=== PATIENT | female | born 1940 | race Caucasian/White ===

== ENCOUNTER 2021-04-14 16:41 | Emergency (ER) | payer MEDICARE, SELFPAY ==
--- NOTE | ~2021-04-14 | CT_ITS ---
EXAMINATION: CT ANGIOGRAM NECK AND HEAD CLINICAL INFORMATION: Dysarthria COMPARISON: Noncontrast head CT from earlier today TECHNIQUE: Test bolus sequences followed by intravenous administration 70 mL of Omnipaque 350. Helical imaging was performed in the axial plane from the thoracic inlet to the skull vertex. Delayed postcontrast imaging of the head was also performed. The data was processed at the manufacturing technologist's workstation for generation of MIP sequences. Angled MIPs and volume rendered reformatted images were also generated at an offline 3D workstation. Stenoses are assessed in accordance with NASCET criteria unless otherwise indicated. DOSE LOWERING TECHNIQUES: This CT examination was performed using dose optimization techniques as appropriate, variously including the following: - Automated exposure control - Adjustment of mA and/or kV according to patient size (this includes techniques or standardized protocols for targeted exams were dose is matched to indication/reason for exam; i.e. extremities or head) - Use of iterative reconstruction technique DLP: 1447 mGy-cm FINDINGS: Neck CTA: There is a classic 3 vessel branching pattern of the aortic arch. Normal appearance of the visualized aortic arch and proximal branches. No evidence of stenosis at the branch origins. Both vertebral arteries are widely patent throughout their extracranial cervical course, and the left vertebral artery is dominant. Normal appearance of the common and internal carotid arteries without focal stenosis. Brain CTA: Bilateral intradural vertebral arteries are opacified. The right vertebral artery appears to predominantly end in PICA. The basilar and superior cerebellar arteries are patent. There is origin of the bilateral posterior cerebral arteries which are opacified. Normal appearance of the intradural internal carotid arteries without focal stenosis. Normal appearance of the anterior cerebral and middle cerebral arteries without focal occlusion or stenosis. Normal anterior communicating artery. Normal arborization of the middle cerebral arteries. CT Head: No intracranial mass, hemorrhage, extra-axial collection, or midline shift. The arzola-white matter differentiation is preserved. There is mild periventricular white matter hypoattenuation consistent with chronic small vessel ischemic disease. No pathologic intra-axial enhancement or regional oligemia. No hydrocephalus. The mastoid air cells and paranasal sinuses remain well aerated. CT Neck: The cervical soft tissues are normal in appearance. There are scattered degenerative changes in the cervical spine with disc space narrowing and endplate osteophyte formation. Upper Chest: No abnormalities in the visualized lung apices or upper mediastinum. CT/CT angio head neck IMPRESSION: No hemodynamically significant stenosis in the major arteries of the neck. No large vessel occlusion or significant stenosis in the intracranial circulation.
--- NOTE | ~2021-04-14 | CT_ITS ---
EXAMINATION: CT HEAD WITHOUT CONTRAST CLINICAL INFORMATION: Transient ischemic attack, dysarthria. COMPARISON: None. TECHNIQUE: Contiguous axial imaging was performed from the skull base to vertex without intravenous administration of contrast. This CT examination was performed using dose optimization techniques as appropriate, variously including the following: *Automated exposure control *Adjustment of mA and/or kV according to patient size (this includes techniques or standardized protocols for targeted exams where dose is matched to indication/reason for exam; i.e. extremities or head) *Use of iterative reconstruction technique DLP: 593 mGy-cm FINDINGS: There is no evidence of acute intracranial hemorrhage or edematous territorial infarction. A few foci of hypoattenuation in the periventricular and deep white matter are consistent with mild microangiopathy. García-white matter differentiation is preserved. Proportional prominence of the ventricles and sulcal spaces. No evidence for obstructive hydrocephalus. No abnormal mass effect or midline shift. No extra-axial fluid collections. No acute soft tissue or osseous abnormalities. The mastoid air cells and paranasal sinuses are clear. CT/CT head/brain wo con IMPRESSION: No evidence of acute intracranial hemorrhage or edematous territorial infarction.
[2021-04-14 18:39] VITALS: PULSE 84; RESP 18; TEMP 36.6; O2SAT 98; BMI 24.0
--- NOTE | 2021-04-14 19:48 | ED_ITS ---
HPI - Neuro Symptoms/Deficit General Chief Complaint: Altered Mental Status Stated Complaint: loss of memory Time Seen by Provider: 04/14/21 19:34 Source: patient and family Mode of arrival: ambulatory Limitations: no limitations History of Present Illness HPI Narrative: Patient lives alone with no significant history of significant dementia noticed to be more confused since 04/09 night sending vague text messages to the family, daughter went to pick her up at 11:00 noticed at that time that she had difficulty in speaking and talking gibberish which lasted for 24 hours now it is getting better, daughter did not notice any focal weakness no fever no shortness of breath no cough no urinary complaints Related Data Allergies Allergy/AdvReac Type Severity Reaction Status Date / Time No Known Allergies Allergy Verified 04/14/21 19:48 Review of Systems Review of Systems: Yes all other systems are reviewed and are negative [facility] Social History Social History Alcohol intake: never Patient Tobacco Use Status: Former Tobacco user Use of substances other than those prescribed or required for medical reasons: No Advance Directives: No Physical Exam Vital Signs: Vital Signs: Last Vital Signs Temp 97.8 F 04/14/21 18:39 Pulse 86 04/14/21 23:56 Resp 18 04/14/21 23:56 BP 134/86 04/14/21 23:56 Pulse Ox 97 04/14/21 23:56 Body Mass Index 24.0 Appearance: Alert. Oriented X3. No acute distress. Eyes: PERRLA, No Nystagmus ENT: Pharynx normal. Oral Mucosa moist Neck: Normal inspection. Neck supple. CVS: Normal heart rate and rhythm. Pulses normal. Respiratory: No respiratory distress. Equal air entry bilateral, no wheezing/rales/rhonchi Abdomen: Soft and nontender. Bowel sounds are present, no mass palpable, no CVA tenderness Skin: Skin warm and dry. Normal skin color. Normal skin turgor. Extremities: No lower extremity edema. No calf tenderness Neuro: Oriented X 3. No motor deficit. No sensory deficit.No cerebellar signs , cranial nerves II-XII intact MDM - Neuro Symptoms/Deficit MDM Narrative Medical decision making narrative: Patient with history of transient dysarthria with history of anxiety CT head negative CTA head neck negative for any LVO patient likely had a TIA which resolved already taking aspirin advised to continue same and follow with neurologist Lab Data Attestation: I reviewed the patient's lab results. Result diagrams: 04/14/21 20:39 04/14/21 20:39 Labs: Lab Results 04/14/21 04/14/21 04/14/21 Range/Units 20:39 20:39 20:39 WBC 9.3 (4.8-10.8) X10*3/uL RBC 4.40 (4.20-5.50) X10*6/uL Hgb 13.2 (12.0-16.0) g/dl Hct 38.6 (37.0-47.0) % MCV 87.7 (80.0-98.0) fL MCH 30.0 (27.0-33.0) pg MCHC 34.2 (31.0-35.0) g/dl RDW 12.5 (11.0-16.0) % Plt Count 426 H (160-400) X10*3/uL MPV 9.4 (9.4-12.3) fL Immature Gran % (Auto) 0.5 H (0.0-0.4) % Neut % (Auto) 73.2 H (45-73) % Lymph % (Auto) 16.6 L (20-40) % Callahan % (Auto) 7.8 (2-11) % Eos % (Auto) 1.7 (0-4) % Baso % (Auto) 0.2 (0-2) % Lymph # (Auto) 1.6 (1.2-4.9) X10*3/uL [place] # (Auto) 0.7 (0.1-1.2) X10*3/uL Eos # (Auto) 0.2 (0.0-0.4) X10*3/uL Baso # (Auto) 0.0 (0.0-0.2) X10*3/uL Abs Immat Gran (auto) 0.05 H (0.00-0.03) X10*3/uL Absolute Neuts (auto) 6.8 (2.0-8.3) x10*3/uL Absolute Nucleated RBC 0.000 (0.0-0.012) X10*3/uL Nucleated RBC % (auto) 0.0 (0.0-0.2) /100WBC PT 13.1 H (9.9-13.0) SEC INR 1.2 H (0.9-1.1) Sodium 137 (135-145) mmol/L Potassium 3.3 (3.3-5.1) mmol/L Chloride 101 (96-108) mmol/L Carbon Dioxide 27 (22-29) mmol/L Anion Gap 12 (12-20) BUN 14 (9-16) mg/dL Creatinine 0.77 (0.5-1.4) mg/dL Estim Creat Clear Calc 50.2 Estimated GFR > 60 Random Glucose 121 H (60-115) mg/dL Calcium 8.9 (8.4-10.2) mg/dL Magnesium 2.0 (1.6-2.6) mg/dL Total Bilirubin 0.6 (0.0-1.0) mg/dL AST 25 (5-31) U/L ALT 25 (0-31) U/L Alkaline Phosphatase 64 (39-117) U/L Total Protein 6.0 L (6.5-8.0) g/dL Albumin 3.7 (3.5-5.0) g/dL Urine Color Urine Appearance Urine pH (5.0-8.0) Ur Specific [place] (1.005-1.025) Urine Protein (NEG-TRACE) MG/DL Urine Glucose (UA) (NEG) MG/DL Urine Ketones (NEG) MG/DL Urine Blood (NEG) Urine Nitrite (NEG) Ur Leukocyte Esterase (NEG) Urine RBC (0) /HPF Urine WBC (0-4) /HPF Ur Squamous Epith Cells /LPF Amorphous Sediment /LPF Urine Bacteria /LPF 04/14/21 Range/Units 22:52 WBC (4.8-10.8) X10*3/uL RBC (4.20-5.50) X10*6/uL Hgb (12.0-16.0) g/dl Hct (37.0-47.0) % MCV (80.0-98.0) fL MCH (27.0-33.0) pg MCHC (31.0-35.0) g/dl RDW (11.0-16.0) % Plt Count (160-400) X10*3/uL MPV (9.4-12.3) fL Immature Gran % (Auto) (0.0-0.4) % Neut % (Auto) (45-73) % Lymph % (Auto) (20-40) % [place]ahan % (Auto) (2-11) % Eos % (Auto) (0-4) % Baso % (Auto) (0-2) % Lymph # (Auto) (1.2-4.9) X10*3/uL [place] # (Auto) (0.1-1.2) X10*3/uL Eos # (Auto) (0.0-0.4) X10*3/uL Baso # (Auto) (0.0-0.2) X10*3/uL Abs Immat Gran (auto) (0.00-0.03) X10*3/uL Absolute Neuts (auto) (2.0-8.3) x10*3/uL Absolute Nucleated RBC (0.0-0.012) X10*3/uL Nucleated RBC % (auto) (0.0-0.2) /100WBC PT (9.9-13.0) SEC INR (0.9-1.1) Sodium (135-145) mmol/L Potassium (3.3-5.1) mmol/L Chloride (96-108) mmol/L Carbon Dioxide (22-29) mmol/L Anion Gap (12-20) BUN (9-16) mg/dL Creatinine (0.5-1.4) mg/dL Estim Creat Clear Calc Estimated GFR Random Glucose (60-115) mg/dL Calcium (8.4-10.2) mg/dL Magnesium (1.6-2.6) mg/dL Total Bilirubin (0.0-1.0) mg/dL AST (5-31) U/L ALT (0-31) U/L Alkaline Phosphatase (39-117) U/L Total Protein (6.5-8.0) g/dL Albumin (3.5-5.0) g/dL Urine Color YELLOW Urine Appearance CLEAR Urine pH 7.5 (5.0-8.0) Ur Specific [place] 1.010 (1.005-1.025) Urine Protein NEG (NEG-TRACE) MG/DL Urine Glucose (UA) NEG (NEG) MG/DL Urine Ketones NEG (NEG) MG/DL Urine Blood 2+ H (NEG) Urine Nitrite NEG (NEG) Ur Leukocyte Esterase 1+ H (NEG) Urine RBC 0-2 (0) /HPF Urine WBC 0-2 (0-4) /HPF Ur Squamous Epith Cells TRACE /LPF Amorphous Sediment 2+ /LPF Urine Bacteria TRACE /LPF ECG Data Attestation: I personally reviewed and interpreted this ECG as follows: Interpretation: Normal sinus rhythm heart rate 86 beats per minute normal interval, normal axis no acute EKG changes no acute ischemic NIH Stroke Scale Internal: Initial- Upon Arrival Level of Consciousness: Alert Level of Consciousness Questions: Answers both questions correctly Level of Consciousness Commands: Performs both tasks correctly Best Gaze: Normal Visual: No visual loss Facial Palsy: Normal Motor Arm (Right): No drift Motor Arm (Left): No drift Motor Leg (Right): No drift Motor Leg (Left): No drift Limb Ataxia: Absent Sensory: Normal Best Language: No aphasia Dysarthia: Normal Extinction and Inattention: No abnormality Score: 0 Critical Care Time Critical Care Time Critical Care Time: Yes Total Critical Care Time: 35 Attestation: I spent 35 minutes of critical care, with interventions, assessments, speaking to patient, consultants, and family. Discharge Plan Discharge Clinical Impression: TIA (transient ischemic attack) Patient Disposition: Home, Self-Care Instructions: Transient Ischemic Attack (ED) Additional Instructions: You Likely had a small stroke which has been resolved Continue to take baby aspirin daily Follow-up with neurologist Referrals: Bladimir Arrington MD [Physician] - 1 week
--- NOTE | 2021-04-14 19:49 | ECG_ITS ---
Test Reason : AMS Blood Pressure : / mmHG Vent. Rate : 086 BPM Atrial Rate : 086 BPM P-R Int : 198 ms QRS Dur : 090 ms QT Int : 364 ms P-R-T Axes : 043 -01 058 degrees QTc Int : 435 ms Normal sinus rhythm Intra-ventricular conduction delay Left axis deviation Borderline ECG No previous ECGs available Referred By: Edilberto Melo Electronically Signed By:KENNY TRUJILLO MD
[2021-04-14 20:43] LABS: MANUAL DIFF FLAG NO
[2021-04-14 20:52] LABS: Basophils Percent Auto 0.2 % (0-2); Eosinophils Absolute Auto 0.2 X10*3/uL (0.0-0.4); Eosinophils Percent Auto 1.7 % (0-4); Hematocrit 38.6 % (37.0-47.0); Hemoglobin 13.2 g/dl (12.0-16.0); Imm Gran Abs Auto 0.05 X10*3/uL (0.00-0.03); Imm Gran Pct Auto 0.5 % (0.0-0.4); Lymphocytes Absolute Auto 1.6 X10*3/uL (1.2-4.9); Lymphocytes Percent Auto 16.6 % (20-40); Mean Corpuscular HGB Conc 34.2 g/dl (31.0-35.0); Mean Corpuscular Volume 87.7 fL (80.0-98.0); Mean Platelet Volume 9.4 fL (9.4-12.3); Monocytes Absolute Auto 0.7 X10*3/uL (0.1-1.2); Monocytes Percent Auto 7.8 % (2-11); Neutrophils Absolute Auto 6.8 x10*3/uL (2.0-8.3); Neutrophils Percent Auto 73.2 % (45-73); Platelet Count 426 X10*3/uL (160-400); Red Cell Distribution Width 12.5 % (11.0-16.0); White Blood Count 9.3 X10*3/uL (4.8-10.8)
[2021-04-14 20:53] LABS: INTERNATIONAL NORM RATIO 1.2 (0.9-1.1); Prothrombin Time 13.1 SEC (9.9-13.0)
[2021-04-14 21:05] LABS: Alanine Aminotransferase 25 U/L (0-31); Albumin Level 3.7 g/dL (3.5-5.0); Alkaline Phosphatase 64 U/L (39-117); Anion Gap 12 (12-20); Aspartate Amino Transferase 25 U/L (5-31); Bilirubin Total 0.6 mg/dL (0.0-1.0); Blood Urea Nitrogen 14 mg/dL (9-16); Calcium 8.9 mg/dL (8.4-10.2); Carbon Dioxide 27 mmol/L (22-29); Chloride 101 mmol/L (96-108); Creatinine Clr Calc Pharmacy 50.2; Estimated Glomerular Filt Rate > 60; Glucose Random 121 mg/dL (60-115); Potassium 3.3 mmol/L (3.3-5.1); Sodium 137 mmol/L (135-145)
[2021-04-14 21:47] VITALS: BP 134/76; PULSE 73; RESP 15
[2021-04-14] MEDS: Aspirin 81 MG TAB.CHEW 162 MG PO (21:52)
[2021-04-14] MEDS: iohexoL 350 MG/ML 100 ML INFUS..BTL IV (22:45)
[2021-04-14 22:48] VITALS: PULSE 70; RESP 14
[2021-04-14] MEDS: 0.9 % Sodium Chloride 1,000 ML 999 ML IVCONT (22:51)
[2021-04-14 23:02] LABS: Appearance Urine CLEAR; Color Urine YELLOW; Glucose Urine UA NEG (NEG); Leukocyte Esterase Urine 1+ (NEG); Nitrite Urine NEG (NEG); PH 7.5 (5.0-8.0); UACC Culture Trigger YES; Urine Blood 2+ (NEG); Urine Ketones NEG (NEG); Urine Protein NEG (NEG-TRACE)
[2021-04-14 23:08] LABS: Amorphous Sediment Urine 2+ /LPF; Bacteria Urine TRACE /LPF; RBC Urine 0-2 /HPF (0); Squamous Epithelial Cell Urine TRACE /LPF; WBC Urine 0-2 /HPF (0-4)
[2021-04-14 23:56] VITALS: BP 134/86; PULSE 86; RESP 18; O2SAT 97
--- NOTE | 2021-04-14 23:58 | PC.NURSE ---
Pt alert and oriented x4, calm and cooperative. Pt talking in complete sentences without issues. Pt ambulating without issues, steady on her feet. Pt denies pain. IV removed. Vitals stable. Pt escorted to car by security per patient request. Pt with family memebr.
== END 2021-04-15 00:11 | disposition home or self-care (01) ==
PROVIDERS: Emergency Provider Internal Medicine; PCP Family Medicine
DX: G45.9 Transient cerebral ischemic attack, unspecified (principal); F03.90 Unspecified dementia, unspecified severity, without behavioral disturbance, psychotic disturbance, mood disturbance, and anxiety
CPT/HCPCS: 36415; 70450; 70496; 70498; 80053; 81001; 81003; 83735; 85025; 85610; 87086; 93005; 96360; 99284; 99291; Q9967

== ENCOUNTER 2021-04-17 06:41 | Emergency (ER) | payer MEDICARE, SELFPAY ==
--- NOTE | ~2021-04-17 | MR_ITS ---
EXAMINATION: MR BRAIN WITHOUT CONTRAST. CLINICAL INFORMATION: 80-year-old with dizziness. Recent TIA. COMPARISON: CT brain of 04/14/2021 TECHNIQUE: Multiplanar multisequence MR imaging of the brain was done without IV contrast. FINDINGS: Brain Volume: Verq-aq-bemqkjqo generalized diffuse brain parenchymal volume loss. Structural: No malformations. Brain and Meninges: DWI sequence demonstrates no restricted diffusion. Specifically, there is no evidence for acute or subacute cerebral ischemia/infarct. There are patchy zones of FLAIR/T2 signal hyperintensity within the subcortical and deeper white matter of both cerebral hemispheres, which are nonspecific findings but likely reflect zones of chronic ischemic microangiopathy in a patient of this age. Band-like T2 hyperintensity is seen along the deep surface of the splenium of the corpus callosum which is likely of chronic ischemic origin. There is mild bilateral periventricular leukoariosis, likely age-related. There is no evidence for extra-axial fluid collection, hemorrhage, hemosiderin staining or abnormal mineral deposition. No space-occupying process or mass effect. Ventricles and Subarachnoid Spaces: The ventricular system and subarachnoid spaces are consistent with esfr-sm-ugegfaem volume loss without hydrocephalus. Orbital Structures: The visualized orbital structures are grossly unremarkable within the limitations of the study. Vascular: Signal voids are noted in the visualized major intracranial vessels. Sinuses and Osseous Structures: Minor mucosal thickening in the ethmoid complex with mild nasal septal deviation to the left. Osseous marrow signal intensity appears grossly unremarkable. MR/MR head/brain wo con IMPRESSION: 1. 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 2. No evidence for hemorrhage, extra-axial fluid collection, space-occupying process, mass effect or hydrocephalus. 3. Tokl-ar-hvhocraf generalized diffuse brain parenchymal volume loss.
--- NOTE | 2021-04-17 06:59 | ED.NAVMDI ---
HPI - Nausea/Vomiting/Diarrhea General Chief complaint: General Medical Stated complaint: nausea Time Seen by Provider: 04/17/21 06:58 Source: patient Mode of arrival: EMS Limitations: no limitations History of Present Illness HPI Narrative: patient was here 3 days ago which was 3 days after she had aphasia. She had a negative CT and negative CTA. Patient got up this morning felt off balance and head was foggy. Patient then developed nausea. She now feels better. Patient states that the room was not spinning. The entire event lasted 2 minutes. MD elicited complaint: nausea Onset (ago): minute(s) Associated nausea: Yes Associated abdominal pain: No Location of pain: none Severity: mild Related Data Allergies Allergy/AdvReac Type Severity Reaction Status Date / Time No Known Allergies Allergy Verified 04/14/21 19:48 Review of Systems Constitutional: Constitutional: Reports no additional constitutional complaints Eyes: Eyes: Reports no additional eye complaints ENT: Denies dizziness Cardiovascular: Cardiovascular: Reports no additional cardiovascular complaints Respiratory: Respiratory: Reports as per HPI Gastrointestinal: Gastrointestinal: Reports nausea Genitourinary: Genitourinary: Reports no additional female genitourinary complaints Musculoskeletal: Musculoskeletal: Reports no additional musculoskeletal complaints Integumentary/Breasts: Skin/Breast: Denies rash Neurologic: Reports system reviewed and no additional complaints, except as documented, Denies dizziness and Denies Sensory deficit (Neuro) Psychiatric: Psychiatric: Denies anxiety [facility] Social History Social History Alcohol intake: never Patient Tobacco Use Status: Former Tobacco user Advance Directives: Yes Advance Directives Information Provided: No Advance Directives on File: No Physical Exam Vital Signs: Vital Signs: Last Vital Signs Temp 98.1 F 04/17/21 12:15 Pulse 68 04/17/21 12:15 Resp 16 04/17/21 12:15 BP 129/67 04/17/21 12:15 Pulse Ox 92 04/17/21 12:15 BMI result Body Mass Index 22.1 Const: Other: frail and thin General: healthy appearing Nutritional Appearance: thin Orientation/consciousness: oriented to person and patient oriented x3 Limitations: no limitations HENMT: Head: Yes normal to inspection Ears: external ears normal General nose exam: Normal external nose present Mouth: Normal oral and palatal mucosa present and oropharynx normal Throat: Yes posterior oropharynx normal Eyes: General: appearance normal, both eyes and all related structures Neck: Other: supple Neck: Yes normal visual inspection Chest: Chest palpation & inspection: normal inspection of the chest Resp: Auscultation: clear to auscultation bilaterally Cardio: Jugular venous distension: no JVD Rate: regular rate Rhythm: regular rhythm Heart sounds: S1 normal heart sound present and S2 normal heart sound present GI: Inspection: Yes normal to inspection Palpation (GI): Soft to palpation, nontender and No hepatosplenomegaly present Auscultation: normal bowel sounds : General: Yes no CVA tenderness Back/Spine/Pelvis: Back: no CVA tenderness Skin: General skin exam: no rashes or lesions noted Neuro: General: oriented to person and patient oriented x3 Cranial nerves: Yes CN's II-XII intact bilaterally Motor exam (neuro): 5/5 motor strength present throughout Sensory Exam: No Sensory deficit (Neuro) Extrem: General: Yes normal to inspection Psych: Appearance: grossly normal NIH Stroke Scale Level of Consciousness: Alert Level of Consciousness Questions: Answers both questions correctly Level of Consciousness Commands: Performs both tasks correctly Best Gaze: Normal Visual: No visual loss Facial Palsy: Normal Motor Arm (Right): No drift Motor Arm (Left): No drift Motor Leg (Right): No drift Motor Leg (Left): No drift Limb Ataxia: Absent Sensory: Normal Best Language: No aphasia Dysarthia: Normal Extinction and Inattention: No abnormality Score: 0 Course Reevaluation(s) Reevaluation #1: patient with an episode of dizziness, no evidence of posterior infarction or subacute infarction, will dc home Time: 12:46 MDM - Nausea/Vomiting/Diarrhea Lab Data Result diagrams: 04/17/21 07:41 04/17/21 07:41 Labs: Lab Results 04/17/21 04/17/21 04/17/21 Range/Units 07:37 07:41 07:41 WBC 9.5 (4.8-10.8) X10*3/uL RBC 5.01 (4.20-5.50) X10*6/uL Hgb 14.8 (12.0-16.0) g/dl Hct 43.8 (37.0-47.0) % MCV 87.4 (80.0-98.0) fL MCH 29.5 (27.0-33.0) pg MCHC 33.8 (31.0-35.0) g/dl RDW 12.5 (11.0-16.0) % Plt Count 552 H D (160-400) X10*3/uL MPV 9.2 L (9.4-12.3) fL Immature Gran % (Auto) 1.2 H (0.0-0.4) % Neut % (Auto) 77.2 H (45-73) % Lymph % (Auto) 13.1 L (20-40) % [place] % (Auto) 6.1 (2-11) % Eos % (Auto) 2.0 (0-4) % Baso % (Auto) 0.4 (0-2) % Lymph # (Auto) 1.3 (1.2-4.9) X10*3/uL [place] # (Auto) 0.6 (0.1-1.2) X10*3/uL Eos # (Auto) 0.2 (0.0-0.4) X10*3/uL Baso # (Auto) 0.0 (0.0-0.2) X10*3/uL Abs Immat Gran (auto) 0.11 H (0.00-0.03) X10*3/uL Absolute Neuts (auto) 7.4 (2.0-8.3) x10*3/uL Absolute Nucleated RBC 0.000 (0.0-0.012) X10*3/uL Nucleated RBC % (auto) 0.0 (0.0-0.2) /100WBC Sodium 137 (135-145) mmol/L Potassium 4.1 D (3.3-5.1) mmol/L Chloride 101 (96-108) mmol/L Carbon Dioxide 27 (22-29) mmol/L Anion Gap 13 (12-20) BUN 10 (9-16) mg/dL Creatinine 0.81 (0.5-1.4) mg/dL Estim Creat Clear Calc 45.8 Estimated GFR > 60 Random Glucose 103 (60-115) mg/dL Calcium 9.5 D (8.4-10.2) mg/dL Troponin I High Sens (<3.5-17.0) ng/L Urine Color YELLOW Urine Appearance HAZY Urine pH 7.5 (5.0-8.0) Ur Specific [place] 1.010 (1.005-1.025) Urine Protein NEG (NEG-TRACE) MG/DL Urine Glucose (UA) NEG (NEG) MG/DL Urine Ketones NEG (NEG) MG/DL Urine Blood 1+ H (NEG) Urine Nitrite NEG (NEG) Ur Leukocyte Esterase NEG (NEG) Urine RBC 1-4 (0) /HPF Urine WBC 0 (0-4) /HPF Ur Squamous Epith Cells NONE /LPF Amorphous Sediment 3+ /LPF Urine Bacteria NONE /LPF 04/17/21 Range/Units 07:41 WBC (4.8-10.8) X10*3/uL RBC (4.20-5.50) X10*6/uL Hgb (12.0-16.0) g/dl Hct (37.0-47.0) % MCV (80.0-98.0) fL MCH (27.0-33.0) pg MCHC (31.0-35.0) g/dl RDW (11.0-16.0) % Plt Count (160-400) X10*3/uL MPV (9.4-12.3) fL Immature Gran % (Auto) (0.0-0.4) % Neut % (Auto) (45-73) % Lymph % (Auto) (20-40) % [place] % (Auto) (2-11) % Eos % (Auto) (0-4) % Baso % (Auto) (0-2) % Lymph # (Auto) (1.2-4.9) X10*3/uL [place] # (Auto) (0.1-1.2) X10*3/uL Eos # (Auto) (0.0-0.4) X10*3/uL Baso # (Auto) (0.0-0.2) X10*3/uL Abs Immat Gran (auto) (0.00-0.03) X10*3/uL Absolute Neuts (auto) (2.0-8.3) x10*3/uL Absolute Nucleated RBC (0.0-0.012) X10*3/uL Nucleated RBC % (auto) (0.0-0.2) /100WBC Sodium (135-145) mmol/L Potassium (3.3-5.1) mmol/L Chloride (96-108) mmol/L Carbon Dioxide (22-29) mmol/L Anion Gap (12-20) BUN (9-16) mg/dL Creatinine (0.5-1.4) mg/dL Estim Creat Clear Calc Estimated GFR Random Glucose (60-115) mg/dL Calcium (8.4-10.2) mg/dL Troponin I High Sens < 3.5 (<3.5-17.0) ng/L Urine Color Urine Appearance Urine pH (5.0-8.0) Ur Specific [place] (1.005-1.025) Urine Protein (NEG-TRACE) MG/DL Urine Glucose (UA) (NEG) MG/DL Urine Ketones (NEG) MG/DL Urine Blood (NEG) Urine Nitrite (NEG) Ur Leukocyte Esterase (NEG) Urine RBC (0) /HPF Urine WBC (0-4) /HPF Ur Squamous Epith Cells /LPF Amorphous Sediment /LPF Urine Bacteria /LPF Imaging Data MRI - head: Radiologist's impression: IMPRESSION: 1. 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 ? 2. No evidence for hemorrhage, extra-axial fluid collection, space-occupying process, mass effect or hydrocephalus. ? 3. Tepe-tw-blierici generalized diffuse brain parenchymal volume loss. ? ? Discharge Plan Discharge Clinical Impression: Dizziness Patient Disposition: Home, Self-Care Instructions: Dizziness (ED) Referrals: Samaria Francis MD [Primary Care Provider] - 1 week
[2021-04-17 07:04] VITALS: BP 158/90; BP 161/84; PULSE 82; PULSE 90; RESP 18; TEMP 37.2; O2SAT 100; O2SAT 98; BMI 22.1
--- NOTE | 2021-04-17 07:06 | ECG_ITS ---
Test Reason : nausea Blood Pressure : / mmHG Vent. Rate : 090 BPM Atrial Rate : 090 BPM P-R Int : 174 ms QRS Dur : 086 ms QT Int : 348 ms P-R-T Axes : 024 -19 043 degrees QTc Int : 425 ms Normal sinus rhythm Non-specific intra-ventricular conduction block Otherwise normal ECG When compared with ECG of 14-APR-2021 20:31, No significant change was found Referred By: Shon Jasso Electronically Signed By:USAMA PERRY
--- NOTE | 2021-04-17 07:08 | PC.NURSE ---
EMS report pt had nausea. pt able to speak in full sentence and is a&o. no sign of distress at this time. Report given to on coming Rn.
[2021-04-17 07:56] LABS: MANUAL DIFF FLAG NO
[2021-04-17 07:58] LABS: Basophils Percent Auto 0.4 % (0-2); Eosinophils Absolute Auto 0.2 X10*3/uL (0.0-0.4); Hematocrit 43.8 % (37.0-47.0); Hemoglobin 14.8 g/dl (12.0-16.0); Imm Gran Abs Auto 0.11 X10*3/uL (0.00-0.03); Imm Gran Pct Auto 1.2 % (0.0-0.4); Lymphocytes Absolute Auto 1.3 X10*3/uL (1.2-4.9); Lymphocytes Percent Auto 13.1 % (20-40); Mean Corpuscular HGB Conc 33.8 g/dl (31.0-35.0); Mean Corpuscular Hemoglobin 29.5 pg (27.0-33.0); Mean Corpuscular Volume 87.4 fL (80.0-98.0); Mean Platelet Volume 9.2 fL (9.4-12.3); Monocytes Absolute Auto 0.6 X10*3/uL (0.1-1.2); Monocytes Percent Auto 6.1 % (2-11); Neutrophils Absolute Auto 7.4 x10*3/uL (2.0-8.3); Neutrophils Percent Auto 77.2 % (45-73); Platelet Count 552 X10*3/uL (160-400); Red Blood Count 5.01 X10*6/uL (4.20-5.50); Red Cell Distribution Width 12.5 % (11.0-16.0); White Blood Count 9.5 X10*3/uL (4.8-10.8)
[2021-04-17 08:01] LABS: Appearance Urine HAZY; Glucose Urine UA NEG (NEG); Leukocyte Esterase Urine NEG (NEG); Nitrite Urine NEG (NEG); PH 7.5 (5.0-8.0); UACC Culture Trigger NO; Urine Blood 1+ (NEG); Urine Ketones NEG (NEG); Urine Protein NEG (NEG-TRACE)
[2021-04-17 08:03] LABS: Color Urine YELLOW
[2021-04-17 08:14] LABS: Amorphous Sediment Urine 3+ /LPF
[2021-04-17 08:15] LABS: WBC Urine 0 /HPF (0-4)
[2021-04-17 08:18] LABS: Anion Gap 13 (12-20); Blood Urea Nitrogen 10 mg/dL (9-16); Calcium 9.5 mg/dL (8.4-10.2); Carbon Dioxide 27 mmol/L (22-29); Chloride 101 mmol/L (96-108); Creatinine Clr Calc Pharmacy 45.8; Estimated Glomerular Filt Rate > 60; Glucose Random 103 mg/dL (60-115); Potassium 4.1 mmol/L (3.3-5.1); Sodium 137 mmol/L (135-145)
[2021-04-17 08:27] LABS: Troponin-I High Sensitivity < 3.5 ng/L (<3.5-17.0)
[2021-04-17 09:00] VITALS: BP 148/78; PULSE 77; RESP 14; TEMP 36.7; O2SAT 97
[2021-04-17] MEDS: LORazepam 1 MG TABLET PO (09:17)
[2021-04-17] MEDS: LORazepam 2 MG/ML VIAL 1 MG IVPUSH (10:54)
[2021-04-17 12:15] VITALS: BP 129/67; PULSE 68; RESP 16; TEMP 36.7; O2SAT 92
== END 2021-04-17 13:31 | disposition home or self-care (01) ==
PROVIDERS: Emergency Provider Emergency Medicine; PCP Family Medicine
DX: R47.01 Aphasia (principal); R11.2 Nausea with vomiting, unspecified; R42 Dizziness and giddiness; Z87.891 Personal history of nicotine dependence
CPT/HCPCS: 36415; 70551; 80048; 81001; 81003; 84484; 85025; 93005; 96374; 99284; 99285; J2060

== ENCOUNTER 2021-04-22 19:33 | Observation (INO) | payer MEDICARE, SELFPAY ==
[2021-04-22] VITALS (8 sets, daily range): BP systolic 102–155; BP diastolic 61–88; PULSE 70–87; RESP 18; TEMP 36.8; O2SAT 98–100; BMI 22.1
--- NOTE | ~2021-04-22 | CT_ITS ---
EXAMINATION: CT HEAD WITHOUT CONTRAST CLINICAL INFORMATION: Syncope COMPARISON: 04.14.2021 TECHNIQUE: Contiguous axial imaging was performed from the skull base to vertex without intravenous administration of contrast. This CT examination was performed using dose optimization techniques as appropriate, variously including the following: *Automated exposure control *Adjustment of mA and/or kV according to patient size (this includes techniques or standardized protocols for targeted exams where dose is matched to indication/reason for exam; i.e. extremities or head) *Use of iterative reconstruction technique DLP: 615 mGy-cm FINDINGS: There is no evidence of acute intracranial hemorrhage or territorial infarction. No abnormal mass effect or midline shift is seen. García to white matter differentiation is well preserved. No extra-axial fluid collections are identified. The ventricles are normal in size. Stable patchy subcortical and periventricular white matter low-attenuation changes statistically related to chronic microangiopathic gliosis. Cavernous carotid calcifications. The osseous structures and soft tissues are normal. The mastoid air cells and visualized portions of the paranasal sinuses are well aerated. CT/CT head/brain wo con IMPRESSION: No acute intracranial pathology.
--- NOTE | ~2021-04-22 | XR_ITS ---
EXAMINATION: XR chest 1V CLINICAL INFORMATION: Reason for Exam cp COMPARISON: Chest radiograph 11/17/2006 TECHNIQUE: One view of the chest XR/XR chest 1V FINDINGS/IMPRESSION: Calcified granuloma in the right lung apex. No pneumothorax. Small right pleural effusion. Normal cardiomediastinal silhouette.
--- NOTE | 2021-04-22 20:16 | ECG_ITS ---
Test Reason : DIZZINESS Blood Pressure : / mmHG Vent. Rate : 070 BPM Atrial Rate : 070 BPM P-R Int : 176 ms QRS Dur : 092 ms QT Int : 298 ms P-R-T Axes : 040 -16 100 degrees QTc Int : 321 ms Normal sinus rhythm Minimal voltage criteria for LVH, may be normal variant ( [place] product ) Nonspecific T wave abnormality Abnormal ECG When compared with ECG of 17-APR-2021 07:45, Nonspecific T wave abnormality, worse in Inferior leads Nonspecific T wave abnormality, worse in Anterolateral leads QT has shortened Referred By: Sindy Soriano Electronically Signed By:Jasvir Rubio
--- NOTE | 2021-04-22 20:19 | ED_ITS ---
HPI - Syncope General Chief Complaint: Syncope Stated Complaint: syncope fall Time Seen by Provider: 04/22/21 20:16 History of Present Illness HPI narrative: patient is an 80-year-old female had 2 episodes of Near- syncope today. The 1st episode patient was up at the time. Suddenly feel the room was spinning. [place] lightheaded. Went down to the ground. Patient denies any bloody stool. Denies any change in medication. Took about 4-5 minutes for her to recover. She sat down in a chair for about half an hour. A 2nd episode of near syncope occurred. Patient was trying to get up and felt very lightheaded. Had pressure in her chest. Feels short of breath. Subsequently recover upon sitting down. Patient had a episode of difficulty texting difficulty working with her hands approximately 2 weeks ago. At the time had a workup done. She does not have any history of diabetes. No history of [place]. Positive history of high blood pressure and high cholesterol. Patient is from home. She lives alone. Currently not on any blood thinners. Related Data Home Medications Medication Instructions Recorded Confirmed amlodipine 2.5 mg tablet 1 tab PO DAILY 04/22/21 04/22/21 aspirin 81 mg chewable tablet 81 mg PO DAILY 04/22/21 04/22/21 cetirizine 10 mg tablet 10 mg PO DAILY PRN 04/22/21 04/22/21 ezetimibe 10 mg tablet 1 tab PO BEDTIME 04/22/21 04/22/21 ketorolac 0.5 % eye drops 1 drp OPHTHALMIC (EYE) TID 04/22/21 04/22/21 levothyroxine 88 mcg tablet 1 tab PO DAILY@0600 04/22/21 04/22/21 (Synthroid) lorazepam 0.5 mg tablet 1 tab PO BID PRN 04/22/21 04/22/21 methyl salicylate-menthol topical 1 appl TOPICAL DAILY PRN 04/22/21 04/22/21 cream mirtazapine 15 mg tablet 1 tab PO BEDTIME 04/22/21 04/22/21 pravastatin 40 mg tablet 1 tab PO BEDTIME 04/22/21 04/22/21 sertraline 50 mg tablet 1 tab PO DAILY 04/22/21 04/22/21 trazodone 50 mg tablet 1 tab PO BEDTIME 04/22/21 04/22/21 triamterene 37.5 1 cap PO DAILY 04/22/21 04/22/21 mg-hydrochlorothiazide 25 mg capsule Allergies Allergy/AdvReac Type Severity Reaction Status Date / Time No Known Allergies Allergy Verified 04/14/21 19:48 Review of Systems Review of Systems: No fever no chills. positive chest pressure with the 2nd episode. Yes all other systems are reviewed and are negative [facility] Past Medical History Attestation statement: The following information was validated with the patient. Social History Social History Alcohol intake: never Patient Tobacco Use Status: Former Tobacco user Advance Directives: No Advance Directives Information Provided: No Physical Exam Vital Signs: Vital Signs: Last Vital Signs Temp 98.2 F 04/22/21 19:52 Pulse 79 04/22/21 23:54 Resp 18 04/22/21 19:52 BP 121/82 04/22/21 23:54 Pulse Ox 98 04/22/21 19:52 BMI result Body Mass Index 22.1 Appearance: Alert. Oriented X3. No acute distress. Eyes: Pupils equal, round and reactive to light. ENT: Pharynx normal. Neck: Normal inspection. Neck supple. No lymph nodes noted. No crepitus CVS: Normal heart rate and rhythm. Pulses normal. Normal S1 and S2 Respiratory: No respiratory distress. Breath sounds normal. No Wheezing. No rales Abdomen: Soft and nontender. No rigidity. No distention. good BS x4 Skin: Skin warm and dry. Normal skin color. Normal skin turgor. Extremities: No lower extremity edema. Neurovascular intact to all extremities. No Lacerations. No Rash Neuro: Oriented X 3. No motor deficit. No sensory deficit. Moving all extermities. No slurred speech MDM - Syncope MDM Narrative Medical decision making narrative: elevated white count at 17.7. Positive near syncopal episode x2. Will Admit for further evaluation. EKG showed a sinus pattern heart rate is 70 DE QRS QT within normal limits. There is nonspecific T-wave flattening noted. Lab Data Result diagrams: 04/22/21 20:44 04/22/21 20:44 Labs: Lab Results 04/22/21 04/22/21 04/22/21 Range/Units 20:44 20:44 20:44 WBC 17.7 H (4.8-10.8) X10*3/uL RBC 4.52 (4.20-5.50) X10*6/uL Hgb 13.5 (12.0-16.0) g/dl Hct 39.1 (37.0-47.0) % MCV 86.5 (80.0-98.0) fL MCH 29.9 (27.0-33.0) pg MCHC 34.5 (31.0-35.0) g/dl RDW 12.9 (11.0-16.0) % Plt Count 536 H (160-400) X10*3/uL MPV 9.3 L (9.4-12.3) fL Immature Gran % (Auto) 0.9 H (0.0-0.4) % Neut % (Auto) 87.5 H (45-73) % Lymph % (Auto) 6.7 L (20-40) % [place] % (Auto) 4.2 (2-11) % Eos % (Auto) 0.4 (0-4) % Baso % (Auto) 0.3 (0-2) % Lymph # (Auto) 1.2 (1.2-4.9) X10*3/uL [place] # (Auto) 0.8 (0.1-1.2) X10*3/uL Eos # (Auto) 0.1 (0.0-0.4) X10*3/uL Baso # (Auto) 0.1 (0.0-0.2) X10*3/uL Abs Immat Gran (auto) 0.16 H (0.00-0.03) X10*3/uL Absolute Neuts (auto) 15.4 H (2.0-8.3) x10*3/uL Absolute Nucleated RBC 0.000 (0.0-0.012) X10*3/uL Nucleated RBC % (auto) 0.0 (0.0-0.2) /100WBC Sodium 136 (135-145) mmol/L Potassium 3.8 (3.3-5.1) mmol/L Chloride 101 (96-108) mmol/L Carbon Dioxide 24 (22-29) mmol/L Anion Gap 15 (12-20) BUN 16 D (9-16) mg/dL Creatinine 0.84 (0.5-1.4) mg/dL Estim Creat Clear Calc 44.1 Estimated GFR > 60 Random Glucose 140 H (60-115) mg/dL Calcium 9.1 (8.4-10.2) mg/dL Troponin I High Sens < 3.5 (<3.5-17.0) ng/L COVID-19 (LONG) (Negative) COVID-19 Clin Com 04/22/21 Range/Units 20:44 WBC (4.8-10.8) X10*3/uL RBC (4.20-5.50) X10*6/uL Hgb (12.0-16.0) g/dl Hct (37.0-47.0) % MCV (80.0-98.0) fL MCH (27.0-33.0) pg MCHC (31.0-35.0) g/dl RDW (11.0-16.0) % Plt Count (160-400) X10*3/uL MPV (9.4-12.3) fL Immature Gran % (Auto) (0.0-0.4) % Neut % (Auto) (45-73) % Lymph % (Auto) (20-40) % [place] % (Auto) (2-11) % Eos % (Auto) (0-4) % Baso % (Auto) (0-2) % Lymph # (Auto) (1.2-4.9) X10*3/uL [place] # (Auto) (0.1-1.2) X10*3/uL Eos # (Auto) (0.0-0.4) X10*3/uL Baso # (Auto) (0.0-0.2) X10*3/uL Abs Immat Gran (auto) (0.00-0.03) X10*3/uL Absolute Neuts (auto) (2.0-8.3) x10*3/uL Absolute Nucleated RBC (0.0-0.012) X10*3/uL Nucleated RBC % (auto) (0.0-0.2) /100WBC Sodium (135-145) mmol/L Potassium (3.3-5.1) mmol/L Chloride (96-108) mmol/L Carbon Dioxide (22-29) mmol/L Anion Gap (12-20) BUN (9-16) mg/dL Creatinine (0.5-1.4) mg/dL Estim Creat Clear Calc Estimated GFR Random Glucose (60-115) mg/dL Calcium (8.4-10.2) mg/dL Troponin I High Sens (<3.5-17.0) ng/L COVID-19 (LONG) Negative (Negative) COVID-19 Clin Com See Note Discharge Plan Discharge Clinical Impression: Near syncope Patient Disposition: Admitted As Inpatient
[2021-04-22] MEDS: Aspirin 81 MG TAB.CHEW 324 MG PO (20:29)
[2021-04-22 20:52] LABS: MANUAL DIFF FLAG NO
[2021-04-22 20:53] LABS: Basophils Absolute Auto 0.1 X10*3/uL (0.0-0.2); Basophils Percent Auto 0.3 % (0-2); Eosinophils Absolute Auto 0.1 X10*3/uL (0.0-0.4); Eosinophils Percent Auto 0.4 % (0-4); Hematocrit 39.1 % (37.0-47.0); Hemoglobin 13.5 g/dl (12.0-16.0); Imm Gran Abs Auto 0.16 X10*3/uL (0.00-0.03); Imm Gran Pct Auto 0.9 % (0.0-0.4); Lymphocytes Absolute Auto 1.2 X10*3/uL (1.2-4.9); Lymphocytes Percent Auto 6.7 % (20-40); Mean Corpuscular HGB Conc 34.5 g/dl (31.0-35.0); Mean Corpuscular Hemoglobin 29.9 pg (27.0-33.0); Mean Corpuscular Volume 86.5 fL (80.0-98.0); Mean Platelet Volume 9.3 fL (9.4-12.3); Monocytes Absolute Auto 0.8 X10*3/uL (0.1-1.2); Monocytes Percent Auto 4.2 % (2-11); Neutrophils Absolute Auto 15.4 x10*3/uL (2.0-8.3); Neutrophils Percent Auto 87.5 % (45-73); Platelet Count 536 X10*3/uL (160-400); Red Blood Count 4.52 X10*6/uL (4.20-5.50); Red Cell Distribution Width 12.9 % (11.0-16.0); White Blood Count 17.7 X10*3/uL (4.8-10.8)
[2021-04-22 21:05] LABS: Anion Gap 15 (12-20); Blood Urea Nitrogen 16 mg/dL (9-16); Calcium 9.1 mg/dL (8.4-10.2); Carbon Dioxide 24 mmol/L (22-29); Chloride 101 mmol/L (96-108); Creatinine Clr Calc Pharmacy 44.1; Estimated Glomerular Filt Rate > 60; Glucose Random 140 mg/dL (60-115); Potassium 3.8 mmol/L (3.3-5.1); Sodium 136 mmol/L (135-145)
[2021-04-22 21:07] LABS: COVID-19 Test Negative (Negative)
[2021-04-22 21:12] LABS: Troponin-I High Sensitivity < 3.5 ng/L (<3.5-17.0)
--- NOTE | 2021-04-22 22:06 | P.HPHOSP_ITS ---
History of Present Illness Date of Service: 04/22/21 Chief Complaint: dizziness 80-year-old female with a past medical history of hypertension, hyperlipidemia, anxiety, insomnia, recent admission to the hospital for TIA with MRI showing no acute ischemia; presented to the hospital today with a chief complaint of dizziness. Patient reported this morning she stood up and suddenly felt dizziness, room spinning; symptom lasted for few minutes; followed by she had a fall, denies any head strike or loss of consciousness. Landed to the front. About 45 minutes later patient mentioned that she I can not felt, not feeling well, followed by had an episode of chest pressure, nonradiating, then fell dizziness and followed by had an episode of vomiting. Subsequently decided to call the EMS and presented to the ER for further evaluation. At the time of my entry patient denies any chest pain or dizziness. Denies any fever chills cough. Denies any GI or symptoms. ER course: Per ER team patient had EKG which showed no signs of ischemia; labs essentially benign; admitted to the hospital for further management. [facility] Pertinent family history: reviewed Social History Alcohol intake: never Patient Tobacco Use Status: Former Tobacco user Advance Directives: No Advance Directives Information Provided: No Meds Allergies Allergy/AdvReac Type Severity Reaction Status Date / Time No Known Allergies Allergy Verified 04/14/21 19:48 Active Medications: Current Medications Acetaminophen (Acetaminophen 325 Mg Tablet) 650 mg PO Q6H PRN PRN Reason: Pain, Mild (Pain Scale 1-3) Melatonin (Melatonin 3 Mg Tablet) 6 mg PO BEDTIME PRN PRN Reason: Insomnia Pharmacy Consult (Consult Rx Perform Med Rec) 1 each MISCELLANE ONCE PRN PRN Reason: Consult order Senna (Sennosides 8.6 Mg Tablet) 17.2 mg PO BEDTIME PRN PRN Reason: Constipation Sodium Chloride (0.9 % Sodium Chloride Flush 3 Ml Syringe) 3 ml IVFLUSH [facility] Home Medications Medication Instructions Recorded Confirmed Last Taken Type amlodipine 2.5 mg tablet 1 tab PO DAILY 04/22/21 Unknown History aspirin 81 mg chewable tablet 81 mg PO DAILY 04/22/21 04/22/21 04/22/21 History cetirizine 10 mg tablet 10 mg PO DAILY PRN 04/22/21 04/22/21 04/22/21 History ezetimibe 10 mg tablet 1 tab PO DAILY 04/22/21 Unknown History ketorolac 0.5 % eye drops drp 04/22/21 Unknown History levothyroxine 88 mcg tablet 1 tab PO DAILY 04/22/21 Unknown History (Synthroid) lorazepam 0.5 mg tablet 1 tab PO BID PRN 04/22/21 Unknown History methyl salicylate-menthol topical 1 appl TOPICAL DAILY PRN 04/22/21 04/22/21 Unknown History cream mirtazapine 15 mg tablet 1 tab PO BEDTIME 04/22/21 Unknown History pravastatin 40 mg tablet 1 tab PO DAILY 04/22/21 Unknown History sertraline 50 mg tablet 1 tab PO DAILY 04/22/21 Unknown History trazodone 50 mg tablet 1 tab PO BEDTIME 04/22/21 Unknown History triamterene 37.5 1 cap PO DAILY 04/22/21 Unknown History mg-hydrochlorothiazide 25 mg capsule Physical Exam Vital Signs and Narrative: Vital Signs: Last Vital Signs Temp 98.2 F 04/22/21 19:52 Pulse 83 04/22/21 21:18 Resp 18 04/22/21 19:52 BP 102/71 04/22/21 21:18 Pulse Ox 98 04/22/21 19:52 BMI result Body Mass Index 22.1 Gen: Appears be in no acute distress HEENT: NCAT, Moist mucosa. Pulmonary: Vesicular breath sounds, fair air entry CVS: Normal S1-S2 Abdomen: BS+, Soft, Nontender Extremities: Warm well perfused Neuro: Alert and awake. grossly nonfocal. [id number] and [id number] test within normal limits Results Labs CBC and Chem 7: 04/22/21 20:44 04/22/21 20:44 Labs: Laboratory Results - last 24 hr 04/22/21 04/22/21 04/22/21 20:44 20:44 20:44 MCV 86.5 MCH 29.9 MCHC 34.5 RDW 12.9 Plt Count 536 H MPV 9.3 L Immature Gran % (Auto) 0.9 H Neut % (Auto) 87.5 H Lymph % (Auto) 6.7 L [place] % (Auto) 4.2 Eos % (Auto) 0.4 Baso % (Auto) 0.3 Lymph # (Auto) 1.2 [place] # (Auto) 0.8 Eos # (Auto) 0.1 Baso # (Auto) 0.1 Abs Immat Gran (auto) 0.16 H Absolute Neuts (auto) 15.4 H Absolute Nucleated RBC 0.000 Nucleated RBC % (auto) 0.0 Anion Gap 15 Estim Creat Clear Calc 44.1 Estimated GFR > 60 Random Glucose 140 H Calcium 9.1 Troponin I High Sens < 3.5 COVID-19 (LONG) COVID-19 Clin Com 04/22/21 20:44 MCV MCH MCHC RDW Plt Count MPV Immature Gran % (Auto) Neut % (Auto) Lymph % (Auto) [place] % (Auto) Eos % (Auto) Baso % (Auto) Lymph # (Auto) [place] # (Auto) Eos # (Auto) Baso # (Auto) Abs Immat Gran (auto) Absolute Neuts (auto) Absolute Nucleated RBC Nucleated RBC % (auto) Anion Gap Estim Creat Clear Calc Estimated GFR Random Glucose Calcium Troponin I High Sens COVID-19 (LONG) Negative COVID-19 Clin Com See Note Assessment and Plan (1) Near syncope: Status: Acute (2) Chest pressure: Status: Acute 80-year-old female with a past medical history of hypertension, hyperlipidemia, anxiety, insomnia, recent admission to the hospital for TIA with MRI showing no acute ischemia; presented to the hospital today with a chief complaint of dizziness. Dizziness: Patient reported room spinning. Concern for vertigo. Meclizine trial. Fall precautions. PT / OT eventually.Will obtain orthostatic vitals. Question medication related -patient on Ativan for anxiety, trazodone, Remeron insomnia. Will defer to the day hospitalist for adjusting above medications if possible. Chest pressure/ Near syncope: Currently resolved. troponin negative. EKG nonischemic. Cardiology consult further input. Recent TIA: Patient had symptoms of confusion/ aphasia. Which currently resolved. Denies any Swallowing difficulty. Nonfocal examination. Cerebellar signs intact. MRI showed chronic ischemic changes but no acute ischemia. Neurology follow-up. Hypertension: Patient's blood pressure on the soft side. Hold home antihypertensives for now. DVT prophylaxis: SCD boots Code status: Full code Quality Stroke Does the patient have a stroke diagnosis?: No VTE Prior VTE?: No VTE Risk Level:: Medical - moderate - high VTE Device Contraindication: N/A - Device Ordered VTE Drug Contraindication: Treatment Not Indicated
--- NOTE | 2021-04-22 22:11 | PHA.MEDREC ---
Pharmacy Consult ? Medication Reconciliation Pharmacy has completed the medication reconciliation. There are no remarkable issues for provider's attention. Marybeth Means, RalphD
[2021-04-22] MEDS: 0.9 % Sodium Chloride 500 ML 999 ML IV (22:25)
[2021-04-22 22:50] LABS: Appearance Urine HAZY; Color Urine YELLOW; Glucose Urine UA NEG (NEG); Leukocyte Esterase Urine NEG (NEG); Nitrite Urine NEG (NEG); UACC Culture Trigger NO; Urine Blood 1+ (NEG); Urine Ketones NEG (NEG); Urine Protein NEG (NEG-TRACE)
[2021-04-22 22:55] LABS: Lactic Acid 0.9 mmol/L (0.5-2.0)
[2021-04-22 23:01] LABS: Amorphous Sediment Urine 3+ /LPF; Bacteria Urine 1+ /LPF
[2021-04-23] VITALS (10 sets, daily range): BP systolic 128–162; BP diastolic 76–88; PULSE 63–84; RESP 16–18; TEMP 36.3–36.9; O2SAT 97–100
[2021-04-23] MEDS: Pravastatin Sodium 40 MG TABLET PO ×2 (00:03→19:49)
[2021-04-23] MEDS: Ezetimibe 10 MG TABLET PO ×2 (00:03→19:50)
[2021-04-23] MEDS: Mirtazapine 15 MG TABLET PO (00:11)
--- NOTE | 2021-04-23 00:34 | PC.NURSE ---
pt and pt daughter states that the trazodone hcl has been d/c by her doctor, and ok to take the remeron.
[2021-04-23] MEDS: Levothyroxine Sodium 88 MCG TABLET PO (06:41)
[2021-04-23 07:36] LABS: MANUAL DIFF FLAG NO
[2021-04-23 07:42] LABS: Basophils Percent Auto 0.3 % (0-2); Eosinophils Absolute Auto 0.2 X10*3/uL (0.0-0.4); Eosinophils Percent Auto 1.3 % (0-4); Hematocrit 37.8 % (37.0-47.0); Hemoglobin 13.1 g/dl (12.0-16.0); Imm Gran Abs Auto 0.08 X10*3/uL (0.00-0.03); Imm Gran Pct Auto 0.7 % (0.0-0.4); Lymphocytes Absolute Auto 1.6 X10*3/uL (1.2-4.9); Lymphocytes Percent Auto 14.4 % (20-40); Mean Corpuscular HGB Conc 34.7 g/dl (31.0-35.0); Mean Corpuscular Hemoglobin 29.8 pg (27.0-33.0); Mean Corpuscular Volume 85.9 fL (80.0-98.0); Mean Platelet Volume 9.4 fL (9.4-12.3); Monocytes Absolute Auto 0.6 X10*3/uL (0.1-1.2); Monocytes Percent Auto 5.4 % (2-11); Neutrophils Absolute Auto 8.9 x10*3/uL (2.0-8.3); Neutrophils Percent Auto 77.9 % (45-73); Platelet Count 477 X10*3/uL (160-400); Red Cell Distribution Width 12.6 % (11.0-16.0); White Blood Count 11.4 X10*3/uL (4.8-10.8)
[2021-04-23 08:06] LABS: Anion Gap 15 (12-20); Blood Urea Nitrogen 11 mg/dL (9-16); Calcium 8.9 mg/dL (8.4-10.2); Carbon Dioxide 23 mmol/L (22-29); Chloride 100 mmol/L (96-108); Creatinine Clr Calc Pharmacy 51.5; Estimated Glomerular Filt Rate > 60; Glucose Random 92 mg/dL (60-115); Potassium 3.5 mmol/L (3.3-5.1); Sodium 134 mmol/L (135-145)
[2021-04-23] MEDS: Sertraline HCL 50 MG TABLET PO (08:21)
[2021-04-23] MEDS: Aspirin 81 MG TAB.CHEW PO (08:21)
[2021-04-23] MEDS: 0.9 % Sodium Chloride Flush 3 ML SYRINGE IVFLUSH ×3 (09:42→23:30)
--- NOTE | 2021-04-23 09:45 | MHC.CM.PN ---
Met with patient and son, Gordo in regards to discharge planning. Patient lives alone, ambulates independently and had no services prior to coming to the hospital. PCP verified. Patient received 3 doses of Pfizer vaccine. Obs notice explained and signed. Physical therapy for home safety eval will be needed when patient is medically stable. Patient's family will transport patient home. Continue to monitor for d/c needs.
--- NOTE | 2021-04-23 10:22 | PM.CNCAR ---
History of Present Illness History of Present Illness Date of Service: 04/23/21 Requesting physician: Preeti Calero Chief complaint: Vertigo, chest pain. Narrative: Pleasant 80-year-old female who is presenting with vertigo. She said she was sitting yesterday when she stood up and started walking and felt the room is spinning. She said she fell to the ground and could not get up. Her daughters picked her up from the ground. After that she was anxious and has some chest tightness. She has been experiencing chest discomfort off and on when she is anxious. She describes as a dull sensation in the chest. With these symptoms she came to the emergency department at [facility]. Her EKG did not show any significant dynamic changes and her cardiac troponins were normal. She is feeling better at this stage. No viral illness recently. She has buzzing in her years which happens off and on. [facility] Social History Social History Household Members: None [facility] Do you presently have visiting nurse or other home services: No Alcohol intake: never Patient Tobacco Use Status: Former Tobacco user Advance Directives Date on File: 04/23/21 service: No Current occupational status: retired Meds Allergies Allergy/AdvReac Type Severity Reaction Status Date / Time No Known Allergies Allergy Verified 04/14/21 19:48 Active Medications: Current Medications Acetaminophen (Acetaminophen 325 Mg Tablet) 650 mg PO Q6H PRN PRN Reason: Pain, Mild (Pain Scale 1-3) Aspirin (Aspirin 81 Mg Tab.Chew) 81 mg PO DAILY [facility] Last Admin: 04/23/21 08:21 Dose: 81 mg Documented by: Ezetimibe (Ezetimibe 10 Mg Tablet) 10 mg PO BEDTIME [facility] Last Admin: 04/23/21 00:03 Dose: 10 mg Documented by: Ketorolac Tromethamine (Ketorolac Tromethamine 0.5% Op 3 Ml Drops) 1 drop EYE-BOTH TID [facility] Last Admin: 04/23/21 09:42 Dose: 1 drop Documented by: Levothyroxine Sodium (Levothyroxine Sodium 88 Mcg Tablet) 88 mcg PO DAILY@0600 [facility] Last Admin: 04/23/21 06:41 Dose: 88 mcg Documented by: Loratadine (Loratadine 10 Mg Tablet) 10 mg PO DAILY PRN PRN Reason: Allergy Symptoms Lorazepam (Lorazepam 0.5 Mg Tablet) 0.5 mg PO BID PRN PRN Reason: Anxiety Melatonin (Melatonin 3 Mg Tablet) 6 mg PO BEDTIME PRN PRN Reason: Insomnia Mirtazapine (Mirtazapine 15 Mg Tablet) 15 mg PO BEDTIME [facility] Last Admin: 04/23/21 00:11 Dose: 15 mg Documented by: Pharmacy Consult (Consult Rx Perform Med Rec) 1 each MISCELLANE ONCE PRN PRN Reason: Consult order Pravastatin Sodium (Pravastatin Sodium 40 Mg Tablet) 40 mg PO BEDTIME [facility] Last Admin: 04/23/21 00:03 Dose: 40 mg Documented by: Senna (Sennosides 8.6 Mg Tablet) 17.2 mg PO BEDTIME PRN PRN Reason: Constipation Sertraline HCl (Sertraline Hcl 50 Mg Tablet) 50 mg PO DAILY [facility] Last Admin: 04/23/21 08:21 Dose: 50 mg Documented by: Sodium Chloride (0.9 % Sodium Chloride Flush 3 Ml Syringe) [facility] Last Admin: 04/23/21 09:42 Dose: 3 ml Documented by: Home Medications Medication Instructions Recorded Confirmed Last Taken Type amlodipine 2.5 mg tablet 1 tab PO DAILY 04/22/21 04/22/21 04/22/21 History aspirin 81 mg chewable tablet 81 mg PO DAILY 04/22/21 04/22/21 04/22/21 History cetirizine 10 mg tablet 10 mg PO DAILY PRN 04/22/21 04/22/21 04/22/21 History ezetimibe 10 mg tablet 1 tab PO BEDTIME 04/22/21 04/22/21 04/21/21 History ketorolac 0.5 % eye drops 1 drp OPHTHALMIC (EYE) TID 04/22/21 04/22/21 04/22/21 History levothyroxine 88 mcg tablet 1 tab PO DAILY@0600 04/22/21 04/22/21 04/22/21 History (Synthroid) lorazepam 0.5 mg tablet 1 tab PO BID PRN 04/22/21 04/22/21 Unknown History methyl salicylate-menthol topical 1 appl TOPICAL DAILY PRN 04/22/21 04/22/21 Unknown History cream mirtazapine 15 mg tablet 1 tab PO BEDTIME 04/22/21 04/22/21 04/21/21 History pravastatin 40 mg tablet 1 tab PO BEDTIME 04/22/21 04/22/21 04/21/21 History sertraline 50 mg tablet 1 tab PO DAILY 04/22/21 04/22/21 04/22/21 History trazodone 50 mg tablet 1 tab PO BEDTIME 04/22/21 04/22/21 04/21/21 History triamterene 37.5 1 cap PO DAILY 04/22/21 04/22/21 04/22/21 History mg-hydrochlorothiazide 25 mg capsule Physical Exam Vital Signs: Vital Signs: Last Vital Signs Temp 98.2 F 04/22/21 19:52 Pulse 84 04/23/21 10:02 Resp 16 04/23/21 10:02 BP 149/85 H 04/23/21 10:02 Pulse Ox 100 04/23/21 10:02 BMI result Body Mass Index 22.1 GENERAL APPEARANCE: in no acute distress, pleasant. NECK: no carotid bruit, no jugular venous distention. SKIN: no suspicious lesions, warm and dry. HEART: no murmurs, regular rate and rhythm. LUNGS: clear to auscultation bilaterally. ABDOMEN: soft, nontender. EXTREMITIES: no edema. PERIPHERAL PULSES: equal. NEUROLOGIC: No gross deficits, AAO X 3. Diplopia on rightward gaze. Objective Labs and Meds Result diagrams: 04/23/21 07:17 04/23/21 07:17 Lab results: Laboratory Results - last 24 hr 04/22/21 04/22/21 04/22/21 20:44 20:44 20:44 WBC 17.7 H RBC 4.52 Hgb 13.5 Hct 39.1 MCV 86.5 MCH 29.9 MCHC 34.5 RDW 12.9 Plt Count 536 H MPV 9.3 L Immature Gran % (Auto) 0.9 H Neut % (Auto) 87.5 H Lymph % (Auto) 6.7 L [place] % (Auto) 4.2 Eos % (Auto) 0.4 Baso % (Auto) 0.3 Lymph # (Auto) 1.2 [place] # (Auto) 0.8 Eos # (Auto) 0.1 Baso # (Auto) 0.1 Abs Immat Gran (auto) 0.16 H Absolute Neuts (auto) 15.4 H Absolute Nucleated RBC 0.000 Nucleated RBC % (auto) 0.0 Sodium 136 Potassium 3.8 Chloride 101 Carbon Dioxide 24 Anion Gap 15 BUN 16 D Creatinine 0.84 Estim Creat Clear Calc 44.1 Estimated GFR > 60 Random Glucose 140 H Lactic Acid Calcium 9.1 Troponin I High Sens < 3.5 Urine Color Urine Appearance Urine pH Ur Specific [place] Urine Protein Urine Glucose (UA) Urine Ketones Urine Blood Urine Nitrite Ur Leukocyte Esterase Urine RBC Urine WBC Ur Squamous Epith Cells Amorphous Sediment Urine Bacteria COVID-19 (LONG) COVID-19 Clin Com 04/22/21 04/22/21 04/22/21 20:44 22:17 22:33 WBC RBC Hgb Hct MCV MCH MCHC RDW Plt Count MPV Immature Gran % (Auto) Neut % (Auto) Lymph % (Auto) [place] % (Auto) Eos % (Auto) Baso % (Auto) Lymph # (Auto) [place] # (Auto) Eos # (Auto) Baso # (Auto) Abs Immat Gran (auto) Absolute Neuts (auto) Absolute Nucleated RBC Nucleated RBC % (auto) Sodium Potassium Chloride Carbon Dioxide Anion Gap BUN Creatinine Estim Creat Clear Calc Estimated GFR Random Glucose Lactic Acid 0.9 Calcium Troponin I High Sens Urine Color YELLOW Urine Appearance HAZY Urine pH 7.0 Ur Specific [place] 1.010 Urine Protein NEG Urine Glucose (UA) NEG Urine Ketones NEG Urine Blood 1+ H Urine Nitrite NEG Ur Leukocyte Esterase NEG Urine RBC 5-9 H Urine WBC 1-4 Ur Squamous Epith Cells NONE Amorphous Sediment 3+ Urine Bacteria 1+ COVID-19 (LONG) Negative COVID-19 Clin Com See Note 04/23/21 04/23/21 07:17 07:17 WBC 11.4 H RBC 4.40 Hgb 13.1 Hct 37.8 MCV 85.9 MCH 29.8 MCHC 34.7 RDW 12.6 Plt Count 477 H MPV 9.4 Immature Gran % (Auto) 0.7 H Neut % (Auto) 77.9 H Lymph % (Auto) 14.4 L [place] % (Auto) 5.4 Eos % (Auto) 1.3 Baso % (Auto) 0.3 Lymph # (Auto) 1.6 [place] # (Auto) 0.6 Eos # (Auto) 0.2 Baso # (Auto) 0.0 Abs Immat Gran (auto) 0.08 H Absolute Neuts (auto) 8.9 H Absolute Nucleated RBC 0.000 Nucleated RBC % (auto) 0.0 Sodium 134 L Potassium 3.5 Chloride 100 Carbon Dioxide 23 Anion Gap 15 BUN 11 Creatinine 0.72 Estim Creat Clear Calc 51.5 Estimated GFR > 60 Random Glucose 92 Lactic Acid Calcium 8.9 Troponin I High Sens Urine Color Urine Appearance Urine pH Ur Specific [place] Urine Protein Urine Glucose (UA) Urine Ketones Urine Blood Urine Nitrite Ur Leukocyte Esterase Urine RBC Urine WBC Ur Squamous Epith Cells Amorphous Sediment Urine Bacteria COVID-19 (LONG) COVID-19 Clin Com Imaging Radiologist's impression: Impressions Head CT 04/22/21 22:54 IMPRESSION: No acute intracranial pathology. Assessment and Plan (1) Dizziness: Status: Acute (2) Chest pressure: Status: Acute Pleasant 80-year-old female who is here for vertigo. This is likely peripheral and may be related to BPPV or labyrinthitis. She is improving at this stage. If she has recurrent symptoms then meclizine can be tried. She can have further workup for chest discomfort as outpatient. I think we should do a stress test on her. Right now she has ruled out any EKG is not showing any changes so I do not think she needs work up inpatient. Thank you for allowing me to participate in the care of your patient. Please feel free to contact me if you have any questions. Procedures Date of Service Date of Service: 04/23/21
--- NOTE | 2021-04-23 10:25 | P.PNIM_ITS ---
Subjective Subjective Date of Service: 04/23/21 Interval History: Admitted for dizziness, patient is a poor historian, according to her she developed dizziness while in kitchen moving from stove to take, described it as room spinning symptoms lasted for few minutes, Without associated headache, no recent bout of fever chills, subsequently developed chest pain that was also transient associated with nausea and vomiting, provide history of intermittent chest pain, just started on Zoloft and Remeron yesterday took 1st dose in the afternoon, previously was on trazodone but has been discontinued, also was taking lorazepam 3 times a day but stopped taking it couple days ago. Review of Systems General no headache, dizziness resolved, no fever,chills. CVS no chest pain, no palpitation. Respiratory no cough, no sob. Gastrointestinal no nausea, no vomiting, no abdominal pain Review of Systems: Yes all other systems are reviewed and are negative Physical Exam Vital Signs: Vital Signs: Last Vital Signs Temp 98.2 F 04/22/21 19:52 Pulse 84 04/23/21 10:02 Resp 16 04/23/21 10:02 BP 149/85 H 04/23/21 10:02 Pulse Ox 100 04/23/21 10:02 BMI result Body Mass Index 22.1 General awake alert, no acute distress. Neck supple, no JVD. CVS regular rate rhythm, Respiratory lungs clear to auscultation, no respiratory distress, no wheeze, no rhonchi. Gastrointestinal abdomen soft, nontender, bowel sounds audible Extremities no edema. Neuro nonfocal , moving all 4 extremity, speech clear, normal coordination, no pronator drift, no nystagmus Skin no rash Objective Data Active Medications Acetaminophen (Acetaminophen 325 Mg Tablet) 650 mg PO Q6H PRN PRN Reason: Pain, Mild (Pain Scale 1-3) Aspirin (Aspirin 81 Mg Tab.Chew) 81 mg PO DAILY [facility] Last Admin: 04/23/21 08:21 Dose: 81 mg Documented by: STELLA Ezetimibe (Ezetimibe 10 Mg Tablet) 10 mg PO BEDTIME [facility] Last Admin: 04/23/21 00:03 Dose: 10 mg Documented by: KIMBERLY Ketorolac Tromethamine (Ketorolac Tromethamine 0.5% Op 3 Ml Drops) 1 drop EYE- BOTH TID [facility] Last Admin: 04/23/21 09:42 Dose: 1 drop Documented by: STELLA Levothyroxine Sodium (Levothyroxine Sodium 88 Mcg Tablet) 88 mcg PO DAILY@0600 [facility] Last Admin: 04/23/21 06:41 Dose: 88 mcg Documented by: KIMBERLY Loratadine (Loratadine 10 Mg Tablet) 10 mg PO DAILY PRN PRN Reason: Allergy Symptoms Lorazepam (Lorazepam 0.5 Mg Tablet) 0.5 mg PO BID PRN PRN Reason: Anxiety Melatonin (Melatonin 3 Mg Tablet) 6 mg PO BEDTIME PRN PRN Reason: Insomnia Mirtazapine (Mirtazapine 15 Mg Tablet) 15 mg PO BEDTIME [facility] Last Admin: 04/23/21 00:11 Dose: 15 mg Documented by: KIMBERLY Pharmacy Consult (Consult Rx Perform Med Rec) 1 each MISCELLANE ONCE PRN PRN Reason: Consult order Pravastatin Sodium (Pravastatin Sodium 40 Mg Tablet) 40 mg PO BEDTIME [facility] Last Admin: 04/23/21 00:03 Dose: 40 mg Documented by: KIMBERLY Senna (Sennosides 8.6 Mg Tablet) 17.2 mg PO BEDTIME PRN PRN Reason: Constipation Sertraline HCl (Sertraline Hcl 50 Mg Tablet) 50 mg PO DAILY [facility] Last Admin: 04/23/21 08:21 Dose: 50 mg Documented by: STELLA Sodium Chloride (0.9 % Sodium Chloride Flush 3 Ml Syringe) 3 ml IVFLUSH QSHIFT [facility] Last Admin: 04/23/21 09:42 Dose: 3 ml Documented by: STELLA Labs CBC & Chem 7: 04/23/21 07:17 04/23/21 07:17 Labs: Laboratory Results - last 24 hr 04/22/21 04/22/21 04/22/21 20:44 20:44 20:44 MCV 86.5 MCH 29.9 MCHC 34.5 RDW 12.9 Plt Count 536 H MPV 9.3 L Immature Gran % (Auto) 0.9 H Neut % (Auto) 87.5 H Lymph % (Auto) 6.7 L [place] % (Auto) 4.2 Eos % (Auto) 0.4 Baso % (Auto) 0.3 Lymph # (Auto) 1.2 [place] # (Auto) 0.8 Eos # (Auto) 0.1 Baso # (Auto) 0.1 Abs Immat Gran (auto) 0.16 H Absolute Neuts (auto) 15.4 H Absolute Nucleated RBC 0.000 Nucleated RBC % (auto) 0.0 Anion Gap 15 Estim Creat Clear Calc 44.1 Estimated GFR > 60 Random Glucose 140 H Lactic Acid Calcium 9.1 Troponin I High Sens < 3.5 Urine Color Urine Appearance Urine pH Ur Specific [place] Urine Protein Urine Glucose (UA) Urine Ketones Urine Blood Urine Nitrite Ur Leukocyte Esterase Urine RBC Urine WBC Ur Squamous Epith Cells Amorphous Sediment Urine Bacteria COVID-19 (LONG) COVID-19 Clin Com 04/22/21 04/22/21 04/22/21 20:44 22:17 22:33 MCV MCH MCHC RDW Plt Count MPV Immature Gran % (Auto) Neut % (Auto) Lymph % (Auto) [place] % (Auto) Eos % (Auto) Baso % (Auto) Lymph # (Auto) [place] # (Auto) Eos # (Auto) Baso # (Auto) Abs Immat Gran (auto) Absolute Neuts (auto) Absolute Nucleated RBC Nucleated RBC % (auto) Anion Gap Estim Creat Clear Calc Estimated GFR Random Glucose Lactic Acid 0.9 Calcium Troponin I High Sens Urine Color YELLOW Urine Appearance HAZY Urine pH 7.0 Ur Specific [place] 1.010 Urine Protein NEG Urine Glucose (UA) NEG Urine Ketones NEG Urine Blood 1+ H Urine Nitrite NEG Ur Leukocyte Esterase NEG Urine RBC 5-9 H Urine WBC 1-4 Ur Squamous Epith Cells NONE Amorphous Sediment 3+ Urine Bacteria 1+ COVID-19 (LONG) Negative COVID-19 Clin Com See Note 04/23/21 04/23/21 07:17 07:17 MCV 85.9 MCH 29.8 MCHC 34.7 RDW 12.6 Plt Count 477 H MPV 9.4 Immature Gran % (Auto) 0.7 H Neut % (Auto) 77.9 H Lymph % (Auto) 14.4 L [place] % (Auto) 5.4 Eos % (Auto) 1.3 Baso % (Auto) 0.3 Lymph # (Auto) 1.6 [place] # (Auto) 0.6 Eos # (Auto) 0.2 Baso # (Auto) 0.0 Abs Immat Gran (auto) 0.08 H Absolute Neuts (auto) 8.9 H Absolute Nucleated RBC 0.000 Nucleated RBC % (auto) 0.0 Anion Gap 15 Estim Creat Clear Calc 51.5 Estimated GFR > 60 Random Glucose 92 Lactic Acid Calcium 8.9 Troponin I High Sens Urine Color Urine Appearance Urine pH Ur Specific [place] Urine Protein Urine Glucose (UA) Urine Ketones Urine Blood Urine Nitrite Ur Leukocyte Esterase Urine RBC Urine WBC Ur Squamous Epith Cells Amorphous Sediment Urine Bacteria COVID-19 (LONG) COVID-19 Clin Com Assessment and Plan (1) Chest pressure: Status: Acute (2) Near syncope: Status: Acute (3) Dizziness: Status: Acute Assessment and Plan: 80-year-old female with a past medical history of hypertension, hyperlipidemia, anxiety, insomnia, recent admission to the hospital for TIA with MRI showing no acute ischemia; presented to the hospital today with a chief complaint of dizziness. ? Dizziness:? Transient episodes of dizziness lasting few minutes, normal recent imaging study including CT head, CTA head and neck and brain MRI, showing brain parenchymal volume loss and chronic ischemic changes Obtain orthostatic vitals Likely iatrogenic, recently stopped using Ativan t.i.d., stop trazodone 1 day ago, took 1st dose of Remeron and Zoloft yesterday, also on diuretics, and statin Will obtain lipid profile, adjust blood pressure medication. Due to recurrent episodes of dizziness, and 1 recent episode of confusion and aphasia will obtain neurology consultation. Obtain PT eval Chest pressure/? Near syncope: No recurrent episode normal troponin nonspecific ST changes on EKG seen by Cardiology they recommend outpatient cardiology workup Hypertension: blood pressure on soft side on admission now trending up will resume amlodipine and continue to hold hydrochlorothiazide follow BP closely. Leukocytosis, unremarkable UA, chest x-ray pending, patient asymptomatic with no cough, no sputum production WBC improved from 17,000-11,000 likely reactive. ? DVT prophylaxis: SCD boots Code status:? Full code Quality Stroke Does the patient have a stroke diagnosis?: No VTE Prior VTE?: No VTE Risk Level:: Medical - moderate - high VTE Device Contraindication: N/A - Device Ordered VTE Drug Contraindication: Treatment Not Indicated
--- NOTE | 2021-04-23 10:35 | PC.NURSE ---
pt reported dizziness while sitting in bed to PCT - BP elevated at 145/84 (115)
--- NOTE | 2021-04-23 14:17 | P.CNNE_ITS ---
History of Present Illness Data of Consult Service Date: 04/23/21 Primary Care Provider: Samaria Francis MD HPI Reason for consult: Brief episod eof vertigo followed by chest pain This 80-year-old woman [facility] and had a complete neurological workup for possible TIA with MRI of the brain that showed no acute findings, Findings of chronic microvascular white matter dise ase, but normal CTA of the head and neck with no occlusive disease is now admitted after a brief episode of vertigo on for a couple of minutes, following which she had chest pain and then vomited. She feels a little weak and lightheaded. There is no hearing loss or tinnitus and no headache. Review of Systems Review of Systems: General no headache, dizziness resolved, no fever,chills. CVS no chest pain, no palpitation. Respiratory no cough, no sob. Gastrointestinal no nausea, no vomiting, no abdominal pain Yes all other systems are reviewed and are negative Neurologic: Comments: Alert and oriented a nonfocal neurological examination. No nystagmus. [facility] Family History Pertinent family history: reviewed Social History Social History Alcohol intake: never Patient Tobacco Use Status: Former Tobacco user Advance Directives Date on File: 04/23/21 service: No Current occupational status: retired [employer] Allergies Allergy/AdvReac Type Severity Reaction Status Date / Time No Known Allergies Allergy Verified 04/14/21 19:48 Active Medications: Current Medications Acetaminophen (Acetaminophen 325 Mg Tablet) 650 mg PO Q6H PRN PRN Reason: Pain, Mild (Pain Scale 1-3) Aspirin (Aspirin 81 Mg Tab.Chew) 81 mg PO DAILY [facility] Last Admin: 04/23/21 08:21 Dose: 81 mg Documented by: Ezetimibe (Ezetimibe 10 Mg Tablet) 10 mg PO BEDTIME [facility] Last Admin: 04/23/21 00:03 Dose: 10 mg Documented by: Ketorolac Tromethamine (Ketorolac Tromethamine 0.5% Op 3 Ml Drops) 1 drop EYE- BOTH TID [facility] Last Admin: 04/23/21 09:42 Dose: 1 drop Documented by: Levothyroxine Sodium (Levothyroxine Sodium 88 Mcg Tablet) 88 mcg PO DAILY@0600 [facility] Last Admin: 04/23/21 06:41 Dose: 88 mcg Documented by: Loratadine (Loratadine 10 Mg Tablet) 10 mg PO DAILY PRN PRN Reason: Allergy Symptoms Lorazepam (Lorazepam 0.5 Mg Tablet) 0.5 mg PO BID PRN PRN Reason: Anxiety Melatonin (Melatonin 3 Mg Tablet) 6 mg PO BEDTIME PRN PRN Reason: Insomnia Mirtazapine (Mirtazapine 15 Mg Tablet) 15 mg PO BEDTIME [facility] Last Admin: 04/23/21 00:11 Dose: 15 mg Documented by: Pharmacy Consult (Consult Rx Perform Med Rec) 1 each MISCELLANE ONCE PRN PRN Reason: Consult order Pravastatin Sodium (Pravastatin Sodium 40 Mg Tablet) 40 mg PO BEDTIME [facility] Last Admin: 04/23/21 00:03 Dose: 40 mg Documented by: Senna (Sennosides 8.6 Mg Tablet) 17.2 mg PO BEDTIME PRN PRN Reason: Constipation Sertraline HCl (Sertraline Hcl 50 Mg Tablet) 50 mg PO DAILY [facility] Last Admin: 04/23/21 08:21 Dose: 50 mg Documented by: Sodium Chloride (0.9 % Sodium Chloride Flush 3 Ml Syringe) 3 ml IVFLUSH [facility] Last Admin: 04/23/21 09:42 Dose: 3 ml Documented by: Home Medications Medication Instructions Recorded Confirmed Last Taken Type amlodipine 2.5 mg tablet 1 tab PO DAILY 04/22/21 04/22/21 04/22/21 History aspirin 81 mg chewable tablet 81 mg PO DAILY 04/22/21 04/22/21 04/22/21 History cetirizine 10 mg tablet 10 mg PO DAILY PRN 04/22/21 04/22/21 04/22/21 History ezetimibe 10 mg tablet 1 tab PO BEDTIME 04/22/21 04/22/21 04/21/21 History ketorolac 0.5 % eye drops 1 drp OPHTHALMIC (EYE) TID 04/22/21 04/22/21 04/22/21 History levothyroxine 88 mcg tablet 1 tab PO DAILY@0600 04/22/21 04/22/21 04/22/21 Hist ory (Synthroid) lorazepam 0.5 mg tablet 1 tab PO BID PRN 04/22/21 04/22/21 Unknown History methyl salicylate-menthol topical 1 appl TOPICAL DAILY PRN 04/22/21 04/22/21 Unknown History cream mirtazapine 15 mg tablet 1 tab PO BEDTIME 04/22/21 04/22/21 04/21/21 History pravastatin 40 mg tablet 1 tab PO BEDTIME 04/22/21 04/22/21 04/21/21 History sertraline 50 mg tablet 1 tab PO DAILY 04/22/21 04/22/21 04/22/21 History trazodone 50 mg tablet 1 tab PO BEDTIME 04/22/21 04/22/21 04/21/21 History triamterene 37.5 1 cap PO DAILY 04/22/21 04/22/21 04/22/21 History mg-hydrochlorothiazide 25 mg capsule Physical Exam Vital Signs: Vital Signs: Last Vital Signs Temp 97.4 F 04/23/21 11:20 Pulse 67 04/23/21 11:20 Resp 18 04/23/21 11:20 BP 147/80 H 04/23/21 11:20 Pulse Ox 98 04/23/21 11:20 BMI result Body Mass Index 22.1 Results Labs CBC & Chem 7: 04/23/21 07:17 04/23/21 07:17 Labs: Short CBC 04/22/21 04/23/21 Range/Units 20:44 07:17 WBC 17.7 H 11.4 H (4.8-10.8) X10*3/uL Hgb 13.5 13.1 (12.0-16.0) g/dl Hct 39.1 37.8 (37.0-47.0) % Plt Count 536 H 477 H (160-400) X10*3/uL BMP 04/22/21 04/23/21 20:44 07:17 Sodium 136 134 L Potassium 3.8 3.5 Chloride 101 100 Carbon Dioxide 24 23 BUN 16 D 11 Creatinine 0.84 0.72 Calcium 9.1 8.9 Urine 04/22/21 Range/Units 22:33 Urine Color YELLOW Urine Appearance HAZY Urine pH 7.0 (5.0-8.0) Ur Specific [place] 1.010 (1.005-1.025) Urine Protein NEG (NEG-TRACE) MG/DL Urine Glucose (UA) NEG (NEG) MG/DL Assessment and Plan (1) Dizziness: Status: Acute Brief episode of vertigo most likely labyrinthine dysfunction. Noo consi stent symptoms to suggest benign positional vertigo. No evidence of ischemic cerebrovascular disease with complete workup done a week ago been completely normal including CTA of the head and neck. Would treat symptomatically with meclizine 12.5 mg 3 times a day . Check for Orthostatic hypotension. (2) Chest pressure: Status: Acute (3) Near syncope: Status: Acute Cardiac monitoring 80-year-old female with a past medical history of hypertension, hyperlipidemia, anxiety, insomnia, recent admission to the hospital for TIA with MRI showing no acute ischemia; presented to the hospital today with a chief complaint of dizziness. ? Dizziness:? Transient episodes of dizziness lasting few minutes, normal recent imaging study including CT head, CTA head and neck and brain MRI, showing brain parenchymal volume loss and chronic ischemic changes Obtain orthostatic vitals Likely iatrogenic, recently stopped using Ativan t.i.d., stop trazodone 1 day ago, took 1st dose of Remeron and Zoloft yesterday, also on diuretics, and statin Will obtain lipid profile, adjust blood pressure medication. Due to recurrent episodes of dizziness, and 1 recent episode of confusion and aphasia will obtain neurology consultation. Obtain PT eval Chest pressure/? Near syncope: No recurrent episode normal troponin nonspecific ST changes on EKG seen by Cardiology they recommend outpatient cardiology workup Hypertension: blood pressure on soft side on admission now trending up will resume amlodipine and continue to hold hydrochlorothiazide follow BP closely. Leukocytosis, unremarkable UA, chest x-ray pending, patient asymptomatic with no cough, no sputum production WBC improved from 17,000-11,000 likely reactive. ? DVT prophylaxis: SCD boots Code status:? Full code Procedures Date of Service Date of Service: 04/23/21
[2021-04-23] MEDS: Lactulose 20 GM/30 ML SOLUTION 10 GM PO (17:04)
[2021-04-23] MEDS: Mirtazapine 7.5 MG TABLET PO (19:49)
--- NOTE | 2021-04-23 20:09 | PC.NURSE ---
HS MEDICATIONS GIVEN EARLY PER REQUEST OF PATIENT AND DAUGHTER AT BEDSIDE PT WOULD LIKE TO GO TO SLEEP 1999 PER HOME
[2021-04-23] MEDS: Acetaminophen 325 MG TABLET 650 MG PO (23:53)
[2021-04-24 01:05] VITALS: RESP 20
[2021-04-24 03:13] VITALS: BP 150/84; PULSE 74; RESP 18; TEMP 36.3; O2SAT 97
[2021-04-24] MEDS: Levothyroxine Sodium 88 MCG TABLET PO (05:56)
[2021-04-24 06:54] LABS: Cholesterol 168 mg/dL; HDL Cholesterol 67 mg/dL; LDL Cholesterol Calculated 87 mg/dl; Triglycerides 71 mg/dL
[2021-04-24 07:52] VITALS: BP 142/79; PULSE 72; RESP 18; TEMP 36; O2SAT 98
[2021-04-24] MEDS: Aspirin 81 MG TAB.CHEW PO (09:33)
[2021-04-24] MEDS: 0.9 % Sodium Chloride 1,000 ML 100 ML IVCONT (09:33)
--- NOTE | 2021-04-24 11:38 | PC.NURSE ---
Skin assessment completed. Patient has no skin issues or open areas at this time.
[2021-04-24 12:00] VITALS: BP 140/76; PULSE 71; RESP 18; TEMP 37.2; O2SAT 97
--- NOTE | 2021-04-24 13:46 | P.DS_ITS ---
DS: Providers Provider Date of Service: 04/24/21 Date of admission: 04/22/21 21:55 Primary care physician: Samaria Francis MD Consults: 04/22/21 21:55 Consult to Cardiology Routine Consulting Provider: Jasvir Rubio Reason for consultation: chest pain; near syncope 04/23/21 10:25 Consult to Neurology Routine Consulting Provider: [facility] Reason for consultation: dizziness Has provider been notified: No DS: Diagnosis Discharge Diagnosis (1) Dizziness: Status: Acute (2) Chest pressure: Status: Acute DS: Summary Hospital Course Hospital Course: Chief Complaint:? dizziness ?80-year-old female with a past medical history of hypertension, hyperlipidemia, anxiety, insomnia, recent admission to the hospital for TIA with MRI showing no acute ischemia; presented to the hospital today with a chief complaint of dizziness.? Patient reported this morning she stood up and suddenly felt dizziness, room spinning; symptom lasted for few minutes;? followed by she had a fall, denies any head strike or loss of consciousness.? Landed to the front. About 45 minutes later patient mentioned that she I can not felt,? not feeling well, followed by had an episode of chest pressure, nonradiating, then fell dizziness and followed by had an episode of vomiting.? Subsequently decided to call the EMS and presented to the ER for further evalua tion.? At the time of my entry patient denies any chest pain or dizziness.? Denies any fever chills cough.? Denies any GI or symptoms.? ER course: Per ER team patient had EKG which showed no signs of ischemia; labs essentially benign; admitted to the hospital for further management. 04/23/21 07:17? Labs: Laboratory Results - last 24 hr ? 04/22/21 04/22/21 04/22/21 ? 20:44 20:44 20:44 MCV ?86.5 ? ? MCH ?29.9 ? ? MCHC ?34.5 ? ? RDW ?12.9 ? ? Plt Count ?536 H ? ? MPV ?9.3 L ? ? Immature Gran % (Auto) ?0.9 H ? ? Neut % (Auto) ?87.5 H ? ? Lymph % (Auto) ?6.7 L ? ? [place] % (Auto) ?4.2 ? ? Eos % (Auto) ?0.4 ? ? Baso % (Auto) ?0.3 ? ? Lymph # (Auto) ?1.2 ? ? [place] # (Auto) ?0.8 ? ? Eos # (Auto) ?0.1 ? ? Baso # (Auto) ?0.1 ? ? Abs Immat Gran (auto) ?0.16 H ? ? Absolute Neuts (auto) ?15.4 H ? ? Absolute Nucleated RBC ?0.000 ? ? Nucleated RBC % (auto) ?0.0 ? ? Anion Gap ? ?15 ? Estim Creat Clear Calc ? ?44.1 ? Estimated GFR ? ?> 60 ? Random Glucose ? ?140 H ? Lactic Acid ? ? ? Calcium ? ?9.1 ? Troponin I High Sens ? ? ?< 3.5 Urine Color ? ? ? Urine Appearance ? ? ? Urine pH ? ? ? Ur Specific [place] ? ? ? Urine Protein ? ? ? Urine Glucose (UA) ? ? ? Urine KetonesB ? ? ? Urine Blood ? ? ? Urine Nitrite ? ? ? Ur Leukocyte Esterase ? ? ? Urine RBC ? ? ? Urine WBC ? ? ? Ur Squamous Epith Cells ? ? ? Amorphous Sediment ? ? ? Urine Bacteria ? ? ? COVID-19 (LONG) ? ? ? COVID-19 Clin Com ? 04/22/21 04/22/21 04/22/21 ? 20:44 22:17 22:33 MCV ? ? ? MCH ? ? ? MCHC ? ? ? RDW ? ? ? Plt Count ? ? ? MPV ? ? ? Immature Gran % (Auto) ? ? ? Neut % (Auto) ? ? ? Lymph % (Auto) ? ? ? [place] % (Auto) ? ? ? Eos % (Auto) ? ? ? Baso % (Auto) ? ? ? Lymph # (Auto) ? ? ? [place] # (Auto) ? ? ? Eos # (Auto) ? ? ? Baso # (Auto) ? ? ? Abs Immat Gran (auto) ? ? ? Absolute Neuts (auto) ? ? ? Absolute Nucleated RBC ? ? ? Nucleated RBC % (auto) ? ? ? Anion Gap ? ?B ? Estim Creat Clear Calc ? ? ? Estimated GFR ? ? ? Random Glucose ? ? ? Lactic Acid ? ?0.9 ? Calcium ? ? ? Troponin I High Sens ? ? ? Urine Color ? ? ?YELLOW Urine Appearance ? ? ?HAZY Urine pH ? ? ?7.0 Ur Specific [place] ? ? ?1.010 Urine Protein ? ? ?NEG Urine Glucose (UA) ? ? ?NEG Urine Ketones ? ? ?NEG Urine Blood ? ? ?1+ H Urine Nitrite ? ? ?NEG Ur Leukocyte Esterase ? ? ?NEG Urine RBC ? ?B ?5-9 H Urine WBC ? ? ?1-4 Ur Squamous Epith Cells ? ? ?NONE Amorphous Sediment ? ? ?3+ Urine Bacteria ? ? ?1+ COVID-19 (LONG) ?Negative ? ? COVID-19 Clin Com ?See Note ? ? ? 04/23/21 04/23/21 ? 07:17 07:17 MCV ?85.9 ? MCH ?29.8 ? MCHC ?34.7 ? RDW ?12.6 ? Plt Count ?477 H ? MPV ?9.4 ? Immature Gran % (Auto) ?0.7 H ? Neut % (Auto) ?77.9 H ? Lymph % (Auto) ?14.4 L ? [place] % (Auto) ?5.4 ? Eos % (Auto) ?1.3 ? Baso % (Auto) ?0.3 ? Lymph # (Auto) ?1.6 ? [place] # (Auto) ?0.6 ? Eos # (Auto) ?0.2 ? Baso # (Auto) ?0.0 ? Abs Immat Gran (auto) ?0.08 H ? Absolute Neuts (auto) ?8.9 H ? Absolute Nucleated RBC ?0.000 ? Nucleated RBC % (auto) ?0.0 ? Anion Gap ? ?15 Estim Creat Clear Calc ? ?51.5 Estimated GFR ? ?> 60 Random Glucose ? ?92 Lactic Acid ? ? Calcium ? ?8.9 Troponin I High Sens ? ? Urine Color ? ? Urine Appearance ? ? Urine pH ? ? Ur Specific [place] ? ? Urine Protein ? ? Urine Glucose (UA) ? ? Urine Ketones ? ? Urine Blood ? ? Urine Nitrite ? ? Ur Leukocyte Esterase ? ? Urine RBC ? ? Urine WBC ? ? Ur Squamous Epith Cells ? ? Amorphous Sediment ? ? Urine Bacteria ? ? COVID-19 (LONG) ? ? COVID-19 Clin Com ? ? 80-year-old female with a past medical history of hypertension, hyperlipidemia, anxiety, insomnia, recent visit to ER 04/14 for confusion and gibberish speech felt to have TIA with CT head and CTA head and neck were unremarkable, presented ER again on 04/17 with dizziness nausea, MRI brain showed no acute abnormality and was discharged home, patient returned to [facility] on this occasion with complaint of dizziness Associated with chest pressure and near-syncope, Repeat CT head showed no acute abnormality, patient admitted to hospital due to recurrent episodes of dizziness nausea and transient neurological deficit, patient seen by Neurology and felt to have labyrinthitis and recommended as needed meclizine, patient orthostatic blood pressures for positive treated with IV fluids, Triameterene /hydrochlorothiazide, Zoloft and trazodone has been discontinued, dose of Remeron reduced to 7.5 mg repeat orthostatic BP sepsis difficultly improved, patient has been recommended to take Norvasc 2.5 mg at bedtime and if noted to elevated blood pressure to increase dose to 5 Kitchen, MRI study showed mild to moderate generalized diffuse brain parenchymal volume loss and 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 ? Episode of? Chest pressure/? Near syncope with dizziness resolved, No recurrent episode, normal troponin nonspecific ST changes on EKG seen by Cardiology they recommend outpatient cardiology workup Hypertension:? blood pressure on soft side on admission now improved to systolic 140-150 recommend to continue Norvasc 2.5 Leukocytosis, likely stress related unremarkable UA and chest x-ray PMFSH Time Spent with Patient Time attestation: Total time spent providing and/or coordinating discharge services: Discharge coordination time: Greater than 30 minutes Quality: Stroke Does the patient have a stroke diagnosis?: No Physical Exam Vital Signs: Vital Signs: Last Vital Signs Temp 98.9 F 04/24/21 12:00 Pulse 71 04/24/21 12:00 Resp 18 04/24/21 12:00 BP 140/76 H 04/24/21 12:00 Pulse Ox 97 04/24/21 12:00 BMI result Body Mass Index 22.1 General awake alert, no acute distress.? Neck supple, no JVD. CVS? regular rate rhythm, Respiratory lungs clear to auscultation, no respiratory distress, no wheeze, no rhonchi. Gastrointestinal abdomen soft, nontender, bowel sounds audible Extremities no edema. Neuro nonfocal , moving all 4 extremity, speech clear, normal coordination, no pronator drift, no nystagmus? Skin no rash DS: Data Data Completed and Pending Labs on day of discharge: Laboratory Results - last 24 hr 04/24/21 06:08 Triglycerides 71 Cholesterol 168 LDL Cholesterol, Calc 87 HDL Cholesterol 67 Preliminary micro results at discharge 04/22/21 22:16 Blood Culture - Preliminary Blood - Venous No growth after 24 hours. 04/22/21 22:17 Blood Culture - Preliminary Blood - Venous No growth after 24 hours. Discharge Plan Discharge Patient Disposition: Home, Self-Care Discharge Diagnosis: Orthostatic hypotension Dizziness Referrals: Samaria Francis MD [Primary Care Provider] - 1 Week Discharge Medications: Continued pravastatin 40 mg tablet 1 tab PO BEDTIME RF: 0 amlodipine 2.5 mg tablet 1 tab PO DAILY RF: 0 ketorolac 0.5 % drops 1 drp ophthalmic (eye) TID RF: 0 levothyroxine [Synthroid] 88 mcg tablet 1 tab PO DAILY@0600 RF: 0 lorazepam 0.5 mg tablet 1 tab PO BID PRN (Reason: Anxiety) RF: 0 ezetimibe 10 mg tablet 1 tab PO BEDTIME RF: 0 cetirizine 10 mg Tablet 10 mg PO DAILY PRN (Reason: Allergy Symptoms) RF: 0 aspirin 81 mg Tablet,Chewable 81 mg PO DAILY RF: 0 methyl salicylate-menthol Cream 1 appl TOPICAL DAILY PRN (Reason: Pain) RF: 0 Changed mirtazapine 15 mg tablet 0.5 tab PO BEDTIME Qty: 0 RF: 0 Discontinued trazodone 50 mg tablet 1 tab PO BEDTIME RF: 0 triamterene-hydrochlorothiazid 37.5-25 mg capsule 1 cap PO DAILY RF: 0 sertraline 50 mg tablet 1 tab PO DAILY RF: 0 Discharge Orders: Discharge Order (Routine); Ordered 04/24/21 Ordered By: Preeti Calero Diet: low fat, low cholesterol Activity on Discharge: As tolerated Stand Alone Forms: Patient Portal Discharge page Care Plan Goals: Take Norvasc 2.5 mg at night, recheck blood pressure closely BP remains elevated can increase dose of Norvasc to 5 mg Take dose of Norvasc tonight Health Concerns: Dizziness resolved likely labyrinthine dysfunction,or related to orthostatic hypotension and polypharmacy, no acute CVA Recommend to stop Zoloft, dry midodrine/hydrochlorothiazide, dose of Remeron reduced to 7.5 mg Plan of Treatment: Follow-up with primary care physician in 1 week time Assessment: As above
--- NOTE | 2021-04-24 13:46 | MHC.CM.PN ---
pt is discharging home no svcs. her son is here to transport her home. i did ask her if she would like vna for nsg and/or home PT, she declined both. cm to cont. to follow.
== END 2021-04-24 14:45 | disposition home or self-care (01) ==
LOC: HO.ED 22:13 → HO.EDOVER 22:16 → HO.S3 04-23 09:47
PROVIDERS: Admitting Provider Hospitalist; Emergency Provider Emergency Medicine Emergency Medical Services; PCP Family Medicine; Visit Provider Hospitalist
DX: R07.89 Other chest pain (principal); R55 Syncope and collapse; R42 Dizziness and giddiness; R90.82 White matter disease, unspecified; I10 Essential (primary) hypertension; E78.5 Hyperlipidemia, unspecified; E03.9 Hypothyroidism, unspecified; F41.8 Other specified anxiety disorders; Z87.891 Personal history of nicotine dependence; Z20.822 Contact with and (suspected) exposure to COVID-19; Z91.81 History of falling; Z79.899 Other long term (current) drug therapy
CPT/HCPCS: 36415; 70450; 71045; 80048; 80061; 81001; 83605; 84484; 85025; 87040; 87635; 93005; 97161; 99218; 99285

== ENCOUNTER 2021-12-03 18:19 | Emergency (ER) | payer MEDICARE, SELFPAY ==
--- NOTE | ~2021-12-03 | CT_ITS ---
EXAMINATION: CT head/brain wo con CLINICAL INFORMATION: Reason for Exam word finding difficulty COMPARISON: CT head without contrast 04/22/2021 TECHNIQUE: Contiguous axial imaging was performed from the skull base to vertex without intravenous contrast. Sagittal and coronal reformatted images were obtained. This CT examination was performed using dose optimization techniques as appropriate, variously including the following: * Automated exposure control * Adjustment of mA and/or kV according to patient size (this includes techniques or standardized protocols for targeted exams where dose is matched to indication/reason for exam; i.e. extremities or head) Use of iterative reconstruction technique DLP: 606 mGy-cm FINDINGS: No acute osseous or soft tissue abnormality. Stable nonspecific ovoid well-circumscribed sclerotic lesion in the left parietal calvarium measuring up to 1.1 cm. The mastoid air cells and visualized portions of the paranasal sinuses are well aerated. There is no evidence of acute intracranial hemorrhage or territorial infarction. No abnormal mass effect or midline shift is seen. García to white matter differentiation is well preserved. No extra-axial fluid collections are identified. No hydrocephalus. No significant volume loss. Patchy periventricular and deep white matter hypoattenuation is consistent with mild small vessel ischemic changes. CT/CT head/brain wo con IMPRESSION: No acute intracranial abnormality including hemorrhage, mass effect, hydrocephalus, or acute territorial edematous infarction.
--- NOTE | ~2021-12-03 | XR_ITS ---
EXAMINATION: XR CHEST CLINICAL INFORMATION: Chest COMPARISON: 04/22/2020 TECHNIQUE: 2 views of the chest were obtained. FINDINGS: Heart and pulmonary vessels appear normal. The aorta is unfolded. No infiltrates, effusions or suspicious lung masses are seen. XR/XR chest 2V IMPRESSION: No acute intrathoracic disease.
[2021-12-03 18:22] VITALS: BP 143/115; PULSE 95; RESP 18; TEMP 36.4; O2SAT 96; BMI 22.1
--- NOTE | 2021-12-03 19:16 | ECG_ITS ---
Test Reason : confusion Blood Pressure : / mmHG Vent. Rate : 081 BPM Atrial Rate : 081 BPM P-R Int : 168 ms QRS Dur : 096 ms QT Int : 360 ms P-R-T Axes : 052 -20 058 degrees QTc Int : 418 ms Normal sinus rhythm Minimal voltage criteria for LVH, may be normal variant ( [place] product ) Borderline ECG When compared with ECG of 22-APR-2021 21:09, Nonspecific T wave abnormality no longer evident in Inferior leads Nonspecific T wave abnormality, improved in Anterolateral leads QT has lengthened Referred By: Randall Rivers Electronically Signed By:Jasvir Rubio
--- NOTE | 2021-12-03 19:20 | ED_ITS ---
HPI - General Adult General Chief complaint: General Medical Stated complaint: chest pain, dizziness, confusion Time Seen by Provider: 12/03/21 19:06 Source: patient Mode of arrival: ambulatory Limitations: no limitations History of Present Illness HPI narrative: 81-year-old female with multiple complaints presents to the emergency department complaining of some word-finding difficulties since last night. Per the daughter who lives with her she woke up in the middle night and had 1 episode of emesis since then has been acting more confused and is having difficulty with certain instructions. Patient per the daughter has had some issues with dementia there is no exact family history she is unable to recall why she was here 1 year ago she denies any headache she denies nausea vomiting or diarrhea she has mild complaints of chest pain. Patient has no deficits no history of strokes or heart attacks in the past and symptoms been going on for over 24 hours at this point. Related Data Home Medications Medication Instructions Recorded Confirmed amlodipine 2.5 mg tablet 1 tab PO DAILY 04/22/21 12/03/21 levothyroxine 88 mcg tablet 1 tab PO DAILY@0600 04/22/21 12/03/21 (Synthroid) pravastatin 40 mg tablet 1 tab PO BEDTIME 04/22/21 12/03/21 sertraline 50 mg tablet 1 tab PO DAILY 12/03/21 12/03/21 trazodone 50 mg tablet 75 mg PO BEDTIME 12/03/21 12/03/21 Allergies Allergy/AdvReac Type Severity Reaction Status Date / Time No Known Allergies Allergy Verified 04/14/21 19:48 Review of Systems Review of Systems: Review of systems: General: Patient denies any fever chills recent illness or falls Musculoskeletal: Denies back pain or body aches or other injuries HEENT: denies headache, runny nose, ear pain Respiratory: denies shortness of breath, cough Cardiovascular: no chest pain or palpitations : denies dysuria, frequency Abdomen: no nausea vomiting denies abdominal pain Extremities: no swelling, no pain Skin: no diaphoresis Yes all other systems are reviewed and are negative [facility] Social History Social History Household Members: None Housing: Condominium Do you presently have visiting nurse or other home services: No Alcohol intake: never Patient Tobacco Use Status: Former Tobacco user Use of substances other than those prescribed or required for medical reasons: No Advance Directives: Yes Advance Directives on File: Yes Advance Directives Date on File: 04/23/21 service: No Current occupational status: retired Physical Exam ED Vital Signs: Vital Signs - 24 hr 12/03/21 18:22 12/03/21 20:00 Temperature 97.5 F 98.9 F Pulse Rate 95 81 Respiratory Rate 18 16 Blood Pressure 143/115 H 150/68 H Pulse Oximetry 96 98 Oxygen Delivery Method Room Air Room Air BMI result Body Mass Index 22.1 Neurological exam: CN II- XII tested. Patient is alert and oriented to person place and time. Patient has no dysphagia or dysarthia, denies good vision in all four vision espana no nystagmus on exam, good strength to upper and lower extremities with normal reflexes to brachioradialis, wrist, patella and achilles.? Negative romberg, good finger to nose and heel to mann.?? General: Well-appearing well-nourished in no signs of distress HEENT: Normocephalic atraumatic? Neck: No signs of JVD, no masses no tenderness or lymphadenopathy Cardiovascular: Regular rate and rhythm Respiratory: Clear to auscultation bilaterally Abdomen: Soft nontender no masses Extremities: Normal pedal pulses no signs of edema Skin: Dry warm no rashes Back: No tenderness full ROM NIH Stroke Scale Internal: Initial- Upon Arrival Time: 19:21 Level of Consciousness: Alert Level of Consciousness Questions: Answers both questions correctly Level of Consciousness Commands: Performs both tasks correctly Best Gaze: Normal Visual: No visual loss Facial Palsy: Normal Motor Arm (Right): No drift Motor Arm (Left): No drift Motor Leg (Right): No drift Motor Leg (Left): No drift Limb Ataxia: Absent Sensory: Normal Best Language: No aphasia Dysarthia: Normal Extinction and Inattention: No abnormality Score: 0 Medical Decision Making MDM Narrative Medical decision making narrative: Patient's story sounds more consistent with dementia verses delirium I will check labs including urinalysis good patient for CT scan patient has no deficits that require CTA any stroke scale is 0 as well as she is well at time frame for any intervention with tPA. Patient is not tPA candidate due to an extra dose of 0 as well as being well out of the window for any treatment. Labs unremarkable patient had CT which is also unremarkable I offered admission complaining that this was a TIA that the only way we could definitely tell is by admitting watch her overnight but she would not stay she understands she is leav ing medical advice could have large stroke deficit her or she still wants to go home. Lab Data Result diagrams: 12/03/21 19:29 12/03/21 19:29 Labs: Lab Results 12/03/21 12/03/21 12/03/21 Range/Units 19:23 19:29 19:29 WBC 10.7 (4.8-10.8) X10*3/uL RBC 4.45 (4.20-5.50) X10*6/uL Hgb 12.9 (12.0-16.0) g/dl Hct 38.4 (37.0-47.0) % MCV 86.3 (80.0-98.0) fL MCH 29.0 (27.0-33.0) pg MCHC 33.6 (31.0-35.0) g/dl RDW 13.4 (11.0-16.0) % Plt Count 313 D (160-400) X10*3/uL MPV 9.7 (9.4-12.3) fL Immature Gran % (Auto) 0.7 H (0.0-0.4) % Neut % (Auto) 87.4 H (45-73) % Lymph % (Auto) 3.8 L (20-40) % [place] % (Auto) 7.7 (2-11) % Eos % (Auto) 0.1 (0-4) % Baso % (Auto) 0.3 (0-2) % Lymph # (Auto) 0.4 L (1.2-4.9) X10*3/uL [place] # (Auto) 0.8 (0.1-1.2) X10*3/uL Eos # (Auto) 0.0 (0.0-0.4) X10*3/uL Baso # (Auto) 0.0 (0.0-0.2) X10*3/uL Abs Immat Gran (auto) 0.07 H (0.00-0.03) X10*3/uL Absolute Neuts (auto) 9.4 H (2.0-8.3) x10*3/uL Absolute Nucleated RBC 0.000 (0.0-0.012) X10*3/uL Nucleated RBC % (auto) 0.0 (0.0-0.2) /100WBC Sodium 130 L (135-145) mmol/L Potassium 3.6 (3.3-5.1) mmol/L Chloride 97 (96-108) mmol/L Carbon Dioxide 25 (22-29) mmol/L Anion Gap 12 (12-20) BUN 18 H D (9-16) mg/dL Creatinine 0.84 (0.5-1.4) mg/dL Estim Creat Clear Calc 43.4 Estimated GFR > 60 Random Glucose 159 H (60-115) mg/dL Calcium 8.8 (8.4-10.2) mg/dL Total Bilirubin 2.3 H (0.0-1.0) mg/dL Direct Bilirubin 1.0 H (0.0-0.5) mg/dL AST 202 H (5-31) U/L ALT 408 H (0-31) U/L Alkaline Phosphatase 97 D (39-117) U/L Troponin I High Sens (<3.5-17.0) ng/L Total Protein 6.3 L (6.5-8.0) g/dL Albumin 4.0 (3.5-5.0) g/dL Lipase 18 (8-78) U/L COVID-19 (LONG) Negative (Negative) COVID-19 Clin Com See Note 12/03/21 Range/Units 19:29 WBC (4.8-10.8) X10*3/uL RBC (4.20-5.50) X10*6/uL Hgb (12.0-16.0) g/dl Hct (37.0-47.0) % MCV (80.0-98.0) fL MCH (27.0-33.0) pg MCHC (31.0-35.0) g/dl RDW (11.0-16.0) % Plt Count (160-400) X10*3/uL MPV (9.4-12.3) fL Immature Gran % (Auto) (0.0-0.4) % Neut % (Auto) (45-73) % Lymph % (Auto) (20-40) % [place] % (Auto) (2-11) % Eos % (Auto) (0-4) % Baso % (Auto) (0-2) % Lymph # (Auto) (1.2-4.9) X10*3/uL [place] # (Auto) (0.1-1.2) X10*3/uL Eos # (Auto) (0.0-0.4) X10*3/uL Baso # (Auto) (0.0-0.2) X10*3/uL Abs Immat Gran (auto) (0.00-0.03) X10*3/uL Absolute Neuts (auto) (2.0-8.3) x10*3/uL Absolute Nucleated RBC (0.0-0.012) X10*3/uL Nucleated RBC % (auto) (0.0-0.2) /100WBC Sodium (135-145) mmol/L Potassium (3.3-5.1) mmol/L Chloride (96-108) mmol/L Carbon Dioxide (22-29) mmol/L Anion Gap (12-20) BUN (9-16) mg/dL Creatinine (0.5-1.4) mg/dL Estim Creat Clear Calc Estimated GFR Random Glucose (60-115) mg/dL Calcium (8.4-10.2) mg/dL Total Bilirubin (0.0-1.0) mg/dL Direct Bilirubin (0.0-0.5) mg/dL AST (5-31) U/L ALT (0-31) U/L Alkaline Phosphatase (39-117) U/L Troponin I High Sens 5.0 (<3.5-17.0) ng/L Total Protein (6.5-8.0) g/dL Albumin (3.5-5.0) g/dL Lipase (8-78) U/L COVID-19 (LONG) (Negative) COVID-19 Clin Com ECG Data Attestation: I personally reviewed and interpreted this ECG as follows: Prior ECG tracings: not available for review Interpretation: Rate 81 normal sinus rhythm normal intervals lots of artifact present. Discharge Plan Discharge Clinical Impression: Word finding difficulty, Dementia, Left against medical advice Patient Disposition: Home, Self-Care Instructions: Dementia (ED) Additional Instructions: Your CT and labs are all normal. You did not give us a urine sample so please follow up with your doctor. If you have any other concerns please return to the ED. Prescriptions: No Action pravastatin 40 mg tablet 1 tab PO BEDTIME amlodipine 2.5 mg tablet 1 tab PO DAILY levothyroxine [Synthroid] 88 mcg tablet 1 tab PO DAILY@0600 trazodone 50 mg tablet 75 mg PO BEDTIME sertraline 50 mg tablet 1 tab PO DAILY Stand Alone Forms: Against Medical Advice
[2021-12-03] MEDS: 0.9 % Sodium Chloride 1,000 ML 999 ML IV (19:31)
[2021-12-03 19:36] LABS: MANUAL DIFF FLAG NO
[2021-12-03 19:38] LABS: Basophils Percent Auto 0.3 % (0-2); Eosinophils Percent Auto 0.1 % (0-4); Hematocrit 38.4 % (37.0-47.0); Hemoglobin 12.9 g/dl (12.0-16.0); Imm Gran Abs Auto 0.07 X10*3/uL (0.00-0.03); Imm Gran Pct Auto 0.7 % (0.0-0.4); Lymphocytes Absolute Auto 0.4 X10*3/uL (1.2-4.9); Lymphocytes Percent Auto 3.8 % (20-40); Mean Corpuscular HGB Conc 33.6 g/dl (31.0-35.0); Mean Corpuscular Volume 86.3 fL (80.0-98.0); Mean Platelet Volume 9.7 fL (9.4-12.3); Monocytes Absolute Auto 0.8 X10*3/uL (0.1-1.2); Monocytes Percent Auto 7.7 % (2-11); Neutrophils Absolute Auto 9.4 x10*3/uL (2.0-8.3); Neutrophils Percent Auto 87.4 % (45-73); Platelet Count 313 X10*3/uL (160-400); Red Blood Count 4.45 X10*6/uL (4.20-5.50); Red Cell Distribution Width 13.4 % (11.0-16.0); White Blood Count 10.7 X10*3/uL (4.8-10.8)
[2021-12-03 19:53] LABS: COVID-19 Test Negative (Negative)
--- NOTE | 2021-12-03 19:56 | PHA.MEDREC ---
Pharmacy Consult ? Medication Reconciliation Pharmacy has completed the medication reconciliation.
[2021-12-03 19:59] LABS: Alanine Aminotransferase 408 U/L (0-31); Alkaline Phosphatase 97 U/L (39-117); Anion Gap 12 (12-20); Aspartate Amino Transferase 202 U/L (5-31); Bilirubin Total 2.3 mg/dL (0.0-1.0); Blood Urea Nitrogen 18 mg/dL (9-16); Calcium 8.8 mg/dL (8.4-10.2); Carbon Dioxide 25 mmol/L (22-29); Chloride 97 mmol/L (96-108); Creatinine Clr Calc Pharmacy 43.4; Estimated Glomerular Filt Rate > 60; Glucose Random 159 mg/dL (60-115); Lipase 18 U/L (8-78); Potassium 3.6 mmol/L (3.3-5.1); Sodium 130 mmol/L (135-145); Total Protein 6.3 g/dL (6.5-8.0)
[2021-12-03 20:00] VITALS: BP 150/68; PULSE 81; RESP 16; TEMP 37.2; O2SAT 98
[2021-12-03 21:11] LABS: Appearance Urine CLEAR; Color Urine YELLOW; Glucose Urine UA NEG (NEG); Leukocyte Esterase Urine NEG (NEG); Nitrite Urine NEG (NEG); UACC Culture Trigger NO; Urine Blood 3+ (NEG); Urine Ketones NEG (NEG); Urine Protein TRACE MG/DL (NEG-TRACE)
[2021-12-03 21:34] VITALS: BP 156/82; PULSE 77; RESP 16; TEMP 37.1; O2SAT 98
[2021-12-03 21:38] LABS: Squamous Epithelial Cell Urine 2+ /LPF; WBC Urine 0 /HPF (0-4)
== END 2021-12-03 21:38 | disposition home or self-care (01) ==
PROVIDERS: Emergency Provider Student in an Organized Health Care Education/Training Program
DX: F03.90 Unspecified dementia, unspecified severity, without behavioral disturbance, psychotic disturbance, mood disturbance, and anxiety (principal); Z20.822 Contact with and (suspected) exposure to COVID-19; Z79.02 Long term (current) use of antithrombotics/antiplatelets; Z87.891 Personal history of nicotine dependence
CPT/HCPCS: 36415; 70450; 71046; 80048; 80076; 81001; 83690; 84484; 85025; 87635; 93005; 96360; 99284

== ENCOUNTER 2023-03-03 19:15 | Emergency (ER) | payer MEDICARE, SELFPAY ==
[2023-03-03 19:22] VITALS: BP 140/70; PULSE 101; O2SAT 98
[2023-03-03 19:31] VITALS: BP 135/78; PULSE 98; RESP 16; TEMP 37; O2SAT 98; BMI 21.0
[2023-03-03 20:10] LABS: MANUAL DIFF FLAG NO
[2023-03-03 20:14] LABS: Glucose, Whole Blood 126 mg/dL (60-115)
[2023-03-03 20:23] LABS: Basophils Percent Auto 0.2 % (0-2); Eosinophils Percent Auto 0.2 % (0-4); Hematocrit 36.6 % (37.0-47.0); Hemoglobin 12.5 g/dl (12.0-16.0); Imm Gran Abs Auto 0.05 X10*3/uL (0.00-0.03); Imm Gran Pct Auto 0.6 % (0.0-0.4); Lymphocytes Absolute Auto 0.7 X10*3/uL (1.2-4.9); Lymphocytes Percent Auto 8.8 % (20-40); Mean Corpuscular HGB Conc 34.2 g/dl (31.0-35.0); Mean Corpuscular Hemoglobin 29.2 pg (27.0-33.0); Mean Corpuscular Volume 85.5 fL (80.0-98.0); Mean Platelet Volume 9.7 fL (9.4-12.3); Monocytes Absolute Auto 0.7 X10*3/uL (0.1-1.2); Monocytes Percent Auto 9.2 % (2-11); Neutrophils Absolute Auto 6.5 x10*3/uL (2.0-8.3); Platelet Count 305 X10*3/uL (160-400); Red Blood Count 4.28 X10*6/uL (4.20-5.50); Red Cell Distribution Width 13.3 % (11.0-16.0); White Blood Count 8.1 X10*3/uL (4.8-10.8)
[2023-03-03 20:32] LABS: Anion Gap 14 (12-20); Blood Urea Nitrogen 15 mg/dL (9-16); Calcium 8.9 mg/dL (8.4-10.2); Carbon Dioxide 22 mmol/L (22-29); Chloride 105 mmol/L (96-108); Creatinine Clr Calc Pharmacy 44.5; Estimated Glomerular Filt Rate > 60; Ethanol < 10 mg/dL; Glucose Random 121 mg/dL (60-115); Potassium 3.7 mmol/L (3.3-5.1); Sodium 137 mmol/L (135-145)
[2023-03-03 20:40] VITALS: BP 154/83; PULSE 79; RESP 12; TEMP 36.7; O2SAT 97
[2023-03-03 21:08] LABS: Appearance Urine Clear; Color Urine Yellow; Glucose Urine UA Negative (Negative); Leukocyte Esterase Urine Small (1+) (Negative); Nitrite Urine Negative (Negative); PH 8.5 (5.0-9.0); Specific Gravity - Urine 1.025 (1.005-1.025); UMIC TRIGGER UACC YES; Urine Blood Trace (Negative); Urine Ketones Trace mg/dL (Negative); Urine Protein Trace mg/dL (Neg-Trace)
--- NOTE | 2023-03-03 21:10 | PHA.MEDREC ---
Pharmacy Consult ? Medication Reconciliation Pharmacy has completed the medication reconciliation. Patient came from the [facility] with med list. Marybeth Means, RalphD
[2023-03-03 21:13] LABS: Bacteria Urine None Seen (None Seen); Hyaline Casts Urine 0-2 /LPF (0-2); RBC Urine >20 /HPF (0-2); Squamous Epithelial Cell Urine 0-2 /HPF (0-2); UACC Culture Trigger YES
--- NOTE | 2023-03-03 21:31 | PC.NURSE ---
pt ambulated to the bathroom with 1 assist gait slow and steady
--- NOTE | 2023-03-03 21:46 | ED.GENADULT ---
HPI - General Adult General Chief complaint: Altered Mental Status Stated complaint: FTT Time Seen by Provider: 03/03/23 19:58 Source: patient and family Mode of arrival: EMS History of Present Illness HPI narrative: This is an 82-year-old female who is brought in by EMS but is also accompanied by her family members that states that patient has baseline dementia and then was noted to be wandering around in the facility attempting to enter other patrons apartments and noted to be throwing trash on the ground. Patient does have some difficulty in questions regarding orientation. Related Data Home Medications Medication Instructions Recorded Confirmed amlodipine 2.5 mg tablet 1 tab PO DAILY 04/22/21 03/03/23 levothyroxine 88 mcg tablet 1 tab PO DAILY@0600 04/22/21 03/03/23 (Synthroid) pravastatin 40 mg tablet 1 tab PO BEDTIME 04/22/21 03/03/23 trazodone 50 mg tablet 75 mg PO BEDTIME 12/03/21 03/03/23 alprazolam 0.25 mg tablet 0.25 mg PO BID PRN Anxiety 03/03/23 03/03/23 ketorolac 0.5 % eye drops 1 drp ophthalmic (eye) 4XW PRN Pain 03/03/23 03/03/23 peg 400-propylene glycol 0.4 %-0.3 1 drp ophthalmic (eye) TID PRN Dry 03/03/23 03/03/23 % eye drops (Systane (propylene Eyes glycol)) rivastigmine 9.5 mg/24 hour 1 patch topical DAILY 03/03/23 03/03/23 transdermal patch sertraline 100 mg tablet 100 mg PO DAILY 03/03/23 03/03/23 Previous Rx's Medication Instructions Recorded cephalexin 500 mg capsule 500 mg PO BID 5 days #10 caps 03/03/23 Allergies Allergy/AdvReac Type Severity Reaction Status Date / Time No Known Allergies Allergy Verified 04/14/21 19:48 Review of Systems Review of Systems: Pertinent positives and negatives as stated in HPI [facility] Past Medical History Source: nursing notes reviewed Social History Social History Household Members: None Housing: Condominium Do you presently have visiting nurse or other home services: No Alcohol intake: never Patient Tobacco Use Status: Former Tobacco user Smoked in Last 30 Days: No Use of substances other than those prescribed or required for medical reasons: No Advance Directives: Yes Advance Directives on File: Yes Advance Directives Date on File: 04/23/21 service: No Current occupational status: retired Physical Exam ED Vital Signs: Vital Signs - 24 hr 03/03/23 19:31 03/03/23 20:40 Temperature 98.6 F 98.0 F Pulse Rate 98 79 Respiratory Rate 16 12 Blood Pressure 135/78 154/83 H Pulse Oximetry 98 97 Oxygen Delivery Method Room Air Room Air BMI result Body Mass Index 21.0 VITAL SIGNS: Reviewed. GENERAL: Well developed, well nourished, in no acute distress. HEAD: Normocephalic/atraumatic EYES: PERRLA, EOMI EARS: Ext canals without abnormality NOSE: Nares patent bilateral OROPHARYNX: no oral lesions noted, posterior pharynx clear NECK: Supple, no adenopathy LUNGS: Normal breath sounds. No adventitious sounds or accessory muscle use. SpO2<97> CARDIOVASCULAR: Regular rate and rhythm without noted murmurs ABDOMEN: Soft, non-tender, non-distended with bowel sounds. MUSCULOSKELETAL: No tenderness, deformities, or effusions noted on gross inspection. EXTREMITIES: No cyanosis, clubbing or edema. SKIN: Inspection of the skin reveals no rashes NEUROLOGIC: Alert and oriented x 2. Strength and sensation to light touch were grossly intact x 4, no facial asymmetry, no pronator drift, cranial nerves 2-12 are grossly intact, patient ambulates with a steady gait. Medical Decision Making Medical Decision Making MDM Narrative: 82-year-old female with history and clinical presentation, DDX: Progression of dementia, no focal deficits and no clinical suspicion for intracranial abnormalities, will evaluate for evidence of infection/anemia/electrolyte abnormalities potentially contributing to patient's change in cognition. I reviewed all investigations and hematologic indices are negative for leukocytosis, patient has chronically stable left shift, there is no anemia or thrombocytopenia. Chemistry indices negative for evidence of DANNA and no electrolyte abnormalities. Patient has no complaints of abdominal pain. Urinalysis shows that it is a clean sample but there is evidence of leukocyte esterase as well as wbc's. Patient will be empirically treated for urinary tract infection. Differential Diagnosis Differential Diagnoses: The differential diagnosis associated with the presentation includes Please see the discussion above Admission/Observation Consideration of admission/observation: Escalation of care including admission/observation considered Please see the discussion above Lab Data MDM Lab Attestation statement: I reviewed the patient's lab results. Please see the discussion above 03/03/23 20:06 03/03/23 20:06 Labs: Lab Results 03/03/23 03/03/23 03/03/23 Range/Units 19:49 20:06 20:50 WBC 8.1 (4.8-10.8) X10*3/uL RBC 4.28 (4.20-5.50) X10*6/uL Hgb 12.5 (12.0-16.0) g/dl Hct 36.6 L (37.0-47.0) % MCV 85.5 (80.0-98.0) fL MCH 29.2 (27.0-33.0) pg MCHC 34.2 (31.0-35.0) g/dl RDW 13.3 (11.0-16.0) % Plt Count 305 (160-400) X10*3/uL MPV 9.7 (9.4-12.3) fL Immature Gran % (Auto) 0.6 H (0.0-0.4) % Neut % (Auto) 81.0 H (45-73) % Lymph % (Auto) 8.8 L (20-40) % Rock % (Auto) 9.2 (2-11) % Eos % (Auto) 0.2 (0-4) % Baso % (Auto) 0.2 (0-2) % Lymph # (Auto) 0.7 L (1.2-4.9) X10*3/uL Rock # (Auto) 0.7 (0.1-1.2) X10*3/uL Eos # (Auto) 0.0 (0.0-0.4) X10*3/uL Baso # (Auto) 0.0 (0.0-0.2) X10*3/uL Abs Immat Gran (auto) 0.05 H (0.00-0.03) X10*3/uL Absolute Neuts (auto) 6.5 (2.0-8.3) x10*3/uL Absolute Nucleated RBC 0.000 (0.0-0.012) X10*3/uL Nucleated RBC % (auto) 0.0 (0.0-0.2) /100WBC Sodium 137 (135-145) mmol/L Potassium 3.7 (3.3-5.1) mmol/L Chloride 105 (96-108) mmol/L Carbon Dioxide 22 (22-29) mmol/L Anion Gap 14 (12-20) BUN 15 (9-16) mg/dL Creatinine 0.77 (0.5-1.4) mg/dL Estim Creat Clear Calc 44.5 Estimated GFR > 60 POC Glucose 126 H (60-115) mg/dL Random Glucose 121 H (60-115) mg/dL Calcium 8.9 (8.4-10.2) mg/dL Urine Color Yellow Urine Appearance Clear Urine pH 8.5 (5.0-9.0) Ur Specific [place] 1.025 (1.005-1.025) Urine Protein Trace (Neg-Trace) mg/dL Urine Glucose (UA) Negative (Negative) mg/dL Urine Ketones Trace (Negative) mg/dL Urine Blood Trace H (Negative) Urine Nitrite Negative (Negative) Ur Leukocyte Esterase Small (1+) H (Negative) Ethyl Alcohol < 10 mg/dL External Record Review External record reviewed: Outpatient record and Prior outpatient labs Chronic Conditions Patient?s care impacted by: Hypertension Critical Care Time Critical Care Time Critical Care Time: Yes Total Critical Care Time: 30 Attestation: I personally attest to this time spent taking care of the patient. Discharge Plan Discharge Clinical Impression: Dementia, Acute UTI Patient Disposition: Home, Self-Care Instructions: Dementia (ED), Urinary Tract Infection in Older Adults (ED) Additional Instructions: 1. Resume all home medications as prescribed. Please complete the entire course of antibiotics as prescribed. 2. Return to the ER for any worsening symptoms, also recommend discussion with primary care provider. Prescriptions: New cephalexin 500 mg capsule 500 mg PO BID 5 Days Qty: 10 0RF No Action pravastatin 40 mg tablet 1 tab PO BEDTIME amlodipine 2.5 mg tablet 1 tab PO DAILY levothyroxine [Synthroid] 88 mcg tablet 1 tab PO DAILY@0600 trazodone 50 mg tablet 75 mg PO BEDTIME sertraline 100 mg tablet 100 mg PO DAILY ketorolac 0.5 % drops 1 drp ophthalmic (eye) 4XW PRN (Reason: Pain) alprazolam 0.25 mg tablet 0.25 mg PO BID PRN (Reason: Anxiety) Systane (propylene glycol) 0.4-0.3 % Drops 1 drp OPHTHALMIC (EYE) TID PRN (Reason: Dry Eyes) rivastigmine 9.5 mg/24 hour patch 24 hour 1 patch topical DAILY Interventions: ED Discharge Assessment Last Done: 03/03/23 21:49 Discharge Date/Time: 03/03/23 21:49
== END 2023-03-03 21:49 | disposition home or self-care (01) ==
PROVIDERS: Emergency Provider Student in an Organized Health Care Education/Training Program
DX: F03.90 Unspecified dementia, unspecified severity, without behavioral disturbance, psychotic disturbance, mood disturbance, and anxiety (principal); N39.0 Urinary tract infection, site not specified; Z87.891 Personal history of nicotine dependence; Z79.899 Other long term (current) drug therapy
CPT/HCPCS: 36415; 80048; 80307; 81001; 82947; 85025; 87086; 99284

== ENCOUNTER 2023-03-05 07:37 | Emergency (ER) | payer MEDICARE, SELFPAY ==
--- NOTE | ~2023-03-05 | XR_ITS ---
EXAMINATION: XR CHEST CLINICAL INFORMATION: COVID positive, cough and chest pain. COMPARISON: None available. TECHNIQUE: Frontal view of the chest was obtained. FINDINGS: No significant abnormality is noted involving the heart, lungs, mediastinum, bony thorax or soft tissues. XR/XR chest 1V IMPRESSION: Unremarkable chest examination.
--- NOTE | 2023-03-05 07:40 | ED.URI ---
HPI - URI/Sore Throat General Chief Complaint: Altered Mental Status Stated Complaint: +COVID/+UTI,FROM [facility] PER [facility] Time Seen by Provider: 03/05/23 07:39 Source: patient Mode of arrival: EMS Limitations: no limitations History of Present Illness HPI Narrative: 82-year-old female history of hypertension, hyperlipidemia, hypothyroidism, insomnia, anxiety, dementia with memory impairment who lives at the assisted living facility, [facility] who was sent to emergency department for evaluation of an altered mental status and weakness. The patient was seen in the emergency department on 03/03/2023 for wandering in the facility, walking into other clients rooms, throwing trash which was a change in her behavior. Patient's workup revealed 6-10 white blood cells in her urine with no bacteria and the patient was treated with cephalexin 500 mg twice a day for 5 days for urinary tract infection. According to note sent in with the patient, she tested COVID positive yesterday. The notes also states that she has generalized weakness and cannot ambulate Which is new for her. Related Data Home Medications Medication Instructions Recorded Confirmed amlodipine 2.5 mg tablet 1 tab PO DAILY 04/22/21 03/05/23 levothyroxine 88 mcg tablet 1 tab PO DAILY@0600 04/22/21 03/05/23 (Synthroid) pravastatin 40 mg tablet 1 tab PO BEDTIME 04/22/21 03/05/23 trazodone 50 mg tablet 75 mg PO BEDTIME 12/03/21 03/05/23 alprazolam 0.25 mg tablet 0.25 mg PO TID PRN Anxiety 03/03/23 03/05/23 ketorolac 0.5 % eye drops 1 drp ophthalmic (eye) 4XW PRN Pain 03/03/23 03/05/23 peg 400-propylene glycol 0.4 %-0.3 1 drp ophthalmic (eye) TID PRN Dry 03/03/23 03/05/23 % eye drops (Systane (propylene Eyes glycol)) rivastigmine 9.5 mg/24 hour 1 patch topical DAILY 03/03/23 03/05/23 transdermal patch sertraline 100 mg tablet 100 mg PO DAILY 03/03/23 03/05/23 Allergies Allergy/AdvReac Type Severity Reaction Status Date / Time No Known Allergies Allergy Verified 04/14/21 19:48 Review of Systems Review of Systems: Yes all other systems are reviewed and are negative [facility] Past Medical History [facility] Narrative: Past medical history: Hypertension, hyperlipidemia, hypothyroidism, insomnia, anxiety, dementia with memory impairment. Social History Social History Household Members: None Housing: Condominium Do you presently have visiting nurse or other home services: No Alcohol intake: never Patient Tobacco Use Status: Former Tobacco user Advance Directives: Yes Advance Directives on File: Yes Advance Directives Date on File: 04/23/21 service: No Current occupational status: retired Physical Exam Vital Signs: Vital Signs: Last Vital Signs Temp 98.7 F 03/05/23 10:58 Pulse 69 03/05/23 15:46 Resp 16 03/05/23 15:46 BP 128/72 03/05/23 15:46 Pulse Ox 98 03/05/23 15:46 O2 Del Method Room Air 03/05/23 15:46 BMI result Body Mass Index 21.0 vital signs were normal exam: General: Awake, alert in no distress , oriented to person, he was able to tell me that she was here recently and is being treated for aurinary tract infection Head: Normocephalic, atraumatic EENT: PERRL, Lids normal, sclera normal, conjunctiva normal, nose normal , ears normal, throat without erythema or exudates Neck: Supple, no adenopathy, trachea midline and nontender Lung: breath sounds symmetric, no wheezing, rales or rhonchi Chest: symmetric movement, nontender Heart: regular rate and rhythm, normal S1, S2 no murmurs or rubs Abdomen: soft, non-tender, nondistended, normal bowel sounds Back: no vertebral tenderness, no CVAT Extremities: no deformities, moves all extremities symmetrically Skin: no rashes, no lesion, normal color and warmth Neuro: Awake, alert, oriented, normal speech, cranial nerves intact, moves all extremities symmetrically Psych: Pleasant, cooperative Medications Administered Discontinued Medications Generic Name Dose Route Start Last Admin Trade Name Freq PRN Reason Stop Dose Admin Amlodipine Besylate 2.5 mg 03/05/23 12:44 03/05/23 15:47 Amlodipine Besylate 2.5 Mg Tablet PO 03/05/23 12:45 2.5 mg ONCE ONE Administration Protocol Sodium Chloride 1,000 mls @ 150 mls/hr 03/05/23 08:16 03/05/23 09:07 Ns IV 03/05/23 14:55 150 mls/hr .[id number] STA Administration Levothyroxine Sodium 88 mcg 03/05/23 12:44 03/05/23 15:48 Levothyroxine Sodium 88 Mcg Tablet PO 03/05/23 12:45 88 mcg ONCE ONE Administration Sertraline HCl 100 mg 03/05/23 12:44 03/05/23 15:47 Sertraline Hcl 100 Mg Tablet PO 03/05/23 12:45 100 mg ONCE ONE Administration Medical Decision Making Medical Decision Making MDM Narrative: 82-year-old female history of hypertension, hyperlipidemia, hypothyroidism, insomnia, anxiety, dementia with memory impairment who lives at the assisted living facility, [facility] who was sent to emergency department for evaluation of an altered mental status, unable to walk and weakness. The patient was seen in the emergency department on 03/03/2023 diagnosed with urinary tract infection. Patient tested positive yesterday for COVID-19. Vital signs were unremarkable. Patient's exam was unremarkable with the nonfocal neurologic exam. 12:22 the patient's laboratory evaluation was unremarkable. Chest x-ray did not reveal any clear pneumonia. the patient's urine culture from 03/03/2023 revealed mixed bacterial laura. At this time I suspect the patient's weakness is related to COVID, she is not able to walk secondary to her weakness. at this time, patient does not meet criteria for admission since she is not hypoxic. Family would like to pursue 24 hour care at her assisted living facility 15:55 Start physician observation: Patient has been seen by case management. The family has been able to arrange care at the patient's assisted living facility but this will not start until tomorrow at noon. Therefore the patient will be kept in the emergency depart until she can be safely discharged home. Patient's outpatient medication regimen was reconciled in ordered by me. At the end of my shift, patient's care was turned over to my colleague, Dr. Maloney Differential Diagnosis Differential Diagnoses: The differential diagnosis associated with the presentation includes Differential diagnosis includes was not limited to weakness secondary to COVID-19 or urinary tract infection, anemia, electrolyte abnormalities Admission/Observation Consideration of admission/observation: Escalation of care including admission/observation considered Consult Healthcare Provider Management of the patient was discussed with: Vascular Surgery Physician ( Case management) Lab Data MDM Lab Attestation statement: I reviewed the patient's lab results. my interpretation patient's laboratory evaluation is as follows: CBC was normal. Coags normal. CMP normal except for an elevated glucose of 131. CK elevated 445. Urinalysis revealed positive blood, positive leukocyte esterase. microscopic revealed 0-5 WBCs, greater than 20 RBCs, no bacteria seen. COVID-19 positive. 03/05/23 08:57 03/05/23 08:57 Labs: Lab Results 03/05/23 03/05/23 Range/Units 08:57 10:11 WBC 8.7 (4.8-10.8) X10*3/uL RBC 4.39 (4.20-5.50) X10*6/uL Hgb 12.7 (12.0-16.0) g/dl Hct 37.6 (37.0-47.0) % MCV 85.6 (80.0-98.0) fL MCH 28.9 (27.0-33.0) pg MCHC 33.8 (31.0-35.0) g/dl RDW 13.3 (11.0-16.0) % Plt Count 264 (160-400) X10*3/uL MPV 10.0 (9.4-12.3) fL Immature Gran % (Auto) 0.5 H (0.0-0.4) % Neut % (Auto) 85.9 H (45-73) % Lymph % (Auto) 4.6 L (20-40) % [place] % (Auto) 8.8 (2-11) % Eos % (Auto) 0.0 (0-4) % Baso % (Auto) 0.2 (0-2) % Lymph # (Auto) 0.4 L (1.2-4.9) X10*3/uL [place] # (Auto) 0.8 (0.1-1.2) X10*3/uL Eos # (Auto) 0.0 (0.0-0.4) X10*3/uL Baso # (Auto) 0.0 (0.0-0.2) X10*3/uL Abs Immat Gran (auto) 0.04 H (0.00-0.03) X10*3/uL Absolute Neuts (auto) 7.5 (2.0-8.3) x10*3/uL Absolute Nucleated RBC 0.000 (0.0-0.012) X10*3/uL Nucleated RBC % (auto) 0.0 (0.0-0.2) /100WBC PT 14.1 H (11.1-13.3) SEC INR 1.2 H (0.9-1.1) APTT 29.0 (26.0-36.4) SEC Sodium 136 (135-145) mmol/L Potassium 3.6 (3.3-5.1) mmol/L Chloride 103 (96-108) mmol/L Carbon Dioxide 21 L (22-29) mmol/L Anion Gap 16 (12-20) BUN 14 (9-16) mg/dL Creatinine 0.71 (0.5-1.4) mg/dL Estim Creat Clear Calc 48.3 Estimated GFR > 60 Random Glucose 131 H (60-115) mg/dL Lactic Acid 0.9 (0.5-2.0) mmol/L Calcium 9.0 (8.4-10.2) mg/dL Total Bilirubin 0.8 (0.0-1.0) mg/dL AST 31 (5-31) U/L ALT 16 (0-31) U/L Alkaline Phosphatase 58 (39-117) U/L Total Creatine Kinase 445 H (26-140) U/L Troponin I High Sens 4.3 (<3.5-17.0) ng/L Total Protein 6.6 (6.5-8.0) g/dL Albumin 3.8 (3.5-5.0) g/dL Lipase 38 (8-78) U/L Urine Color Yellow Urine Appearance Clear Urine pH 6.5 (5.0-9.0) Ur Specific [place] 1.015 (1.005-1.025) Urine Protein Negative (Neg-Trace) mg/dL Urine Glucose (UA) Negative (Negative) mg/dL Urine Ketones Negative (Negative) mg/dL Urine Blood Small (1+) H (Negative) Urine Nitrite Negative (Negative) Ur Leukocyte Esterase Small (1+) H (Negative) Urine RBC >20 H (0-2) /HPF Urine WBC 0-5 (0-5) /HPF Ur Squamous Epith Cells 0-2 (0-2) /HPF Urine Bacteria None Seen (None Seen) Hyaline Casts 0-2 (0-2) /LPF Influenza Type A (PCR) NEGATIVE (Negative) Influenza Type B (PCR) NEGATIVE (Negative) RSV RNA Qual (PCR) NEGATIVE (Negative) SARS-CoV-2 RNA (RT-PCR) POSITIVE A (Negative) Independent Interpretation I performed an independent interpretation of an: Plain X-Ray Interpretation: My independent review of the patient's one-view chest x-ray is as follows: No acute disease Radiology Impression Discussion of test interpretation with radiology: I have reviewed the radiologist's reading. Radiologist Impression: XR chest 1V IMPRESSION: Unremarkable chest examination. Dictated By: Mayito Redmond MD Independent Historian Clinical information obtained from an independent historian. History obtained from or confirmed by: Other ( son and daughter) External Record Review External record reviewed: Outpatient record ( transfer paperwork from [facility]) Discharge Plan Discharge Clinical Impression: Altered mental status, COVID-19, Weakness Patient Disposition: Still a Patient Prescriptions: No Action pravastatin 40 mg tablet 1 tab PO BEDTIME amlodipine 2.5 mg tablet 1 tab PO DAILY levothyroxine [Synthroid] 88 mcg tablet 1 tab PO DAILY@0600 trazodone 50 mg tablet 75 mg PO BEDTIME sertraline 100 mg tablet 100 mg PO DAILY ketorolac 0.5 % drops 1 drp ophthalmic (eye) 4XW PRN (Reason: Pain) alprazolam 0.25 mg tablet 0.25 mg PO TID PRN (Reason: Anxiety) Systane (propylene glycol) 0.4-0.3 % Drops 1 drp OPHTHALMIC (EYE) TID PRN (Reason: Dry Eyes) rivastigmine 9.5 mg/24 hour patch 24 hour 1 patch topical DAILY
[2023-03-05 07:48] VITALS: BP 111/67; BP 141/69; PULSE 85; PULSE 87; RESP 18; TEMP 37.4; O2SAT 96; BMI 21.0
--- NOTE | 2023-03-05 08:16 | ECG_ITS ---
Test Reason : AMS Blood Pressure : / mmHG Vent. Rate : 069 BPM Atrial Rate : 069 BPM P-R Int : 156 ms QRS Dur : 092 ms QT Int : 384 ms P-R-T Axes : 061 -18 052 degrees QTc Int : 411 ms Normal sinus rhythm Normal ECG When compared with ECG of 03-DEC-2021 19:53, No significant change was found Referred By: Dickson Duff Electronically Signed By:KENNY TRUJILLO MD
[2023-03-05] MEDS: 0.9 % Sodium Chloride 1,000 ML 150 ML IV (09:07)
[2023-03-05 09:09] LABS: MANUAL DIFF FLAG NO
[2023-03-05 09:10] LABS: Basophils Percent Auto 0.2 % (0-2); Hematocrit 37.6 % (37.0-47.0); Hemoglobin 12.7 g/dl (12.0-16.0); Imm Gran Abs Auto 0.04 X10*3/uL (0.00-0.03); Imm Gran Pct Auto 0.5 % (0.0-0.4); Lymphocytes Absolute Auto 0.4 X10*3/uL (1.2-4.9); Lymphocytes Percent Auto 4.6 % (20-40); Mean Corpuscular HGB Conc 33.8 g/dl (31.0-35.0); Mean Corpuscular Hemoglobin 28.9 pg (27.0-33.0); Mean Corpuscular Volume 85.6 fL (80.0-98.0); Monocytes Absolute Auto 0.8 X10*3/uL (0.1-1.2); Monocytes Percent Auto 8.8 % (2-11); Neutrophils Absolute Auto 7.5 x10*3/uL (2.0-8.3); Neutrophils Percent Auto 85.9 % (45-73); Platelet Count 264 X10*3/uL (160-400); Red Blood Count 4.39 X10*6/uL (4.20-5.50); Red Cell Distribution Width 13.3 % (11.0-16.0); White Blood Count 8.7 X10*3/uL (4.8-10.8)
[2023-03-05 09:18] LABS: INTERNATIONAL NORM RATIO 1.2 (0.9-1.1); Prothrombin Time 14.1 SEC (11.1-13.3)
[2023-03-05 09:22] LABS: Lactic Acid 0.9 mmol/L (0.5-2.0)
[2023-03-05 09:25] LABS: Alanine Aminotransferase 16 U/L (0-31); Albumin Level 3.8 g/dL (3.5-5.0); Alkaline Phosphatase 58 U/L (39-117); Anion Gap 16 (12-20); Aspartate Amino Transferase 31 U/L (5-31); Bilirubin Total 0.8 mg/dL (0.0-1.0); Blood Urea Nitrogen 14 mg/dL (9-16); Carbon Dioxide 21 mmol/L (22-29); Chloride 103 mmol/L (96-108); Creatinine Clr Calc Pharmacy 48.3; Estimated Glomerular Filt Rate > 60; Glucose Random 131 mg/dL (60-115); Lipase 38 U/L (8-78); Potassium 3.6 mmol/L (3.3-5.1); Sodium 136 mmol/L (135-145); Total Protein 6.6 g/dL (6.5-8.0)
[2023-03-05 09:41] LABS: Troponin-I High Sensitivity 4.3 ng/L (<3.5-17.0)
[2023-03-05 09:45] LABS: Influenza A PCR NEGATIVE (Negative); Influenza B PCR NEGATIVE (Negative); Resp Syncy Virus RNA Qual PCR NEGATIVE (Negative); SARS COV2 PCR INHOUSE POSITIVE (Negative)
[2023-03-05 10:24] LABS: Appearance Urine Clear; Color Urine Yellow; Glucose Urine UA Negative (Negative); Leukocyte Esterase Urine Small (1+) (Negative); Nitrite Urine Negative (Negative); PH 6.5 (5.0-9.0); Specific Gravity - Urine 1.015 (1.005-1.025); UMIC TRIGGER UACC YES; Urine Blood Small (1+) (Negative); Urine Ketones Negative (Negative); Urine Protein Negative (Neg-Trace)
[2023-03-05 10:37] LABS: Bacteria Urine None Seen (None Seen); Hyaline Casts Urine 0-2 /LPF (0-2); RBC Urine >20 /HPF (0-2); Squamous Epithelial Cell Urine 0-2 /HPF (0-2); UACC Culture Trigger YES; WBC Urine 0-5 /HPF (0-5)
[2023-03-05 10:58] VITALS: BP 126/65; PULSE 82; RESP 16; TEMP 37.1; O2SAT 97
--- NOTE | 2023-03-05 11:00 | PC.NURSE ---
continues to rest quietly in room with fluids infusing. offering no complaints at this time. call hill within reach
--- NOTE | 2023-03-05 11:10 | PC.NURSE ---
ambulates using walker at home, pt with one assist to commode.
[2023-03-05 11:47] VITALS: BP 103/54; PULSE 73; RESP 21; O2SAT 98
--- NOTE | 2023-03-05 13:31 | MHC.CM.ED ---
Received case management consult from Dr Duff. Patient was recently in the ER. Diagnosed with UTI and sent home. Patient returned ER today due to weakness. Work up indicates +Covid. Not inpatient appropriate at this time. Family is looking to find 08/12 private pay care at [facility]. Met with patient, daughter Brooklyn and son Gordo. Patient lives at [facility]. [facility] typically uses [facility] for prviate pay home care. However, [facility] does not have staffing available to assist patient. Other private pay home care options discussed. Gordo and Brooklyn will attempt to find private pay home care. It is unlikely care will be able to be arranged today. Anticipate patient will remain in ER overnight. Dr Duff aware. Continue to monitor for d/c needs.
[2023-03-05 15:46] VITALS: BP 128/72; PULSE 69; RESP 16; O2SAT 98
--- NOTE | 2023-03-05 15:46 | MHC.CM.ED ---
Patient's son, Gordo, was able to arrange private pay care for his mother during the day starting Thursday. Family will provide overnight care at [facility] until private pay night help can be arranged. Family will be here tomorrow 03/06 at 12pm to d/c patient back to her assisted living facility. Continue to monitor for d/c needs.
[2023-03-05] MEDS: Sertraline HCL 100 MG TABLET PO (15:47)
[2023-03-05] MEDS: amLODIPine Besylate 2.5 MG TABLET PO (15:47)
[2023-03-05] MEDS: Levothyroxine Sodium 88 MCG TABLET PO (15:48)
--- NOTE | 2023-03-05 16:24 | PC.NURSE ---
family remains at bedside, medicated per the MAR. pt remains altered and unsteady on her feet when assisted to the commode. plan for overnight in the hospital for pt/cm
[2023-03-05 18:21] VITALS: BP 145/75; PULSE 66; RESP 14; O2SAT 100
[2023-03-05] MEDS: traZODone HCL 25 MG HALFTAB 75 MG PO (21:30)
[2023-03-05] MEDS: Pravastatin Sodium 40 MG TABLET PO (21:30)
--- NOTE | 2023-03-05 21:33 | PC.NURSE ---
this rn assumed care of pt. pt able to state name and birthday but unable to state where she is. pt states she is laying in a bed in [place]. pt lung sounds clear bilaterally. pt medicated per jul. pt took medications well with apple sauce.
[2023-03-06 06:00] VITALS: BP 130/75; PULSE 68; RESP 18; TEMP 36.8; O2SAT 98
[2023-03-06] MEDS: Levothyroxine Sodium 88 MCG TABLET PO (06:05)
[2023-03-06 08:33] VITALS: BP 119/64; PULSE 90; RESP 16; TEMP 36.3; O2SAT 97
[2023-03-06] MEDS: Sertraline HCL 100 MG TABLET PO (08:36)
[2023-03-06] MEDS: amLODIPine Besylate 2.5 MG TABLET PO (08:37)
--- NOTE | 2023-03-06 09:07 | MHC.CM.ED ---
Patient remains in ER overflow. Family will be in ER at 12pm to transport patient back to her [facility]. They will provide 24/ care until [facility] can provide all care. Patient, daughter Luz Elena Barahona RN and Disha GERMAN aware. Continue to monitor for d/c needs.
--- NOTE | 2023-03-06 10:54 | PC.NURSE ---
PT A/O X 1 NO SOB/GLADYS NOTED SPEAKS IN FULL SENTENCES. PT ATE 50% OF BREAKFAST. ONE OF HER DAUGHTER CONTINUES TO VISIT AT BEDSIDE. PT HAS SLIGHT SWELLING/REDNESS TO R LATERAL PALM/PINKY AREA. ETIOLOGY UNKNOWN, AREA WAS MADE AWARE TO THIS RN BY PT' DAUGHTER AT BEDSIDE. PT DENIES ANY PAIN/DISC. +CMS TO EXT. MLP (VANDANAANALOIDA) AWARE. PT IS TO BE D/C'D HOME TODAY. CAMERA CONTINUES IN PT ROOM. BED ALARM ON.
--- NOTE | 2023-03-06 10:57 | MHC.EDTECH ---
Pt oob to commode 1 assist. Pt washed up and changed into new conor and pants. In bed resting quietly, call hill within reach, family member at bedside.
== END 2023-03-06 12:45 | disposition skilled nursing facility (03) ==
PROVIDERS: Emergency Provider Emergency Medicine Emergency Medical Services
DX: U07.1 COVID-19 (principal); R41.82 Altered mental status, unspecified; R53.1 Weakness; R07.9 Chest pain, unspecified; I10 Essential (primary) hypertension; E78.5 Hyperlipidemia, unspecified; E03.9 Hypothyroidism, unspecified; F03.90 Unspecified dementia, unspecified severity, without behavioral disturbance, psychotic disturbance, mood disturbance, and anxiety; F41.9 Anxiety disorder, unspecified; G47.00 Insomnia, unspecified; Z87.891 Personal history of nicotine dependence; Z79.899 Other long term (current) drug therapy
CPT/HCPCS: 0241U; 36415; 71045; 80053; 81001; 82550; 83605; 83690; 84484; 85025; 85610; 85730; 87040; 93005; 99285

== ENCOUNTER 2023-05-21 15:55 | Outpatient (REF) | payer MEDICARE, SELFPAY | END 2023-05-21 15:56 | disposition home or self-care (01) | LOC: HO.US 15:55 | PROVIDERS: Visit Provider Nurse Practitioner Family | DX: Z13.89 Encounter for screening for other disorder (principal) | CPT/HCPCS: 93970 ==

== ENCOUNTER 2023-05-21 16:48 | Emergency (ER) | payer MEDICARE, SELFPAY ==
[2023-05-21 16:56] VITALS: BP 180/88; PULSE 69; RESP 18; TEMP 36.5; O2SAT 98; BMI 21.4
--- NOTE | 2023-05-21 17:01 | ED.GENADULT ---
HPI - General Adult General Chief complaint: Recheck/Abnormal Lab/Rx Stated complaint: + acute bilateral acute thrombosis per ultrasound Time Seen by Provider: 05/21/23 18:41 Source: patient, family (Patient's daughter), RN notes reviewed and old records reviewed Mode of arrival: ambulatory Limitations: other (Patient has a history of dementia, most of the history is provided by the patient's daughter) History of Present Illness HPI narrative: 82-year-old female presents for evaluation of bilateral thrombus. ? Per the patient's daughter, the patient has had calf pain and leg swelling for approximately 2 weeks She saw her PCP last Thursday and had an outpatient ultrasound scheduled for today The patient presents to the ER from ultrasound due to ?bilateral greater saphenous vein thrombophlebitis. ? The patient has no history of DVT and is not currently anticoagulated Related Data Home Medications Medication Instructions Recorded Confirmed amlodipine 2.5 mg tablet 1 tab PO DAILY 04/22/21 03/05/23 levothyroxine 88 mcg tablet 1 tab PO DAILY@0600 04/22/21 03/05/23 (Synthroid) pravastatin 40 mg tablet 1 tab PO BEDTIME 04/22/21 03/05/23 trazodone 50 mg tablet 75 mg PO BEDTIME 12/03/21 03/05/23 alprazolam 0.25 mg tablet 0.25 mg PO TID PRN Anxiety 03/03/23 03/05/23 ketorolac 0.5 % eye drops 1 drp ophthalmic (eye) 4XW PRN Pain 03/03/23 03/05/23 peg 400-propylene glycol 0.4 %-0.3 1 drp ophthalmic (eye) TID PRN Dry 03/03/23 03/05/23 % eye drops (Systane (propylene Eyes glycol)) rivastigmine 9.5 mg/24 hour 1 patch topical DAILY 03/03/23 03/05/23 transdermal patch sertraline 100 mg tablet 100 mg PO DAILY 03/03/23 03/05/23 Previous Rx's Medication Instructions Recorded apixaban 5 mg (74 tabs) tablets in 5 mg PO BID #74 ea 05/21/23 a dose pack (Eliquis DVT-PE Treat 30D Start) Allergies Allergy/AdvReac Type Severity Reaction Status Date / Time No Known Allergies Allergy Verified 04/14/21 19:48 Review of Systems Constitutional: Constitutional: Denies chills and Denies fever(s) Cardiovascular: Cardiovascular: Denies chest pain, Reports leg edema and Denies dyspnea Respiratory: Respiratory: Denies cough and Denies dyspnea Musculoskeletal: Musculoskeletal: Reports other (Reports bilateral calf pain) [facility] Social History Social History Household Members: None Housing: Condominium Do you presently have visiting nurse or other home services: No Alcohol intake: never Patient Tobacco Use Status: Former Tobacco user Advance Directives: Yes Advance Directives on File: Yes Advance Directives Date on File: 04/23/21 service: No Current occupational status: retired Physical Exam ED Vital Signs: Vital Signs - 24 hr 05/21/23 16:56 05/21/23 17:57 Temperature 97.7 F 98.2 F Pulse Rate 69 73 Respiratory Rate 18 16 Blood Pressure 180/88 H 177/91 H Pulse Oximetry 98 97 Oxygen Delivery Method Room Air Room Air BMI result Body Mass Index 21.4 Const General: healthy appearing, comfortable, no acute distress, alert and awake Nutritional Appearance: well nourished [facility] Head: Yes normocephalic and Yes atraumatic Eyes Eyelids: Yes eyelids normal Conjunctivae: conjunctivae normal Sclerae: sclerae normal Corneas: corneas normal Pupils: Equal, round and reactive pupils present EOM: EOMs intact bilaterally Neck Neck: Yes full ROM Resp Effort & Inspection: normal respiratory effort, able to speak in complete sentences and not labored Cardio Other: 1 to 2+ nonpitting edema to the lower extremities bilaterally. No significant erythema Skin General skin exam: elasticity normal Neuro Cranial nerves: Yes Equal, round and reactive pupils present and Yes Bilaterally intact EOM present Cognition (Neuro): normal cognition Extrem Other: Bilateral calf tenderness. Negative Homans sign, no palpable cords Course Course Course Narrative: RME: 82-year-old female sent by primary care provider who believes she has positive thrombosis and lower extremities. Still waiting for official read of ultrasound. Positive for bilateral lower extremity calf tenderness and slight swelling. Pre report from rv repair technician negative for DVT but positive for bilateral thrombophlebitis. Labs ordered. Medications Administered Discontinued Medications Generic Name Dose Route Start Last Admin Trade Name Freq PRN Reason Stop Dose Admin Apixaban 5 mg 05/21/23 19:25 05/21/23 19:50 Apixaban 5 Mg Tablet PO 05/21/23 19:26 5 mg ONCE ONE Administration Medical Decision Making Medical Decision Making [facility] Narrative: Patient's outpatient ultrasound was significant for bilateral superficial thrombophlebitis at or near the junction of inflow. There is concern for propagation into DVT. Due to this I consulted with Dr. Alaniz, vascular surgery who recommends treating as DVT with Eliquis starter pack. I discussed the patient and her daughter and both are comfortable taking the medication. The patient will follow-up with vascular surgery as an outpatient. Differential Diagnosis Differential Diagnoses: The differential diagnosis associated with the presentation includes Superficial thrombophlebitis DVT Calf strain Muscle pain Lab Data [facility] Lab Attestation statement: I reviewed the patient's lab results. No leukocytosis or anemia. No significant electrolyte abnormalities. Patient's BUN is just but normal 18 with a normal GFR. 05/21/23 18:09 05/21/23 18:09 Labs: Lab Results 05/21/23 Range/Units 18:09 WBC 8.1 (4.8-10.8) X10*3/uL RBC 4.50 (4.20-5.50) X10*6/uL Hgb 12.7 (12.0-16.0) g/dl Hct 38.7 (37.0-47.0) % MCV 86.0 (80.0-98.0) fL MCH 28.2 (27.0-33.0) pg MCHC 32.8 (31.0-35.0) g/dl RDW 13.6 (11.0-16.0) % Plt Count 353 D (160-400) X10*3/uL MPV 10.0 (9.4-12.3) fL Immature Gran % (Auto) 0.6 H (0.0-0.4) % Neut % (Auto) 73.4 H (45-73) % Lymph % (Auto) 14.0 L (20-40) % Troup % (Auto) 7.7 (2-11) % Eos % (Auto) 3.8 (0-4) % Baso % (Auto) 0.5 (0-2) % Lymph # (Auto) 1.1 L (1.2-4.9) X10*3/uL Troup # (Auto) 0.6 (0.1-1.2) X10*3/uL Eos # (Auto) 0.3 (0.0-0.4) X10*3/uL Baso # (Auto) 0.0 (0.0-0.2) X10*3/uL Abs Immat Gran (auto) 0.05 H (0.00-0.03) X10*3/uL Absolute Neuts (auto) 5.9 (2.0-8.3) x10*3/uL Absolute Nucleated RBC 0.000 (0.0-0.012) X10*3/uL Nucleated RBC % (auto) 0.0 (0.0-0.2) /100WBC PT 12.4 (11.1-13.3) SEC INR 1.0 (0.9-1.1) APTT 32.5 (26.0-36.4) SEC Sodium 143 (135-145) mmol/L Potassium 3.9 (3.3-5.1) mmol/L Chloride 105 (96-108) mmol/L Carbon Dioxide 25 (22-29) mmol/L Anion Gap 17 (12-20) BUN 18 H (9-16) mg/dL Creatinine 0.75 (0.5-1.4) mg/dL Estim Creat Clear Calc 45.7 Estimated GFR > 60 Random Glucose 102 (60-115) mg/dL Calcium 9.4 (8.4-10.2) mg/dL Total Bilirubin 0.6 (0.0-1.0) mg/dL AST 16 (5-31) U/L ALT 8 (0-31) U/L Alkaline Phosphatase 67 (39-117) U/L Total Protein 6.9 (6.5-8.0) g/dL Albumin 4.1 (3.5-5.0) g/dL Discharge Plan Discharge Clinical Impression: Thrombophlebitis of superficial veins of both lower extremities Patient Disposition: Home, Self-Care Instructions: Superficial Thrombophlebitis (ED) Additional Instructions: Your ultrasound today showed that you do not have any true DVT, however you have blood clots in superficial veins of both legs that are very close to being consider DVTs. Therefore, we recommend that you start Eliquis, a blood thinner to help prevent worsening of the potential clots. This will increase your risk of bleeding. You should consult your doctor or return to the ER if you noticed any persistent nose bleeds, rectal bleeding or a few strike your head while on this medication. Call the office of vascular surgery, Dr. Alaniz tomorrow morning to schedule follow-up Prescriptions: [place] DVT-PE Treat 30D Start 5 mg (74 tabs) tablets,dose pack 5 mg PO BID Qty: 74 0RF No Action pravastatin 40 mg tablet 1 tab PO BEDTIME amlodipine 2.5 mg tablet 1 tab PO DAILY levothyroxine [Synthroid] 88 mcg tablet 1 tab PO DAILY@0600 trazodone 50 mg tablet 75 mg PO BEDTIME sertraline 100 mg tablet 100 mg PO DAILY ketorolac 0.5 % drops 1 drp ophthalmic (eye) 4XW PRN (Reason: Pain) alprazolam 0.25 mg tablet 0.25 mg PO TID PRN (Reason: Anxiety) Systane (propylene glycol) 0.4-0.3 % Drops 1 drp OPHTHALMIC (EYE) TID PRN (Reason: Dry Eyes) rivastigmine 9.5 mg/24 hour patch 24 hour 1 patch topical DAILY Referrals: Nam Alaniz MD [Physician] - (Bilateral superficial thrombophlebitis) Interventions: ED Discharge Assessment Last Done: 05/21/23 20:06 Discharge Date/Time: 05/21/23 20:07
[2023-05-21 17:57] VITALS: BP 177/91; PULSE 73; RESP 16; TEMP 36.8; O2SAT 97
[2023-05-21 18:30] LABS: Alanine Aminotransferase 8 U/L (0-31); Albumin Level 4.1 g/dL (3.5-5.0); Alkaline Phosphatase 67 U/L (39-117); Anion Gap 17 (12-20); Aspartate Amino Transferase 16 U/L (5-31); Bilirubin Total 0.6 mg/dL (0.0-1.0); Blood Urea Nitrogen 18 mg/dL (9-16); Calcium 9.4 mg/dL (8.4-10.2); Carbon Dioxide 25 mmol/L (22-29); Chloride 105 mmol/L (96-108); Creatinine Clr Calc Pharmacy 45.7; Estimated Glomerular Filt Rate > 60; Glucose Random 102 mg/dL (60-115); Potassium 3.9 mmol/L (3.3-5.1); Sodium 143 mmol/L (135-145); Total Protein 6.9 g/dL (6.5-8.0)
--- NOTE | 2023-05-21 18:41 | PC.NURSE ---
patient alert to self, family at bedside pt had outpt US performed and were directed to the ED by the PCP. Vitals stable, call hill within reach, will continue to monitor
--- NOTE | 2023-05-21 19:55 | PC.NURSE ---
pt medicated per MAR.
== END 2023-05-21 20:07 | disposition home or self-care (01) ==
PROVIDERS: Physician Assistant; Emergency Provider Emergency Medicine
DX: I80.03 Phlebitis and thrombophlebitis of superficial vessels of lower extremities, bilateral (principal); M79.662 Pain in left lower leg; M79.661 Pain in right lower leg; Z87.891 Personal history of nicotine dependence; R60.0 Localized edema
CPT/HCPCS: 36415; 80053; 85025; 85610; 85730; 93970; 99283

== ENCOUNTER 2023-05-26 22:54 | Emergency (ER) | payer MEDICARE, SELFPAY ==
--- NOTE | ~2023-05-26 | CT_ITS ---
EXAMINATION: CT HEAD WITHOUT CONTRAST CLINICAL INFORMATION: fall on eliquis COMPARISON: 12/03/2021 TECHNIQUE: Multidetector volumetric imaging of the head was performed without intravenous contrast material. This CT examination was performed using dose optimization techniques as appropriate, variously including the following: *Automated exposure control *Adjustment of mA and/or kV according to patient size (this includes techniques or standardized protocols for targeted exams where dose is matched to indication/reason for exam; i.e. extremities or head) *Use of iterative reconstruction technique Dose: 647 mGy-cm FINDINGS: There is no evidence of acute intracranial hemorrhage or territorial infarction. No abnormal mass-effect or midline shift is seen. García to white matter differentiation is well preserved. No extra axial fluid collections. There is commensurate enlargement of the ventricles and extraaxial CSF spaces consistent with mild volume loss. A few foci of hypoattenuation in the subcortical and periventricular white matter are most consistent with chronic microangiopathic changes. Globes are aphakic. No acute osseous findings. Again seen is a smoothly marginated focal cortical thickening along the inner table of the left parietal calvarium anteriorly near the coronal suture, unchanged. The sinuses and mastoid air cells are clear. CT/CT head/brain wo IV con IMPRESSION: No acute intracranial pathology.
--- NOTE | ~2023-05-26 | XR_ITS ---
EXAMINATION: XR RIGHT HIP WITH AP PELVIS CLINICAL INFORMATION: Status post fall COMPARISON: None TECHNIQUE: AP and frog-leg lateral views of the right hip and an AP view of the pelvis. FINDINGS: Bones are osteopenic. No fracture or malalignment. Mild osteophytes in both hips with small marginal osteophytes and mild joint space narrowing. More mild to moderate osteophytes in the SI joints. No soft tissue abnormalities are identified. XR/XR hip RT w PEL1V IMPRESSION: 1. No acute fracture or malalignment. 2. Mild osteoarthritis in the hips and SI joints.
[2023-05-26 23:10] VITALS: BP 154/76; BP 165/82; PULSE 64; RESP 16; TEMP 36.9; O2SAT 97; O2SAT 99; BMI 22.3
--- NOTE | 2023-05-26 23:26 | ED_ITS ---
HPI - Fall General Chief Complaint: Fall Stated Complaint: fall Time Seen by Provider: 05/26/23 23:26 Source: patient Mode of arrival: ambulatory Limitations: no limitations History of Present Illness HPI Narrative: Patient from assisted living place with history of significant dementia on Eliquis for DVT apparently was found on the floor by the staff next to the bed no significant injuries patient remembers fall but does not know why vitals are at baseline had previous lab on 05/21 which was stable Related Data Home Medications Medication Instructions Recorded Confirmed amlodipine 2.5 mg tablet 1 tab PO DAILY 04/22/21 03/05/23 levothyroxine 88 mcg tablet 1 tab PO DAILY@0600 04/22/21 03/05/23 (Synthroid) pravastatin 40 mg tablet 1 tab PO BEDTIME 04/22/21 03/05/23 trazodone 50 mg tablet 75 mg PO BEDTIME 12/03/21 03/05/23 alprazolam 0.25 mg tablet 0.25 mg PO TID PRN Anxiety 03/03/23 03/05/23 ketorolac 0.5 % eye drops 1 drp ophthalmic (eye) 4XW PRN Pain 03/03/23 03/05/23 peg 400-propylene glycol 0.4 %-0.3 1 drp ophthalmic (eye) TID PRN Dry 03/03/23 03/05/23 % eye drops (Systane (propylene Eyes glycol)) rivastigmine 9.5 mg/24 hour 1 patch topical DAILY 03/03/23 03/05/23 transdermal patch sertraline 100 mg tablet 100 mg PO DAILY 03/03/23 03/05/23 Previous Rx's Medication Instructions Recorded apixaban 5 mg (74 tabs) tablets in 5 mg PO BID #74 ea 05/21/23 a dose pack (Eliquis DVT-PE Treat 30D Start) Allergies Allergy/AdvReac Type Severity Reaction Status Date / Time No Known Allergies Allergy Verified 05/26/23 23:10 Review of Systems Review of Systems: Yes all other systems are reviewed and are negative PMFSH Social History Social History Household Members: None Housing: Condominium Do you presently have visiting nurse or other home services: No Alcohol intake: never Patient Tobacco Use Status: Former Tobacco user Advance Directives: Yes Advance Directives on File: Yes Advance Directives Date on File: 04/23/21 service: No Current occupational status: retired Physical Exam Vital Signs: Vital Signs: Last Vital Signs Temp 97.9 F 05/27/23 01:23 Pulse 66 05/27/23 01:23 Resp 18 05/27/23 01:23 BP 165/78 H 05/27/23 01:23 Pulse Ox 99 05/27/23 01:23 O2 Del Method Room Air 05/27/23 01:23 BMI result Body Mass Index 22.3 Appearance: Alert. And awake with significant dementia. No acute distress. Eyes: PERRLA, No Nystagmus HEENT: Pharynx normal. Oral Mucosa moist, AT NC Neck: Normal inspection. Neck supple. No midline tenderness CVS: Normal heart rate and rhythm. Pulses normal. Respiratory: No respiratory distress. Equal air entry bilateral, no wheezing/rales/rhonchi Abdomen: Soft and nontender. Bowel sounds are present, no mass palpable, no CVA tenderness no spinal tenderness Skin: Skin warm and dry. Normal skin color. Normal skin turgor. Extremities: No lower extremity edema. No calf tenderness mild right hip tenderness no deformity good range of movement Neuro: Oriented x1-2 No motor deficit. No sensory deficit.No cerebellar signs , cranial nerves II-XII intact Medical Decision Making Medical Decision Making MDM Narrative: Patient is status post mechanical fall with no significant injury CT scan of the head is negative pelvis x-ray is negative will discharge patient back to [facility] patient had previous labs which were stable vitals are stable patient ambulatory in the ED in steady gait Independent Interpretation I performed an independent interpretation of an: CT Scan Radiology Impression Discussion of test interpretation with radiology: I have reviewed the ra diologist's reading. Discharge Plan Discharge Clinical Impression: Fall Patient Disposition: Xfer SNF Transfer Details: CT scan of the head, x-ray of pelvis and hips and EKG negative Instructions: Fall Prevention for Older Adults (ED) Additional Instructions: Care and cautions as advised Prescriptions: No Action pravastatin 40 mg tablet 1 tab PO BEDTIME amlodipine 2.5 mg tablet 1 tab PO DAILY levothyroxine [Synthroid] 88 mcg tablet 1 tab PO DAILY@0600 trazodone 50 mg tablet 75 mg PO BEDTIME Eliquis DVT-PE Treat 30D Start 5 mg (74 tabs) tablets,dose pack 5 mg PO BID Qty: 74 0RF sertraline 100 mg tablet 100 mg PO DAILY ketorolac 0.5 % drops 1 drp ophthalmic (eye) 4XW PRN (Reason: Pain) alprazolam 0.25 mg tablet 0.25 mg PO TID PRN (Reason: Anxiety) Systane (propylene glycol) 0.4-0.3 % Drops 1 drp OPHTHALMIC (EYE) TID PRN (Reason: Dry Eyes) rivastigmine 9.5 mg/24 hour patch 24 hour 1 patch topical DAILY Interventions: ED Discharge Assessment Last Done: 05/27/23 01:43
--- NOTE | 2023-05-27 | PC.NURSE ---
Pt A&O to self, not answering questions appropriately. Daughter at bedside and reports hx of dementia.
--- NOTE | 2023-05-27 01:13 | ECG_ITS ---
Test Reason : FALL Blood Pressure : / mmHG Vent. Rate : 063 BPM Atrial Rate : 063 BPM P-R Int : 178 ms QRS Dur : 100 ms QT Int : 412 ms P-R-T Axes : 073 002 071 degrees QTc Int : 421 ms Normal sinus rhythm Normal ECG When compared with ECG of 05-MAR-2023 08:35, No significant change was found Referred By: Edilberto Melo Electronically Signed By:SHAGGY BALLARD MD
[2023-05-27 01:23] VITALS: BP 165/78; PULSE 66; RESP 18; TEMP 36.6; O2SAT 99
--- NOTE | 2023-05-27 01:25 | PC.NURSE ---
Ambulation trail, Pt able to ambulate with one staff assist. Pt ambulated to BR, continent of urine.
== END 2023-05-27 01:53 | disposition skilled nursing facility (03) ==
PROVIDERS: Emergency Provider Internal Medicine; PCP Physician Assistant
DX: S09.90XA Unspecified injury of head, initial encounter (principal); S79.911A Unspecified injury of right hip, initial encounter; F03.90 Unspecified dementia, unspecified severity, without behavioral disturbance, psychotic disturbance, mood disturbance, and anxiety; R51.9 Headache, unspecified; W01.10XA Fall on same level from slipping, tripping and stumbling with subsequent striking against unspecified object, initial encounter; Y93.9 Activity, unspecified; Y92.9 Unspecified place or not applicable; Y99.9 Unspecified external cause status
CPT/HCPCS: 70450; 73502; 93005; 99283; 99284

== ENCOUNTER → 2023-05-27 01:13 | Outpatient (BNV) | payer MEDICARE, SELFPAY | PROVIDERS: Emergency Provider Internal Medicine; PCP Physician Assistant; Visit Provider Internal Medicine Cardiovascular Disease | DX: G93.40 Encephalopathy, unspecified (principal) | CPT/HCPCS: 93010 ==

== ENCOUNTER 2023-05-28 10:04 | Inpatient (IN) | payer MEDICARE, SELFPAY ==
--- NOTE | ~2023-05-28 | XR_ITS ---
EXAMINATION: XR ANKLE, RIGHT CLINICAL INFORMATION: Swelling COMPARISON: None available. TECHNIQUE: AP, lateral, and mortise views of the right ankle. FINDINGS: No acute visible fracture or dislocation. Ankle mortise is symmetric. Joint spaces and alignment are maintained. Very slight soft tissue prominence about the ankle. XR/XR ankle RT min 3V IMPRESSION: 1. No acute visible fracture or dislocation. 2. Very slight soft tissue prominence about the ankle.
--- NOTE | ~2023-05-28 | XR_ITS ---
EXAMINATION: XR CHEST CLINICAL INFORMATION: Fever COMPARISON: 03/05/2023 TECHNIQUE: Frontal view of the chest was obtained. FINDINGS: No significant abnormality is noted involving the heart, lungs, mediastinum, bony thorax or soft tissues. XR/XR chest 1V IMPRESSION: Unremarkable examination.
--- NOTE | ~2023-05-28 | XR_ITS ---
EXAMINATION: XR CHEST CLINICAL INFORMATION: Shortness of breath after fluid COMPARISON: Chest x-ray on 05/31/2023 TECHNIQUE: Frontal view of the chest was obtained. FINDINGS: The cardiac silhouette is normal. There is mild interstitial disease. There are no areas of consolidation. There are no pleural effusions or pneumothoraces. The bones and soft tissues are unremarkable for the patient's age. XR/XR chest 1V IMPRESSION: No acute disease.
--- NOTE | 2023-05-28 10:10 | ED.GENADULT ---
HPI - General Adult General Chief complaint: Altered Mental Status Stated complaint: AMS,BASELINE DEMENTIA,?LL EDEMA PER EMS Time Seen by Provider: 05/28/23 10:10 Source: patient, family (patient's daughter) and EMS Mode of arrival: EMS Limitations: other (patient has dementia at base line) History of Present Illness HPI narrative: Patient is an 82 year old assigned female at with a history of dementia and recent bilateral DVT diagnosis presenting to the emergency department today with increased aggression, right ankle pain, and refusal to take her medications. Patient states that her right ankle hurts but other than that she has no complaints. EMS states that the facility staff sent her due to increased aggression / refusal to take her medications. Patient's daughter states that it is taking 2-3 staff members at the facility to get her to take her medication and even then, it isn't always happening. Patient's daughter confirms that the patient's current confusion is her baseline. Relieving factors: none Exacerbating factors: none Associated symptoms: confusion (chronic for patient) Treatments prior to arrival: none Related Data Home Medications Medication Instructions Recorded Confirmed amlodipine 2.5 mg tablet 1 tab PO DAILY 04/22/21 03/05/23 levothyroxine 88 mcg tablet 1 tab PO DAILY@0600 04/22/21 03/05/23 (Synthroid) pravastatin 40 mg tablet 1 tab PO BEDTIME 04/22/21 03/05/23 trazodone 50 mg tablet 75 mg PO BEDTIME 12/03/21 03/05/23 alprazolam 0.25 mg tablet 0.25 mg PO TID PRN Anxiety 03/03/23 03/05/23 ketorolac 0.5 % eye drops 1 drp ophthalmic (eye) 4XW PRN Pain 03/03/23 03/05/23 peg 400-propylene glycol 0.4 %-0.3 1 drp ophthalmic (eye) TID PRN Dry 03/03/23 03/05/23 % eye drops (Systane (propylene Eyes glycol)) rivastigmine 9.5 mg/24 hour 1 patch topical DAILY 03/03/23 03/05/23 transdermal patch sertraline 100 mg tablet 100 mg PO DAILY 03/03/23 03/05/23 Previous Rx's Medication Instructions Recorded apixaban 5 mg (74 tabs) tablets in 5 mg PO BID #74 ea 05/21/23 a dose pack (Eliquis DVT-PE Treat 30D Start) Allergies Allergy/AdvReac Type Severity Reaction Status Date / Time No Known Allergies Allergy Verified 05/26/23 23:10 Review of Systems Review of Systems: Yes Other (patient is chronically confused secondary to dementia) Constitutional: Constitutional: Reports no additional constitutional complaints, Denies chills, Denies fever(s) and Denies night sweats Eyes: Eyes: Reports no additional eye complaints, Denies blurry vision, Denies change in vision, Denies diplopia, Denies eye discharge, Denies loss of vision and Denies eye pain ENT: Denies dizziness Cardiovascular: Cardiovascular: Reports no additional cardiovascular complaints, Denies chest pain, Denies lightheadedness, Denies Loss of Consciousness and Denies dyspnea Respiratory: Respiratory: Reports no additional respiratory complaints and Denies dyspnea Gastrointestinal: Gastrointestinal: Reports no additional gastrointestinal complaints, Denies abdominal pain, Denies melena, Denies hematochezia, Denies change in bowel habits and Denies change in stool character Genitourinary: Genitourinary: Denies hematuria, Denies urinary frequency, Denies dysuria, Denies urinary incontinence, Denies urinary hesitancy and Denies urinary urgency Musculoskeletal: Musculoskeletal: Reports no additional musculoskeletal complaints, Denies numbness and Denies tingling Comments: right ankle pain Neurologic: Reports confusion (chronic for the patient), Denies dizziness, Denies loss of vision, Denies numbness and Denies tingling Psychiatric: Psychiatric: Reports no additional psychiatric complaints and Reports confusion (chronic for the patient) Endocrine: Endocrine: Reports no additional endocrine complaints Hematologic/Lymphatic: Hematologic/Lymphatic: Reports no additional hematologic/lymphatic complaints Allergic/Immunologic: Allergic/Immunologic: Reports no additional allergic/immunologic complaints PMFSH Past Medical History Attestation statement: The following information was validated with the patient. (patient's daughter validated all information.) Source: old records reviewed, obtained from family (patient's daughter provided additional history and confirmed the history provided by the patient and EMS) and nursing notes reviewed Onset Date is defined in the Problem List Problems that require an onset date and time if occurred within 24 hrs of arrival to the ED Aortic Dissection and Rupture; Neurologic impairment; Cardiopulmonary Arrest; Endotracheal Intubation; Insertion or Replacement of Mechanical Circulatory Assist Device Social History Social History Household Members: None Housing: Condominium Do you presently have visiting nurse or other home services: No Alcohol intake: never Patient Tobacco Use Status: Former Tobacco user Advance Directives: Yes Advance Directives on File: Yes Advance Directives Date on File: 04/23/21 service: No Current occupational status: retired Physical Exam ED Vital Signs: Vital Signs - 24 hr 05/28/23 10:36 05/28/23 12:00 Temperature 98.2 F 98.6 F Pulse Rate 85 69 Respiratory Rate 18 16 Blood Pressure 174/102 H 180/83 H Pulse Oximetry 96 96 Oxygen Delivery Method Room Air Room Air BMI result Body Mass Index 22.4 Const General: confusion (chronic for the patient) Nutritional Appearance: well nourished Orientation/consciousness: confusion (chronic for the patient) Limitations: no limitations HENMT Head: Yes normal to inspection and Yes atraumatic Ears: hearing grossly normal bilaterally and external ears normal General nose exam: Normal external nose present, no nasal discharge noted and no epistaxis Face and sinus: Yes normal facial exam, No abrasion and No laceration Mouth: Normal oral and palatal mucosa present, no drooling and no muffled voice Eyes General: appearance normal, both eyes and all related structures Periorbital: periorbital findings normal Eyelids: Yes eyelids normal Conjunctivae: conjunctivae normal Pupils: Equal, round and reactive pupils present EOM: EOMs intact bilaterally Neck Neck: Yes normal visual inspection, Yes full ROM and Yes no lymphadenopathy Chest Chest palpation & inspection: normal inspection of the chest Resp Effort & Inspection: normal respiratory effort and able to speak in complete sentences GI Inspection: Yes normal to inspection Neuro General: confusion (chronic for the patient) Cranial nerves: Yes Equal, round and reactive pupils present Motor exam (neuro): 5/5 motor strength present throughout Sensory Exam: Normal double simultaneous stimulation for sensation Coordination: [id number] test normal Extrem Other: minimal swelling to the right ankle General: Yes full ROM and Yes capillary refill normal Psych Appearance: grossly normal Mental Status: mental status grossly normal Affect: normal affect Attitude: cooperative Thought process: Normal thought process present Thought content: Normal thought content present Insight: Good insight present (Psych) Medical Decision Making Medical Decision Making MDM Narrative: Patient is an 82 year old assigned female at with a history of dementia and recent bilateral DVT diagnosis presenting to the emergency department today with increased aggression / agitation and right ankle pain. Patient's physical exam was as noted in the physical exam portion of this note. Patient's blood work was unremarkable. Patient's urine showed no acute process. Patient's EKG was unremarkable. Patient's right ankle x-ray showed no acute process. I explained my physical exam findings as well as all test results to the patient and the patient's daughter. I answered all questions asked by the patient and the patient's daughter. Psychiatry was consulted and the patient will be a geriatric psychiatric bed search. Patient and the patient's daughter verbalized agreement and understanding with this treatment plan and being a geriatric bed search. Differential Diagnosis Differential Diagnoses: The differential diagnosis associated with the presentation includes Aggression Right ankle pain Admission/Observation Consideration of admission/observation: Escalation of care including admission/observation considered Patient is a geriatric psychiatric bed search. Consult Healthcare Provider Management of the patient was discussed with: Behavioral Health Provider (spoke with the psychiatry team as noted in the MDM Rationale portion of this note.) Lab Data [facility] Lab Attestation statement: I reviewed the patient's lab results. My interpretation of these studies and their corresponding values is that they are grossly normal. 05/28/23 11:49 05/28/23 11:49 Labs: Lab Results 05/28/23 05/28/23 Range/Units 11:49 11:58 WBC 8.6 (4.8-10.8) X10*3/uL RBC 4.27 (4.20-5.50) X10*6/uL Hgb 12.3 (12.0-16.0) g/dl Hct 36.8 L (37.0-47.0) % MCV 86.2 (80.0-98.0) fL MCH 28.8 (27.0-33.0) pg MCHC 33.4 (31.0-35.0) g/dl RDW 13.3 (11.0-16.0) % Plt Count 378 (160-400) X10*3/uL MPV 9.9 (9.4-12.3) fL Immature Gran % (Auto) 0.6 H (0.0-0.4) % Neut % (Auto) 77.8 H (45-73) % Lymph % (Auto) 11.1 L (20-40) % [place] % (Auto) 7.9 (2-11) % Eos % (Auto) 2.3 (0-4) % Baso % (Auto) 0.3 (0-2) % Lymph # (Auto) 1.0 L (1.2-4.9) X10*3/uL [place] # (Auto) 0.7 (0.1-1.2) X10*3/uL Eos # (Auto) 0.2 (0.0-0.4) X10*3/uL Baso # (Auto) 0.0 (0.0-0.2) X10*3/uL Abs Immat Gran (auto) 0.05 H (0.00-0.03) X10*3/uL Absolute Neuts (auto) 6.7 (2.0-8.3) x10*3/uL Absolute Nucleated RBC 0.000 (0.0-0.012) X10*3/uL Nucleated RBC % (auto) 0.0 (0.0-0.2) /100WBC Sodium 140 (135-145) mmol/L Potassium 3.8 (3.3-5.1) mmol/L Chloride 106 (96-108) mmol/L Carbon Dioxide 26 (22-29) mmol/L Anion Gap 12 (12-20) BUN 13 (9-16) mg/dL Creatinine 0.68 (0.5-1.4) mg/dL Estim Creat Clear Calc 52.7 Estimated GFR > 60 Random Glucose 100 (60-115) mg/dL Calcium 9.1 (8.4-10.2) mg/dL Magnesium 2.0 (1.6-2.6) mg/dL Total Bilirubin 0.8 (0.0-1.0) mg/dL AST 16 (5-31) U/L ALT 12 (0-31) U/L Alkaline Phosphatase 69 (39-117) U/L Total Protein 6.3 L (6.5-8.0) g/dL Albumin 3.6 (3.5-5.0) g/dL Urine Color Yellow Urine Appearance Cloudy Urine pH 7.5 (5.0-9.0) Ur Specific [place] 1.015 (1.005-1.025) Urine Protein Negative (Neg-Trace) mg/dL Urine Glucose (UA) Negative (Negative) mg/dL Urine Ketones Negative (Negative) mg/dL Urine Blood Negative (Negative) Urine Nitrite Negative (Negative) Ur Leukocyte Esterase Negative (Negative) COVID-19 ([facility]) Negative (Negative) COVID-19 Clin Com See Note Influenza Type A ([place]) Negative (Negative) Influenza Type B ([place]) Negative (Negative) Influenza A & B Note See Note Independent Interpretation I performed an independent interpretation of an: EKG and Plain X-Ray Interpretation: My interpretation is in agreement with the radiologist's impression of this imaging study. EXAMINATION: XR ANKLE, RIGHT CLINICAL INFORMATION: Swelling COMPARISON: None available. TECHNIQUE: AP, lateral, and mortise views of the right ankle. FINDINGS: No acute visible fracture or dislocation. Ankle mortise is symmetric. Joint spaces and alignment are maintained. Very slight soft tissue prominence about the ankle. XR/XR ankle RT min 3V IMPRESSION: 1. No acute visible fracture or dislocation. 2. Very slight soft tissue prominence about the ankle. Dictated By: Hui Shin MD Signed By: Electronically signed by Hui Shin MD 05/28/23 1058 Vent. Rate: 063 BPM Atrial Rate: 063 BPM P-R Int: 178 ms QRS Dur: 100 ms QT Int: 412 ms P-R-T Axes: 073 002 071 degrees QTc Int: 421 ms Normal sinus rhythm Normal ECG When compared with ECG of 05-MAR-2023 08:35, No significant change was found Electronically Signed By:ARSH BRYANT MD Dictated By: Arsh Bryant MD Signed By: Electronically signed by Arsh Bryant MD 05/27/23 7575 Radiology Impression Discussion of test interpretation with radiology: I have reviewed the radiologist's reading. Independent Historian Clinical information obtained from an independent historian. History obtained from or confirmed by: EMS (EMS provided additional history and confirmed the history provided by the patient.) and Other (patient's daughter provided additional history and confirmed the history provided by the patient and EMS) Critical Care Time Critical Care Time Critical Care Time: Yes Total Critical Care Time: 45 Attestation: I spent 45 minutes of Critical Care Time with this patient. This does not include time spent on separately reported billable procedures. Discharge Plan Discharge Clinical Impression: Dementia, Ankle pain, right, Aggression Patient Disposition: Still a Patient Prescriptions: No Action pravastatin 40 mg tablet 1 tab PO BEDTIME amlodipine 2.5 mg tablet 1 tab PO DAILY levothyroxine [Synthroid] 88 mcg tablet 1 tab PO DAILY@0600 trazodone 50 mg tablet 75 mg PO BEDTIME Eliquis DVT-PE Treat 30D Start 5 mg (74 tabs) tablets,dose pack 5 mg PO BID Qty: 74 0RF sertraline 100 mg tablet 100 mg PO DAILY ketorolac 0.5 % drops 1 drp ophthalmic (eye) 4XW PRN (Reason: Pain) alprazolam 0.25 mg tablet 0.25 mg PO TID PRN (Reason: Anxiety) Systane (propylene glycol) 0.4-0.3 % Drops 1 drp OPHTHALMIC (EYE) TID PRN (Reason: Dry Eyes) rivastigmine 9.5 mg/24 hour patch 24 hour 1 patch topical DAILY
[2023-05-28 10:36] VITALS: BP 174/102; PULSE 85; RESP 18; TEMP 36.8; O2SAT 96; BMI 22.4
[2023-05-28 11:57] LABS: MANUAL DIFF FLAG NO
[2023-05-28 12:00] VITALS: BP 180/83; PULSE 69; RESP 16; TEMP 37; O2SAT 96
[2023-05-28 12:02] LABS: Basophils Percent Auto 0.3 % (0-2); Eosinophils Absolute Auto 0.2 X10*3/uL (0.0-0.4); Eosinophils Percent Auto 2.3 % (0-4); Hematocrit 36.8 % (37.0-47.0); Hemoglobin 12.3 g/dl (12.0-16.0); Imm Gran Abs Auto 0.05 X10*3/uL (0.00-0.03); Imm Gran Pct Auto 0.6 % (0.0-0.4); Lymphocytes Percent Auto 11.1 % (20-40); Mean Corpuscular HGB Conc 33.4 g/dl (31.0-35.0); Mean Corpuscular Hemoglobin 28.8 pg (27.0-33.0); Mean Corpuscular Volume 86.2 fL (80.0-98.0); Mean Platelet Volume 9.9 fL (9.4-12.3); Monocytes Absolute Auto 0.7 X10*3/uL (0.1-1.2); Monocytes Percent Auto 7.9 % (2-11); Neutrophils Absolute Auto 6.7 x10*3/uL (2.0-8.3); Neutrophils Percent Auto 77.8 % (45-73); Platelet Count 378 X10*3/uL (160-400); Red Blood Count 4.27 X10*6/uL (4.20-5.50); Red Cell Distribution Width 13.3 % (11.0-16.0); White Blood Count 8.6 X10*3/uL (4.8-10.8)
--- NOTE | 2023-05-28 12:12 | PC.NURSE ---
coming from snf for increased AMS, difficulty ambulating. IV established, labs drawn and sent. straight cath done with 500mL of urine output. awaiting results. daughter remains at bedside, call hill within reach. ?psych consult at this time.
[2023-05-28 12:14] LABS: Appearance Urine Cloudy; Color Urine Yellow; Glucose Urine UA Negative (Negative); Leukocyte Esterase Urine Negative (Negative); Nitrite Urine Negative (Negative); PH 7.5 (5.0-9.0); Specific Gravity - Urine 1.015 (1.005-1.025); Urine Blood Negative (Negative); Urine Ketones Negative (Negative); Urine Protein Negative (Neg-Trace)
[2023-05-28 12:14] LABS: COVID-19 Test Negative (Negative); IDNOW Serial# 152EDE1D
[2023-05-28 12:15] LABS: Alanine Aminotransferase 12 U/L (0-31); Albumin Level 3.6 g/dL (3.5-5.0); Alkaline Phosphatase 69 U/L (39-117); Anion Gap 12 (12-20); Aspartate Amino Transferase 16 U/L (5-31); Bilirubin Total 0.8 mg/dL (0.0-1.0); Blood Urea Nitrogen 13 mg/dL (9-16); Calcium 9.1 mg/dL (8.4-10.2); Carbon Dioxide 26 mmol/L (22-29); Chloride 106 mmol/L (96-108); Creatinine Clr Calc Pharmacy 52.7; Estimated Glomerular Filt Rate > 60; Glucose Random 100 mg/dL (60-115); Potassium 3.8 mmol/L (3.3-5.1); Sodium 140 mmol/L (135-145); Total Protein 6.3 g/dL (6.5-8.0)
[2023-05-28 12:17] LABS: IDNOW Serial# 9DB6401D
[2023-05-28 12:18] LABS: Influenza A Negative (Negative); Influenza B2 Negative (Negative)
--- NOTE | 2023-05-28 13:40 | P.CNPS_ITS ---
History of Present Illness Date of Service: 05/28/2023 Chief Complaint: AMS,BASELINE DEMENTIA,?LL EDEMA PER EMS Requesting physician: Jenny Smart Discussed with referring provider: Yes Sources of Information: patient interviewed, chart reviewed and crisis/core team assessment reviewed HPI Narrative: Mrs. Pereyra is 82 year-old with hx of Dementia who resides at [facility]. She was brought by daughter due to increase agitation this morning at the facility where she resides. Medical work up completed including CBC with no leukocytosis, CMP with no electrolyte imbalances, stable renal function. UA is pending. Pt seen with daughter by her side. Pt presents with mixed aphasia. Sentences not very coherent, which daughter reports is her baseline. Her attention is good. Collateral information gathered from the daughter, Olesya who reports this morning pt more combative, refusing medications. Pt was recently started on risperidone 0.5mg po BID by Dr. Winchester. Daughter reports she also has poor balance and frequent falls. Diagnostics Vital Signs (24Hr): Vital Signs - 24 hr 05/28/23 10:36 05/28/23 12:00 Temperature 98.2 F 98.6 F Pulse Rate 85 69 Respiratory Rate 18 16 Blood Pressure 174/102 H 180/83 H Pulse Oximetry 96 96 Oxygen Delivery Method Room Air Room Air BMI result Body Mass Index 22.4 Labs 05/28/23 11:49 05/28/23 11:49 Labs: Laboratory Results - last 48 hr 05/28/23 05/28/23 11:49 11:58 WBC 8.6 RBC 4.27 Hgb 12.3 Hct 36.8 L MCV 86.2 MCH 28.8 MCHC 33.4 RDW 13.3 Plt Count 378 MPV 9.9 Immature Gran % (Auto) 0.6 H Neut % (Auto) 77.8 H Lymph % (Auto) 11.1 L [place] % (Auto) 7.9 Eos % (Auto) 2.3 Baso % (Auto) 0.3 Lymph # (Auto) 1.0 L [place] # (Auto) 0.7 Eos # (Auto) 0.2 Baso # (Auto) 0.0 Abs Immat Gran (auto) 0.05 H Absolute Neuts (auto) 6.7 Absolute Nucleated RBC 0.000 Nucleated RBC % (auto) 0.0 Sodium 140 Potassium 3.8 Chloride 106 Carbon Dioxide 26 Anion Gap 12 BUN 13 Creatinine 0.68 Estim Creat Clear Calc 52.7 Estimated GFR > 60 Random Glucose 100 Calcium 9.1 Magnesium 2.0 Total Bilirubin 0.8 AST 16 ALT 12 Alkaline Phosphatase 69 Total Protein 6.3 L Albumin 3.6 Urine Color Yellow Urine Appearance Cloudy Urine pH 7.5 Ur Specific [place] 1.015 Urine Protein Negative Urine Glucose (UA) Negative Urine Ketones Negative Urine Blood Negative Urine Nitrite Negative Ur Leukocyte Esterase Negative COVID-19 ([facility]) Negative COVID-19 Clin Com See Note Influenza Type A ([place]) Negative Influenza Type B ([place]) Negative Influenza A & B Note See Note Imaging Radiology Impressions: ITS Impressions Ankle X-Ray 05/28/23 10:45 IMPRESSION: 1. No acute visible fracture or dislocation. 2. Very slight soft tissue prominence about the ankle. 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 Psychomotor: no agitation or retardation noted Speech: mumbles at times, some clear words, mostly mixed aphasia. TC: feeling hungry Mood: okay Affect: brightens at times, anxious when confused VH/AH: no signs of responding to internal stimuli Delusions: no overt delusional content, confabulation Insight/judgment: impaired x 2. Memory/cog: alert, not oriented to place, situation, month or year. Medications Allergies Allergies Allergy/AdvReac Type Severity Reaction Status Date / Time No Known Allergies Allergy Verified 05/26/23 23:10 Assessment & Plan Assessment & Plan (1) Major neurocognitive disorder: Status: Acute Code(s): F03.90 - Unspecified dementia, unspecified severity, without behavioral disturbance, psychotic disturbance, mood disturbance, and anxiety Plan Mrs. Pereyra is a 82 year-old woman with advanced dementia with mixed aphasia who was brought to [facility] due to increase combativeness this morning. Pt currently presents as calmed, but confused. Discussed with daughter option of treatment outpatient or inpatient, daughter worried that combative behaviors may continue and she may return back to ED. Agreed to do bedsearch for [facility]. PLAN 1. Recommend if not dose, invoke HCP 2. Bedsearch for inpatient [facility]. 3. Add seroquel 25mg po q6h prn agitation Total time managing care of this patient today ____ minutes.
[2023-05-28 14:07] VITALS: BP 169/91; PULSE 76; RESP 16; O2SAT 93
[2023-05-28 16:00] VITALS: BP 174/83; RESP 16; TEMP 36.9; O2SAT 96
--- NOTE | 2023-05-28 18:27 | PC.NURSE ---
patient is a 2 assist onto commode, moved to bed 10 for closer observation. patient is to be a [facility] psych bedsearch
[2023-05-28 20:00] VITALS: BP 154/104; PULSE 76; RESP 16; TEMP 37; O2SAT 95
[2023-05-28 23:04] VITALS: BP 165/97; PULSE 81; RESP 14; O2SAT 96
[2023-05-29] MEDS: OLANZapine 10 MG VIAL 5 MG IM (00:33)
--- NOTE | 2023-05-29 00:43 | PC.NURSE ---
pt trying to pull out IV, pt very agitated, grabbing at staff, trying to get out of bed. IM per provider. IV removed
--- NOTE | 2023-05-29 01:21 | PC.NURSE ---
pt now resting comfortably with eyes closed, breathing even and unlabored. no apparent distress at this time.
--- NOTE | 2023-05-29 03:36 | PC.NURSE ---
med rec complete
[2023-05-29 04:49] VITALS: PULSE 74; RESP 14; O2SAT 98
--- NOTE | 2023-05-29 05:36 | PC.NURSE ---
pt awake, resting in bed quietly at this time. camera in place at bedside
[2023-05-29 06:04] VITALS: BP 185/94; PULSE 77; RESP 16; O2SAT 95
--- NOTE | 2023-05-29 07:11 | PC.NURSE ---
patient resting quietly in bed, respirations equal and unlabored. patient has camera monitor on for safety. skin PWD, shows no signs of distress
[2023-05-29 08:22] VITALS: BP 167/85; PULSE 75; RESP 18; O2SAT 98
--- NOTE | 2023-05-29 11:25 | PHA.MEDREC ---
Pharmacy Consult ? Medication Reconciliation Pharmacy has completed the medication reconciliation. Spoke to patient's family member who had updated med list and cross-referenced with list from [facility]. Pt no longer taking amlodipine, Xanax, Rivastigmine, or ketorlac. Pt currently on Eliquis 5 mg BID and Risperdal 0.5 mg BID.
[2023-05-29] MEDS: Sertraline HCL 100 MG TABLET PO (12:18)
[2023-05-29] MEDS: Apixaban 5 MG TABLET PO (12:18)
[2023-05-29] MEDS: risperiDONE 0.5 MG TABLET PO (12:18)
[2023-05-29] MEDS: Levothyroxine Sodium 88 MCG TABLET PO (12:18)
--- NOTE | 2023-05-29 12:36 | MHC.CARE ---
[place] Team conducted [place] [facility] bed[place], unfortunately no beds available. RAD Team will continue bedsearch tomorrow (05/30) if deemed appropriate
[2023-05-29 13:47] VITALS: BP 169/94; PULSE 75; RESP 14; O2SAT 96
--- NOTE | 2023-05-29 15:26 | PC.NURSE ---
patient resting in bed, has been quiet today mostly napping off and on. patient will speak to you in confabulation, makes no real sense.patient will take small sips of water and juice, takes medications with pudding and water. respirations equal and unlabored, skin PWD. patient family at bedside, awaiting [facility] bed
[2023-05-29 16:06] VITALS: BP 182/106; PULSE 81; RESP 16; TEMP 37.1; O2SAT 95
--- NOTE | 2023-05-29 16:09 | MHC.EDTECH ---
This pct assumed care of pt at 1500 ,vitals taken ,pt was incontinent of large amount of bowel movement ,care given and bedding change ,pt was reposition and boosted up in bed ,Call hill within pt reach ,Patient daughter at bedside .
--- NOTE | 2023-05-29 18:12 | PC.NURSE ---
patient appears to be asleep in bed, respirations equal and unlabored, skin PWD. Family at bedside
--- NOTE | 2023-05-29 18:58 | MHC.EDTECH ---
this pct tried to feed pt ,but patient too sleepy to eat .
--- NOTE | 2023-05-29 20:20 | MHC.EDTECH ---
Patient inc stool/ patient changed and repositioned
--- NOTE | 2023-05-29 20:27 | PC.NURSE ---
This RN took over pt care @ 1900. Pt resting comfortably in bed. Plan of care ongoing.
--- NOTE | 2023-05-29 20:34 | PC.NURSE ---
Pts daughter at bedside and updated on pts current status. Per daughter pt takes medicatikon whole. Plan of care ongoing.
--- NOTE | 2023-05-29 22:30 | PC.NURSE ---
Meds not given pt sleeping. Plan of care ongoing.
[2023-05-29 22:32] VITALS: BP 159/88; PULSE 79; RESP 12; TEMP 37.2; O2SAT 96
--- NOTE | 2023-05-29 22:33 | MHC.EDTECH ---
Patient inc and therefore patient changed and repositioned
[2023-05-30 00:14] VITALS: BP 159/88; PULSE 74; RESP 21; TEMP 36.7; O2SAT 97
--- NOTE | 2023-05-30 06:28 | MHC.EDTECH ---
pt was given morning care for incontinence, pt was still asleep. No complaints all night, pt slept all through the night.
--- NOTE | 2023-05-30 07:39 | PC.NURSE ---
assumed care of pt at 0700. pt sleeping soundly in hospital bed. alarm on and sitter camera in room for pt safety. rr even/unlabored. call hill within pt reach. plan of care ongoing.
[2023-05-30 09:34] VITALS: BP 132/90; PULSE 84; RESP 14; O2SAT 96
[2023-05-30] MEDS: risperiDONE 0.5 MG TABLET PO (09:46)
[2023-05-30] MEDS: Sertraline HCL 100 MG TABLET PO (09:46)
[2023-05-30] MEDS: Apixaban 5 MG TABLET PO (09:46)
[2023-05-30] MEDS: Pravastatin Sodium 40 MG TABLET PO (09:46)
--- NOTE | 2023-05-30 10:04 | PC.NURSE ---
attempted to feed pt. pt took 2 bites of oatmeal and 3 bites of eggs before refusing. pt is extremely confused, speaking in sentences that don't make any sense. able to medicate pt per mar. pt resting quietly in bed, hob elevated and lights on. sitter camera in place and bed alarm on. plan of care ongoing.
--- NOTE | 2023-05-30 11:10 | PC.NURSE ---
pt daughter at bedside. pt is sleeping soundly. pt daughter sts pt slept all day yesterday, asking if she's sleeping today due to medications. pt daughter updated that pt only medicated with her scheduled home medications, nothing to sedate her. pt sometimes speaking gibberish in sleep and having hand motions as if she's trying to eat. pt daughter sts pt does not like eggs, but does like nadine crackers with peanut butter, yogurt, and custard/pudding.
--- NOTE | 2023-05-30 12:41 | MHC.CARE ---
RAD Team conducted [place] [facility] bed[place], unfortunately no beds available. Faxed referral to [facility] waitlist. RAD Team will continue bedsearch tomorrow (05/31) if deemed appropriate
[2023-05-30 15:04] VITALS: BP 148/82; PULSE 80; RESP 14; O2SAT 97
--- NOTE | 2023-05-30 21:33 | PC.NURSE ---
Pt in bed, eyes closed arousable to touch but very sleepy. Unable to give medications at this time. RR normal, even and unlabored. SR 80's on tele. Bryan GERMAN notified and aware.
[2023-05-31] VITALS (14 sets, daily range): BP systolic 86–150; BP diastolic 51–91; PULSE 69–87; RESP 15–30; TEMP 36.5–38; O2SAT 89–100
--- NOTE | 2023-05-31 07:10 | PC.NURSE ---
completed rn handoff with prev rn- went to pt's bedside together. pt lethargic, mumbling, opens eyes to multiple voice attempts and light tactile stimuli. this rn informed by offgoing rn pt has been snowed since recieving an IM injection 05/29 and has not been recently responsive enough for medications po. pt breathing regularly.
[2023-05-31 07:42] LABS: Hematocrit 46.1 % (37.0-47.0); Hemoglobin 15.5 g/dl (12.0-16.0); Mean Corpuscular HGB Conc 33.6 g/dl (31.0-35.0); Mean Corpuscular Hemoglobin 28.1 pg (27.0-33.0); Mean Corpuscular Volume 83.7 fL (80.0-98.0); Mean Platelet Volume 9.4 fL (9.4-12.3); Platelet Count 579 X10*3/uL (160-400); Red Blood Count 5.51 X10*6/uL (4.20-5.50); Red Cell Distribution Width 13.4 % (11.0-16.0); White Blood Count 29.5 X10*3/uL (4.8-10.8)
[2023-05-31 07:58] LABS: IDNOW Serial# 9DB6401D; Influenza A Negative (Negative); Influenza B2 Negative (Negative)
--- NOTE | 2023-05-31 08:02 | PC.NURSE ---
strt cath urine obtained- sent to lab.
[2023-05-31 08:03] LABS: Band Neutrophils Percent 6 % (3-5); Lymphocytes Absolute Manual 1.8 X10*3/uL (1.2-4.9); Lymphocytes Percent Manual 6 % (20-40); Metamyelocytes Absolute 0.3 X10*3/uL; Metamyelocytes Percent 1 %; Monocytes Absolute Manual 0.9 X10*3/uL (0.1-1.2); Monocytes Percent Manual 3 % (2-11); Neutrophils Absolute Manual 26.6 X10*3/uL (2.0-8.3); Neutrophils Percent Manual 84 % (45-73)
--- NOTE | 2023-05-31 08:03 | PC.NURSE ---
pt following commands to embosser operator hands with multiple requests. minimally verbally responsive- mumbles, needs repeated verbal or tactile stimuli to open eyes. elias larios made aware.
[2023-05-31 08:07] LABS: Acanthocytes 1+ (0-2) /OIF; Burr Cells 1+ (0-2) /OIF; Platelet Estimate INCREASED (NORMAL); Platelet Morphology Comment NORMAL; RBC Morphology NOTED; Toxic Vacuolation PRESENT
[2023-05-31 08:08] LABS: COVID-19 Test Negative (Negative); IDNOW Serial# 152EDE1D
[2023-05-31 08:15] LABS: Alanine Aminotransferase 11 U/L (0-31); Albumin Level 3.8 g/dL (3.5-5.0); Alkaline Phosphatase 107 U/L (39-117); Anion Gap 17 (12-20); Aspartate Amino Transferase 12 U/L (5-31); Blood Urea Nitrogen 50 mg/dL (9-16); Calcium 10.2 mg/dL (8.4-10.2); Carbon Dioxide 23 mmol/L (22-29); Chloride 104 mmol/L (96-108); Creatinine Clr Calc Pharmacy 30.6; Estimated Glomerular Filt Rate 44; Glucose Random 169 mg/dL (60-115); Potassium 4.1 mmol/L (3.3-5.1); Sodium 140 mmol/L (135-145); Total Protein 7.3 g/dL (6.5-8.0)
[2023-05-31 08:16] LABS: Appearance Urine Turbid; Color Urine Yellow; Glucose Urine UA Negative (Negative); Leukocyte Esterase Urine Moderate (2+) (Negative); Nitrite Urine Negative (Negative); PH >= 9.0 (5.0-9.0); UMIC TRIGGER UACC YES; Urine Blood Large (3+) (Negative); Urine Ketones Negative (Negative); Urine Protein 30 (1+) mg/dL (Neg-Trace)
[2023-05-31] MEDS: cefTRIAXone sodium 1 GM in 0.9 % Sodium Chloride 50 ML IV (08:30)
[2023-05-31] MEDS: SODIUM CHLORIDE 1719 ML IV (08:32)
[2023-05-31 08:33] LABS: Bacteria Urine 4+ (None Seen); Hyaline Casts Urine 0-2 /LPF (0-2); RBC Urine >20 /HPF (0-2); Squamous Epithelial Cell Urine 0-2 /HPF (0-2); UACC Culture Trigger YES
[2023-05-31] MEDS: Acetaminophen Supp 650 MG SUPP.RECT PR (08:43)
[2023-05-31 08:57] LABS: Lactic Acid 1.3 mmol/L (0.5-2.0)
[2023-05-31] MEDS: Azithromycin 500 MG in 0.9 % Sodium Chloride 250 ML 125 MG IV (09:01)
--- NOTE | 2023-05-31 10:55 | PC.NURSE ---
elias esquivel aware less responsive, rr briefly in the 30s, came back down to 18 within 10 minutes. repeat cxray taken. elias esquivel aware bp 86/52 repeated to 95/51(65)
--- NOTE | 2023-05-31 11:13 | PM.IMHP ---
History of Present Illness Date of Service: 05/31/23 Attending physician on admission: Franklyn Thomas Chief Complaint: UTI Pt is an 82-year-old female with a PMH significant for?unspecified dementia, HTN, HLD, anxiety, recently diagnosed bilateral DVT on Eliquis who initially presented to the ED?3 days prior on 05/28/2023 for evaluation of increased aggression, right ankle pain, and refusal to take her medications. Patient was also evaluated for right ankle pain where x-rays proved negative. Lab work unremarkable. UA negative. CXR negative. Patient has had a recent history of rapidly advancing dementia, and psychiatry was consulted and patient was placed in physician observation awaiting [facility] psych bed placement. Family note they first noticed some mild confusion about two years ago, but pt was able to live on her own until January 2023 when she moved into assisted living. By March pt's dementia had progressed to where she was moved to the memory unit. Lately family say she is unrecognizable. Earlier today patient spiked a low-grade temp of 100.1 degrees, repeat labs showed leukocytosis of 29.5, and UA was foul-smelling, and patient was satting as low as 89% on RA with labored breathing. Vital signs also significant for tachypnea up to 30, and soft BP as low as 86/52. UA positive for UTI. Tested negative for COVID and influenza. CXR unremarkable. Patient was given IVF, azithromycin, and ceftriaxone. Will admit patient to medical floor for treatment of acute encephalopathy in the UTI with sepsis and hypoxia likely secondary to aspiration. Review of Systems Review of Systems: Unable to obtain due to patient's mentation [facility] Medical History (Updated 05/31/23 @ 12:29 by MAXI Dorado) Anxiety DVT (deep venous thrombosis) HLD (hyperlipidemia) HTN (hypertension) Social History Household Members: None Housing: Condominium Do you presently have visiting nurse or other home services: No Alcohol intake: never Patient Tobacco Use Status: Former Tobacco user Advance Directives: Yes Advance Directives on File: Yes Advance Directives Date on File: 04/23/21 Healthcare Proxy: Yes Guardian: No service: No Current occupational status: retired Meds Allergies Allergy/AdvReac Type Severity Reaction Status Date / Time No Known Allergies Allergy Verified 05/26/23 23:10 Active Medications: Current Medications Apixaban (Apixaban 5 Mg Tablet) 5 mg PO BID [facility] Last Admin: 05/31/23 09:08 Dose: Not Given Levothyroxine Sodium (Levothyroxine Sodium 88 Mcg Tablet) 88 mcg PO DAILY@0600 [facility] Last Admin: 05/31/23 06:31 Dose: Not Given Pravastatin Sodium (Pravastatin Sodium 40 Mg Tablet) 40 mg PO DAILY@0900 [facility] Last Admin: 05/31/23 09:07 Dose: Not Given Risperidone (Risperidone 0.5 Mg Tablet) 0.5 mg PO BID [facility] Last Admin: 05/31/23 09:07 Dose: Not Given Sertraline HCl (Sertraline Hcl 100 Mg Tablet) 100 mg PO DAILY [facility] Last Admin: 05/31/23 09:07 Dose: Not Given Home Medications Medication Instructions Recorded Confirmed Last Taken Type levothyroxine 88 mcg tablet 1 tab PO DAILY@0600 04/22/21 05/29/23 05/27/23 History (Synthroid) pravastatin 40 mg tablet 1 tab PO DAILY 04/22/21 05/29/23 05/27/23 History trazodone 50 mg tablet 75 mg PO BEDTIME 12/03/21 05/29/23 05/27/23 History peg 400-propylene glycol 0.4 %-0.3 1 drp ophthalmic (eye) BID PRN Dry 03/03/23 05/29/23 Unknown History % eye drops (Systane (propylene Eyes glycol)) sertraline 100 mg tablet 100 mg PO DAILY 03/03/23 05/29/23 05/27/23 History risperidone 0.5 mg tablet 0.5 mg PO BID 05/29/23 05/29/23 05/27/23 History Physical Exam Vital Signs and Narrative: Vital Signs: Last Vital Signs Temp 100.4 F 05/31/23 09:44 Pulse 77 05/31/23 09:52 Resp 17 05/31/23 09:39 BP 122/59 L 05/31/23 09:52 Pulse Ox 99 05/31/23 09:52 O2 Del Method Nasal Cannula 05/31/23 09:52 O2 Flow Rate 2 05/31/23 09:52 BMI result Body Mass Index 22.4 Constitutional: Obtunded, on arousable to either verbal or painful stimuli, some increased work of breathing. Mental Status: Obtunded. Eyes: Pupils are equal, round, and reactive to light. Ear, Nose, and Throat: Oropharynx clear, mucous membranes moist. Ears and nose without deformities. Trachea midline. Respiratory: Difficult to auscultate as pt is snoring. Diaphragmatic breathing. Cardiovascular: S1, S2 regular. No murmurs, rubs, or gallops. Gastrointestinal: Abdomen soft, non-tender, non-distended. Normal bowel sounds. Neurologic: No focal neurological deficits noted. Moves all extremities spontaneously. Skin: Warm, dry. Musculoskeletal: No cyanosis or clubbing. Extremities: No edema. Results Labs 05/31/23 07:35 05/31/23 07:35 Labs: Laboratory Results - last 24 hr 05/31/23 05/31/23 05/31/23 07:35 07:59 08:29 MCV 83.7 MCH 28.1 MCHC 33.6 RDW 13.4 Plt Count 579 H D MPV 9.4 Immature Gran % (Auto) Cancelled Neut % (Auto) Cancelled Lymph % (Auto) Cancelled [place] % (Auto) Cancelled Eos % (Auto) Cancelled Baso % (Auto) Cancelled Lymph # (Auto) Cancelled [place] # (Auto) Cancelled Eos # (Auto) Cancelled Baso # (Auto) Cancelled Abs Immat Gran (auto) Cancelled Absolute Neuts (auto) Cancelled Absolute Nucleated RBC 0.000 Nucleated RBC % (auto) 0.0 Neutrophils % (Manual) 84 H Band Neutrophils % 6 H Lymphocytes % (Manual) 6 L Monocytes % (Manual) 3 Metamyelocytes % 1 Abs Neuts (Manual) 26.6 H Lymphocytes # (Manual) 1.8 Monocytes # (Manual) 0.9 Metamyelocytes # 0.3 Toxic Vacuolation PRESENT Platelet Estimate INCREASED Plt Morphology Comment NORMAL RBC Morphology NOTED [place] Cells 1+ (0-2) Acanthocytes (Spur) 1+ (0-2) Anion Gap 17 Estim Creat Clear Calc 30.6 Estimated GFR 44 Random Glucose 169 H Lactic Acid 1.3 Calcium 10.2 D Total Bilirubin 1.0 AST 12 ALT 11 Alkaline Phosphatase 107 Total Protein 7.3 Albumin 3.8 Urine Color Yellow Urine Appearance Turbid Urine pH >= 9.0 Ur Specific [place] 1.010 Urine Protein 30 (1+) H Urine Glucose (UA) Negative Urine Ketones Negative Urine Blood Large (3+) H Urine Nitrite Negative Ur Leukocyte Esterase Moderate (2+) H Urine RBC >20 H Urine WBC 11-20 H Ur Squamous Epith Cells 0-2 Urine Bacteria 4+ Hyaline Casts 0-2 COVID-19 ([place]) Negative COVID-19 Clin Com See Note Influenza Type A ([place]) Negative Influenza Type B ([place]) Negative Influenza A & B Note See Note Assessment and Plan (1) Acute UTI: Status: Acute (2) Acute encephalopathy: Status: Acute Plan Pt is an 82-year-old female with a PMH significant for?unspecified dementia, HTN, HLD, anxiety, recently diagnosed bilateral DVT on Eliquis who initially presented to the ED?3 days prior on 05/28/2023 for evaluation of increased aggression, right ankle pain, and refusal to take her medications. Will admit patient to medical floor for treatment of acute encephalopathy in the UTI with sepsis and hypoxia likely secondary to aspiration. UTI with sepsis UA positve for UTI Pt meets sepsis criteria: Tachypnea, leukocytosis; lactic acid WNL at 0.3 Patient received IVF and started on broad-spectrum antibiotics in the ED Will place on maintenance fluids Will treat with Zosyn for now, started [id number] Follow cultures Acute metabolic encephalopathy Likely secondary to UTI with sepsis with underlying dementia Patient currently obtunded, unarousable to verbal or edema noxious stimuli Treat as above Monitor mentation Acute hypoxic respiratory failure Pt satting as low as 89% on RA Unclear etiology: UTI with sepsis vs aspiration Will cover with Zosyn for possible aspiration Titrate supplemental O2>92, wean as tolerated Bilateral DVT Diagnosed 05/21/2022 Continue Eliquis Hypothyroidism Continue levothyroxine Will check TSH Mood disorder Continue home meds DNR/DNI Attending:?Dr. Thomas DVT Prophylaxis: On Eliquis Pt will require a hospitalization of at least two nights for treatment of?acute metabolic encephalopathy in the setting of UTI with sepsis and acute hypoxic respiratory in the setting of likely aspiration. Patient require treatment with IV antibiotics, supplemental O2, and close monitoring of labs and vital signs. Quality Stroke Does the patient have a stroke diagnosis?: No VTE Prior VTE?: Yes VTE Risk Level:: Medical - moderate - high VTE Device Contraindication: Treatment Not Indicated VTE Drug Contraindication: N/A - Med Ordered
--- NOTE | 2023-05-31 11:15 | PC.NURSE ---
called HCP on phone w elias esquivel- elias esquivel took down MOLST info and pt DNR/DNR per family as no longer want as full code- family unable to come sign form- elias esquivel/rn placed in chart.
[2023-05-31 11:51] LABS: B Type Natriuretic Peptide 24 pg/mL (<100)
[2023-05-31 13:44] LABS: TSH reflex Free T4 3.28 uIU/mL (0.32-4.0)
[2023-05-31] MEDS: Lactated Ringers 1,000 ML 100 ML IVCONT (14:40)
--- NOTE | 2023-05-31 16:31 | MHC.CARE ---
RAD Team conducted [place], unfortunately no beds available. RAD Team will continue bedsearch tomorrow (06/01) if deemed appropriate
[2023-05-31] MEDS: 0.9 % Sodium Chloride Flush 3 ML SYRINGE IVFLUSH (16:45)
[2023-05-31] MEDS: Piperacillin Sodium/Tazobactam 3.375 GM in 0.9 % Sodium Chloride 50 ML IV ×2 (16:47→22:17)
[2023-05-31] MEDS: Apixaban 5 MG TABLET PO (19:59)
[2023-06-01] MEDS: Lactated Ringers 1,000 ML 100 ML IVCONT ×3 (00:41→19:42)
[2023-06-01] MEDS: Piperacillin Sodium/Tazobactam 3.375 GM in 0.9 % Sodium Chloride 50 ML IV ×2 (02:55→08:54)
[2023-06-01 03:23] VITALS: BP 174/85; PULSE 75; RESP 16; TEMP 36.5; O2SAT 94
[2023-06-01 04:20] VITALS: BP 166/72
[2023-06-01 05:11] LABS: Hematocrit 39.7 % (37.0-47.0); Mean Corpuscular HGB Conc 32.7 g/dl (31.0-35.0); Mean Corpuscular Hemoglobin 28.5 pg (27.0-33.0); Mean Corpuscular Volume 87.1 fL (80.0-98.0); Platelet Count 447 X10*3/uL (160-400); Red Blood Count 4.56 X10*6/uL (4.20-5.50); Red Cell Distribution Width 13.3 % (11.0-16.0); White Blood Count 21.9 X10*3/uL (4.8-10.8)
[2023-06-01 05:33] LABS: Anion Gap 13 (12-20); Blood Urea Nitrogen 37 mg/dL (9-16); Calcium 9.3 mg/dL (8.4-10.2); Carbon Dioxide 24 mmol/L (22-29); Chloride 110 mmol/L (96-108); Creatinine Clr Calc Pharmacy 49.1; Estimated Glomerular Filt Rate > 60; Glucose Random 123 mg/dL (60-115); Potassium 3.2 mmol/L (3.3-5.1); Sodium 144 mmol/L (135-145)
[2023-06-01 07:07] VITALS: BP 174/80; PULSE 72; RESP 18; TEMP 36.4; O2SAT 95
[2023-06-01] MEDS: Sertraline HCL 100 MG TABLET PO (08:56)
[2023-06-01] MEDS: 0.9 % Sodium Chloride Flush 3 ML SYRINGE IVFLUSH ×2 (08:56→16:23)
[2023-06-01] MEDS: Apixaban 5 MG TABLET PO ×2 (08:56→19:42)
[2023-06-01] MEDS: Pravastatin Sodium 40 MG TABLET PO (08:56)
[2023-06-01] MEDS: Levothyroxine Sodium 88 MCG TABLET PO (08:56)
--- NOTE | 2023-06-01 11:50 | MHC.CLN ---
NUTRITION CONSULT FOR WEIGHT LOSS. REVIEW OF WEIGHT HX SHOWS 10% WEIGHT GAIN X 3 MONTHS. BMI=22.4. DIET=REGULAR. NO ADDITIONAL NUTRITION INTERVENTIONS AT THIS TIME.
--- NOTE | 2023-06-01 12:02 | HO.PM.IMPN ---
Subjective Subjective Date of Service: 06/01/23 Interval History: Seen and evaluated this morning Still Obtunded and barely responding moves her extremities freely No other events reports Review of Systems Review of Systems: Yes Unobtainable due to mental status Physical Exam Vital Signs: Vital Signs: Last Vital Signs Temp 97.6 F 06/01/23 07:07 Pulse 72 06/01/23 07:07 Resp 18 06/01/23 07:07 BP 174/80 H 06/01/23 07:07 Pulse Ox 95 06/01/23 07:07 O2 Del Method Room Air 06/01/23 07:07 O2 Flow Rate 1 05/31/23 19:20 BMI result Body Mass Index 22.4 Const: Other: Constitutional : Altered, not in distress Neck : Normal inspection, Supple Cardiovascular : RRR, no JVP, no lower extremity edema Respiratory : good bilateral air entry, no crackles, wheezes or rhonchi Gastrointestinal: soft, lax, Normal bowel sounds, Non tender Skin : Warm, Dry Neurological : obtunded, GCS 9, moving her extremities, reactive pupils, unable to eval CN Objective Data Active Medications Acetaminophen (Acetaminophen 325 Mg Tablet) 650 mg PO Q6H PRN PRN Reason: Pain, Mild (Pain Scale 1-3) Acetaminophen (Acetaminophen Supp 650 Mg Supp.Rect) 650 mg IN Q6H PRN PRN Reason: Fever Apixaban (Apixaban 5 Mg Tablet) 5 mg PO BID [facility] Last Admin: 06/01/23 08:56 Dose: 5 mg Documented By: JULIO Benzonatate (Benzonatate 100 Mg Capsule) 100 mg PO TID PRN PRN Reason: Cough Docusate Sodium (Docusate Sodium 100 Mg Capsule) 100 mg PO DAILY PRN PRN Reason: Constipation Lactated Ringer's (Lr) 1,000 mls @ 100 mls/hr IVCONT .Q10H [facility] Last Admin: 06/01/23 09:35 Dose: 100 mls/hr Documented By: JULIO Ampicillin Sodium/Sulbactam (Sodium 3 gm/ Sodium Chloride) 100 mls @ 200 mls/hr IV Q6H [facility] Levothyroxine Sodium (Levothyroxine Sodium 88 Mcg Tablet) 88 mcg PO DAILY@0600 [facility] Last Admin: 06/01/23 08:56 Dose: 88 mcg Documented By: JULIO Melatonin (Melatonin 3 Mg Tablet) 6 mg PO BEDTIME PRN PRN Reason: Insomnia Ondansetron HCl (Ondansetron Hcl 4 Mg/2 Ml Vial) 4 mg IVPUSH Q8H PRN PRN Reason: Nausea and Vomiting Pravastatin Sodium (Pravastatin Sodium 40 Mg Tablet) 40 mg PO DAILY@0900 [facility] Last Admin: 06/01/23 08:56 Dose: 40 mg Documented By: JULIO Risperidone (Risperidone 0.5 Mg Tablet) 0.5 mg PO BID [facility] Last Admin: 05/31/23 09:07 Dose: Not Given Documented By: SHERYL Non-Admin Reason: too lethargic- pa sierra aware Sertraline HCl (Sertraline Hcl 100 Mg Tablet) 100 mg PO DAILY [facility] Last Admin: 06/01/23 08:56 Dose: 100 mg Documented By: JULIO Sodium Chloride (0.9 % Sodium Chloride Flush 3 Ml Syringe) 3 ml IVFLUSH QSHIFT [facility] Last Admin: 06/01/23 08:56 Dose: 3 ml Documented By: JULIO Labs 06/01/23 04:16 06/01/23 04:16 Labs: Laboratory Results - last 24 hr 05/31/23 06/01/23 07:35 04:16 MCV 87.1 MCH 28.5 MCHC 32.7 RDW 13.3 Plt Count 447 H MPV 10.0 Absolute Nucleated RBC 0.000 Nucleated RBC % (auto) 0.0 Anion Gap 13 Estim Creat Clear Calc 49.1 Estimated GFR > 60 Random Glucose 123 H Calcium 9.3 D TSH 3.28 Microbiology Microbiology Results: Microbiology 05/31/23 08:29 Blood Culture - Preliminary Blood - Venous No growth after 24 hours. 05/31/23 08:29 Blood Culture - Preliminary Blood - Venous No growth after 24 hours. 05/31/23 Unknown Urine Culture - Preliminary Urine Catheterized - Straight Catheter Culture in progress. Assessment and Plan (1) Acute encephalopathy: Status: Acute (2) Acute UTI: Status: Acute (3) Lethargy: Status: Acute Plan Pt is an 82-year-old female with a PMH significant for?unspecified dementia, HTN, HLD, anxiety, recently diagnosed bilateral DVT on Eliquis who initially presented to the ED?3 days prior on 05/28/2023 for evaluation of increased aggression, right ankle pain, and refusal to take her medications. Will admit patient to medical floor for treatment of acute encephalopathy in the UTI with sepsis and hypoxia likely secondary to aspiration. Acute metabolic encephalopathy in Sepsis 2/[address] head negative UA positve for UTI Pending cultures Change Zosyn to Unasyn IVF recurrent reorientation Acute hypoxic respiratory failure Pt satting as low as 89% on RA Unclear etiology: possible aspiration but has recovered well since then, on RA Acute hypokalemia replacement given follow BMP Bilateral DVT Diagnosed 05/21/2022 Continue Eliquis Hypothyroidism Continue levothyroxine Normal TSH Mood disorder Continue home meds DNR/DNI DVT Prophylaxis: On Eliquis Pt will require a hospitalization overnight for treatment of?acute metabolic encephalopathy in the setting of UTI with sepsis and acute hypoxic respiratory in the setting of likely aspiration. Patient require treatment with IV antibiotics, supplemental O2, and close monitoring of labs and vital signs. Quality Stroke Does the patient have a stroke diagnosis?: No VTE Prior VTE?: Yes VTE Risk Level:: Medical - moderate - high VTE Device Contraindication: Treatment Not Indicated VTE Drug Contraindication: N/A - Med Ordered
[2023-06-01] MEDS: Potassium Chloride/H20 10 MEQ/100 ML PIGGYBACK 100 MEQ IV ×2 (13:23→14:27)
[2023-06-01] MEDS: Ampicillin Sodium/Sulbactam Na 3 GM in 0.9 % Sodium Chloride 100 ML IV ×2 (14:40→19:42)
[2023-06-01 15:30] VITALS: BP 122/58; PULSE 72; RESP 20; TEMP 36.2; O2SAT 97
--- NOTE | 2023-06-01 16:19 | MHC.CM.PN ---
CM ATTEMPTED TO MEET WITH PT WHO WAS CONFUSED AND UNABLE TO PROVIDE ANY INFORMATION CM ATTEMPTED TO CONTACT PTS HCP/DAUGHTER, ALENA [phone], NO ANSWER VM MESSAGE LEFT REQUESTING A RETURN CALL TO COMPLETE VIDEO MANAGER
[2023-06-01 19:19] VITALS: BP 135/65; PULSE 67; RESP 19; TEMP 36.3; O2SAT 96
[2023-06-02] MEDS: 0.9 % Sodium Chloride Flush 3 ML SYRINGE IVFLUSH (00:25)
[2023-06-02] MEDS: Ampicillin Sodium/Sulbactam Na 3 GM in 0.9 % Sodium Chloride 100 ML IV ×4 (02:48→19:59)
[2023-06-02 03:36] VITALS: BP 158/79; PULSE 67; RESP 17; TEMP 36.2; O2SAT 94
[2023-06-02 05:45] LABS: Hematocrit 35.9 % (37.0-47.0); Hemoglobin 11.6 g/dl (12.0-16.0); Mean Corpuscular HGB Conc 32.3 g/dl (31.0-35.0); Mean Corpuscular Volume 86.5 fL (80.0-98.0); Mean Platelet Volume 9.8 fL (9.4-12.3); Platelet Count 365 X10*3/uL (160-400); Red Blood Count 4.15 X10*6/uL (4.20-5.50); Red Cell Distribution Width 13.1 % (11.0-16.0); White Blood Count 13.2 X10*3/uL (4.8-10.8)
[2023-06-02] MEDS: Levothyroxine Sodium 88 MCG TABLET PO (05:51)
[2023-06-02 05:57] LABS: Anion Gap 13 (12-20); Blood Urea Nitrogen 30 mg/dL (9-16); Calcium 8.9 mg/dL (8.4-10.2); Carbon Dioxide 28 mmol/L (22-29); Chloride 110 mmol/L (96-108); Creatinine Clr Calc Pharmacy 55.2; Estimated Glomerular Filt Rate > 60; Glucose Random 115 mg/dL (60-115); Potassium 3.1 mmol/L (3.3-5.1); Sodium 148 mmol/L (135-145)
[2023-06-02] MEDS: Lactated Ringers 1,000 ML 100 ML IVCONT (06:08)
[2023-06-02 07:17] VITALS: BP 150/72; PULSE 76; RESP 16; TEMP 37.3; O2SAT 98
[2023-06-02] MEDS: Potassium Chloride Packet 20 MEQ PACKET 40 MEQ PO (07:50)
[2023-06-02] MEDS: Apixaban 5 MG TABLET PO ×2 (07:51→19:59)
[2023-06-02] MEDS: Pravastatin Sodium 40 MG TABLET PO (07:51)
[2023-06-02] MEDS: Sertraline HCL 100 MG TABLET PO (07:51)
[2023-06-02] MEDS: Dextrose 5 % 1,000 ML 125 ML IVCONT ×3 (07:53→20:36)
--- NOTE | 2023-06-02 09:50 | P.PNIM_ITS ---
Subjective Subjective Date of Service: 06/02/23 Interval History: Seen and evaluated this morning More alert and interactive but overall confused Sodium of 148 No other events reports Review of Systems Review of Systems: Yes all other systems are reviewed and are negative Physical Exam 2 Vital Signs: Vital Signs: Last Vital Signs Temp 99.2 F 06/02/23 07:17 Pulse 76 06/02/23 07:17 Resp 16 06/02/23 07:17 BP 150/72 H 06/02/23 07:17 Pulse Ox 98 06/02/23 07:17 O2 Del Method Room Air 06/02/23 07:17 O2 Flow Rate 1 05/31/23 19:20 BMI result Body Mass Index 22.4 Const: Other: Constitutional : Alert, interactive, not in distress Neck : Normal inspection, Supple Cardiovascular : RRR, no JVP, no lower extremity edema Respiratory : good bilateral air entry, no crackles, wheezes or rhonchi Gastrointestinal: soft, lax, Normal bowel sounds, Non tender Skin : Warm, Dry Neurological : Alert, confused x3, moving her extremities Objective Data Active Medications Acetaminophen (Acetaminophen 325 Mg Tablet) 650 mg PO Q6H PRN PRN Reason: Pain, Mild (Pain Scale 1-3) Acetaminophen (Acetaminophen Supp 650 Mg Supp.Rect) 650 mg HI Q6H PRN PRN Reason: Fever Apixaban (Apixaban 5 Mg Tablet) 5 mg PO BID [facility] Last Admin: 06/02/23 07:51 Dose: 5 mg Documented By: JULIO Benzonatate (Benzonatate 100 Mg Capsule) 100 mg PO TID PRN PRN Reason: Cough Docusate Sodium (Docusate Sodium 100 Mg Capsule) 100 mg PO DAILY PRN PRN Reason: Constipation Ampicillin Sodium/Sulbactam (Sodium 3 gm/ Sodium Chloride) 100 mls @ 200 mls/hr IV Q6H [facility] Last Infusion: 06/02/23 08:38 Dose: Infused Documented By: JULIO Dextrose (D5w) 1,000 mls @ 125 mls/hr IVCONT .Q8H [facility] Last Admin: 06/02/23 07:53 Dose: 125 mls/hr Documented By: JULIO Levothyroxine Sodium (Levothyroxine Sodium 88 Mcg Tablet) 88 mcg PO DAILY@0600 [facility] Last Admin: 06/02/23 05:51 Dose: 88 mcg Documented By: RASTA Melatonin (Melatonin 3 Mg Tablet) 6 mg PO BEDTIME PRN PRN Reason: Insomnia Ondansetron HCl (Ondansetron Hcl 4 Mg/2 Ml Vial) 4 mg IVPUSH Q8H PRN PRN Reason: Nausea and Vomiting Pravastatin Sodium (Pravastatin Sodium 40 Mg Tablet) 40 mg PO DAILY@0900 [facility] Last Admin: 06/02/23 07:51 Dose: 40 mg Documented By: JULIO Risperidone (Risperidone 0.5 Mg Tablet) 0.5 mg PO BID [facility] Last Admin: 05/31/23 09:07 Dose: Not Given Documented By: SHERYL Non-Admin Reason: too lethargic- pa sierra aware Sertraline HCl (Sertraline Hcl 100 Mg Tablet) 100 mg PO DAILY [facility] Last Admin: 06/02/23 07:51 Dose: 100 mg Documented By: JULIO Sodium Chloride (0.9 % Sodium Chloride Flush 3 Ml Syringe) 3 ml IVFLUSH QSHIFT [facility] Last Admin: 06/02/23 07:21 Dose: Not Given Documented By: JULIO Non-Admin Reason: IV Running Labs 06/02/23 05:26 06/02/23 05:26 Labs: Laboratory Results - last 24 hr 06/02/23 05:26 MCV 86.5 MCH 28.0 MCHC 32.3 RDW 13.1 Plt Count 365 MPV 9.8 Absolute Nucleated RBC 0.000 Nucleated RBC % (auto) 0.0 Anion Gap 13 Estim Creat Clear Calc 55.2 Estimated GFR > 60 Random Glucose 115 Calcium 8.9 Microbiology Microbiology Results: Microbiology 05/31/23 Unknown Urine Culture - Final Urine Catheterized - Straight Catheter 05/31/23 08:29 Blood Culture - Preliminary Blood - Venous No growth after 24 hours. 05/31/23 08:29 Blood Culture - Preliminary Blood - Venous No growth after 24 hours. Assessment and Plan (1) Acute encephalopathy: Status: Acute (2) Acute UTI: Status: Acute (3) Acute hypokalemia: Status: Acute (4) Acute hypernatremia: Status: Acute Plan Pt is an 82-year-old female with a PMH significant for?unspecified dementia, HTN, HLD, anxiety, recently diagnosed bilateral DVT on Eliquis who initially presented to the ED?3 days prior on 05/28/2023 for evaluation of increased aggression, right ankle pain, and refusal to take her medications. Will admit patient to medical floor for treatment of acute encephalopathy in the UTI with sepsis and hypoxia likely secondary to aspiration. Acute metabolic encephalopathy in Sepsis 2/2 UTI Improved back to baseline CT head negative UA positve for UTI Urine culture growing Mixed bacteria, pending blood culture Continue Unasyn recurrent reorientation Acute hypernatremia Change IVF to D5W follow BMP encourage PO intake Acute hypoxic respiratory failure Pt satting as low as 89% on RA Unclear etiology: possible aspiration event but has recovered well since then, on RA with no CXR evidence of infiltrates Monitor Acute hypokalemia replacement given follow BMP Bilateral DVT Diagnosed 05/21/2022 Continue Eliquis Hypothyroidism Continue levothyroxine Normal TSH Mood disorder Continue home meds DNR/DNI DVT Prophylaxis: On Eliquis Pt will require a hospitalization overnight for treatment of?acute metabolic encephalopathy in the setting of UTI with sepsis . Patient require treatment with IV antibiotics pending final cultures and treatment of elevated Sodium levels. Quality Stroke Does the patient have a stroke diagnosis?: No VTE Prior VTE?: Yes VTE Risk Level:: Medical - moderate - high VTE Device Contraindication: Treatment Not Indicated VTE Drug Contraindication: N/A - Med Ordered
--- NOTE | 2023-06-02 11:43 | P.CDIM_ITS ---
PROVIDER RESPONSE TEXT: To clarify, the appropriate diagnosis supported by the clinical indicators: Other type of Aspiration please specify QUERY TEXT: PHYSICIAN'S DOCUMENTATION REQUEST Date of Query: 06/02/2023 08:55 AM EST Patient Name: Tigist Pereyra Admit Date: 05/31/2023 Dear Franklyn Thomas, A review of the medical record indicates additional documentation may be needed. Please review below and update the documentation accordingly. Clinical Indicators: Per Hospitalist Progress Note 06/01/23: acute hypoxic respiratory in the setting of likely aspiration. Patient require treatment with IV antibiotics, supplemental O2, and close monitoring of labs and lotus l signs. Please clarify which of the following accurately represents the patient's aspiration status: Aspiration Pneumonia Other type of Aspiration please specify Other (explain) Clinically unable to determine (explain) Thank you, Laila Winters RN Use of terms such as suspected, likely, concern for, or probable (associated with a specific diagnosi s that is being evaluated, monitored, or treated as if it exists) are acceptable and can be coded in the inpatient se tting, when documented at the time of discharge. Please use your independent medical judgment in providing your response. THIS QUERY IS PART OF THE PERMANENT MEDICAL RECORD
--- NOTE | 2023-06-02 12:35 | MHC.CM.PN ---
Addendum entered by Keila Castillo 06/02/23 14:45: Per PT evaluation Patient does not qualify for STR r/t dementia and carry over. Pts HCP has been notified. Original Note: IMM 06/02/22 Female 82 DX UTI. Patient with hx of dementia. She lives at [facility] in [place]. She resides in the Memory impaired unit. She was sent to [facility] for agitation and not taking her medications. Behavioral health was involved initially. A [facility] bed search was in progress. The patient is now improved with the IV ABX that she has received. Blood cultures are still pending. It is anticipated that the pt will discharge on PO ABX. A PT eval has been ordered for placement. The pts baseline is ambulatory without an AD. She has LE weakness r/t the UTI. Her son Gordo is her HCP. Referrals have been sent to facilities for STR. Discharge is anticipated tomorrow.
[2023-06-02 15:38] VITALS: BP 150/58; PULSE 80; RESP 17; TEMP 36.8; O2SAT 95
[2023-06-02 20:00] VITALS: BP 153/74; PULSE 64; RESP 18; TEMP 36.4; O2SAT 96
[2023-06-02 21:48] LABS: Anion Gap 11 (12-20); Blood Urea Nitrogen 18 mg/dL (9-16); Calcium 8.2 mg/dL (8.4-10.2); Carbon Dioxide 22 mmol/L (22-29); Chloride 104 mmol/L (96-108); Creatinine Clr Calc Pharmacy 59.8; Estimated Glomerular Filt Rate > 60; Glucose Random 119 mg/dL (60-115); Potassium 3.1 mmol/L (3.3-5.1); Sodium 134 mmol/L (135-145)
[2023-06-03] VITALS (7 sets, daily range): BP systolic 142–198; BP diastolic 80–91; PULSE 67–80; RESP 16–18; TEMP 36.3–36.6; O2SAT 95–97
[2023-06-03] MEDS: Ampicillin Sodium/Sulbactam Na 3 GM in 0.9 % Sodium Chloride 100 ML IV ×4 (02:19→19:58)
[2023-06-03] MEDS: Dextrose 5 % 1,000 ML 125 ML IVCONT (02:19)
--- NOTE | 2023-06-03 03:51 | PC.NURSE ---
03:40 This RN was notified by BRAND ANALYST Pts blood pressure elevated at 198/88 manual, HR 67, Upon assessment of Pt, L pupil noted to be smaller than R pupil, Due to Pt's dementia and inability to follow commands neuro assessment was incomplete, Charge nurse called to bedside with findings, MD made aware of high blood pressure and Pupil unequality, Pts sodium previous elevated 148 redraw of sodium is 134, Pt receiving IV fluids D5 at 125ml/hr. Per MD to hold IV D5. Pt also noted to be soiled, Pt changed and repositioned, camera in room, Pts call hill within reach, no new orders at this time.
--- NOTE | 2023-06-03 04:00 | PC.NURSE ---
03:40 This RN was notified by AUTOMATIC [employer]ING OPERATOR Pts blood pressure elevated at 198/88 manual, HR 67, Upon assessment of Pt, L pupil noted to be smaller than R pupil, Pupils reactive to light. Due to Pt's dementia and inability to follow commands neuro assessment was incomplete, Charge nurse called to bedside with findings, MD made aware of high blood pressure and Pupil unequality, Pts sodium previous elevated 148 redraw of sodium is 134, Pt receiving IV fluids D5 at 125ml/hr. Per MD to hold IV D5. Pt also noted to be soiled, Pt changed and repositioned, camera in room, Pt awake, Pts call hill within reach, no new orders at this time.
[2023-06-03] MEDS: Levothyroxine Sodium 88 MCG TABLET PO (05:36)
[2023-06-03 06:09] LABS: Hematocrit 39.9 % (37.0-47.0); Hemoglobin 13.7 g/dl (12.0-16.0); Mean Corpuscular HGB Conc 34.3 g/dl (31.0-35.0); Mean Corpuscular Hemoglobin 28.1 pg (27.0-33.0); Mean Corpuscular Volume 81.9 fL (80.0-98.0); Mean Platelet Volume 9.6 fL (9.4-12.3); Platelet Count 509 X10*3/uL (160-400); Red Blood Count 4.87 X10*6/uL (4.20-5.50); Red Cell Distribution Width 12.5 % (11.0-16.0); White Blood Count 16.9 X10*3/uL (4.8-10.8)
[2023-06-03 06:25] LABS: Anion Gap 12 (12-20); Blood Urea Nitrogen 16 mg/dL (9-16); Calcium 8.7 mg/dL (8.4-10.2); Carbon Dioxide 26 mmol/L (22-29); Chloride 99 mmol/L (96-108); Creatinine Clr Calc Pharmacy 57.8; Estimated Glomerular Filt Rate > 60; Glucose Random 130 mg/dL (60-115); Sodium 134 mmol/L (135-145)
[2023-06-03] MEDS: Potassium Chloride Packet 20 MEQ PACKET 40 MEQ PO (08:49)
[2023-06-03] MEDS: Apixaban 5 MG TABLET PO ×2 (08:49→19:58)
[2023-06-03] MEDS: Pravastatin Sodium 40 MG TABLET PO (08:49)
[2023-06-03] MEDS: Sertraline HCL 100 MG TABLET PO (08:49)
[2023-06-03] MEDS: amLODIPine Besylate 5 MG TABLET PO (08:49)
[2023-06-03] MEDS: 0.9 % Sodium Chloride Flush 3 ML SYRINGE IVFLUSH ×2 (08:49→15:19)
--- NOTE | 2023-06-03 11:27 | P.PNIM_ITS ---
Subjective Subjective Date of Service: 06/03/23 Interval History: Seen and evaluated this morning More alert and interactive but overall confused Sodium improved to normal No other events reports Review of Systems Review of Systems: Yes Unobtainable due to mental condition Physical Exam 2 Vital Signs: Vital Signs: Last Vital Signs Temp 97.9 F 06/03/23 07:48 Pulse 78 06/03/23 07:48 Resp 18 06/03/23 07:48 BP 188/80 H 06/03/23 07:48 Pulse Ox 95 06/03/23 07:48 O2 Del Method Room Air 06/03/23 07:48 O2 Flow Rate 1 05/31/23 19:20 BMI result Body Mass Index 22.4 Const: Other: Constitutional : Alert, interactive, not in distress Neck : Normal inspection, Supple Cardiovascular : RRR, no JVP, no lower extremity edema Respiratory : good bilateral air entry, no crackles, wheezes or rhonchi Gastrointestinal: soft, lax, Normal bowel sounds, Non tender Skin : Warm, Dry Neurological : Alert, confused x3, moving her extremities Objective Data Active Medications Acetaminophen (Acetaminophen 325 Mg Tablet) 650 mg PO Q6H PRN PRN Reason: Pain, Mild (Pain Scale 1-3) Acetaminophen (Acetaminophen Supp 650 Mg Supp.Rect) 650 mg [place] Q6H PRN PRN Reason: Fever Amlodipine Besylate (Amlodipine Besylate 5 Mg Tablet) 5 mg PO DAILY [facility]; Protocol Last Admin: 06/03/23 08:49 Dose: 5 mg Documented By: KRISTAN Apixaban (Apixaban 5 Mg Tablet) 5 mg PO BID [facility] Last Admin: 06/03/23 08:49 Dose: 5 mg Documented By: KRISTAN Benzonatate (Benzonatate 100 Mg Capsule) 100 mg PO TID PRN PRN Reason: Cough Docusate Sodium (Docusate Sodium 100 Mg Capsule) 100 mg PO DAILY PRN PRN Reason: Constipation Ampicillin Sodium/Sulbactam (Sodium 3 gm/ Sodium Chloride) 100 mls @ 200 mls/hr IV Q6H [facility] Last Infusion: 06/03/23 09:54 Dose: Infused Documented By: KRISTAN Levothyroxine Sodium (Levothyroxine Sodium 88 Mcg Tablet) 88 mcg PO DAILY@0600 [facility] Last Admin: 06/03/23 05:36 Dose: 88 mcg Documented By: MALINA Melatonin (Melatonin 3 Mg Tablet) 6 mg PO BEDTIME PRN PRN Reason: Insomnia Ondansetron HCl (Ondansetron Hcl 4 Mg/2 Ml Vial) 4 mg IVPUSH Q8H PRN PRN Reason: Nausea and Vomiting Pravastatin Sodium (Pravastatin Sodium 40 Mg Tablet) 40 mg PO DAILY@0900 [facility] Last Admin: 06/03/23 08:49 Dose: 40 mg Documented By: KRISTAN Risperidone (Risperidone 0.5 Mg Tablet) 0.5 mg PO BID [facility] Last Admin: 05/31/23 09:07 Dose: Not Given Documented By: SHERYL Non-Admin Reason: too lethargic- elias cullen Sertraline HCl (Sertraline Hcl 100 Mg Tablet) 100 mg PO DAILY [facility] Last Admin: 06/03/23 08:49 Dose: 100 mg Documented By: KRISTAN Sodium Chloride (0.9 % Sodium Chloride Flush 3 Ml Syringe) 3 ml IVFLUSH QSHIFT [facility] Last Admin: 06/03/23 08:49 Dose: 3 ml Documented By: KRISTAN Labs 06/03/23 05:53 06/03/23 05:53 Labs: Laboratory Results - last 24 hr 06/02/23 06/03/23 21:26 05:53 MCV 81.9 MCH 28.1 MCHC 34.3 RDW 12.5 Plt Count 509 H D MPV 9.6 Absolute Nucleated RBC 0.000 Nucleated RBC % (auto) 0.0 Anion Gap 11 L 12 Estim Creat Clear Calc 59.8 57.8 Estimated GFR > 60 > 60 Random Glucose 119 H 130 H Calcium 8.2 L D 8.7 D Microbiology Microbiology Results: Microbiology 05/31/23 08:29 Blood Culture - Preliminary Blood - Venous No growth after 48 hours. 05/31/23 08:29 Blood Culture - Preliminary Blood - Venous No growth after 48 hours. 05/31/23 Unknown Urine Culture - Final Urine Catheterized - Straight Catheter Assessment and Plan (1) Acute hypernatremia: Status: Acute (2) Acute hypokalemia: Status: Acute (3) Acute encephalopathy: Status: Acute (4) Lethargy: Status: Acute (5) Acute UTI: Status: Acute Plan Pt is an 82-year-old female with a PMH significant for?unspecified dementia, HTN, HLD, anxiety, recently diagnosed bilateral DVT on Eliquis who initially presented to the ED?3 days prior on 05/28/2023 for evaluation of increased aggression, right ankle pain, and refusal to take her medications. Will admit patient to medical floor for treatment of acute encephalopathy in the UTI with sepsis and hypoxia likely secondary to aspiration. Acute metabolic encephalopathy in Sepsis 2/2 UTI Improved back to baseline CT head negative UA positve for UTI Urine culture growing Mixed bacteria, negative blood culture Continue Unasyn recurrent reorientation Uncontrolled HTN Start Amlodipine 5 mg and monitor BP Acute hypernatremia resolved, DC IVF follow BMP encourage PO intake Acute hypoxic respiratory failure Pt satting as low as 89% on RA Unclear etiology: possible aspiration event but has recovered well since then, on RA with no CXR evidence of infiltrates Monitor Acute hypokalemia replacement given follow BMP Bilateral DVT Diagnosed 05/21/2022 Continue Eliquis Hypothyroidism Continue levothyroxine Normal TSH Mood disorder Continue home meds DNR/DNI DVT Prophylaxis: On Eliquis Pt will require a hospitalization overnight for treatment of?acute metabolic encephalopathy in the setting of UTI with sepsis . Patient require treatment with IV antibiotics pending safe discharge plan to a facility Quality Stroke Does the patient have a stroke diagnosis?: No VTE Prior VTE?: Yes VTE Risk Level:: Medical - moderate - high VTE Device Contraindication: Treatment Not Indicated VTE Drug Contraindication: N/A - Med Ordered
--- NOTE | 2023-06-03 11:43 | P.DS_ITS ---
DS: Providers Provider Date of admission: 05/31/23 12:06 Primary care physician: MAXI Gamble Consults: 05/28/23 11:46 Consult to Care Team Stat Comment: Reason for consultation: increased aggression, medication non-compliance Consult to Psychiatry Stat Consulting Provider: Psych Covering Reason for consultation: increased aggression, medication non-compliance DS: Diagnosis Discharge Diagnosis (1) Acute hypernatremia: Status: Acute (2) Acute hypokalemia: Status: Acute (3) Acute encephalopathy: Status: Acute (4) Lethargy: Status: Acute (5) Acute UTI: Status: Acute (6) Major neurocognitive disorder: Status: Acute (7) Uncontrolled hypertension: Status: Acute DS: Summary Hospital Course Hospital Course: Admission note HPI Pt is an 82-year-old female with a PMH significant for?unspecified dementia, HTN, HLD, anxiety, recently diagnosed bilateral DVT on Eliquis who initially presented to the ED?3 days prior on 05/28/2023 for evaluation of increased aggression, right ankle pain, and refusal to take her medications. Patient was also evaluated for right ankle pain where x-rays proved negative. Lab work unremarkable. UA negative. CXR negative. Patient has had a recent history of rapidly advancing dementia, and psychiatry was consulted and patient was placed in physician observation awaiting [facility] psych bed placement. Family note they first noticed some mild confusion about two years ago, but pt was able to live on her own until January 2023 when she moved into assisted living. By March pt's dementia had progressed to where she was moved to the memory unit. Lately family say she is unrecognizable. Earlier today patient spiked a low-grade temp of 100.1 degrees, repeat labs showed leukocytosis of 29.5, and UA was foul- smelling, and patient was satting as low as 89% on RA with labored breathing. Vital signs also significant for tachypnea up to 30, and soft BP as low as 86/52. UA positive for UTI. Tested negative for COVID and influenza. CXR unremarkable. Patient was given IVF, azithromycin, and ceftriaxone. Will admit patient to medical floor for treatment of acute encephalopathy in the UTI with sepsis and hypoxia likely secondary to aspiration. Hospital course Acute metabolic encephalopathy in Sepsis secondary to UTI on presentation. CT head negative while UA was positve for UTI in ED. Started on IV antibiotic of Unasyn with good response as her mentation improved back to baseline. Urine culture growing Mixed bacteria, negative blood culture Continue Unasyn. She will continue Augmentin for 3 more days. recurrent reorientation. Uncontrolled HTN Started on Amlodipine 5 mg and monitor BP at facility for 1 week and make adjustments as needed Acute hypernatremia Mildly elevated at 148. improved to normal level with IVF. encourage PO intake. Hypoxemia Pt satting as low as 89% on RA on presentation. possible mild aspiration event but has recovered well since then, on RA with no CXR evidence of infiltrates Acute hypokalemia replacement given with good response. Hx Bilateral DVT Diagnosed 05/21/2022. Continue Eliquis Plan Continue Augmentin as prescribed Increase physical activity as tolerated Physical Exam Vital Signs: Vital Signs: Last Vital Signs Temp 97.9 F 06/03/23 07:48 Pulse 78 06/03/23 07:48 Resp 18 06/03/23 07:48 BP 188/80 H 06/03/23 07:48 Pulse Ox 95 06/03/23 07:48 O2 Del Method Room Air 06/03/23 07:48 O2 Flow Rate 1 05/31/23 19:20 BMI result Body Mass Index 22.4 Const: Other: Constitutional : Alert, interactive, not in distress Neck : Normal inspection, Supple Cardiovascular : RRR, no JVP, no lower extremity edema Respiratory : good bilateral air entry, no crackles, wheezes or rhonchi Gastrointestinal: soft, lax, Normal bowel sounds, Non tender Skin : Warm, Dry Neurological : Alert, confused x3, moving her extremities DS: Data Data Completed and Pending Labs on day of discharge: Laboratory Results - last 24 hr 06/02/23 06/03/23 21:26 05:53 WBC 16.9 H RBC 4.87 Hgb 13.7 Hct 39.9 MCV 81.9 MCH 28.1 MCHC 34.3 RDW 12.5 Plt Count 509 H D MPV 9.6 Absolute Nucleated RBC 0.000 Nucleated RBC % (auto) 0.0 Sodium 134 L 134 L Potassium 3.1 L 3.0 L Chloride 104 99 Carbon Dioxide 22 26 Anion Gap 11 L 12 BUN 18 H 16 Creatinine 0.60 0.62 Estim Creat Clear Calc 59.8 57.8 Estimated GFR > 60 > 60 Random Glucose 119 H 130 H Calcium 8.2 L D 8.7 D Preliminary micro results at discharge 05/31/23 08:29 Blood Culture - Preliminary Blood - Venous No growth after 48 hours. 05/31/23 08:29 Blood Culture - Preliminary Blood - Venous No growth after 48 hours. Discharge Plan Discharge Anticipated Discharge Date/Time: 06/03/23 11:44 Patient Disposition: Xfer SNF Discharge Diagnosis: Encephalopathy UTI Referrals: Olesya Carroll PA [Primary Care Provider] - 1 Week Discharge Medications: New amlodipine 5 mg Tablet 5 mg PO DAILY Qty: 30 0RF Protocol: Hold for SBP< HOLD for SBP < : 90 amoxicillin-pot clavulanate 400-57 mg/5 mL suspension for reconstitution 10 ml PO BID Qty: 50 0RF Continued pravastatin 40 mg tablet 1 tab PO DAILY levothyroxine [Synthroid] 88 mcg tablet 1 tab PO DAILY@0600 trazodone 50 mg tablet 75 mg PO BEDTIME Eliquis DVT-PE Treat 30D Start 5 mg (74 tabs) tablets,dose pack 5 mg PO BID Qty: 74 0RF risperidone 0.5 mg tablet 0.5 mg PO BID sertraline 100 mg tablet 100 mg PO DAILY Systane (propylene glycol) 0.4-0.3 % Drops 1 drp OPHTHALMIC (EYE) BID PRN (Reason: Dry Eyes) Diet: Advance to usual diet Activity on Discharge: As tolerated Stand Alone Forms: Patient Portal Discharge page Care Plan Goals: Read below Health Concerns: Read below Plan of Treatment: Read below Assessment: You were evaluated for altered mentation. Found to have evidence of urine infection treated with IV antibiotics with good response. culture remained negative. Continue Augmentin as prescribed Increase physical activity as tolerated
--- NOTE | 2023-06-03 12:23 | MHC.CM.PN ---
Addendum entered by Keila Castillo 06/03/23 13:35: Gordo requested that a referral be sent to [facility]. The referral was sent. [facility] responded that they are full. Gordo was notified that [facility] replied that they are full. Gordo inquired about [facility]. They had been referred and and have responded that they do not have an appropriate bed. CM will follow for placement and Appeal process. Addendum entered by Keila Castillo 06/03/23 13:08: [facility] Appeals contact info provided via phone. Appeal instructions delivered verbally via phone to Gordo. The Detailed notice of discharge was delivered verbally by phone as well. Both documents left at bedside at Son/Gordo/HCP request. He plans to contact the [facility] 08/12 care through [facility] @ the memory unit. The patient does not meet the criteria for mobility required to return to the memory unit. Original Note: IMM 06/02/22 Patient received a bed offer from [facility]. Son/HCP Gordo accepted the bed from [facility] initially. Gordo has spoken with his sisters about the discharge. They have decided to APPEAL the discharge. [facility] has sent a message about bedside eval of patient. Debra from [facility] will come in to assess the patient at 11:30 am tomorrow. Gordo was notified of the request from DB. He stated that he would speak with his sisters about [facility] and get back to T/W.
--- NOTE | 2023-06-03 16:24 | PC.NURSE ---
Patient restless at times,BP 174/89,pulse 74,poor po intake tolerating sips only ,Dr. Thomas notified
[2023-06-04] MEDS: 0.9 % Sodium Chloride Flush 3 ML SYRINGE IVFLUSH ×4 (00:30→20:33)
[2023-06-04] MEDS: Ampicillin Sodium/Sulbactam Na 3 GM in 0.9 % Sodium Chloride 100 ML IV ×4 (02:15→20:32)
[2023-06-04 03:22] VITALS: BP 182/96; PULSE 72; RESP 16; TEMP 36.6; O2SAT 96
[2023-06-04 04:32] VITALS: BP 168/84
[2023-06-04] MEDS: Levothyroxine Sodium 88 MCG TABLET PO (05:48)
[2023-06-04 06:56] LABS: Anion Gap 13 (12-20); Blood Urea Nitrogen 17 mg/dL (9-16); Carbon Dioxide 27 mmol/L (22-29); Chloride 105 mmol/L (96-108); Creatinine Clr Calc Pharmacy 44.8; Estimated Glomerular Filt Rate > 60; Glucose Random 114 mg/dL (60-115); Potassium 3.3 mmol/L (3.3-5.1); Sodium 142 mmol/L (135-145)
[2023-06-04 07:28] VITALS: BP 143/91; PULSE 78; RESP 18; TEMP 37.4; O2SAT 97
[2023-06-04] MEDS: amLODIPine Besylate 5 MG TABLET PO (08:56)
[2023-06-04] MEDS: Sertraline HCL 100 MG TABLET PO (08:56)
[2023-06-04] MEDS: Pravastatin Sodium 40 MG TABLET PO (08:56)
--- NOTE | 2023-06-04 10:55 | HO.PM.IMPN ---
Subjective Subjective Date of Service: 06/04/23 Interval History: Not sure of baseline, she's alert yet confused Noted to have some bleeding from mouth and sclera of left eye Physical Exam Vital Signs: Vital Signs: Last Vital Signs Temp 99.3 F 06/04/23 07:28 Pulse 78 06/04/23 07:28 Resp 18 06/04/23 07:28 BP 143/91 H 06/04/23 07:28 Pulse Ox 97 06/04/23 07:28 O2 Del Method Room Air 06/04/23 07:28 O2 Flow Rate 1 05/31/23 19:20 BMI result Body Mass Index 22.4 Const: Other: Constitutional : Alert, interactive, not in distress Neck : Normal inspection, Supple Cardiovascular : RRR, no JVP, no lower extremity edema Respiratory : good bilateral air entry, no crackles, wheezes or rhonchi Gastrointestinal: soft, lax, Normal bowel sounds, Non tender Skin : Warm, Dry Neurological : Alert, confused x3, moving her extremities Objective Data Active Medications Acetaminophen (Acetaminophen 325 Mg Tablet) 650 mg PO Q6H PRN PRN Reason: Pain, Mild (Pain Scale 1-3) Acetaminophen (Acetaminophen Supp 650 Mg Supp.Rect) 650 mg [place] Q6H PRN PRN Reason: Fever Amlodipine Besylate (Amlodipine Besylate 5 Mg Tablet) 5 mg PO DAILY [facility]; Protocol Last Admin: 06/04/23 08:56 Dose: 5 mg Documented By: KRISTAN Apixaban (Apixaban 5 Mg Tablet) 5 mg PO BID [facility] Last Admin: 06/04/23 08:57 Dose: Not Given Documented By: KRISTAN Non-Admin Reason: Physician Approved Comments: blood in L eye and mouth Benzonatate (Benzonatate 100 Mg Capsule) 100 mg PO TID PRN PRN Reason: Cough Docusate Sodium (Docusate Sodium 100 Mg Capsule) 100 mg PO DAILY PRN PRN Reason: Constipation Ampicillin Sodium/Sulbactam (Sodium 3 gm/ Sodium Chloride) 100 mls @ 200 mls/hr IV Q6H [facility] Last Infusion: 06/04/23 09:43 Dose: Infused Documented By: KRISTAN Levothyroxine Sodium (Levothyroxine Sodium 88 Mcg Tablet) 88 mcg PO DAILY@0600 [facility] Last Admin: 06/04/23 05:48 Dose: 88 mcg Documented By: RASTA Melatonin (Melatonin 3 Mg Tablet) 6 mg PO BEDTIME PRN PRN Reason: Insomnia Ondansetron HCl (Ondansetron Hcl 4 Mg/2 Ml Vial) 4 mg IVPUSH Q8H PRN PRN Reason: Nausea and Vomiting Pravastatin Sodium (Pravastatin Sodium 40 Mg Tablet) 40 mg PO DAILY@0900 [facility] Last Admin: 06/04/23 08:56 Dose: 40 mg Documented By: KRISTAN Risperidone (Risperidone 0.5 Mg Tablet) 0.5 mg PO BID [facility] Last Admin: 05/31/23 09:07 Dose: Not Given Documented By: SHERYL Non-Admin Reason: too lethargic- pa sierra aware Sertraline HCl (Sertraline Hcl 100 Mg Tablet) 100 mg PO DAILY [facility] Last Admin: 06/04/23 08:56 Dose: 100 mg Documented By: KRISTAN Sodium Chloride (0.9 % Sodium Chloride Flush 3 Ml Syringe) 3 ml IVFLUSH QSHIFT [facility] Last Admin: 06/04/23 08:56 Dose: 3 ml Documented By: KRISTAN Labs 06/03/23 05:53 06/04/23 05:50 Labs: Laboratory Results - last 24 hr 06/04/23 05:50 Anion Gap 13 Estim Creat Clear Calc 44.8 Estimated GFR > 60 Random Glucose 114 Calcium 9.0 Assessment and Plan (1) Acute hypernatremia: Status: Resolved (2) Acute hypokalemia: Status: Resolved (3) Acute encephalopathy: Status: Resolved (4) Lethargy: Status: Resolved (5) Acute UTI: Status: Resolved Plan Pt is an 82-year-old female with a PMH significant for?unspecified dementia, HTN, HLD, anxiety, recently diagnosed bilateral DVT on Eliquis who initially presented to the ED?3 days prior on 05/28/2023 for evaluation of increased aggression, right ankle pain, and refusal to take her medications. Will admit patient to medical floor for treatment of acute encephalopathy in the UTI with sepsis and hypoxia likely secondary to aspiration. Acute metabolic encephalopathy d/t UTI/sepsis, neg head ct, continue treating underlying uti HTN better with Norvasc Acute hypernatremia with resolved with IVF Acute hypoxic respiratory failure , CXR no PNA, ? aspiration. Resolved. Acute hypokalemia, corrected with supplement replacement given follow BMP bleeding from mouth and left eye--holding eliquis Bilateral DVT Diagnosed 05/21/2022 holding Eliquis as above Hypothyroidism Continue levothyroxine Normal TSH Mood disorder Continue home meds DNR/DNI DVT Prophylaxis: On Eliquis Pt will require a hospitalization overnight for treatment of?acute metabolic encephalopathy in the setting of UTI with sepsis . Patient require treatment with IV antibiotics pending safe discharge plan to a facility DC 06/02, family apealing discharge Quality Stroke Does the patient have a stroke diagnosis?: No VTE Prior VTE?: Yes VTE Risk Level:: Medical - moderate - high VTE Device Contraindication: Treatment Not Indicated VTE Drug Contraindication: N/A - Med Ordered
--- NOTE | 2023-06-04 13:16 | MHC.CM.PN ---
Debra from [facility] and Flavia from [facility] came in to assess the patient. Debra stated that that she would confer with her team. She will let us know if they can accept the patient. [facility] care continues to follow. Appeal is pending outcome.
[2023-06-04 16:00] VITALS: BP 180/90; PULSE 79; RESP 16; TEMP 36.8; O2SAT 95
--- NOTE | 2023-06-04 16:12 | P.CDIM_ITS ---
PROVIDER RESPONSE TEXT: To clarify, the appropriate diagnosis supported by the clinical indicators: Hemorrhagic disorder due to extrinsic circulating anti-coagulant QUERY TEXT: PHYSICIAN'S DOCUMENTATION REQUEST Date of Query: 06/04/2023 12:56 PM EST Patient Name: Tigist Pereyra Admit Date: 05/31/2023 Dear Ari Hardy, A review of the medical record indicates additional documentation may be needed. Please review below and update the documentation accordingly. Clinical Indicators: Per Hospitalist Progress Note 06/04/23: bleeding from mouth and left eye--holding Eliquis Based on the above, could you clarify the appropriate diagnosis, if significant, that supports the ab ove abnormalities and additional evaluation, monitoring, and/or treatment rendered: Hemorrhagic disorder due to extrinsic circulating anti-coagulant Adverse effect of anti-coagulant Bleeding not related to anti-coagulant use Other (explain) Clinically unable to determine (explain) Thank you, Laila Winters RN Use of terms such as suspected, likely, concern for, or probable (associated with a specific diagnosi s that is being evaluated, monitored, or treated as if it exists) are acceptable and can be coded in the inpatient se tting, when documented at the time of discharge. Please use your independent medical judgment in providing your response. THIS QUERY IS PART OF THE PERMANENT MEDICAL RECORD
[2023-06-04 17:10] VITALS: BP 148/78
[2023-06-04 19:49] VITALS: BP 144/50; PULSE 66; RESP 16; TEMP 36.6; O2SAT 94
--- NOTE | 2023-06-04 23:29 | PC.NURSE ---
2200: patient was found to be retaining 1767ml of urine. Obtained order for straight catheter 1x. Straight catheter placed and pt was relived of approximate 1500ml of yellow urine.
[2023-06-05] MEDS: Ampicillin Sodium/Sulbactam Na 3 GM in 0.9 % Sodium Chloride 100 ML IV ×2 (03:06→09:25)
[2023-06-05 03:29] VITALS: BP 162/88; PULSE 73; RESP 16; TEMP 36.5; O2SAT 94
[2023-06-05] MEDS: Levothyroxine Sodium 88 MCG TABLET PO (05:31)
[2023-06-05 07:31] VITALS: BP 135/81; PULSE 69; RESP 18; TEMP 36.3; O2SAT 96
[2023-06-05] MEDS: 0.9 % Sodium Chloride Flush 3 ML SYRINGE IVFLUSH (09:26)
[2023-06-05] MEDS: Pravastatin Sodium 40 MG TABLET PO (09:26)
[2023-06-05] MEDS: Sertraline HCL 100 MG TABLET PO (09:26)
[2023-06-05] MEDS: amLODIPine Besylate 5 MG TABLET PO (09:26)
--- NOTE | 2023-06-05 09:52 | MHC.CM.PN ---
Addendum entered by Keila Castillo 06/05/23 11:54: The patient will discharge to [facility] Memory Unit @ 3pm today. Her son Gordo will meet her at the facility. She will transport via BLS. Discharge information has been sent to the facility. Original Note: The patient has lost the Appeal. The family has accepted a bed offer from [facility].
--- NOTE | 2023-06-05 11:22 | P.DS_ITS ---
DS: Providers Provider Date of Service: 06/05/23 Date of admission: 05/31/23 12:06 Primary care physician: MAXI Gamble Consults: 05/28/23 11:46 Consult to Care Team Stat Comment: Reason for consultation: increased aggression, medication non-compliance Consult to Psychiatry Stat Consulting Provider: Psych Covering Reason for consultation: increased aggression, medication non-compliance DS: Diagnosis Discharge Diagnosis (1) Acute hypernatremia: Status: Resolved (2) Acute hypokalemia: Status: Resolved (3) Acute encephalopathy: Status: Resolved (4) Lethargy: Status: Resolved (5) Acute UTI: Status: Resolved DS: Summary Hospital Course Hospital Course: Admission note HPI Pt is an 82-year-old female with a PMH significant for?unspecified dementia, HTN, HLD, anxiety, recently diagnosed bilateral DVT on Eliquis who initially presented to the ED?3 days prior on 05/28/2023 for evaluation of increased aggression, right ankle pain, and refusal to take her medications. Patient was also evaluated for right ankle pain where x-rays proved negative. Lab work unremarkable. UA negative. CXR negative. Patient has had a recent history of rapidly advancing dementia, and psychiatry was consulted and patient was placed in physician observation awaiting [facility] psych bed placement. Family note they first noticed some mild confusion about two years ago, but pt was able to live on her own until January 2023 when she moved into assisted living. By March pt's dementia had progressed to where she was moved to the memory unit. Lately family say she is unrecognizable. Earlier today patient spiked a low-grade temp of 100.1 degrees, repeat labs showed leukocytosis of 29.5, and UA was foul- smelling, and patient was satting as low as 89% on RA with labored breathing. Vital signs also significant for tachypnea up to 30, and soft BP as low as 86/52. UA positive for UTI. Tested negative for COVID and influenza. CXR unremarkable. Patient was given IVF, azithromycin, and ceftriaxone. Will admit patient to medical floor for treatment of acute encephalopathy in the UTI with sepsis and hypoxia likely secondary to aspiration. Hospital course Acute metabolic encephalopathy in Sepsis secondary to UTI on presentation. CT head negative while UA was positve for UTI in ED. Started on IV antibiotic of Unasyn with good response as her mentation improved back to baseline. Urine culture growing Mixed bacteria, negative blood culture. Will change antibiotics to Augment for 3 more days after discharge Uncontrolled HTN--Started Novasc 5 mg, BP now within normal range Acute hypernatremia--resolved with IVF Hypoxemia Pt satting as low as 89% on RA on presentation. possible mild aspiration event but has recovered well since then, on RA with no CXR evidence of infiltrates Acute hypokalemia--replaced and resolved Hx Bilateral DVT Diagnosed 05/21/2022. She was on Eliquis but during hospitalization noted on 06/04 to be bleeding from mouth and left eye subconjuctive hemorrha, eliqis was stopped and I discuss riks and benefit with son Gordo and arrive at concensus that the risks outweight the benefit especially since DVT has been treated for a year now Dysphagia--Patient assessed by Speech and Language pathology and demonstrated mild oropharyngeal dysphagia characterized by disorganized chewing pattern, prolonged oral phase, and delayed swallow. Recc UPGRADE to CHOPPED/ADVANCED (NDD3) with THIN liquids, pills to be WHOLE or CRUSHED in PUREE. 1:1 assist. Risk of aspiration d/t confusion. Recc continued speech therapy for dysphagia tx at next level of care. Urinary retention of 600 cc, likely from generallized decondition, frailty, a vidal catheter inserted and this was also discussed with the son. Overall the patient is doing declining with guarded prognosis, poor nutritional status and discussed with son that hospice may next option if continues to decline To short term rehab for less than 30 days Time Attestation Discharge coordination time: Greater than 30 minutes Quality: Safe Use of Opioids Does Pt have an Active Cancer Diagnosis on the Problem List?: No Quality: Stroke Does the patient have a stroke diagnosis?: No Physical Exam Vital Signs: Vital Signs: Last Vital Signs Temp 97.4 F 06/05/23 07:31 Pulse 69 06/05/23 07:31 Resp 18 06/05/23 07:31 BP 135/81 06/05/23 07:31 Pulse Ox 96 06/05/23 07:31 O2 Del Method Room Air 06/05/23 07:31 O2 Flow Rate 1 05/31/23 19:20 BMI result Body Mass Index 22.4 Discharge Plan Discharge Anticipated Discharge Date/Time: 06/05/23 11:21 Patient Disposition: Xfer SNF Discharge Diagnosis: Encephalopathy UTI Referrals: [facility] [Outside] - 1 Week Olesya Carroll PA [Primary Care Provider] - 1 Week Discharge Medications: New amlodipine 5 mg Tablet 5 mg PO DAILY Qty: 30 0RF Protocol: Hold for SBP< HOLD for SBP < : 90 amoxicillin-pot clavulanate 400-57 mg/5 mL suspension for reconstitution 10 ml PO BID Qty: 50 0RF Continued pravastatin 40 mg tablet 1 tab PO DAILY levothyroxine [Synthroid] 88 mcg tablet 1 tab PO DAILY@0600 trazodone 50 mg tablet 75 mg PO BEDTIME risperidone 0.5 mg tablet 0.5 mg PO BID sertraline 100 mg tablet 100 mg PO DAILY Systane (propylene glycol) 0.4-0.3 % Drops 1 drp OPHTHALMIC (EYE) BID PRN (Reason: Dry Eyes) Discontinued Eliquis DVT-PE Treat 30D Start 5 mg (74 tabs) tablets,dose pack 5 mg PO BID Qty: 74 0RF Discharge Orders: Discharge Order (Routine); Ordered 06/05/23 Ordered By: Ari Arias Diet: Advance to usual diet Activity on Discharge: As tolerated Stand Alone Forms: Patient Portal Discharge page Care Plan Goals: Read below Health Concerns: Read below Plan of Treatment: Read below Assessment: You were evaluated for altered mentation. Found to have evidence of urine infection treated with IV antibiotics with good response. culture remained negative. stop taking eliquis Continue Augmentin as prescribed Increase physical activity as tolerated Diet recommendation: CHOPPED/ADVANCED (NDD3) with THIN liquids, pills to be WHOLE or CRUSHED in PUREE. 1:1 assist. To short term rehab for less than 30 days
--- NOTE | 2023-06-05 13:53 | MHC.SL.SWA ---
Speech Pathologist Impression: Risk of aspiration, oropharyngeal dysphagia Risk of Aspiration Due to: Reduced Cognition Dysphasia Diet Status: UPGRADE to NDD3 Liquid Consistency and Strategies for Safe Swallow: Liquid Intake Recommendation: Thin Liquid Intake Strategies: Small Sips Solid Food Consistency: Dietary Recommendations: Chopped/Advanced (NDD3) Additional Modifications to Solid Foods: Pt w/ mild oropharyngeal phase dysphagia characterized by disorganized chewing pattern, prolonged oral phase, and delayed swallow. Pt is recommended UPGRADE from GROUND (NDD2) diet, which had been previously ordered by , to CHOPPED/ADVANCED (NDD3) with THIN liquids, pills to be WHOLE or CRUSHED in PUREE, depending on pt's tolerance. Pt is at risk for aspiration due to her level of confusion. Recommend continue with aspiration precautions and 1:1 assistance, with continued speech therapy for dysphagia tx at next level of care. Oral Medication Intake: Crushed with Puree Please contact the pharmacy regarding appropriate crushable or liquid drug formulations that are available whenever modified delivery is recommended. Compensatory Strategies and Precautions to be Taken for Safe Swallow: Sitting Upright (90 deg) Small Bites and Sips Alternate Liquids/Solids Rate of Ingestion Change Oral Check Avoid Specific Foods Supervision While Eating and Drinking for Safe Swallow: Total Assistance (1:1) Foods to Avoid: Hard, tough to chew solids Swallowing Recommended Treatments: Compens. Strategy Educat. Recommendation for Speech: Inpatient Speech Therapy Speech Therapy through Rehab Facility Comment: Continue dysphagia tx at next level of care Kettle Skimmer Clinican/Clinical Fellow: No Supervisory Statement: I have reviewed and agree with the student/clinical fellow's documentation: N/A Speech Language Pathologist: Sonam Pierce M.A., CCC-JOY LOADER
[2023-06-05 15:31] VITALS: BP 142/69; PULSE 65; RESP 17; TEMP 36.4; O2SAT 96
== END 2023-06-05 17:04 | disposition skilled nursing facility (03) | DRG 871 ==
LOC: HO.ED 05-31 09:03 → HO.EDOVER 05-31 12:14 → HO.S3 05-31 14:06
PROVIDERS: Physician Assistant; Physician Assistant Medical; Student in an Organized Health Care Education/Training Program; Admitting Provider Student in an Organized Health Care Education/Training Program; Emergency Provider Emergency Medicine; PCP Physician Assistant; Visit Provider Internal Medicine
DX: A41.9 Sepsis, unspecified organism (principal); G93.41 Metabolic encephalopathy; J96.01 Acute respiratory failure with hypoxia; J69.0 Pneumonitis due to inhalation of food and vomit; R47.01 Aphasia; N39.0 Urinary tract infection, site not specified; E87.0 Hyperosmolality and hypernatremia; D68.32 Hemorrhagic disorder due to extrinsic circulating anticoagulants; R13.10 Dysphagia, unspecified; I10 Essential (primary) hypertension; F39 Unspecified mood [affective] disorder; K13.79 Other lesions of oral mucosa; H11.32 Conjunctival hemorrhage, left eye; T45.515A Adverse effect of anticoagulants, initial encounter; E87.6 Hypokalemia; E03.9 Hypothyroidism, unspecified; F03.90 Unspecified dementia, unspecified severity, without behavioral disturbance, psychotic disturbance, mood disturbance, and anxiety; Z66 Do not resuscitate; Z86.718 Personal history of other venous thrombosis and embolism; Z20.822 Contact with and (suspected) exposure to COVID-19; Z79.890 Hormone replacement therapy; Z79.899 Other long term (current) drug therapy
CPT/HCPCS: 36415; 71045; 73610; 80048; 80053; 81001; 81003; 83605; 83735; 83880; 84443; 85007; 85025; 85027; 87040; 87086; 87502; 87635; 92610; 97162; 99285; J0295; J0456; J0696; J2359; J2543; J3480; J7120; S9485

== ENCOUNTER → 2023-05-28 10:37 | Outpatient (BNV) | payer MEDICARE, SELFPAY | PROVIDERS: Emergency Provider Emergency Medicine; PCP Physician Assistant; Visit Provider Social Worker | DX: F03.90 Unspecified dementia, unspecified severity, without behavioral disturbance, psychotic disturbance, mood disturbance, and anxiety (principal) | CPT/HCPCS: 99285 ==

== ENCOUNTER → 2023-05-31 12:06 | Outpatient (BNV) | payer MEDICARE, SELFPAY | PROVIDERS: Admitting Provider Student in an Organized Health Care Education/Training Program; Emergency Provider Emergency Medicine; PCP Physician Assistant; Visit Provider Student in an Organized Health Care Education/Training Program | DX: E87.0 Hyperosmolality and hypernatremia (principal); E87.6 Hypokalemia; G93.40 Encephalopathy, unspecified; R53.83 Other fatigue; N39.0 Urinary tract infection, site not specified | CPT/HCPCS: 99223; 99232; 99233; 99239 ==

== ENCOUNTER 2023-06-29 08:24 | Emergency (ER) | payer MEDICARE, SELFPAY ==
--- NOTE | ~2023-06-29 | CT_ITS ---
EXAMINATION: CT HEAD W/O IV CONTRAST CT CERVICAL SPINE W/O IV CONTRAST CLINICAL INFORMATION: Unwitnessed fall. COMPARISON: PET/CT from 05/27/2023. CT head and neck from 04/14/2021. TECHNIQUE: Head - Contiguous axial imaging of the head was performed from the skull base to the vertex without the administration of intravenous contrast, and axial images are reconstructed at 2 mm and 5 mm slice thickness. Cervical spine - A volumetric, helical CT acquisition of the cervical spine was obtained without contrast; in addition to the standard set of axial images, multiplanar reformatted images were provided in the coronal and sagittal imaging planes. This CT examination was performed using dose optimization techniques as appropriate, variously including the following: *Automated exposure control *Adjustment of mA and/or kV according to patient size (this includes techniques or standardized protocols for targeted exams where dose is matched to indication/reason for exam; i.e. extremities or head) *Use of iterative reconstruction technique DLP: 895 mGy-cm (total) FINDINGS: HEAD: No acute intracranial findings. García to white matter differentiation is preserved. No intracranial hemorrhage, major vascular territory infarction, focal mass effect or midline shift. Chronic patchy hypoattenuation within supratentorial white matter is compatible with sequela of mild microangiopathy. 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 [id number]-rx-[id number] parenchymal volume loss with commensurate prominence of ventricles and sulci. No hydrocephalus or extra-axial fluid collections. The calvarium is intact. Minimal mucosal thickening of the left sphenoid sinus. Otherwise, the visualized paranasal sinuses, mastoid air cells and middle ear cavities are clear. The temporomandibular joints and orbits are intact. CERVICAL SPINE: The cervical spine has normal curvature. The craniocervical junction is normal. The occipital condyles, dens and atlantodental articulation are intact. The vertebral body heights and alignment are maintained. No fractures in the anterior or posterior elements. No prevertebral soft tissue edema or soft tissue hematoma. Mild multilevel facet arthropathy. Moderate degenerative loss of disc height and osteophyte formation at C5-C6. Mild discovertebral degenerative changes at C6-C7 and C7-T1. Lung apices are unremarkable. Thyroid gland is either chronically severely atrophied or surgically absent. CT/CT cervical spine wo IV con IMPRESSION: * No acute intracranial pathology compared to 05/27/2023. * No fracture or malalignment in the cervical spine. * Discovertebral degenerative change of the cervical spine is moderate at C5-C6 and mild at C6-C7 and C7-T1.
--- NOTE | ~2023-06-29 | XR_ITS ---
EXAMINATION: XR CHEST CLINICAL INFORMATION: Unwitnessed fall. COMPARISON: 05/31/2023 TECHNIQUE: Frontal view of the chest was obtained. FINDINGS: Lungs are well expanded and clear. No pneumothorax or pleural effusion. Cardiac silhouette is normal in size. The aortic arch is uncoiled. The hilar contours are normal. The visualized bones are intact. Multilevel osteophyte formation of the spine. XR/XR chest 1V IMPRESSION: No acute pulmonary disease.
--- NOTE | 2023-06-29 08:26 | ED.FALL ---
HPI - Fall General Chief Complaint: Fall Stated Complaint: UNWIT FALL,NO COMP FROM PT,FROM SNF PER EMS Time Seen by Provider: 06/29/23 08:26 Source: patient, family, EMS, RN notes reviewed and old records reviewed Mode of arrival: EMS History of Present Illness HPI Narrative: 82-year-old female with a past medical history of dementia, anxiety, DVT not currently on Eliquis, HLD, HTN, presenting to ED via EMS s/p unwitnessed fall at [facility]. Per EMS patient was found on the ground this morning. C-collar applied. Patient has no complaints at present, no evidence of trauma. History limited due to patient's baseline mental status MD complaint: fall Related Data Home Medications Medication Instructions Recorded Confirmed levothyroxine 88 mcg tablet 1 tab PO DAILY@0600 04/22/21 05/29/23 (Synthroid) pravastatin 40 mg tablet 1 tab PO DAILY 04/22/21 05/29/23 trazodone 50 mg tablet 75 mg PO BEDTIME 12/03/21 05/29/23 peg 400-propylene glycol 0.4 %-0.3 1 drp ophthalmic (eye) BID PRN Dry 03/03/23 05/29/23 % eye drops (Systane (propylene Eyes glycol)) sertraline 100 mg tablet 100 mg PO DAILY 03/03/23 05/29/23 risperidone 0.5 mg tablet 0.5 mg PO BID 05/29/23 05/29/23 Previous Rx's Medication Instructions Recorded amlodipine 5 mg tablet 5 mg PO DAILY #30 tabs 06/03/23 amoxicillin 400 mg-potassium 10 ml PO BID #50 mL 06/03/23 clavulanate 57 mg/5 mL oral suspension Allergies Allergy/AdvReac Type Severity Reaction Status Date / Time No Known Allergies Allergy Verified 05/26/23 23:10 Review of Systems Review of Systems: History limited due to patients baseline mental status Yes all other systems are reviewed and are negative Constitutional: Constitutional: Reports as per HPI Neurologic: Denies Abnormal speech present [facility] Past Medical History Attestation statement: The following information was validated with the patient. Source: old records reviewed Medical History Major neurocognitive disorder Ankle pain, right Dementia Anxiety DVT (deep venous thrombosis) HLD (hyperlipidemia) HTN (hypertension) Social History Social History Household Members: Other Household Members Other:: [facility] in [place] [facility]: [facility] Do you presently have visiting nurse or other home services: No Alcohol intake: former Patient Tobacco Use Status: Former Tobacco user Smoked in Last 30 Days: No Use of substances other than those prescribed or required for medical reasons: No Advance Directives: Yes Advance Directives on File: Yes Advance Directives Date on File: 04/23/21 service: No Current occupational status: retired Physical Exam Vital Signs: Vital Signs: Last Vital Signs Temp 97.9 F 06/29/23 08:36 Pulse 62 06/29/23 11:21 Resp 13 06/29/23 11:21 BP 155/78 H 06/29/23 11:21 Pulse Ox 98 06/29/23 11:21 O2 Del Method Room Air 06/29/23 11:21 BMI result Body Mass Index 21.0 Const: General: cooperative, healthy appearing and no acute distress Orientation/consciousness: oriented to person and oriented to place Limitations: no limitations HEENT: Head: Yes normal to inspection, Yes atraumatic, No Huerta's sign and No raccoon eyes Ears: hearing grossly normal bilaterally General nose exam: Normal external nose present Face and sinus: Yes normal facial exam Eyes: General: appearance normal, both eyes and all related structures Pupils: Equal, round and reactive pupils present EOM: EOMs intact bilaterally Neck: Neck: Yes normal visual inspection and Yes no meningeal signs Resp: Effort & Inspection: normal respiratory effort and no respiratory distress Auscultation: clear to auscultation bilaterally Cardio: Rate: regular rate Heart sounds: S1 normal heart sound present and S2 normal heart sound present GI: Inspection: Yes normal to inspection Palpation (GI): Soft to palpation, nontender, no guarding and not rigid : General: Yes no CVA tenderness Back/Spine/Pelvis: Other: C-collar in place. No midline cervical/thoracic/lumbar spinous tenderness/step-off or deformity Back: no CVA tenderness Skin: Rashes: no rashes Wounds: no wounds Neuro: General: oriented to person, oriented to place, tone normal, moves all extremities, no meningeal signs, no focal motor deficits and CN's II-XI intact bilaterally Cranial nerves: Yes CN's II-XII intact bilaterally and Yes Equal, round and reactive pupils present Speech: No Abnormal speech present Motor exam (neuro): 5/5 motor strength present throughout and no tremor noted Extrem: General: Yes normal to inspection Course Course Course Narrative: --labs reassuring. UA infected > IV Rocephin ordered 1009--CT head/brain wo IV con/CT cervical spine wo IV con IMPRESSION: * No acute intracranial pathology compared to 05/27/2023. * No fracture or malalignment in the cervical spine. * Discovertebral degenerative change of the cervical spine is moderate at C5-C6 and mild at C6-C7 and C7-T1. 1159--XR chest 1V IMPRESSION: No acute pulmonary disease. > patient ambulated around ED without assistive devices. Safe for discharge back to facility Results discussed with patient including worrisome signs and symptoms and strict return precautions, and when to return to the emergency department. They verbalized understanding and feel safe for discharge at this time. Medications Administered Discontinued Medications Generic Name Dose Route Start Last Admin Trade Name Freq PRN Reason Stop Dose Admin Ceftriaxone Sodium 1 gm/ 50 mls @ 100 mls/hr 06/29/23 09:36 06/29/23 11:19 Sodium Chloride IV 06/29/23 10:05 Infused ONCE ONE Infusion Medical Decision Making Medical Decision Making [facility] Narrative: 82-year-old female with a past medical history of dementia, anxiety, DVT not currently on Eliquis, HLD, HTN, presenting to ED via EMS s/p unwitnessed fall at [facility]. On exam vital signs stable, NAD, nontoxic appearing, A&O x2, baseline dementia, no evidence of trauma, C-collar in place, no midline spinous tenderness throughout. No focal deficits. Concern for ICH vs fractures vs rhabdomyolysis. Lower suspicion for infectious etiology Plan: Head/C-spine CT, x-ray, labs, UA Called [facility] and left voicemail with nursing staff, waiting for call back for more information Please refer to course for remaining clinical decision making, interpretation of labs/imaging results, and discussions with consultants and/or family members. Differential Diagnosis Differential Diagnoses: The differential diagnosis associated with the presentation includes As above Admission/Observation Consideration of admission/observation: Escalation of care including admission/observation considered Lab Data [facility] Lab Attestation statement: I reviewed the patient's lab results. 06/29/23 09:00 06/29/23 09:00 Labs: Lab Results 06/29/23 Range/Units 09:00 WBC 6.5 (4.8-10.8) X10*3/uL RBC 3.97 L (4.20-5.50) X10*6/uL Hgb 11.5 L (12.0-16.0) g/dl Hct 34.8 L (37.0-47.0) % MCV 87.7 (80.0-98.0) fL MCH 29.0 (27.0-33.0) pg MCHC 33.0 (31.0-35.0) g/dl RDW 15.1 (11.0-16.0) % Plt Count 317 D (160-400) X10*3/uL MPV 9.6 (9.4-12.3) fL Immature Gran % (Auto) 0.9 H (0.0-0.4) % Neut % (Auto) 69.2 (45-73) % Lymph % (Auto) 15.8 L (20-40) % Garfield % (Auto) 6.7 (2-11) % Eos % (Auto) 6.6 H (0-4) % Baso % (Auto) 0.8 (0-2) % Lymph # (Auto) 1.0 L (1.2-4.9) X10*3/uL Garfield # (Auto) 0.4 (0.1-1.2) X10*3/uL Eos # (Auto) 0.4 (0.0-0.4) X10*3/uL Baso # (Auto) 0.1 (0.0-0.2) X10*3/uL Abs Immat Gran (auto) 0.06 H (0.00-0.03) X10*3/uL Absolute Neuts (auto) 4.5 (2.0-8.3) x10*3/uL Absolute Nucleated RBC 0.000 (0.0-0.012) X10*3/uL Nucleated RBC % (auto) 0.0 (0.0-0.2) /100WBC Sodium 139 (135-145) mmol/L Potassium 3.4 (3.3-5.1) mmol/L Chloride 106 (96-108) mmol/L Carbon Dioxide 27 (22-29) mmol/L Anion Gap 9 L (12-20) BUN 14 (9-16) mg/dL Creatinine 0.77 (0.5-1.4) mg/dL Estim Creat Clear Calc 46.6 Estimated GFR > 60 Random Glucose 88 (60-115) mg/dL Calcium 9.0 (8.4-10.2) mg/dL Magnesium 2.2 (1.6-2.6) mg/dL Total Bilirubin 0.5 (0.0-1.0) mg/dL Direct Bilirubin 0.2 (0.0-0.5) mg/dL AST 15 (5-31) U/L ALT 10 (0-31) U/L Alkaline Phosphatase 71 (39-117) U/L Total Creatine Kinase 71 (26-140) U/L Total Protein 5.9 L (6.5-8.0) g/dL Albumin 3.5 (3.5-5.0) g/dL Urine Color Yellow Urine Appearance Clear Urine pH 6.0 (5.0-9.0) Ur Specific [place] 1.025 (1.005-1.025) Urine Protein 30 (1+) H (Neg-Trace) mg/dL Urine Glucose (UA) Negative (Negative) mg/dL Urine Ketones Trace (Negative) mg/dL Urine Blood Moderate (2+) H (Negative) Urine Nitrite Negative (Negative) Ur Leukocyte Esterase Moderate (2+) H (Negative) Urine RBC 11-20 H (0-2) /HPF Urine WBC 21-50 (0-5) /HPF Ur Squamous Epith Cells 0-2 (0-2) /HPF Urine Bacteria None Seen (None Seen) Hyaline Casts 0-2 (0-2) /LPF Urine Yeast Present Independent Interpretation I performed an independent interpretation of an: EKG (My interpretation EKG normal sinus rhythm rate of 60. QRS 94. QTC 424. No STEMI. Nonischemic) and CT Scan Radiology Impression Discussion of test interpretation with radiology: I have reviewed the radiologist's reading. Independent Historian Clinical information obtained from an independent historian. History obtained from or confirmed by: EMS and Other (daughter) External Record Review External record reviewed: Inpatient record, Office record, Outpatient record, Prior outpatient labs, Prior outpatient radiology, Primary care record and Outside ED record Tests considered The following testing was considered but not selected: As above Chronic Conditions Patient?s care impacted by: Other (dementia) Discharge Plan Discharge Clinical Impression: Acute UTI Patient Disposition: Xfer SNF Prescriptions: No Action pravastatin 40 mg tablet 1 tab PO DAILY levothyroxine [Synthroid] 88 mcg tablet 1 tab PO DAILY@0600 trazodone 50 mg tablet 75 mg PO BEDTIME risperidone 0.5 mg tablet 0.5 mg PO BID amlodipine 5 mg Tablet 5 mg PO DAILY Qty: 30 0RF Protocol: Hold for SBP< HOLD for SBP < : 90 amoxicillin-pot clavulanate 400-57 mg/5 mL suspension for reconstitution 10 ml PO BID Qty: 50 0RF sertraline 100 mg tablet 100 mg PO DAILY Systane (propylene glycol) 0.4-0.3 % Drops 1 drp OPHTHALMIC (EYE) BID PRN (Reason: Dry Eyes)
[2023-06-29 08:36] VITALS: BP 130/90; BP 145/79; PULSE 62; PULSE 66; RESP 16; TEMP 36.6; O2SAT 96; O2SAT 97; BMI 21.0
--- NOTE | 2023-06-29 09:03 | ECG_ITS ---
Test Reason : FALL Blood Pressure : / mmHG Vent. Rate : 060 BPM Atrial Rate : 060 BPM P-R Int : 186 ms QRS Dur : 094 ms QT Int : 424 ms P-R-T Axes : 048 006 074 degrees QTc Int : 424 ms Normal sinus rhythm Minimal voltage criteria for LVH, may be normal variant ( [place] product ) Borderline ECG When compared with ECG of 27-MAY-2023 01:19, No significant change was found Referred By: Eleni Collazo Electronically Signed By:Jasvir Rubio
[2023-06-29 09:04] LABS: MANUAL DIFF FLAG NO
[2023-06-29 09:05] LABS: Basophils Absolute Auto 0.1 X10*3/uL (0.0-0.2); Basophils Percent Auto 0.8 % (0-2); Eosinophils Absolute Auto 0.4 X10*3/uL (0.0-0.4); Eosinophils Percent Auto 6.6 % (0-4); Hematocrit 34.8 % (37.0-47.0); Hemoglobin 11.5 g/dl (12.0-16.0); Imm Gran Abs Auto 0.06 X10*3/uL (0.00-0.03); Imm Gran Pct Auto 0.9 % (0.0-0.4); Lymphocytes Percent Auto 15.8 % (20-40); Mean Corpuscular Volume 87.7 fL (80.0-98.0); Mean Platelet Volume 9.6 fL (9.4-12.3); Monocytes Absolute Auto 0.4 X10*3/uL (0.1-1.2); Monocytes Percent Auto 6.7 % (2-11); Neutrophils Absolute Auto 4.5 x10*3/uL (2.0-8.3); Neutrophils Percent Auto 69.2 % (45-73); Platelet Count 317 X10*3/uL (160-400); Red Blood Count 3.97 X10*6/uL (4.20-5.50); Red Cell Distribution Width 15.1 % (11.0-16.0); White Blood Count 6.5 X10*3/uL (4.8-10.8)
[2023-06-29 09:07] LABS: Appearance Urine Clear; Color Urine Yellow; Glucose Urine UA Negative (Negative); Leukocyte Esterase Urine Moderate (2+) (Negative); Nitrite Urine Negative (Negative); Specific Gravity - Urine 1.025 (1.005-1.025); UMIC TRIGGER UACC YES; Urine Blood Moderate (2+) (Negative); Urine Ketones Trace mg/dL (Negative); Urine Protein 30 (1+) mg/dL (Neg-Trace)
[2023-06-29 09:15] LABS: Bacteria Urine None Seen (None Seen); Hyaline Casts Urine 0-2 /LPF (0-2); Squamous Epithelial Cell Urine 0-2 /HPF (0-2); UACC Culture Trigger YES; WBC Urine 21-50 /HPF (0-5)
[2023-06-29 09:22] LABS: Alanine Aminotransferase 10 U/L (0-31); Albumin Level 3.5 g/dL (3.5-5.0); Alkaline Phosphatase 71 U/L (39-117); Anion Gap 9 (12-20); Aspartate Amino Transferase 15 U/L (5-31); Bilirubin Direct 0.2 mg/dL (0.0-0.5); Bilirubin Total 0.5 mg/dL (0.0-1.0); Blood Urea Nitrogen 14 mg/dL (9-16); Carbon Dioxide 27 mmol/L (22-29); Chloride 106 mmol/L (96-108); Creatinine Clr Calc Pharmacy 46.6; Estimated Glomerular Filt Rate > 60; Glucose Random 88 mg/dL (60-115); Magnesium 2.2 mg/dL (1.6-2.6); Potassium 3.4 mmol/L (3.3-5.1); Sodium 139 mmol/L (135-145); Total Protein 5.9 g/dL (6.5-8.0)
--- NOTE | 2023-06-29 09:28 | PC.NURSE ---
Alert with confusion, daughter at bedside. Per daughter patient lives at the [facility] and was found on the ground this morning. Patient unable to recall events of fall. Reports pain but unable to say where. Bilateral ankles swollen without pitting edema.
[2023-06-29] MEDS: cefTRIAXone sodium 1 GM in 0.9 % Sodium Chloride 50 ML IV (09:42)
[2023-06-29 11:21] VITALS: BP 155/78; PULSE 62; RESP 13; O2SAT 98
[2023-06-29 12:00] VITALS: RESP 18; TEMP 37.1; O2SAT 98
--- NOTE | 2023-06-29 12:03 | PC.NURSE ---
Patient able to safely ambulate without walker
== END 2023-06-29 12:18 | disposition skilled nursing facility (03) ==
PROVIDERS: Physician Assistant; Emergency Provider Emergency Medicine; PCP Physician Assistant
DX: S09.90XA Unspecified injury of head, initial encounter (principal); N39.0 Urinary tract infection, site not specified; R94.31 Abnormal electrocardiogram [ECG] [EKG]; F03.90 Unspecified dementia, unspecified severity, without behavioral disturbance, psychotic disturbance, mood disturbance, and anxiety; I10 Essential (primary) hypertension; M54.2 Cervicalgia; R51.9 Headache, unspecified; Y93.9 Activity, unspecified; W01.0XXA Fall on same level from slipping, tripping and stumbling without subsequent striking against object, initial encounter; Y92.099 Unspecified place in other non-institutional residence as the place of occurrence of the external cause; Y99.8 Other external cause status; Z79.899 Other long term (current) drug therapy; Z86.718 Personal history of other venous thrombosis and embolism; Z79.4 Long term (current) use of insulin
CPT/HCPCS: 36415; 70450; 71045; 72125; 80048; 80076; 81001; 82550; 83735; 85025; 87086; 87088; 93005; 96365; 96366; 99284; 99285; J0696

== ENCOUNTER → 2023-06-29 09:03 | Outpatient (BNV) | payer MEDICARE, SELFPAY | PROVIDERS: Emergency Provider Emergency Medicine; PCP Physician Assistant; Visit Provider Internal Medicine Cardiovascular Disease | DX: R94.31 Abnormal electrocardiogram [ECG] [EKG] (principal) | CPT/HCPCS: 93010 ==

== ENCOUNTER 2023-07-30 23:14 | Emergency (ER) | payer MEDICARE, SELFPAY ==
--- NOTE | ~2023-07-30 | CT_ITS ---
EXAMINATION: CT HEAD WITHOUT CONTRAST CT CERVICAL SPINE WITHOUT CONTRAST CLINICAL INFORMATION: Fall. Pain. COMPARISON: 06/29/2023 TECHNIQUE: Contiguous axial imaging was performed through the head and cervical spine without intravenous administration of contrast. This CT examination was performed using dose optimization techniques as appropriate, variously including the following: *Automated exposure control *Adjustment of mA and/or kV according to patient size (this includes techniques or standardized protocols for targeted exams where dose is matched to indication/reason for exam; i.e. extremities or head) *Use of iterative reconstruction technique DLP: 900 mGy-cm FINDINGS: Mild cerebral volume loss with prominence of the lateral and the third ventricles. The cortical sulci are widened appropriately. The fourth ventricle and basal cisterns are normally outlined. There is mild bilateral periventricular and central white matter diminished attenuation. There is no acute territorial defect, hemorrhage or midline shift. The extra-axial spaces are unremarkable. Calvarium: Intact. Maxillofacial sinuses and mastoids: Clear as visualized. Cervical spine: The alignment is normal. There is mild diffuse cervical disc degenerative change most pronounced at C5-C6 with loss of disc space, endplate change and minimal posterior osteophytes at C5-C6 and C6-C7 associated with mild diffuse facet osteoarthritic hypertrophic change without significant spinal canal or neuroforaminal narrowing. The bony structures are osteopenic. There is no evidence for acute fracture. The soft tissues are unremarkable. The visualized upper lung espana are clear. CT/CT cervical spine wo IV con IMPRESSION: 1. No acute intracranial process seen. 2. Mild cerebral volume loss with chronic small vessel ischemic changes. 3. No acute cervical spine fracture or malalignment. Degenerative disc changes C5-C6 and C6-C7 disc levels.
--- NOTE | ~2023-07-30 | XR_ITS ---
EXAMINATION: XR PELVIS CLINICAL INFORMATION: Fall. Pain. COMPARISON: None available. TECHNIQUE: AP view of the pelvis. FINDINGS: The bony structures are osteopenic. There is mild bilateral hip degenerative change with subchondral sclerosis. No fracture is seen. The soft tissues are unremarkable. XR/XR pelvis 1-2V IMPRESSION: 1. Mild bilateral hip osteoarthritis. 2. No fracture.
--- NOTE | ~2023-07-30 | XR_ITS ---
EXAMINATION: XR CHEST CLINICAL INFORMATION: Fall. COMPARISON: 06/29/2023 TECHNIQUE: Frontal view of the chest was obtained. FINDINGS: The cardiomediastinal silhouette is stable. There is pulmonary vascular congestion. There is no focal lung consolidation or pleural effusion. The bony structures are osteopenic. The soft tissues are unremarkable. XR/XR chest 1V IMPRESSION: Pulmonary vascular congestion. No focal lung consolidation or pleural effusion.
[2023-07-30 23:29] VITALS: BP 150/96; PULSE 66; O2SAT 96; BMI 23.5
[2023-07-30 23:40] VITALS: BP 126/74; PULSE 63; RESP 18; TEMP 36.7; O2SAT 94
--- NOTE | 2023-07-31 00:33 | ECG_ITS ---
Test Reason : FALL Blood Pressure : / mmHG Vent. Rate : 061 BPM Atrial Rate : 061 BPM P-R Int : 190 ms QRS Dur : 096 ms QT Int : 444 ms P-R-T Axes : 057 -04 060 degrees QTc Int : 446 ms Normal sinus rhythm Normal ECG When compared with ECG of 29-JUN-2023 09:31, No significant change was found Referred By: Nina Brooks Electronically Signed By:SHAGGY BALLARD MD
--- NOTE | 2023-07-31 00:34 | ED_ITS ---
HPI - Fall General Chief Complaint: Head Injury Stated Complaint: FALL Time Seen by Provider: 07/31/23 00:01 Source: family, EMS and old records reviewed Mode of arrival: EMS Limitations: altered mental status History of Present Illness HPI Narrative: 82 yo female with advanced dementia, UTI, HTN, hypothyroidism HLD here with unwitnessed fall at facility suffering laceration to R side of head. Unknown LOC. oriented to self which is baseline. MD complaint: fall Onset (ago): unknown Fall from: other Fall witnessed: no Place fall occurred: [facility] Loss of consciousness: unsure Prolonged down time: unclear Symptoms prior to fall: other Context: other Location of injury: head Severity: mild Associated symptoms (after fall): denies Related Data Home Medications Medication Instructions Recorded Confirmed levothyroxine 88 mcg tablet 1 tab PO DAILY@0600 04/22/21 05/29/23 (Synthroid) pravastatin 40 mg tablet 1 tab PO DAILY 04/22/21 05/29/23 trazodone 50 mg tablet 75 mg PO BEDTIME 12/03/21 05/29/23 peg 400-propylene glycol 0.4 %-0.3 1 drp ophthalmic (eye) BID PRN Dry 03/03/23 05/29/23 % eye drops (Systane (propylene Eyes glycol)) sertraline 100 mg tablet 100 mg PO DAILY 03/03/23 05/29/23 risperidone 0.5 mg tablet 0.5 mg PO BID 05/29/23 05/29/23 Previous Rx's Medication Instructions Recorded amlodipine 5 mg tablet 5 mg PO DAILY #30 tabs 06/03/23 amoxicillin 400 mg-potassium 10 ml PO BID #50 mL 06/03/23 clavulanate 57 mg/5 mL oral suspension cefuroxime axetil 250 mg tablet 250 mg PO BID 7 days #14 tabs 06/29/23 Allergies Allergy/AdvReac Type Severity Reaction Status Date / Time No Known Allergies Allergy Verified 05/26/23 23:10 Review of Systems 2 Review of Systems: ROS unable to be obtained due to dementia PMFSH Past Medical History Attestation statement: The following information was validated with the patient. Source: old records reviewed Medical History Major neurocognitive disorder Ankle pain, right Dementia Anxiety DVT (deep venous thrombosis) HLD (hyperlipidemia) HTN (hypertension) Social History Social History Household Members: Other Household Members Other:: [facility] in [place] [facility] Do you presently have visiting nurse or other home services: No Alcohol intake: former Patient Tobacco Use Status: Former Tobacco user Advance Directives: Yes Advance Directives on File: Yes Advance Directives Date on File: 04/23/21 service: No Current occupational status: retired Physical Exam 2 Vital Signs: Vital Signs: Last Vital Signs Temp 98.1 F 07/30/23 23:40 Pulse 63 07/30/23 23:40 Resp 18 07/30/23 23:40 BP 126/74 07/30/23 23:40 Pulse Ox 94 07/30/23 23:40 O2 Del Method Room Air 07/30/23 23:40 BMI result Body Mass Index 23.5 Appearance: somnolent Oriented to self No acute distress. Eyes: Pupils equal, round and reactive to light. ENT: Pharynx normal. R scalp dried matted blood to head cannot see laceration due to caking of blood 1cm laceration to parietal scalp Neck: Normal inspection. Neck supple. collar in place CVS: Normal heart rate and rhythm. Pulses normal. Respiratory: No respiratory distress. Breath sounds normal. Abdomen: Soft and nontender. Skin: Skin warm and dry. pale skin color. Extremities: no pain with ROM testing Neuro: moves all extremities cannot participate in exam Medications Administered Discontinued Medications Generic Name Dose Route Start Last Admin Trade Name Kareemq PRN Reason Stop Dose Admin Lidocaine/Epinephrine/Tetracaine 3 ml 07/31/23 00:36 07/31/23 02:14 Lidocaine/Racepinep/Tetracaine 3 Ml Gel.Pf.Joana TOPICAL 07/31/23 00:37 3 ml ONCE ONE Administration Procedures Laceration Laceration 1: Site: scalp Side (If applicable): right Size (cm): 1 Description: linear Depth: simple, single layer Local Anesthetic: other anesthetic (LET) Amount of anesthesia used (mL): 3 Pre-repair: wound explored, irrigated extensively and deep structures intact Skin layer closed with: other (2 radha) Medical Decision Making Medical Decision Making MDM Narrative: 82 yo female with advanced dementia, UTI, HTN, hypothyroidism HLD here with c/o being found down at this time will need labs, EKG, CT head and neck along with CXR and pelvis she cannot provide a history so repeat troponin is needed. VS are stable, needs wound care of R scalp as well. Undifferentiated fall. Differential Diagnosis Differential Diagnoses: The differential diagnosis associated with the presentation includes could be metabolic or mechanical needs full labs and imaging workup cannot provide history Admission/Observation Consideration of admission/observation: Escalation of care including admission/observation considered repeat trop negative, VS stable, UA negative CT scans negative Lab Data MDM Lab Attestation statement: I reviewed the patient's lab results. 07/31/23 01:40 07/31/23 01:40 Labs: Lab Results 07/31/23 07/31/23 Range/Units 01:40 03:30 WBC 8.2 (4.8-10.8) X10*3/uL RBC 3.69 L (4.20-5.50) X10*6/uL Hgb 10.9 L (12.0-16.0) g/dl Hct 32.4 L (37.0-47.0) % MCV 87.8 (80.0-98.0) fL MCH 29.5 (27.0-33.0) pg MCHC 33.6 (31.0-35.0) g/dl RDW 14.7 (11.0-16.0) % Plt Count 254 (160-400) X10*3/uL MPV 9.8 (9.4-12.3) fL Immature Gran % (Auto) 0.7 H (0.0-0.4) % Neut % (Auto) 72.5 (45-73) % Lymph % (Auto) 14.6 L (20-40) % [place] % (Auto) 7.4 (2-11) % Eos % (Auto) 4.4 H (0-4) % Baso % (Auto) 0.4 (0-2) % Lymph # (Auto) 1.2 (1.2-4.9) X10*3/uL [place] # (Auto) 0.6 (0.1-1.2) X10*3/uL Eos # (Auto) 0.4 (0.0-0.4) X10*3/uL Baso # (Auto) 0.0 (0.0-0.2) X10*3/uL Abs Immat Gran (auto) 0.06 H (0.00-0.03) X10*3/uL Absolute Neuts (auto) 5.9 (2.0-8.3) x10*3/uL Absolute Nucleated RBC 0.000 (0.0-0.012) X10*3/uL Nucleated RBC % (auto) 0.0 (0.0-0.2) /100WBC Sodium 141 (135-145) mmol/L Potassium 3.6 (3.3-5.1) mmol/L Chloride 107 (96-108) mmol/L Carbon Dioxide 24 (22-29) mmol/L Anion Gap 14 (12-20) BUN 16 (9-16) mg/dL Creatinine 0.76 (0.5-1.4) mg/dL Estim Creat Clear Calc 41.0 Estimated GFR > 60 Random Glucose 106 (60-115) mg/dL Calcium 8.4 D (8.4-10.2) mg/dL Magnesium 2.0 (1.6-2.6) mg/dL Total Bilirubin 0.7 (0.0-1.0) mg/dL Direct Bilirubin 0.3 (0.0-0.5) mg/dL AST 14 (5-31) U/L ALT 11 (0-31) U/L Alkaline Phosphatase 62 (39-117) U/L Total Creatine Kinase 71 (26-140) U/L Troponin I High Sens < 2.7 3.2 (<3.5-17.0) ng/L Total Protein 5.5 L (6.5-8.0) g/dL Albumin 3.2 L (3.5-5.0) g/dL Urine Color Yellow Urine Appearance Clear Urine pH 7.0 (5.0-9.0) Ur Specific [place] 1.020 (1.005-1.025) Urine Protein Negative (Neg-Trace) mg/dL Urine Glucose (UA) Negative (Negative) mg/dL Urine Ketones Negative (Negative) mg/dL Urine Blood Negative (Negative) Urine Nitrite Negative (Negative) Ur Leukocyte Esterase Small (1+) H (Negative) Urine RBC 0-2 (0-2) /HPF Urine WBC 6-10 (0-5) /HPF Ur Squamous Epith Cells 0-2 (0-2) /HPF Calcium Oxalate Crystal Present Urine Bacteria Trace (None Seen) Hyaline Casts 0-2 (0-2) /LPF Urine Yeast Present Influenza Type A (PCR) NEGATIVE (Negative) Influenza Type B (PCR) NEGATIVE (Negative) RSV RNA Qual (PCR) NEGATIVE (Negative) SARS-CoV-2 RNA (RT-PCR) NEGATIVE (Negative) Independent Interpretation I performed an independent interpretation of an: EKG, Plain X-Ray (no trauma) and CT Scan (no trauma) Interpretation: Rate: 61 Rhythm: NSR Pooler: left Normal P waves. Normal VENESSA. Normal QRS complex. ST T wave : nonspecific V1-V2, no ANNAMARIA qTC: normal prior studies: no acute ischemia The study has been interpreted contemporaneously by me. . Radiology Impression Discussion of test interpretation with radiology: I have reviewed the radiologist's reading. Independent Historian Clinical information obtained from an independent historian. History obtained from or confirmed by: EMS and Other (daughter) External Record Review External record reviewed: Inpatient record Discharge Plan Discharge Clinical Impression: Laceration of scalp Qualifiers: Encounter type: initial encounter Qualified Code(s): S01.01XA - Laceration without foreign body of scalp, initial encounter Patient Disposition: Home, Self-Care Instructions: Laceration (ED) Additional Instructions: radha out in 10 days return for confusion, vomiting, pain or any other concerns no trauma on chest xray, pelvis xray, CT head or cspine repeat labs normal urine had no infection Prescriptions: No Action pravastatin 40 mg tablet 1 tab PO DAILY levothyroxine [Synthroid] 88 mcg tablet 1 tab PO DAILY@0600 trazodone 50 mg tablet 75 mg PO BEDTIME risperidone 0.5 mg tablet 0.5 mg PO BID amlodipine 5 mg Tablet 5 mg PO DAILY Qty: 30 0RF Protocol: Hold for SBP< HOLD for SBP < : 90 amoxicillin-pot clavulanate 400-57 mg/5 mL suspension for reconstitution 10 ml PO BID Qty: 50 0RF sertraline 100 mg tablet 100 mg PO DAILY Systane (propylene glycol) 0.4-0.3 % Drops 1 drp OPHTHALMIC (EYE) BID PRN (Reason: Dry Eyes) cefuroxime axetil 250 mg tablet 250 mg PO BID 7 Days Qty: 14 0RF
[2023-07-31 01:45] LABS: MANUAL DIFF FLAG NO
[2023-07-31 01:48] LABS: Basophils Percent Auto 0.4 % (0-2); Eosinophils Absolute Auto 0.4 X10*3/uL (0.0-0.4); Eosinophils Percent Auto 4.4 % (0-4); Hematocrit 32.4 % (37.0-47.0); Hemoglobin 10.9 g/dl (12.0-16.0); Imm Gran Abs Auto 0.06 X10*3/uL (0.00-0.03); Imm Gran Pct Auto 0.7 % (0.0-0.4); Lymphocytes Absolute Auto 1.2 X10*3/uL (1.2-4.9); Lymphocytes Percent Auto 14.6 % (20-40); Mean Corpuscular HGB Conc 33.6 g/dl (31.0-35.0); Mean Corpuscular Hemoglobin 29.5 pg (27.0-33.0); Mean Corpuscular Volume 87.8 fL (80.0-98.0); Mean Platelet Volume 9.8 fL (9.4-12.3); Monocytes Absolute Auto 0.6 X10*3/uL (0.1-1.2); Monocytes Percent Auto 7.4 % (2-11); Neutrophils Absolute Auto 5.9 x10*3/uL (2.0-8.3); Neutrophils Percent Auto 72.5 % (45-73); Platelet Count 254 X10*3/uL (160-400); Red Blood Count 3.69 X10*6/uL (4.20-5.50); Red Cell Distribution Width 14.7 % (11.0-16.0); White Blood Count 8.2 X10*3/uL (4.8-10.8)
[2023-07-31 02:02] LABS: Alanine Aminotransferase 11 U/L (0-31); Albumin Level 3.2 g/dL (3.5-5.0); Alkaline Phosphatase 62 U/L (39-117); Anion Gap 14 (12-20); Aspartate Amino Transferase 14 U/L (5-31); Bilirubin Direct 0.3 mg/dL (0.0-0.5); Bilirubin Total 0.7 mg/dL (0.0-1.0); Blood Urea Nitrogen 16 mg/dL (9-16); Calcium 8.4 mg/dL (8.4-10.2); Carbon Dioxide 24 mmol/L (22-29); Chloride 107 mmol/L (96-108); Estimated Glomerular Filt Rate > 60; Glucose Random 106 mg/dL (60-115); Potassium 3.6 mmol/L (3.3-5.1); Sodium 141 mmol/L (135-145); Total Protein 5.5 g/dL (6.5-8.0)
[2023-07-31] MEDS: Lidocaine/Racepinep/Tetracaine 3 ML GEL.PF.APP TOPICAL (02:14)
[2023-07-31 02:19] LABS: Troponin-I High Sensitivity < 2.7 ng/L (<3.5-17.0)
[2023-07-31 02:26] LABS: Influenza A PCR NEGATIVE (Negative); Influenza B PCR NEGATIVE (Negative); Resp Syncy Virus RNA Qual PCR NEGATIVE (Negative); SARS COV2 PCR INHOUSE NEGATIVE (Negative)
[2023-07-31 03:41] LABS: Appearance Urine Clear; Color Urine Yellow; Glucose Urine UA Negative (Negative); Leukocyte Esterase Urine Small (1+) (Negative); Nitrite Urine Negative (Negative); UMIC TRIGGER UACC YES; Urine Blood Negative (Negative); Urine Ketones Negative (Negative); Urine Protein Negative (Neg-Trace)
[2023-07-31 03:56] LABS: Troponin-I High Sensitivity 3.2 ng/L (<3.5-17.0)
[2023-07-31 03:57] LABS: Bacteria Urine Trace (None Seen); Calcium Oxalate Crystals Urine Present; Hyaline Casts Urine 0-2 /LPF (0-2); RBC Urine 0-2 /HPF (0-2); Squamous Epithelial Cell Urine 0-2 /HPF (0-2); UACC Culture Trigger YES
--- NOTE | 2023-07-31 04:19 | MHC.EDTECH ---
CALL OUT TO [facility] AT 0418 TO BOOK TRANSPORT FOR PT BACK TO FACILITY, ESTIMATED ETA GIVEN WAS 0620
[2023-07-31 06:20] VITALS: BP 167/78; PULSE 68; RESP 16; O2SAT 95
[2023-07-31 06:45] VITALS: BP 167/78; PULSE 80; RESP 16; TEMP 36.6
== END 2023-07-31 06:45 | disposition home or self-care (01) ==
PROVIDERS: Emergency Provider Emergency Medicine; PCP Physician Assistant
DX: S01.01XA Laceration without foreign body of scalp, initial encounter (principal); F03.90 Unspecified dementia, unspecified severity, without behavioral disturbance, psychotic disturbance, mood disturbance, and anxiety; I10 Essential (primary) hypertension; W19.XXXA Unspecified fall, initial encounter; Y93.9 Activity, unspecified; Y92.129 Unspecified place in nursing home as the place of occurrence of the external cause; Y99.9 Unspecified external cause status; Z11.52 Encounter for screening for COVID-19; Z20.828 Contact with and (suspected) exposure to other viral communicable diseases
CPT/HCPCS: 0241U; 12011; 36415; 51701; 70450; 71045; 72125; 72170; 80048; 80076; 81001; 82550; 83735; 84484; 85025; 87086; 93005; 99284

== ENCOUNTER → 2023-07-31 00:33 | Outpatient (BNV) | payer MEDICARE, SELFPAY | PROVIDERS: Emergency Provider Emergency Medicine; PCP Physician Assistant; Visit Provider Internal Medicine Cardiovascular Disease | DX: R29.6 Repeated falls (principal) | CPT/HCPCS: 93010 ==

== ENCOUNTER 2023-08-01 18:35 | Emergency (ER) | payer MEDICARE, SELFPAY ==
--- NOTE | ~2023-08-01 | XR_ITS ---
EXAMINATION: XR CHEST CLINICAL INFORMATION: Weakness COMPARISON: Chest x-ray 06/29/2023 TECHNIQUE: Frontal view of the chest was obtained. FINDINGS: Lungs are clear. No focal airspace consolidation. No pneumothorax or pleural effusion. Cardiomediastinal silhouette within normal limits. Multilevel degenerative changes throughout the thoracic spine. Partially imaged abdomen demonstrates dilated loop of proximal descending colon in the left upper quadrant, nonspecific. XR/XR chest 1V IMPRESSION: No acute cardiopulmonary process.
--- NOTE | ~2023-08-01 | US_ITS ---
EXAMINATION: US VENOUS ULTRASOUND WITH DOPPLER LOWER EXTREMITY, BILATERAL CLINICAL INFORMATION: Leg swelling/pain, history of DVT COMPARISON: None available. TECHNIQUE: Ultrasound of the deep veins is performed from the hip to the calf with compression sonography and color and pulse Doppler assessment. Spectral analysis with color-flow imaging is performed. FINDINGS: RIGHT: There is normal venous compression and respiratory variation and augmented flow. The visualized common femoral vein, superficial femoral vein, profunda femoral vein, popliteal vein, and the trifurcation region shows no evidence of deep venous thrombosis. There is no popliteal fossa cyst. Eccentric echogenicity is seen within the proximal great saphenous vein consistent with nonocclusive thrombus. LEFT: There is normal venous compression and respiratory variation and augmented flow. The visualized common femoral vein, superficial femoral vein, profunda femoral vein, popliteal vein, and the trifurcation region shows no evidence of deep venous thrombosis. There is no significant popliteal fossa cyst. Complete occlusion of the great saphenous vein. US/US venous duplex LE BI IMPRESSION: No evidence of bilateral lower extremity DVT. 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 There is no extension of this thrombus into the femoral vein.
--- NOTE | ~2023-08-01 | CT_ITS ---
EXAMINATION: CT HEAD WITHOUT CONTRAST CT CERVICAL SPINE WITHOUT CONTRAST CLINICAL INFORMATION: Fall. Head strike. COMPARISON: CT head and cervical spine from 07/30/2023. TECHNIQUE: Contiguous axial imaging was performed from the skull base to vertex without intravenous administration of contrast. Contiguous axial imaging was performed from the upper chest through the skull base without intravenous administration of contrast. Coronal and sagittal reformats were obtained at the acquisition workstation. This CT examination was performed using dose optimization techniques as appropriate, variously including the following: *Automated exposure control. *Adjustment of mA and/or kV according to patient size (this includes techniques or standardized protocols for targeted exams where dose is matched to indication/reason for exam; i.e. extremities or head). *Use of iterative reconstruction technique. DLP: 844 mGy-cm FINDINGS: Head: There is no evidence of acute intracranial hemorrhage or edematous territorial infarction. García-white matter differentiation is preserved. Scattered and partially confluent hypoattenuation in the periventricular and deep white matter are consistent with moderate microangiopathy. Proportional prominence of the ventricles and sulcal spaces without evidence of obstructive hydrocephalus. No abnormal mass effect or midline shift. No extra-axial fluid collections. No acute soft tissue or osseous abnormalities. Mild mucosal thickening of the paranasal sinuses. The mastoid air cells and middle ear cavities are clear. Mild degenerative arthropathy of the temporomandibular joints. Bilateral lens extractions. Cervical Spine: The atlantooccipital and atlantoaxial articulations remain well aligned. Straightening of the normal cervical lordosis. Otherwise, there is anatomic alignment of the vertebral bodies and posterior elements. No evidence of acute fracture or subluxation. The vertebral body heights are maintained. Advanced degenerative disc disease at C5-C6. Moderate degenerative disc disease from C6-T1. Facet and uncovertebral joint arthropathy leads to osseous encroachment on the neural foramina from C5-T1. There is no prevertebral soft tissue swelling. Atrophy of the thyroid gland. The remaining cervical soft tissues are within normal limits. The lung apices demonstrate no abnormalities. CT/CT cervical spine wo IV con IMPRESSION: 1. No evidence of acute intracranial hemorrhage or edematous territorial infarction. Moderate underlying microangiopathy and generalized cerebral volume loss. 2. No evidence of acute fracture or traumatic subluxation of the cervical spine. Moderate multilevel degenerative spondyloarthropathy of the cervical spine.
[2023-08-01 18:39] VITALS: BP 100/80; PULSE 82; O2SAT 98
[2023-08-01 18:41] VITALS: BP 126/69; PULSE 68; RESP 16; O2SAT 95; BMI 19.6
--- NOTE | 2023-08-01 18:53 | PC.NURSE ---
patient from [facility], [facility] dementia, fell from chair during activity this afternoon, patient was here on 07/29 for a fall as well. R pupil larger than left, both reactive to light. Patient leaning towards right side of body, this is new for patient per daughter at bedside. Patient is unreliable historian, whifty with rambling speech.
--- NOTE | 2023-08-01 19:16 | PC.NURSE ---
This RN assumed pt care @ 1900. Pt resting in bed quietly. Daughter at bedside. Plan of care ongoing.
--- NOTE | 2023-08-01 20:38 | ECG_ITS ---
Test Reason : FALL Blood Pressure : / mmHG Vent. Rate : 064 BPM Atrial Rate : 064 BPM P-R Int : 174 ms QRS Dur : 092 ms QT Int : 426 ms P-R-T Axes : 058 -07 076 degrees QTc Int : 439 ms Normal sinus rhythm Normal ECG When compared with ECG of 31-JUL-2023 00:58, No significant change was found Referred By: Tamanna Fuentes Electronically Signed By:SHAGGY BALLARD MD
--- NOTE | 2023-08-01 20:38 | ED.FALL ---
HPI - Fall General Chief Complaint: Fall Stated Complaint: UNWIT FALL, FAVORING RIGHT HIP, HX DEMENTIA Time Seen by Provider: 08/01/23 20:18 Source: patient, family and EMS Mode of arrival: EMS Limitations: altered mental status History of Present Illness HPI Narrative: This is an 82-year-old female with a history of dementia, hypertension, DVTs not on anticoagulation presents the ER after unwitnessed fall. Found by staff on the ground. Patient unable to provide history of present illness due to underlying dementia. Per daughter who was visiting the patient earlier today the patient was complaining of some generalized weakness and dizziness. Daughter also noticed both LE seem more swollen then usual. Patient had been on anticoagulation for DVTs but this was stopped due to bleeding. At this time the patient has no complaints Related Data Home Medications Medication Instructions Recorded Confirmed levothyroxine 88 mcg tablet 1 tab PO DAILY@0600 04/22/21 05/29/23 (Synthroid) pravastatin 40 mg tablet 1 tab PO DAILY 04/22/21 05/29/23 trazodone 50 mg tablet 75 mg PO BEDTIME 12/03/21 05/29/23 peg 400-propylene glycol 0.4 %-0.3 1 drp ophthalmic (eye) BID PRN Dry 03/03/23 05/29/23 % eye drops (Systane (propylene Eyes glycol)) sertraline 100 mg tablet 100 mg PO DAILY 03/03/23 05/29/23 risperidone 0.5 mg tablet 0.5 mg PO BID 05/29/23 05/29/23 Previous Rx's Medication Instructions Recorded amlodipine 5 mg tablet 5 mg PO DAILY #30 tabs 06/03/23 amoxicillin 400 mg-potassium 10 ml PO BID #50 mL 06/03/23 clavulanate 57 mg/5 mL oral suspension cefuroxime axetil 250 mg tablet 250 mg PO BID 7 days #14 tabs 06/29/23 cefuroxime axetil 500 mg tablet 500 mg PO BID #14 tabs 08/01/23 Allergies Allergy/AdvReac Type Severity Reaction Status Date / Time No Known Allergies Allergy Verified 05/26/23 23:10 Review of Systems Review of Systems: Yes Unobtainable due to mental status Neurologic: Reports confusion Psychiatric: Psychiatric: Reports confusion PMFSH Past Medical History Attestation statement: The following information was validated with the patient. Source: old records reviewed and nursing notes reviewed Medical History Major neurocognitive disorder Ankle pain, right Dementia Anxiety DVT (deep venous thrombosis) HLD (hyperlipidemia) HTN (hypertension) Social History Social History Household Members: Other Household Members Other:: [facility] [place] [facility] Do you presently have visiting nurse or other home services: No Unable to assess alcohol history related to: Unknown Alcohol intake: former Patient Tobacco Use Status: Former Tobacco user Smoked in Last 30 Days: No Use of substances other than those prescribed or required for medical reasons: No Advance Directives: Yes Advance Directives on File: Yes Advance Directives Date on File: 04/23/21 service: No Current occupational status: retired Physical Exam Vital Signs: Vital Signs: Last Vital Signs Temp 98.4 F 08/02/23 00:19 Pulse 59 08/02/23 00:19 Resp 16 08/02/23 00:19 BP 161/85 H 08/02/23 00:19 Pulse Ox 98 08/02/23 00:19 O2 Del Method Room Air 08/02/23 00:19 BMI result Body Mass Index 19.6 Const: General: alert and confusion Orientation/consciousness: oriented to person and confusion Limitations: altered mental status HEENT: Head: Yes normal to inspection, No Huerta's sign and No raccoon eyes Ears: hearing grossly normal bilaterally and TM's normal bilaterally General nose exam: Normal external nose present Face and sinus: Yes normal facial exam Mouth: Normal oral and palatal mucosa present Throat: Yes posterior oropharynx normal Eyes: General: appearance normal, both eyes and all related structures Pupils: Equal, round and reactive pupils present Neck: Neck: Yes normal visual inspection, Yes full ROM, Yes no lymphadenopathy and Yes no meningeal signs Chest: Chest palpation & inspection: normal inspection of the chest Resp: Effort & Inspection: normal respiratory effort Auscultation: clear to auscultation bilaterally Cardio: Rate: regular rate Rhythm: regular rhythm Peripheral pulses: Peripheral pulses 2+ throughout GI: Inspection: Yes normal to inspection Palpation (GI): Soft to palpation and nontender Auscultation: normal bowel sounds Back/Spine/Pelvis: Thoracic/Lumbar Spine: thoracic and lumbar spine normal to inspection Skin: General skin exam: no rashes or lesions noted Neuro: Other: Patient has difficulty following commands She is moving all extremities equally and purposely. Sensation is intact. Unable to complete full neurological exam due to patient unable to understand and follow commands General: oriented to person, moves all extremities, no meningeal signs, normal sensation to monofilament and confusion Cranial nerves: Yes Equal, round and reactive pupils present Extrem: Other: Bilateral 1 +nonpitting edema with mild tenderness the left calf with no erythema Normal DP and PT pulses bilaterally General: Yes normal to inspection Course Course Course Narrative: Venous US IMPRESSION: No evidence of bilateral lower extremity DVT. 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 There is no extension of this thrombus into the femoral vein. Reviewed findings with the patient and her daughter. We would treat this with full anticoagulation. However per daughter the patient had significant bleeding with Eliquis in the past. It also appears that she has had several falls this week requiring transportation to the hospital and is a fall risk. This overall increases her bleeding risk. However on the untreated DVT may also increase her overall clotting risk as well as progressive clotting, PE or stroke. I spoke at length with the family at the bedside. They are hesitant to resume anticoagulation based on the above. I did discuss the patient may be candidate for other intervention such as a [place] filter. The daughter would like to speak to the patient's son who is healthcare proxy tomorrow and review the findings and then make a decision moving forward with the providers at the [facility]. UA is consistent with UTI. Patient was given a dose of oral antibiotics and [facility]efuroxime. Her lab work is unremarkable. Her additional imaging is unremarkable. Medications Administered Discontinued Medications Generic Name Dose Route Start Last Admin Trade Name Freq PRN Reason Stop Dose Admin Cefuroxime Axetil 500 mg 08/01/23 23:43 08/02/23 00:09 Cefuroxime Axetil 500 Mg Tablet PO 08/01/23 23:44 500 mg ONCE ONE Administration Medical Decision Making Medical Decision Making [facility] Narrative: This is an 82-year-old female with a history of dementia, hypertension, DVTs not on anticoagulation presents the ER after unwitnessed fall. Found by staff on the ground. Patient unable to provide history of present illness due to underlying dementia. Per daughter who was visiting the patient earlier today the patient was complaining of some generalized weakness and dizziness. Daughter also noticed both LE seem more swollen then usual. Patient had been on anticoagulation for DVTs but this was stopped due to bleeding. At this time the patient has no complaints Very difficult to examine the patient as she has baseline confusion and has difficulty following commands. The HPI, physical exam review of systems is very limited. Her vitals are all stable. She does not seem to have any complaints. She does have some edema to both lower extremities which is mild with some mild tenderness over the left calf. Due to fall being unwitnessed and concern from bladder the patient earlier was complaining of feeling weak and dizzy I will check a CT head, CT cervical spine, EKG, labs, UA, orthostatics. Differential Diagnosis Differential Diagnoses: The differential diagnosis associated with the presentation includes Anemia, electrolyte abnormality, ACS, ICH/CVA, orthostatic hypotension, UTI Deconditioning Admission/Observation Consideration of admission/observation: Escalation of care including admission/observation considered Lab Data MDM Lab Attestation statement: I reviewed the patient's lab results. 08/01/23 21:02 08/01/23 21:02 Labs: Lab Results 08/01/23 08/01/23 Range/Units 21:02 23:21 WBC 8.5 (4.8-10.8) X10*3/uL RBC 3.83 L (4.20-5.50) X10*6/uL Hgb 11.3 L (12.0-16.0) g/dl Hct 33.2 L (37.0-47.0) % MCV 86.7 (80.0-98.0) fL MCH 29.5 (27.0-33.0) pg MCHC 34.0 (31.0-35.0) g/dl RDW 14.8 (11.0-16.0) % Plt Count 269 (160-400) X10*3/uL MPV 10.0 (9.4-12.3) fL Immature Gran % (Auto) 0.6 H (0.0-0.4) % Neut % (Auto) 71.6 (45-73) % Lymph % (Auto) 14.9 L (20-40) % [place] % (Auto) 7.2 (2-11) % Eos % (Auto) 5.3 H (0-4) % Baso % (Auto) 0.4 (0-2) % Lymph # (Auto) 1.3 (1.2-4.9) X10*3/uL [place] # (Auto) 0.6 (0.1-1.2) X10*3/uL Eos # (Auto) 0.5 H (0.0-0.4) X10*3/uL Baso # (Auto) 0.0 (0.0-0.2) X10*3/uL Abs Immat Gran (auto) 0.05 H (0.00-0.03) X10*3/uL Absolute Neuts (auto) 6.1 (2.0-8.3) x10*3/uL Absolute Nucleated RBC 0.000 (0.0-0.012) X10*3/uL Nucleated RBC % (auto) 0.0 (0.0-0.2) /100WBC Sodium 141 (135-145) mmol/L Potassium 3.7 (3.3-5.1) mmol/L Chloride 109 H (96-108) mmol/L Carbon Dioxide 27 (22-29) mmol/L Anion Gap 9 L (12-20) BUN 14 (9-16) mg/dL Creatinine 0.77 (0.5-1.4) mg/dL Estim Creat Clear Calc 47.3 Estimated GFR > 60 Random Glucose 102 (60-115) mg/dL Calcium 8.8 (8.4-10.2) mg/dL Magnesium 1.9 (1.6-2.6) mg/dL Total Bilirubin 0.6 (0.0-1.0) mg/dL Direct Bilirubin 0.2 (0.0-0.5) mg/dL AST 14 (5-31) U/L ALT 10 (0-31) U/L Alkaline Phosphatase 67 (39-117) U/L Troponin I High Sens < 2.7 (<3.5-17.0) ng/L Total Protein 5.9 L (6.5-8.0) g/dL Albumin 3.4 L (3.5-5.0) g/dL Urine Color Yellow Urine Appearance Cloudy Urine pH 7.0 (5.0-9.0) Ur Specific [place] 1.020 (1.005-1.025) Urine Protein Negative (Neg-Trace) mg/dL Urine Glucose (UA) Negative (Negative) mg/dL Urine Ketones Negative (Negative) mg/dL Urine Blood Negative (Negative) Urine Nitrite Negative (Negative) Ur Leukocyte Esterase Moderate (2+) H (Negative) Urine RBC 0-2 (0-2) /HPF Urine WBC >50 H (0-5) /HPF Ur Squamous Epith Cells 0-2 (0-2) /HPF Calcium Oxalate Crystal Present Other Crystals Present Urine Bacteria 4+ (None Seen) Hyaline Casts 0-2 (0-2) /LPF Influenza Type A (PCR) NEGATIVE (Negative) Influenza Type B (PCR) NEGATIVE (Negative) RSV RNA Qual (PCR) NEGATIVE (Negative) SARS-CoV-2 RNA (RT-PCR) NEGATIVE (Negative) Independent Interpretation I performed an independent interpretation of an: Ultrasound and CT Scan Interpretation: I independently reviewed the CT scan of the head/ neck, venous ultrasound and chest x-ray and agree with the radiology report Radiology Impression Discussion of test interpretation with radiology: I have reviewed the radiologist's reading. Radiologist Impression: Launch?Image [place] [address] CT Scan Report Signed Patient: Tigist Pereyra MR#: [id number] : 1940 Acct:[id number] Age/Sex: 82 / F ADM Date: 08/01/23 Loc: .ED Attending Dr: Ordering Physician: Marlena Fleming NP Date of Service: 08/01/23 Procedure(s): CT cervical spine wo IV con Accession Number(s): [id number] cc: Andria Nunez MD; Marlena Fleming NP~ EXAMINATION: CT HEAD WITHOUT CONTRAST CT CERVICAL SPINE WITHOUT CONTRAST CLINICAL INFORMATION: Fall. Head strike. COMPARISON: CT head and cervical spine from 07/30/2023. TECHNIQUE: Contiguous axial imaging was performed from the skull base to vertex without intravenous administration of contrast. Contiguous axial imaging was performed from the upper chest through the skull base without intravenous administration of contrast. Coronal and sagittal reformats were obtained at the acquisition workstation. This CT examination was performed using dose optimization techniques as appropriate, variously including the following: *Automated exposure control. *Adjustment of mA and/or kV according to patient size (this includes techniques or standardized protocols for targeted exams where dose is matched to indication/reason for exam; i.e. extremities or head). *Use of iterative reconstruction technique. DLP: 844 mGy-cm FINDINGS: Head: There is no evidence of acute intracranial hemorrhage or edematous territorial infarction. García-white matter differentiation is preserved. Scattered and partially confluent hypoattenuation in the periventricular and deep white matter are consistent with moderate microangiopathy. Proportional prominence of the ventricles and sulcal spaces without evidence of obstructive hydrocephalus. No abnormal mass effect or midline shift. No extra-axial fluid collections. No acute soft tissue or osseous abnormalities. Mild mucosal thickening of the paranasal sinuses. The mastoid air cells and middle ear cavities are clear. Mild degenerative arthropathy of the temporomandibular joints. Bilateral lens extractions. Cervical Spine: The atlantooccipital and atlantoaxial articulations remain well aligned. Straightening of the normal cervical lordosis. Otherwise, there is anatomic alignment of the vertebral bodies and posterior elements. No evidence of acute fracture or subluxation. The vertebral body heights are maintained. Advanced degenerative disc disease at C5-C6. Moderate degenerative disc disease from C6-T1. Facet and uncovertebral joint arthropathy leads to osseous encroachment on the neural foramina from C5-T1. There is no prevertebral soft tissue swelling. Atrophy of the thyroid gland. The remaining cervical soft tissues are within normal limits. The lung apices demonstrate no abnormalities. CT/CT cervical spine wo IV con IMPRESSION: 1. No evidence of acute intracranial hemorrhage or edematous territorial infarction. Moderate underlying microangiopathy and generalized cerebral volume loss. 2. No evidence of acute fracture or traumatic subluxation of the cervical spine. Moderate multilevel degenerative spondyloarthropathy of the cervical spine. [address] [address] XRay Report Signed Patient: Tigist Pereyra MR#: [id number] : 1940 Acct:[id number] Age/Sex: 82 / F ADM Date: 08/01/23 Loc: HO.ED Attending Dr: Ordering Physician: Tamanna Mahan NP Date of Service: 08/01/23 Procedure(s): XR chest 1V Accession Number(s): [id number] cc: Andria Nunez MD; Tamanna Mahan NP~ EXAMINATION: XR CHEST CLINICAL INFORMATION: Weakness COMPARISON: Chest x-ray 06/29/2023 TECHNIQUE: Frontal view of the chest was obtained. FINDINGS: Lungs are clear. No focal airspace consolidation. No pneumothorax or pleural effusion. Cardiomediastinal silhouette within normal limits. Multilevel degenerative changes throughout the thoracic spine. Partially imaged abdomen demonstrates dilated loop of proximal descending colon in the left upper quadrant, nonspecific. XR/XR chest 1V IMPRESSION: No acute cardiopulmonary process. Launch?Image [place] [address] Ultrasound Report Signed Patient: Tigist Pereyra MR#: [id number] : 1940 Acct:[id number] Age/Sex: 82 / F ADM Date: 08/01/23 Loc: .ED Attending Dr: Ordering Physician: Tamanna Mahan NP Date of Service: 08/01/23 Procedure(s): US venous duplex LE BI Accession Number(s): [id number] cc: Andria Nunez MD; Tamanna Mahan NP~ EXAMINATION: US VENOUS ULTRASOUND WITH DOPPLER LOWER EXTREMITY, BILATERAL CLINICAL INFORMATION: Leg swelling/pain, history of DVT COMPARISON: None available. TECHNIQUE: Ultrasound of the deep veins is performed from the hip to the calf with compression sonography and color and pulse Doppler assessment. Spectral analysis with color-flow imaging is performed. FINDINGS: RIGHT: There is normal venous compression and respiratory variation and augmented flow. The visualized common femoral vein, superficial femoral vein, profunda femoral vein, popliteal vein, and the trifurcation region shows no evidence of deep venous thrombosis. There is no popliteal fossa cyst. Eccentric echogenicity is seen within the proximal great saphenous vein consistent with nonocclusive thrombus. LEFT: There is normal venous compression and respiratory variation and augmented flow. The visualized common femoral vein, superficial femoral vein, profunda femoral vein, popliteal vein, and the trifurcation region shows no evidence of deep venous thrombosis. There is no significant popliteal fossa cyst. Complete occlusion of the great saphenous vein. US/US venous duplex LE BI IMPRESSION: No evidence of bilateral lower extremity DVT. 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 There is no extension of this thrombus into the femoral vein. Independent Historian Clinical information obtained from an independent historian. History obtained from or confirmed by: EMS and Other (daughter) Discharge Plan Discharge Clinical Impression: Acute UTI, Weakness, DVT (deep venous thrombosis) Patient Disposition: Xfer [facility] Transfer Details: [facility] Prescriptions: New cefuroxime axetil 500 mg tablet 500 mg PO BID Qty: 14 0RF No Action pravastatin 40 mg tablet 1 tab PO DAILY levothyroxine [Synthroid] 88 mcg tablet 1 tab PO DAILY@0600 trazodone 50 mg tablet 75 mg PO BEDTIME risperidone 0.5 mg tablet 0.5 mg PO BID amlodipine 5 mg Tablet 5 mg PO DAILY Qty: 30 0RF Protocol: Hold for SBP< HOLD for SBP < : 90 amoxicillin-pot clavulanate 400-57 mg/5 mL suspension for reconstitution 10 ml PO BID Qty: 50 0RF sertraline 100 mg tablet 100 mg PO DAILY Systane (propylene glycol) 0.4-0.3 % Drops 1 drp OPHTHALMIC (EYE) BID PRN (Reason: Dry Eyes) cefuroxime axetil 250 mg tablet 250 mg PO BID 7 Days Qty: 14 0RF Interventions: ED Discharge Assessment Last Done: 08/02/23 00:19
[2023-08-01 21:10] LABS: MANUAL DIFF FLAG NO
[2023-08-01 21:12] LABS: Basophils Percent Auto 0.4 % (0-2); Eosinophils Absolute Auto 0.5 X10*3/uL (0.0-0.4); Eosinophils Percent Auto 5.3 % (0-4); Hematocrit 33.2 % (37.0-47.0); Hemoglobin 11.3 g/dl (12.0-16.0); Imm Gran Abs Auto 0.05 X10*3/uL (0.00-0.03); Imm Gran Pct Auto 0.6 % (0.0-0.4); Lymphocytes Absolute Auto 1.3 X10*3/uL (1.2-4.9); Lymphocytes Percent Auto 14.9 % (20-40); Mean Corpuscular Hemoglobin 29.5 pg (27.0-33.0); Mean Corpuscular Volume 86.7 fL (80.0-98.0); Monocytes Absolute Auto 0.6 X10*3/uL (0.1-1.2); Monocytes Percent Auto 7.2 % (2-11); Neutrophils Absolute Auto 6.1 x10*3/uL (2.0-8.3); Neutrophils Percent Auto 71.6 % (45-73); Platelet Count 269 X10*3/uL (160-400); Red Blood Count 3.83 X10*6/uL (4.20-5.50); Red Cell Distribution Width 14.8 % (11.0-16.0); White Blood Count 8.5 X10*3/uL (4.8-10.8)
[2023-08-01 21:27] LABS: Alanine Aminotransferase 10 U/L (0-31); Albumin Level 3.4 g/dL (3.5-5.0); Alkaline Phosphatase 67 U/L (39-117); Anion Gap 9 (12-20); Aspartate Amino Transferase 14 U/L (5-31); Bilirubin Direct 0.2 mg/dL (0.0-0.5); Bilirubin Total 0.6 mg/dL (0.0-1.0); Blood Urea Nitrogen 14 mg/dL (9-16); Calcium 8.8 mg/dL (8.4-10.2); Carbon Dioxide 27 mmol/L (22-29); Chloride 109 mmol/L (96-108); Creatinine Clr Calc Pharmacy 47.3; Estimated Glomerular Filt Rate > 60; Glucose Random 102 mg/dL (60-115); Magnesium 1.9 mg/dL (1.6-2.6); Potassium 3.7 mmol/L (3.3-5.1); Sodium 141 mmol/L (135-145); Total Protein 5.9 g/dL (6.5-8.0)
[2023-08-01 21:33] LABS: Troponin-I High Sensitivity < 2.7 ng/L (<3.5-17.0)
[2023-08-01 21:49] LABS: Influenza A PCR NEGATIVE (Negative); Influenza B PCR NEGATIVE (Negative); Resp Syncy Virus RNA Qual PCR NEGATIVE (Negative); SARS COV2 PCR INHOUSE NEGATIVE (Negative)
[2023-08-01 23:28] LABS: Appearance Urine Cloudy; Color Urine Yellow; Glucose Urine UA Negative (Negative); Leukocyte Esterase Urine Moderate (2+) (Negative); Nitrite Urine Negative (Negative); UMIC TRIGGER UACC YES; Urine Blood Negative (Negative); Urine Ketones Negative (Negative); Urine Protein Negative (Neg-Trace)
[2023-08-01 23:36] LABS: Bacteria Urine 4+ (None Seen); Calcium Oxalate Crystals Urine Present; Hyaline Casts Urine 0-2 /LPF (0-2); Other Crystals Urine Present; Squamous Epithelial Cell Urine 0-2 /HPF (0-2); UACC Culture Trigger YES; WBC Urine >50 /HPF (0-5)
[2023-08-01 23:37] LABS: RBC Urine 0-2 /HPF (0-2)
[2023-08-02 00:09] VITALS: BP 161/85; PULSE 59; RESP 16; TEMP 36.9; O2SAT 98
[2023-08-02] MEDS: cefuroxime axetiL 500 MG TABLET PO (00:09)
[2023-08-02 00:11] VITALS: BP 156/78; PULSE 59
[2023-08-02 00:12] VITALS: BP 135/86; PULSE 76
--- NOTE | 2023-08-02 00:13 | PC.NURSE ---
Pt medicated per mar. Daughter remains at bedside. Plan of care ongoing.
--- NOTE | 2023-08-02 00:15 | PC.NURSE ---
This RN spoke with [facility] regarding pt returning. Per lauryn there is no RN there overnight to take report and she will be the one opening the door when the ambulance gets there.
[2023-08-02 00:19] VITALS: BP 161/85; PULSE 59; RESP 16; TEMP 36.9; O2SAT 98
== END 2023-08-02 02:25 | disposition skilled nursing facility (03) ==
PROVIDERS: Nurse Practitioner Family; Emergency Provider Internal Medicine; PCP Internal Medicine
DX: N39.0 Urinary tract infection, site not specified (principal); I82.4Z2 Acute embolism and thrombosis of unspecified deep veins of left distal lower extremity; R53.1 Weakness; F03.90 Unspecified dementia, unspecified severity, without behavioral disturbance, psychotic disturbance, mood disturbance, and anxiety; I10 Essential (primary) hypertension; R42 Dizziness and giddiness; Z79.01 Long term (current) use of anticoagulants; Z79.899 Other long term (current) drug therapy; Z11.52 Encounter for screening for COVID-19; Z20.828 Contact with and (suspected) exposure to other viral communicable diseases
CPT/HCPCS: 0241U; 70450; 71045; 72125; 80048; 80076; 81001; 83735; 84484; 85025; 87086; 87088; 87186; 93005; 93970; 99284; 99285

== ENCOUNTER → 2023-08-01 20:38 | Outpatient (BNV) | payer MEDICARE, SELFPAY | PROVIDERS: Emergency Provider Internal Medicine; PCP Internal Medicine; Visit Provider Internal Medicine Cardiovascular Disease | DX: R29.6 Repeated falls (principal) | CPT/HCPCS: 93010 ==

== ENCOUNTER 2023-08-13 00:33 | Emergency (ER) | payer MEDICARE, SELFPAY ==
--- NOTE | ~2023-08-13 | CT_ITS ---
EXAMINATION: CT CERVICAL SPINE WITHOUT CONTRAST CLINICAL INFORMATION: Fall, poor historian COMPARISON: 08/01/2023 TECHNIQUE: Multidetector helical imaging was performed through the cervical spine. Coronal and sagittal reformatted images were created. This CT examination was performed using dose optimization techniques as appropriate, variously including the following: *Automated exposure control *Adjustment of mA and/or kV according to patient size (this includes techniques or standardized protocols for targeted exams where dose is matched to indication/reason for exam; i.e. extremities or head) *Use of iterative reconstruction technique DLP: 1028 mGy-cm FINDINGS: There is anatomic alignment of the vertebral bodies and posterior elements. There is degenerative change at the atlantodens articulation. Vertebral body heights are maintained. Mild multilevel facet arthropathy. There is disc space narrowing of the lower cervical spine with associated endplate osteophytes. No evidence of acute fracture. No prevertebral soft tissue swelling. Visualized portions of the lung apices are unremarkable. The thyroid gland is unremarkable. CT/CT cervical spine wo IV con IMPRESSION: No acute findings identified. Degenerative changes as noted above.
--- NOTE | ~2023-08-13 | CT_ITS ---
EXAMINATION: CT HEAD WITHOUT CONTRAST CLINICAL INFORMATION: Fall, poor historian COMPARISON: 08/01/2023 TECHNIQUE: Contiguous axial imaging was performed from the skull base to vertex without intravenous administration of contrast. This CT examination was performed using dose optimization techniques as appropriate, variously including the following: *Automated exposure control *Adjustment of mA and/or kV according to patient size (this includes techniques or standardized protocols for targeted exams where dose is matched to indication/reason for exam; i.e. extremities or head) *Use of iterative reconstruction technique DLP: 1028 mGy-cm FINDINGS: There is no evidence of acute intracranial hemorrhage or territorial infarction. No abnormal mass-effect or midline shift is seen. García to white matter differentiation is well preserved. No extra-axial fluid collections are identified. The ventricles are normal in size. There is mild periventricular white matter hypoattenuation consistent with chronic small vessel ischemic disease. Moderate volume loss is noted. Right frontal skin staple noted. No acute fracture is seen. The mastoid air cells and visualized portions of the paranasal sinuses are well-aerated. CT/CT head/brain wo IV con IMPRESSION: No acute intracranial pathology. Chronic small vessel ischemic disease and volume loss.
--- NOTE | ~2023-08-13 | XR_ITS ---
EXAMINATION: XR HIP, LEFT CLINICAL INFORMATION: Fall, pain COMPARISON: 07/31/2023 TECHNIQUE: Two views of the left hip. FINDINGS: Alignment across the hips is anatomic. Mild hip joint space narrowing bilaterally, similar to prior. No acute fracture is seen. Sacroiliac joints and pubic symphysis appear intact. XR/XR hip LT min 2V IMPRESSION: No acute findings identified.
[2023-08-13 00:45] VITALS: BP 132/86; O2SAT 99; BMI 19.6
--- NOTE | 2023-08-13 00:46 | ECG_ITS ---
Test Reason : FALL Blood Pressure : / mmHG Vent. Rate : 057 BPM Atrial Rate : 057 BPM P-R Int : 196 ms QRS Dur : 102 ms QT Int : 446 ms P-R-T Axes : 050 -02 064 degrees QTc Int : 434 ms Sinus bradycardia Minimal voltage criteria for LVH, may be normal variant ( [place] product ) Borderline ECG When compared with ECG of 01-AUG-2023 21:11, No significant change was found Referred By: Damaris Maloney Electronically Signed By:Jasvir Rubio
--- NOTE | 2023-08-13 00:48 | ED.FALL ---
HPI - Fall General Chief Complaint: Fall Stated Complaint: fall Time Seen by Provider: 08/13/23 00:42 Source: EMS Mode of arrival: EMS Limitations: other History of Present Illness HPI Narrative: Patient comes to the emergency room complaining of a fall, unwitnessed fall. It is unclear how long patient was on the floor. Patient states that she has no pain, sometimes she says that she has left hip pain. Patient is not on blood thinners according to her med rec and staff. Patient has dementia unable to give any significant history. Patient is not on blood thinners. Related Data Home Medications Medication Instructions Recorded Confirmed levothyroxine 88 mcg tablet 1 tab PO DAILY@0600 04/22/21 05/29/23 (Synthroid) pravastatin 40 mg tablet 1 tab PO DAILY 04/22/21 05/29/23 trazodone 50 mg tablet 75 mg PO BEDTIME 12/03/21 05/29/23 peg 400-propylene glycol 0.4 %-0.3 1 drp ophthalmic (eye) BID PRN Dry 03/03/23 05/29/23 % eye drops (Systane (propylene Eyes glycol)) sertraline 100 mg tablet 100 mg PO DAILY 03/03/23 05/29/23 risperidone 0.5 mg tablet 0.5 mg PO BID 05/29/23 05/29/23 Previous Rx's Medication Instructions Recorded amlodipine 5 mg tablet 5 mg PO DAILY #30 tabs 06/03/23 amoxicillin 400 mg-potassium 10 ml PO BID #50 mL 06/03/23 clavulanate 57 mg/5 mL oral suspension cefuroxime axetil 250 mg tablet 250 mg PO BID 7 days #14 tabs 06/29/23 cefuroxime axetil 500 mg tablet 500 mg PO BID #14 tabs 08/01/23 Allergies Allergy/AdvReac Type Severity Reaction Status Date / Time No Known Allergies Allergy Verified 05/26/23 23:10 Review of Systems Review of Systems: Yes Unobtainable due to mental condition PMFSH Past Medical History Medical History Major neurocognitive disorder Ankle pain, right Dementia Anxiety DVT (deep venous thrombosis) HLD (hyperlipidemia) HTN (hypertension) Social History Social History Household Members: Other Household Members Other:: [facility] in [place] Housing: [facility] Do you presently have visiting nurse or other home services: No Unable to assess alcohol history related to: Unknown Alcohol intake: former Patient Tobacco Use Status: Former Tobacco user Advance Directives Date on File: 04/23/21 service: No Current occupational status: retired Physical Exam Vital Signs: Vital Signs: BMI result Body Mass Index 19.6 Const: Other: Appearance: Alert. Oriented X3. No acute distress. Eyes: Pupils equal, round and reactive to light. ENT: Pharynx normal. Neck: On C-spine precautions, no palpable step-offs, no pain on palpation. CVS: Normal heart rate and rhythm. Pulses normal. Normal S1 and S2 Respiratory: No respiratory distress. Breath sounds normal. No Wheezing. No rales Abdomen: Soft and nontender. No rigidity. No distention. Skin: Skin warm and dry. Normal skin color. Normal skin turgor. Extremities: Patient able to flex and extend all extremities in hip, no pain Neuro: Oriented X 3. No motor deficit. No sensory deficit. Moving all extremities. No slurred speech. CN 2 through 12 grossly intact Psych: calm, cooperative, normal affect Course Course Course Narrative: -of patient's labs and imaging pending -of note, we will be going on down time, please see paper nodes for medical decision-making, results and discharge plan Medical Decision Making Differential Diagnosis Differential Diagnoses: The differential diagnosis associated with the presentation includes (Mechanical fall, UTI) Admission/Observation Consideration of admission/observation: Escalation of care including admission/observation considered (Given patient's presentation, unclear history, observation considered) Critical Care Time Critical Care Time Critical Care Time: Yes Total Critical Care Time: 35 Attestation: I have personally provided critical care time. Time includes review of lab data, radiology results, discussion with consultants, and monitoring for potential decompensation. Intervention performed as documented. Discharge Plan Discharge Clinical Impression: Fall, Contusion Patient Disposition: Still a Patient Prescriptions: No Action pravastatin 40 mg tablet 1 tab PO DAILY levothyroxine [Synthroid] 88 mcg tablet 1 tab PO DAILY@0600 trazodone 50 mg tablet 75 mg PO BEDTIME risperidone 0.5 mg tablet 0.5 mg PO BID amlodipine 5 mg Tablet 5 mg PO DAILY Qty: 30 0RF Protocol: Hold for SBP< HOLD for SBP < : 90 amoxicillin-pot clavulanate 400-57 mg/5 mL suspension for reconstitution 10 ml PO BID Qty: 50 0RF sertraline 100 mg tablet 100 mg PO DAILY Systane (propylene glycol) 0.4-0.3 % Drops 1 drp OPHTHALMIC (EYE) BID PRN (Reason: Dry Eyes) cefuroxime axetil 250 mg tablet 250 mg PO BID 7 Days Qty: 14 0RF cefuroxime axetil 500 mg tablet 500 mg PO BID Qty: 14 0RF
[2023-08-13 00:50] VITALS: BP 147/76; PULSE 56; RESP 18; TEMP 36.5; O2SAT 99
[2023-08-13 01:30] VITALS: BP 158/80; PULSE 55; RESP 18; TEMP 36.4; O2SAT 97
--- NOTE | 2023-08-13 05:41 | PC.NURSE ---
d/c on paper for down time
[2023-08-13 05:47] LABS: Appearance Urine Clear; Color Urine Yellow; Glucose Urine UA Negative (Negative); Leukocyte Esterase Urine Trace (Negative); Nitrite Urine Negative (Negative); PH 6.5 (5.0-9.0); Specific Gravity - Urine 1.025 (1.005-1.025); UMIC TRIGGER UACC YES; Urine Blood Negative (Negative); Urine Ketones Trace mg/dL (Negative); Urine Protein Negative (Neg-Trace)
[2023-08-13 05:50] LABS: Basophils Percent Auto 0.5 % (0-2); Eosinophils Absolute Auto 0.5 X10*3/uL (0.0-0.4); Eosinophils Percent Auto 6.8 % (0-4); Hematocrit 35.9 % (37.0-47.0); Hemoglobin 11.7 g/dl (12.0-16.0); Imm Gran Abs Auto 0.08 X10*3/uL (0.00-0.03); Lymphocytes Absolute Auto 1.4 X10*3/uL (1.2-4.9); MANUAL DIFF FLAG SCAN; Mean Corpuscular HGB Conc 32.6 g/dl (31.0-35.0); Mean Corpuscular Hemoglobin 29.3 pg (27.0-33.0); Monocytes Absolute Auto 0.6 X10*3/uL (0.1-1.2); Monocytes Percent Auto 7.3 % (2-11); Neutrophils Absolute Auto 5.2 x10*3/uL (2.0-8.3); Neutrophils Percent Auto 66.4 % (45-73); PLT CLUMP 1; Red Blood Count 3.99 X10*6/uL (4.20-5.50); Red Cell Distribution Width 14.6 % (11.0-16.0); SCAN SMEAR FLAG 1
[2023-08-13 06:14] LABS: Anion Gap 12 (12-20); Blood Urea Nitrogen 16 mg/dL (9-16); Carbon Dioxide 25 mmol/L (22-29); Chloride 108 mmol/L (96-108); Creatinine Clr Calc Pharmacy 41.8; Estimated Glomerular Filt Rate > 60; Potassium 3.7 mmol/L (3.3-5.1); Sodium 141 mmol/L (135-145)
[2023-08-13 06:15] LABS: Alanine Aminotransferase 8 U/L (0-31); Albumin Level 3.4 g/dL (3.5-5.0); Alkaline Phosphatase 105 U/L (39-117); Aspartate Amino Transferase 13 U/L (5-31); Bilirubin Direct 0.2 mg/dL (0.0-0.5); Bilirubin Total 0.4 mg/dL (0.0-1.0); Calcium 8.8 mg/dL (8.4-10.2); Glucose Random 91 mg/dL (60-115)
[2023-08-13 06:16] LABS: Troponin-I High Sensitivity < 2.7 ng/L (<3.5-17.0)
[2023-08-13 06:57] LABS: Bacteria Urine 3+ (None Seen); Calcium Oxalate Crystals Urine Present; Hyaline Casts Urine 0-2 /LPF (0-2); RBC Urine 0-2 /HPF (0-2); UACC Culture Trigger YES
[2023-08-13 07:50] LABS: Platelet Count 332 X10*3/uL (160-400); SLIDE REVIEW VERIFIED; White Blood Count 7.9 X10*3/uL (4.8-10.8)
== END 2023-08-13 04:00 | disposition still patient (30) ==
LOC: HO.ED 00:56
PROVIDERS: Emergency Provider Emergency Medicine
DX: T14.8XXA Other injury of unspecified body region, initial encounter (principal); I10 Essential (primary) hypertension; F03.90 Unspecified dementia, unspecified severity, without behavioral disturbance, psychotic disturbance, mood disturbance, and anxiety; Z86.718 Personal history of other venous thrombosis and embolism; W19.XXXA Unspecified fall, initial encounter; Y93.9 Activity, unspecified; Y92.9 Unspecified place or not applicable; Y99.9 Unspecified external cause status
CPT/HCPCS: 36415; 51701; 70450; 72125; 73502; 80048; 80076; 81001; 82550; 84484; 85025; 87086; 93005; 99284

== ENCOUNTER → 2023-08-13 00:46 | Outpatient (BNV) | payer MEDICARE, SELFPAY | PROVIDERS: Emergency Provider Emergency Medicine; Visit Provider Internal Medicine Cardiovascular Disease | DX: R94.31 Abnormal electrocardiogram [ECG] [EKG] (principal) | CPT/HCPCS: 93010 ==

== ENCOUNTER 2023-08-14 23:29 | Emergency (ER) | payer MEDICARE, SELFPAY ==
--- NOTE | ~2023-08-14 | CT_ITS ---
EXAMINATION: NONCONTRAST HEAD CT NONCONTRAST CERVICAL SPINE CT INDICATION INFORMATION: Unwitnessed fall COMPARISON: 08/13/2023 TECHNIQUE: Separate noncontrast CT examinations of the head and cervical spine were performed. Coronal head CT images and coronal and sagittal cervical spine images were created at the technologist workstation. DLP: 844 mGy-cm DOSE LOWERING TECHNIQUES: This CT examination was performed using dose optimization techniques as appropriate, variously including the following: - Automated exposure control - Adjustment of mA and/or kV according to patient size (this includes techniques or standardized protocols for targeted exams were dose is matched to indication/reason for exam; i.e. extremities or head) - Use of iterative reconstruction technique FINDINGS: Head: There is no evidence of acute intracranial hemorrhage or territorial infarction. No abnormal mass-effect or midline shift is seen. García to white matter differentiation is well preserved. No extra-axial fluid collections are identified. The ventricles are normal in size. There is mild periventricular white matter hypoattenuation consistent with chronic small vessel ischemic disease. Moderate volume loss is noted. The osseous structures and soft tissues are normal. The mastoid air cells and visualized portions of the paranasal sinuses are well-aerated. Cervical spine: There is anatomic alignment of the vertebral bodies and posterior elements. Vertebral body heights are maintained. There is degenerative change at the atlantodens articulation. There is disc space narrowing and endplate osteophyte formation in the lower cervical spine. No evidence of acute fracture. No prevertebral soft tissue swelling. Visualized portions of the lung apices are unremarkable. The thyroid gland is unremarkable. CT/CT cervical spine wo IV con IMPRESSION: HEAD: No acute intracranial findings. Chronic small vessel ischemic disease and volume loss. CERVICAL SPINE: No acute findings identified. Degenerative changes as noted above.
[2023-08-14 23:41] VITALS: BP 119/76; PULSE 61; RESP 16; TEMP 36.8; O2SAT 97; BMI 21.0
[2023-08-15 01:00] VITALS: RESP 16
--- NOTE | 2023-08-15 03:19 | ED_ITS ---
HPI - General Adult General Chief complaint: Fall Stated complaint: FALL Time Seen by Provider: 08/15/23 03:07 Source: family and EMS Limitations: other (Dementia) History of Present Illness HPI narrative: Patient comes to emergency room from a dementia unit complaining of a fall. It was unwitnessed. According to the family, the staff checks on the patient's every hour. Therefore, patient was on the floor for less than an hour. Patient is awake, alert. Denies any pain. Patient stated that she needs a walker. However, patient's daughter states that physical therapy work with the patient a few months ago, they tried to teach her how to use a walker and patient could not understand how to use it. Related Data Home Medications Medication Instructions Recorded Confirmed levothyroxine 88 mcg tablet 1 tab PO DAILY@0600 04/22/21 05/29/23 (Synthroid) pravastatin 40 mg tablet 1 tab PO DAILY 04/22/21 05/29/23 trazodone 50 mg tablet 75 mg PO BEDTIME 12/03/21 05/29/23 peg 400-propylene glycol 0.4 %-0.3 1 drp ophthalmic (eye) BID PRN Dry 03/03/23 05/29/23 % eye drops (Systane (propylene Eyes glycol)) sertraline 100 mg tablet 100 mg PO DAILY 03/03/23 05/29/23 risperidone 0.5 mg tablet 0.5 mg PO BID 05/29/23 05/29/23 Previous Rx's Medication Instructions Recorded amlodipine 5 mg tablet 5 mg PO DAILY #30 tabs 06/03/23 amoxicillin 400 mg-potassium 10 ml PO BID #50 mL 06/03/23 clavulanate 57 mg/5 mL oral suspension cefuroxime axetil 250 mg tablet 250 mg PO BID 7 days #14 tabs 06/29/23 cefuroxime axetil 500 mg tablet 500 mg PO BID #14 tabs 08/01/23 Allergies Allergy/AdvReac Type Severity Reaction Status Date / Time No Known Allergies Allergy Verified 08/14/23 23:44 Review of Systems Review of Systems: Constitutional : No Weight loss, No Fever, No Chills, No Night Sweats, No Fatigue, No Malaise ENT/Mouth : No Hearing loss, No Ear Pain, No Nasal Congestion, No Sinus Pain, No Hoarseness, No sore throat, No Rhinorrhea, No Swallowing Difficulty Eyes: No Eye Pain, No Swelling, No Redness, No Foreign Body, No Discharge, No Vision Changes Cardiovascular : No Chest Pain, No SOB, No Dyspnea on Exertion, No Orthopnea, No Edema, No Palpitations Respiratory : No Cough, No Sputum, No Wheezing, No Smoke Exposure, No Dyspnea Gastrointestinal : No Nausea, No Vomiting, No Diarrhea, No Constipation, No abdominal Pain, No Hematochezia, No Melena Genitourinary : no irregular bleeding, No Dysuria, No Urinary Frequency, No Hematuria, No Urinary Incontinence, No Urgency, No Flank Pain, No Urinary Flow Changes, No Hesitancy Musculoskeletal : Complaining of multiple falls, No joint pain, No Myalgias, No Joint Swelling Skin : No Skin Lesions, No rash Neuro : No Weakness, No Numbness, No Paresthesias, No Loss of Consciousness, No Dizziness, No Headache Psych : No Anxiety/Panic, No Depression, No SI/HI/AH/VH, No Social Issues, Heme/Lymph: No Bruising, No Bleeding,No Lymphadenopathy Endocrine : No Polyuria, No Polydipsia, No Temperature Intolerance [facility] Past Medical History Medical History Major neurocognitive disorder Ankle pain, right Dementia Anxiety DVT (deep venous thrombosis) HLD (hyperlipidemia) HTN (hypertension) Social History Social History Household Members: Other Household Members Other:: [facility] in [place] Housing: Condominium Do you presently have visiting nurse or other home services: No Unable to assess alcohol history related to: Unknown Alcohol intake: former Patient Tobacco Use Status: Former Tobacco user Smoked in Last 30 Days: No Use of substances other than those prescribed or required for medical reasons: No Advance Directives: Yes Advance Directives on File: Yes Advance Directives Date on File: 04/23/21 service: No Current occupational status: retired Physical Exam ED Vital Signs: Vital Signs - 24 hr 08/14/23 23:41 08/15/23 01:00 Temperature 98.2 F Pulse Rate 61 Respiratory Rate 16 16 Blood Pressure 119/76 Pulse Oximetry 97 Oxygen Delivery Method Room Air BMI result Body Mass Index 21.0 Const Other: Appearance: Alert. Oriented X3. No acute distress. Eyes: Pupils equal, round and reactive to light. ENT: Pharynx normal. Neck: Normal inspection. Neck supple. No lymph nodes noted. No crepitus CVS: Normal heart rate and rhythm. Pulses normal. Normal S1 and S2 Respiratory: No respiratory distress. Breath sounds normal. No Wheezing. No rales Abdomen: Soft and nontender. No rigidity. No distention. Skin: Ecchymosis in the face, upper and lower extremities, consistent with a falls Extremities: No lower extremity edema. No Lacerations. No Rash Neuro: Oriented X 3. No motor deficit. No sensory deficit. Moving all extremities. No slurred speech. CN 2 through 12 grossly intact Psych: calm, cooperative, normal affect Course Course Course Narrative: -patient has had multiple falls -discussed with the patient's daughter who is at bedside that ideally we should work with physical therapy and Case Management. Patient has been here at least 6 times this year for falls -patient and daughter agreeable to evaluation by Physical therapy and Case Management. -patient was here yesterday, labs were obtained. At this time, we will not repeat labs other than a urinalysis. -patient's vital stable -my interpretation of head CT: No intracranial bleed Medical Decision Making Differential Diagnosis Differential Diagnoses: The differential diagnosis associated with the presentation includes (Dementia, mechanical falls, UTI) Admission/Observation Consideration of admission/observation: Escalation of care including admission/observation considered (Patient under physician observation, tomorrow in the morning case management and physical therapy will work with the patient.) Independent Interpretation I performed an independent interpretation of an: CT Scan Radiology Impression Discussion of test interpretation with radiology: I have reviewed the radiologist's reading. Radiologist Impression: FINDINGS: Head: There is no evidence of acute intracranial hemorrhage or territorial infarction. No abnormal mass-effect or midline shift is seen. García to white matter differentiation is well preserved. No extra-axial fluid collections are identified. The ventricles are normal in size. There is mild periventricular white matter hypoattenuation consistent with chronic small vessel ischemic disease. Moderate volume loss is noted. The osseous structures and soft tissues are normal. The mastoid air cells and visualized portions of the paranasal sinuses are well-aerated. Cervical spine: There is anatomic alignment of the vertebral bodies and posterior elements. Vertebral body heights are maintained. There is degenerative change at the atlantodens articulation. There is disc space narrowing and endplate osteophyte formation in the lower cervical spine. No evidence of acute fracture. No prevertebral soft tissue swelling. Visualized portions of the lung apices are unremarkable. The thyroid gland is unremarkable. CT/CT head/brain wo IV con IMPRESSION: HEAD: No acute intracranial findings. Chronic small vessel ischemic disease and volume loss. CERVICAL SPINE: No acute findings identified. Degenerative changes as noted above. Critical Care Time Critical Care Time Critical Care Time: Yes Total Critical Care Time: 30 Attestation: I have personally provided critical care time. Time includes review of lab data, radiology results, discussion with consultants, and monitoring for potential decompensation. Intervention performed as documented. Discharge Plan Discharge Clinical Impression: Multiple falls Patient Disposition: Still a Patient Prescriptions: No Action pravastatin 40 mg tablet 1 tab PO DAILY levothyroxine [Synthroid] 88 mcg tablet 1 tab PO DAILY@0600 trazodone 50 mg tablet 75 mg PO BEDTIME risperidone 0.5 mg tablet 0.5 mg PO BID amlodipine 5 mg Tablet 5 mg PO DAILY Qty: 30 0RF Protocol: Hold for SBP< HOLD for SBP < : 90 amoxicillin-pot clavulanate 400-57 mg/5 mL suspension for reconstitution 10 ml PO BID Qty: 50 0RF sertraline 100 mg tablet 100 mg PO DAILY Systane (propylene glycol) 0.4-0.3 % Drops 1 drp OPHTHALMIC (EYE) BID PRN (Reason: Dry Eyes) cefuroxime axetil 250 mg tablet 250 mg PO BID 7 Days Qty: 14 0RF cefuroxime axetil 500 mg tablet 500 mg PO BID Qty: 14 0RF
[2023-08-15 06:18] VITALS: BP 149/82; PULSE 58; RESP 16; TEMP 36.8; O2SAT 99
[2023-08-15 06:29] LABS: Appearance Urine Clear; Color Urine Yellow; Glucose Urine UA Negative (Negative); Leukocyte Esterase Urine Small (1+) (Negative); Nitrite Urine Negative (Negative); PH 7.5 (5.0-9.0); UMIC TRIGGER UACC YES; Urine Blood Negative (Negative); Urine Ketones Negative (Negative); Urine Protein Negative (Neg-Trace)
[2023-08-15 06:33] LABS: Bacteria Urine 1+ (None Seen); Hyaline Casts Urine 0-2 /LPF (0-2); RBC Urine 0-2 /HPF (0-2); Squamous Epithelial Cell Urine 0-2 /HPF (0-2); UACC Culture Trigger YES
--- NOTE | 2023-08-15 08:08 | PC.NURSE ---
Assumed care of this patient at 0700, patient continues to sleep on stretcher at this time.
[2023-08-15 09:15] VITALS: BP 148/73; PULSE 60; RESP 16; TEMP 36.6; O2SAT 98
--- NOTE | 2023-08-15 10:59 | PHA.MEDREC ---
Pharmacy Consult ? Medication Reconciliation Pharmacy has reviewed the medication reconciliation. Patient had a list from the [facility], patient recently picked up Eliquis but this was not on the list. Spoke to patients estuardo Barahona who confirmed patient is not on eliquis
[2023-08-15] MEDS: Pravastatin Sodium 40 MG TABLET PO (11:31)
[2023-08-15] MEDS: amLODIPine Besylate 2.5 MG TABLET PO (11:32)
[2023-08-15] MEDS: Levothyroxine Sodium 88 MCG TABLET PO (11:32)
[2023-08-15] MEDS: Sertraline HCL 100 MG TABLET PO (11:32)
[2023-08-15 13:46] VITALS: BP 148/73; PULSE 60; O2SAT 98
--- NOTE | 2023-08-15 13:46 | MHC.CM.PN ---
Addendum entered by Marlena Mckinley RN 08/15/23 14:03: CM reviewed DP with daughter/HCP [place]. Agreeable to plan. Family will arrange additional private care through [facility], who they have used in the past. [facility] is aware of plan and dc. BLS scheduled for 3:30pm. RN aware. Original Note: Rec'd CM referral from ER provider. [employer] [employer] REPRESENTATIVE completed via chart review and conversation w/ daughter/2nd HCP [place]. 1st HCP is son Gordo, phone number disconnected. Patient lives at [facility] in locked memory care unit. Staff assists w/ all ADL's. Recurrent falls. PCP Olesya Carroll DP: Per PT eval, patient is not able to participate in PT and would not benefit from skilled services. Would benefit from private care in addition to [facility] staff. Daughter aware. Per PA patient is medically cleared. Will return to [facility] via BLS.
--- NOTE | 2023-08-15 15:00 | PC.NURSE ---
PT INCONTINENT OF LRGE BM, URINE. ALL LINENS CHANGED. PT TO BE TRANSPORTED BACK TO FACILITY.
[2023-08-15 15:36] VITALS: BP 148/73; PULSE 60; RESP 16; TEMP 36.6; O2SAT 98
== END 2023-08-15 15:37 | disposition skilled nursing facility (03) ==
PROVIDERS: Emergency Provider Emergency Medicine; PCP Physician Assistant
DX: S09.90XA Unspecified injury of head, initial encounter (principal); R51.9 Headache, unspecified; M54.2 Cervicalgia; R26.2 Difficulty in walking, not elsewhere classified; W01.10XA Fall on same level from slipping, tripping and stumbling with subsequent striking against unspecified object, initial encounter; Y93.9 Activity, unspecified; Y92.9 Unspecified place or not applicable; Y99.8 Other external cause status; Z91.81 History of falling; Z79.899 Other long term (current) drug therapy
CPT/HCPCS: 70450; 72125; 81001; 97161; 99284

== ENCOUNTER 2023-08-15 21:05 | Emergency (ER) | payer MEDICARE, SELFPAY ==
--- NOTE | ~2023-08-15 | US_ITS ---
EXAMINATION: US VENOUS ULTRASOUND WITH DOPPLER LOWER EXTREMITY, RIGHT CLINICAL INFORMATION: Pain and swelling. COMPARISON: None available. TECHNIQUE: Ultrasound of the deep veins is performed from the hip to the calf with compression sonography and color and pulse Doppler assessment. Spectral analysis with color-flow imaging is performed. FINDINGS: There is normal venous compression and respiratory variation and augmented flow. The visualized common femoral vein, superficial femoral vein, profunda femoral vein, popliteal vein, and the trifurcation region shows no evidence of deep venous thrombosis. There is partial thrombus visualized in the right greater saphenous vein. There is no significant popliteal fossa cyst. There is mild calf edema. If the patient's symptoms persist, followup ultrasound in 5 days 7 days might be of value to exclude proximal propagation from a non-visualized calf vein. US/US venous duplex LE RT IMPRESSION: No DVT demonstrated in the right lower extremity. Partial thrombus in the superficial greater saphenous vein. There is mild calf edema.
--- NOTE | ~2023-08-15 | XR_ITS ---
EXAMINATION: XR ANKLE, RIGHT CLINICAL INFORMATION: Pain COMPARISON: None available. TECHNIQUE: AP, lateral, and mortise views of the right ankle. FINDINGS: There is moderate lateral malleolar soft tissue swelling. No visible acute fracture, dislocation or subluxation seen. XR/XR ankle RT min 3V IMPRESSION: Moderate lateral malleolar soft tissue swelling. No visible acute fracture or dislocation seen.
[2023-08-15 21:13] VITALS: BP 120/70; BP 133/84; PULSE 69; RESP 17; TEMP 36.6; O2SAT 98; BMI 24.9
[2023-08-15 21:26] LABS: MANUAL DIFF FLAG NO
--- NOTE | 2023-08-15 21:28 | PC.NURSE ---
pt biba from [facility], alert to self only. pt family reporting pt has bilateral lower extremity swelling, upon arrival pt noted to have right lower extremity swelling with +1 pitting edema noted. pt right lower extremity noted to be red. pt alert but unoriented at baseline. 18G placed in left wrist, labs obtained and sent to lab. [facility] staff medicated pt with trazadone prior to arrival.
[2023-08-15 21:29] LABS: Basophils Absolute Auto 0.1 X10*3/uL (0.0-0.2); Basophils Percent Auto 0.5 % (0-2); Eosinophils Absolute Auto 0.5 X10*3/uL (0.0-0.4); Eosinophils Percent Auto 4.8 % (0-4); Hematocrit 35.8 % (37.0-47.0); Hemoglobin 12.2 g/dl (12.0-16.0); Imm Gran Abs Auto 0.07 X10*3/uL (0.00-0.03); Imm Gran Pct Auto 0.7 % (0.0-0.4); Lymphocytes Absolute Auto 1.2 X10*3/uL (1.2-4.9); Lymphocytes Percent Auto 11.4 % (20-40); Mean Corpuscular HGB Conc 34.1 g/dl (31.0-35.0); Mean Corpuscular Hemoglobin 28.9 pg (27.0-33.0); Mean Corpuscular Volume 84.8 fL (80.0-98.0); Mean Platelet Volume 9.5 fL (9.4-12.3); Monocytes Absolute Auto 0.6 X10*3/uL (0.1-1.2); Monocytes Percent Auto 6.1 % (2-11); Neutrophils Absolute Auto 7.8 x10*3/uL (2.0-8.3); Neutrophils Percent Auto 76.5 % (45-73); Platelet Count 355 X10*3/uL (160-400); Red Blood Count 4.22 X10*6/uL (4.20-5.50); Red Cell Distribution Width 14.3 % (11.0-16.0); White Blood Count 10.2 X10*3/uL (4.8-10.8)
--- NOTE | 2023-08-15 21:39 | ED.EXTPRO ---
HPI - Extremity Problem General Chief complaint: Extremity Problem Stated complaint: EDEMA Time Seen by Provider: 08/15/23 21:19 Source: EMS and old records reviewed Mode of arrival: EMS Limitations: other (dementia - given trazodone prior to arrival as well. ) History of Present Illness HPI Narrative: 82 yo female with PMH of hypothyroidism, HLD, HTN dementia just seen and discharged today after recurrent falls cleared by PT she returns tonight as family noted increased swelling and redness around right lower leg. The patient is very sleepy from trazodone prior to arrival and has dementia very limited history. MD Complaint: extremity swelling Onset (ago): day(s) (today) Pain Consistency: constant Location: right and lower extremity Radiation: none Relieving factors: nothing Exacerbating factors: nothing Associated symptoms: rash Related Data Home Medications Medication Instructions Recorded Confirmed levothyroxine 88 mcg tablet 1 tab PO DAILY@0600 04/22/21 08/15/23 (Synthroid) pravastatin 40 mg tablet 1 tab PO DAILY 04/22/21 08/15/23 trazodone 50 mg tablet 75 mg PO BEDTIME 12/03/21 08/15/23 peg 400-propylene glycol 0.4 %-0.3 1 drp ophthalmic (eye) BID PRN Dry 03/03/23 08/15/23 % eye drops (Systane (propylene Eyes glycol)) sertraline 100 mg tablet 100 mg PO DAILY 03/03/23 08/15/23 alprazolam 0.25 mg tablet 0.25 mg PO BID PRN Anxiety 08/15/23 08/15/23 amlodipine 5 mg tablet 2.5 mg PO DAILY 08/15/23 08/15/23 ketorolac 0.5 % eye drops 1 drp ophthalmic (eye) QID PRN Dry 08/15/23 08/15/23 Eyes risperidone 0.25 mg tablet 0.25 mg PO BID 08/15/23 08/15/23 rivastigmine 9.5 mg/24 hour 1 patch transdermal DAILY 08/15/23 08/15/23 transdermal patch Previous Rx's Medication Instructions Recorded cephalexin 500 mg capsule 500 mg PO BID 7 days #14 caps 08/15/23 Allergies Allergy/AdvReac Type Severity Reaction Status Date / Time No Known Allergies Allergy Verified 08/15/23 21:12 Review of Systems Review of Systems: ROS unable to be obtained due to dementia [facility] Past Medical History Source: old records reviewed Medical History Major neurocognitive disorder Ankle pain, right Dementia Anxiety DVT (deep venous thrombosis) HLD (hyperlipidemia) HTN (hypertension) Social History Social History Household Members: Other Household Members Other:: [place] [facility]: [facility] Do you presently have visiting nurse or other home services: No Unable to assess alcohol history related to: Unable to respond Alcohol intake: former Patient Tobacco Use Status: Former Tobacco user Use of substances other than those prescribed or required for medical reasons: Unable to respond Advance Directives: Yes Advance Directives on File: Yes Advance Directives Date on File: 04/23/21 service: No Current occupational status: retired Physical Exam Vital Signs: Vital Signs: Last Vital Signs Temp 97.8 F 08/15/23 21:13 Pulse 69 08/15/23 21:13 Resp 17 08/15/23 21:13 BP 133/84 08/15/23 21:13 Pulse Ox 98 08/15/23 21:13 O2 Del Method Room Air 08/15/23 21:13 BMI result Body Mass Index 24.9 Appearance: Alert. oriented to self. No acute distress. Eyes: Pupils equal, round and reactive to light. ENT: Pharynx normal. Neck: Normal inspection. Neck supple. CVS: Normal heart rate and rhythm. Pulses normal. Respiratory: No respiratory distress. Breath sounds normal. Abdomen: Soft and nontender. Skin: Skin warm and dry. Normal skin color. erythema and warmth to R lower leg and ankle very mild distal no joint effusion distal pulse intact Extremities: R ankle mild erythema and warmth non pitting edema. No calf ttp Neuro: Oriented to self. No motor deficit. No sensory deficit. Course Course Course Narrative: physician observation started at 1132pm family notes they need more help and do not feel they can manage this at home - repeat visits in the ED will order case management consult Medical Decision Making Medical Decision Making MDM Narrative: 82 yo female with PMH of hypothyroidism, HLD, HTN dementia here with RLE mild distal swelling and erythema - at this time could be injury from fall vs mild early cellulitis vs DVT - labs, DVT study, xray ordered. If negative will start on oral antibiotics to cover for cellulitis. Her distal pulses are intact. Differential Diagnosis Differential Diagnoses: The differential diagnosis associated with the presentation includes DVT, cellulitis, fracture Admission/Observation Consideration of admission/observation: Escalation of care including admission/observation considered VS stable, labs stable, no DVT no fracture will place on oral antibiotics and DC home, IV zosyn ordered here Lab Data MDM Lab Attestation statement: I reviewed the patient's lab results. 08/15/23 21:23 08/15/23 21:23 Labs: Lab Results 08/15/23 Range/Units 21:23 WBC 10.2 (4.8-10.8) X10*3/uL RBC 4.22 (4.20-5.50) X10*6/uL Hgb 12.2 (12.0-16.0) g/dl Hct 35.8 L (37.0-47.0) % MCV 84.8 D (80.0-98.0) fL MCH 28.9 (27.0-33.0) pg MCHC 34.1 (31.0-35.0) g/dl RDW 14.3 (11.0-16.0) % Plt Count 355 (160-400) X10*3/uL MPV 9.5 (9.4-12.3) fL Immature Gran % (Auto) 0.7 H (0.0-0.4) % Neut % (Auto) 76.5 H (45-73) % Lymph % (Auto) 11.4 L (20-40) % [place] % (Auto) 6.1 (2-11) % Eos % (Auto) 4.8 H (0-4) % Baso % (Auto) 0.5 (0-2) % Lymph # (Auto) 1.2 (1.2-4.9) X10*3/uL [place] # (Auto) 0.6 (0.1-1.2) X10*3/uL Eos # (Auto) 0.5 H (0.0-0.4) X10*3/uL Baso # (Auto) 0.1 (0.0-0.2) X10*3/uL Abs Immat Gran (auto) 0.07 H (0.00-0.03) X10*3/uL Absolute Neuts (auto) 7.8 (2.0-8.3) x10*3/uL Absolute Nucleated RBC 0.000 (0.0-0.012) X10*3/uL Nucleated RBC % (auto) 0.0 (0.0-0.2) /100WBC Sodium 139 (135-145) mmol/L Potassium 4.1 (3.3-5.1) mmol/L Chloride 106 (96-108) mmol/L Carbon Dioxide 24 (22-29) mmol/L Anion Gap 13 (12-20) BUN 16 (9-16) mg/dL Creatinine 0.67 (0.5-1.4) mg/dL Estim Creat Clear Calc 60.4 Estimated GFR > 60 Random Glucose 110 (60-115) mg/dL Calcium 8.9 (8.4-10.2) mg/dL Total Bilirubin 0.5 (0.0-1.0) mg/dL AST 19 (5-31) U/L ALT 9 (0-31) U/L Alkaline Phosphatase 121 H (39-117) U/L B-Natriuretic Peptide 129 H (<100) pg/mL Total Protein 6.3 L (6.5-8.0) g/dL Albumin 3.5 (3.5-5.0) g/dL Independent Interpretation I performed an independent interpretation of an: Plain X-Ray (no fracture) and Ultrasound (superficial thrombus) Radiology Impression Discussion of test interpretation with radiology: I have reviewed the radiologist's reading. Independent Historian Clinical information obtained from an independent historian. History obtained from or confirmed by: EMS External Record Review External record reviewed: Inpatient record Prescription Management I considered prescription management with: Antibiotic Discharge Plan Discharge Clinical Impression: Superficial thrombophlebitis Qualifiers: Superficial thrombophlebitis-Involved body area: lower extremity Laterality: right Qualified Code(s): I80.01 - Phlebitis and thrombophlebitis of superficial vessels of right lower extremity Cellulitis Qualifiers: Site of cellulitis: extremity Site of cellulitis of extremity: lower extremity Laterality: right Qualified Code(s): L03.115 - Cellulitis of right lower limb Patient Disposition: Still a Patient Instructions: Cellulitis (ED), Superficial Thrombophlebitis (ED), Warm Compress or Soak (ED) Additional Instructions: superficial clot would repeat ultrasound in 5 to 7 days. warm compresses daily. return for increased redness, pain, swelling, fevers or any other concerns. take a probiotic daily while on antibiotic to help with diarrhea. Prescriptions: No Action pravastatin 40 mg tablet 1 tab PO DAILY levothyroxine [Synthroid] 88 mcg tablet 1 tab PO DAILY@0600 trazodone 50 mg tablet 75 mg PO BEDTIME alprazolam 0.25 mg Tablet 0.25 mg PO BID PRN (Reason: Anxiety) rivastigmine 9.5 mg/24 hour Patch 24 Hour 1 patch TRANSDERMAL DAILY ketorolac 0.5 % Drops 1 drp OPHTHALMIC (EYE) QID PRN (Reason: Dry Eyes) amlodipine 5 mg tablet 2.5 mg PO DAILY Protocol: Hold for SBP< HOLD for SBP < : 90 risperidone 0.25 mg tablet 0.25 mg PO BID cephalexin 500 mg capsule 500 mg PO BID 7 Days Qty: 14 0RF sertraline 100 mg tablet 100 mg PO DAILY Systane (propylene glycol) 0.4-0.3 % Drops 1 drp OPHTHALMIC (EYE) BID PRN (Reason: Dry Eyes)
[2023-08-15 21:44] LABS: Alanine Aminotransferase 9 U/L (0-31); Albumin Level 3.5 g/dL (3.5-5.0); Alkaline Phosphatase 121 U/L (39-117); Anion Gap 13 (12-20); Aspartate Amino Transferase 19 U/L (5-31); Bilirubin Total 0.5 mg/dL (0.0-1.0); Blood Urea Nitrogen 16 mg/dL (9-16); Calcium 8.9 mg/dL (8.4-10.2); Carbon Dioxide 24 mmol/L (22-29); Chloride 106 mmol/L (96-108); Creatinine Clr Calc Pharmacy 60.4; Estimated Glomerular Filt Rate > 60; Glucose Random 110 mg/dL (60-115); Potassium 4.1 mmol/L (3.3-5.1); Sodium 139 mmol/L (135-145); Total Protein 6.3 g/dL (6.5-8.0)
[2023-08-15 21:50] LABS: B Type Natriuretic Peptide 129 pg/mL (<100)
[2023-08-15] MEDS: Piperacillin Sodium/Tazobactam 3.375 GM in 0.9 % Sodium Chloride 50 ML IV (23:52)
[2023-08-16 00:17] VITALS: BP 163/94; PULSE 63; RESP 15; TEMP 36.2; O2SAT 98
--- NOTE | 2023-08-16 00:18 | MHC.EDTECH ---
pt moved to hospital bed.
[2023-08-16 06:04] VITALS: BP 192/91; PULSE 59; RESP 14; TEMP 36.4; O2SAT 96
[2023-08-16 06:11] VITALS: BP 182/88; PULSE 55; RESP 16; O2SAT 96
--- NOTE | 2023-08-16 07:14 | PC.NURSE ---
Pt appears to be sleeping, equal, non labored respirations, no apparent distress noted. Pt incontinent of loose stool, incontinent care provided.
--- NOTE | 2023-08-16 10:42 | PHA.MEDREC ---
Pharmacy Consult ? Medication Reconciliation Pharmacy has reviewed the medication reconciliation.
[2023-08-16 11:08] VITALS: BP 152/86; PULSE 66; RESP 18; O2SAT 98
[2023-08-16] MEDS: cephALEXin 500 MG CAPSULE PO (11:09)
--- NOTE | 2023-08-16 11:20 | PC.NURSE ---
pt not able to follow directions, pocketing her medications in her check, this RN had to pull the meds out of her check as she would not swallow them. MAXI Gauthier made aware. will attempt crushed in apple sauce.
--- NOTE | 2023-08-16 11:46 | MHC.CM.PN ---
CM rec'd referral from ER provider. Patient dc'd from ER yesterday, back to [facility] w/ plan for family to coordinate additional overnight private care. Per family and [facility] most falls occur overnight despite hourly rounds w/ [facility] staff. However, last night daughter asked for patient to be sent back to ER d/t ankle swelling. Family had not coordinated additional care at that time. Patient is now medically cleared. Per RN patient is ambulating independently in room. This CM spoke with son/HCP Gordo, daughter [place], and [facility] Automatic Profile Shaper Operator Zonia Mcdonald. Per son, Osmani's is scheduled for intake appt w/ patient tomorrow 08/16. Goal is to have overnight BRAZING MACHINE OPERATOR AUTOMATIC in place by 08/17. Until that time family will stay half of the night and [facility] will increase frequency of overnight safety checks. PA aware of plan. BLS transportation scheduled back to [facility] for 12:30pm. PA, RN and family aware.
[2023-08-16 12:44] VITALS: BP 152/86; PULSE 66; RESP 18; TEMP 36.4; O2SAT 98
== END 2023-08-16 12:45 | disposition skilled nursing facility (03) ==
PROVIDERS: Emergency Provider Emergency Medicine
DX: L03.115 Cellulitis of right lower limb (principal); I80.01 Phlebitis and thrombophlebitis of superficial vessels of right lower extremity; I10 Essential (primary) hypertension; F03.90 Unspecified dementia, unspecified severity, without behavioral disturbance, psychotic disturbance, mood disturbance, and anxiety
CPT/HCPCS: 36415; 73610; 80053; 83880; 85025; 93971; 96365; 99284; J2543

== ENCOUNTER 2023-08-25 14:55 | Outpatient (REF) | payer MEDICARE, SELFPAY ==
--- NOTE | ~2023-08-25 | US_ITS ---
EXAMINATION: US VENOUS ULTRASOUND WITH DOPPLER LOWER EXTREMITY, RIGHT CLINICAL INFORMATION: Edema. Pain. History of phlebitis. COMPARISON: Venous duplex Doppler ultrasound exam right lower extremity August 15, 2023 TECHNIQUE: Ultrasound of the deep veins is performed from the hip to the calf with compression sonography and color and pulse Doppler assessment. Spectral analysis with color-flow imaging is performed. FINDINGS: Normal vascular flow in the deep veins from the groin through the popliteal vein. The calf there is noncompressible thrombus in the posterior tibial vein at the calf from the proximal through the mid aspect of the calf. Normal vascular flow in the peroneal vein. There is no significant popliteal fossa cyst. US/US venous duplex LE RT IMPRESSION: 1. Thrombus in the posterior tibial vein in the calf. 2. No evidence of DVT from the groin through the popliteal vein. This critical result was discussed with Elma GERMAN on 08/25/2023, 4:30 PM and it was ascertained that the content and urgency of the report was understood at the time of direct communication.
== END 2023-08-25 14:56 | disposition home or self-care (01) ==
LOC: HO.US 14:55
PROVIDERS: PCP Physician Assistant Medical; Visit Provider Nurse Practitioner Family
DX: R60.0 Localized edema (principal); M79.604 Pain in right leg; Z79.899 Other long term (current) drug therapy
CPT/HCPCS: 36415; 80053; 85025; 93971; 99284

== ENCOUNTER 2023-08-25 15:56 | Emergency (ER) | payer MEDICARE, SELFPAY ==
--- NOTE | 2023-08-25 16:27 | ED_ITS ---
HPI - General Adult General Chief complaint: Extremity Injury, Lower Stated complaint: + DVT found in ultrasound Time Seen by Provider: 08/25/23 18:14 Source: family Mode of arrival: wheelchair Limitations: altered mental status History of Present Illness HPI narrative: Patient is an 82-year-old female who presents emergency department with daughter for evaluation, had outpatient ultrasound revealing a thrombus in the right posterior tibial vein. Reports that she had a prior DVT and was treated with Eliquis which by family's account was discontinued in May of 2022 due to bleeding from her eyes and in her lips. She is baseline dementia, and is unable to provide any history. By family's account she has not reported any pain to the lower extremity. Nor has there been any reports of chest pain, or increased work breathing. Ultrasound was ordered due to swelling of the lower extremity Related Data Home Medications ?Medication ?Instructions ?Recorded ?Confirmed levothyroxine 88 mcg tablet 1 tab PO DAILY@0600 04/22/21 08/16/23 (Synthroid) pravastatin 40 mg tablet 1 tab PO DAILY 04/22/21 08/16/23 trazodone 50 mg tablet 75 mg PO BEDTIME 12/03/21 08/16/23 peg 400-propylene glycol 0.4 %-0.3 1 drp ophthalmic (eye) BID PRN Dry 03/03/23 08/16/23 % eye drops (Systane (propylene Eyes glycol)) sertraline 100 mg tablet 100 mg PO DAILY 03/03/23 08/16/23 alprazolam 0.25 mg tablet 0.25 mg PO BID PRN Anxiety 08/15/23 08/16/23 amlodipine 5 mg tablet 2.5 mg PO DAILY 08/15/23 08/16/23 ketorolac 0.5 % eye drops 1 drp ophthalmic (eye) QID PRN Dry 08/15/23 08/16/23 Eyes risperidone 0.25 mg tablet 0.25 mg PO BID 08/15/23 08/16/23 rivastigmine 9.5 mg/24 hour 1 patch transdermal DAILY 08/15/23 08/16/23 transdermal patch Previous Rx's ?Medication ?Instructions ?Recorded cephalexin 500 mg capsule 500 mg PO BID 7 days #14 caps 08/15/23 rivaroxaban 15 mg (42)-20 mg (9) See Rx Instructions PO .COMPLEX 08/25/23 tablets in a starter pack #51 ea Allergies Allergy/AdvReac Type Severity Reaction Status Date / Time No Known Allergies Allergy Verified 08/25/23 16:37 Review of Systems 2 Review of Systems: Yes all other systems are reviewed and are negative [facility] Past Medical History Attestation statement: The following information was validated with the patient. Source: old records reviewed Medical History Major neurocognitive disorder Ankle pain, right Dementia Anxiety DVT (deep venous thrombosis) HLD (hyperlipidemia) HTN (hypertension) Social History Social History Household Members: Other Household Members Other:: [place] in [place] Housing: [facility] Do you presently have visiting nurse or other home services: No Unable to assess alcohol history related to: Unable to respond Alcohol intake: former Patient Tobacco Use Status: Former Tobacco user Smoked in Last 30 Days: No Use of substances other than those prescribed or required for medical reasons: No Advance Directives: Yes Advance Directives on File: Yes Advance Directives Date on File: 04/23/21 service: No Current occupational status: retired Physical Exam ED Vital Signs: Vital Signs - 24 hr 08/25/23 16:31 08/25/23 19:13 08/25/23 19:19 Temperature 97.6 F 98 F Pulse Rate 74 59 59 Respiratory Rate 14 18 18 Blood Pressure 147/86 H 131/73 131/73 Pulse Oximetry 97 98 98 Oxygen Delivery Method Room Air Room Air Room Air BMI result Body Mass Index 18.0 Appearance: Alert.?Oriented to person, place and time. No acute distress.?Normal affect. Eyes: Pupils equal, round and reactive to light.? ENT: Pharynx normal.?? Neck: Normal inspection.? Neck supple.?? CVS: Heart sounds normal. Normal heart rate and rhythm.? Pulses normal.?? Respiratory: No respiratory distress.? Lung sounds clear to auscultation bilaterally?? Abdomen: Soft and non-tender. Normoactive bowel sounds. Skin: Skin warm and dry.? Normal skin color.? Extremities: 1+ right lower extremity edema.? No calf ttp? Neuro: Moves all extremities spontaneously. Sensation intact bilaterally. Ambulates with normal steady gait. Course Course Course Narrative: RME:?82 yo female hx of superficial thrombophlebitis here for eval of right lower extremity pain. had venous duplex completed this morning that was positive for thrombus in posterior tibial vein in R calf. PCP discontinued eliquis in May after she began to bleed from her eyes/ lips. denies chest pain/ sob. basic labs ordered Full HPI, ROS and PE to be performed by the primary ED provider. Medical Decision Making Medical Decision Making [facility] Narrative: Patient is an 82-year-old female with past medical history of dementia, hyperlipidemia, hypertension, anxiety, DVT presenting to emergency department for evaluation; Outpatient venous duplex ultrasound of the right lower extremity reveals a occlusive thrombus of the posterior tibial vein extending proximally to mid aspect of the calf, does not extend the popliteal or groin, additionally had a partial thrombus of the superficial greater saphenous vein demonstrated on ultrasound 08/15/2023. Patient's family endorses that Eliquis was discontinued in May due to bleeding complications as per HPI. On review of her chart in May 21, 2023 she was found to have bilateral greater saphenous vein thrombophlebitis found on ultrasound, after vascular surgery consultation, Dr. Alaniz, was obtained recommendation for treatment with Eliquis, Eliquis discontinued while inpatient on 06/04/2023 secondary to bleeding from the mouth and left subconjunctival hemorrhage. Had an at length discussion with patient and family, regarding risks associated with untreated DVT, versus risks of bleeding. You shared decision-making and they have elected for treatment with anticoagulants. Family reports the [id number] cost for Eliquis was $600 dollars previously, requesting prescription for rivaroxaban alternatively, we also discussed the option of warfarin but due to concern for routine INR monitoring they have elected against this. Discussed strict bleeding precautions, worrisome signs and symptoms that would warrant re-evaluation in the emergency department, and outpatient follow-up with primary care provider. All questions were answered. Stable for discharge. Differential Diagnosis Differential Diagnoses: The differential diagnosis associated with the presentation includes (DVT, superficial phlebitis, PE) Admission/Observation Consideration of admission/observation: Escalation of care including admission/observation considered (See narrative above for further detail) Lab Data [facility] Lab Attestation statement: I reviewed the patient's lab results. CBC is without leukocytosis, no anemia. Unremarkable CMP. 08/25/23 16:53 08/25/23 16:53 Labs: Lab Results 08/25/23 Range/Units 16:53 WBC 8.4 (4.8-10.8) X10*3/uL RBC 4.29 (4.20-5.50) X10*6/uL Hgb 12.3 (12.0-16.0) g/dl Hct 38.3 (37.0-47.0) % MCV 89.3 (80.0-98.0) fL MCH 28.7 (27.0-33.0) pg MCHC 32.1 (31.0-35.0) g/dl RDW 14.6 (11.0-16.0) % Plt Count 400 (160-400) X10*3/uL MPV 9.6 (9.4-12.3) fL Immature Gran % (Auto) 0.6 H (0.0-0.4) % Neut % (Auto) 73.0 (45-73) % Lymph % (Auto) 14.9 L (20-40) % [place] % (Auto) 5.4 (2-11) % Eos % (Auto) 5.4 H (0-4) % Baso % (Auto) 0.7 (0-2) % Lymph # (Auto) 1.3 (1.2-4.9) X10*3/uL [place] # (Auto) 0.5 (0.1-1.2) X10*3/uL Eos # (Auto) 0.5 H (0.0-0.4) X10*3/uL Baso # (Auto) 0.1 (0.0-0.2) X10*3/uL Abs Immat Gran (auto) 0.05 H (0.00-0.03) X10*3/uL Absolute Neuts (auto) 6.1 (2.0-8.3) x10*3/uL Absolute Nucleated RBC 0.000 (0.0-0.012) X10*3/uL Nucleated RBC % (auto) 0.0 (0.0-0.2) /100WBC Sodium 141 (135-145) mmol/L Potassium 3.8 (3.3-5.1) mmol/L Chloride 105 (96-108) mmol/L Carbon Dioxide 24 (22-29) mmol/L Anion Gap 16 (12-20) BUN 18 H (9-16) mg/dL Creatinine 0.79 (0.5-1.4) mg/dL Estim Creat Clear Calc 41.2 Estimated GFR > 60 Random Glucose 152 H (60-115) mg/dL Calcium 8.8 (8.4-10.2) mg/dL Total Bilirubin 0.4 (0.0-1.0) mg/dL AST 13 (5-31) U/L ALT 8 (0-31) U/L Alkaline Phosphatase 128 H (39-117) U/L Total Protein 6.6 (6.5-8.0) g/dL Albumin 3.8 (3.5-5.0) g/dL Independent Historian Clinical information obtained from an independent historian. History obtained from or confirmed by: Other (Daughter) External Record Review External record reviewed: Prior outpatient radiology (As per narrative above) Prescription Management I considered prescription management with: Other (Rivaroxaban) Chronic Conditions Patient?s care impacted by: Hypertension and Other (Dementia) Discharge Plan Discharge Clinical Impression: DVT (deep venous thrombosis) Patient Disposition: Home, Self-Care Instructions: Deep Vein Thrombosis (ED), Deep Vein Thrombosis Prevention (ED) Additional Instructions: As discussed, a prescription for rivaroxaban/Xarelto has been sent to your pharmacy. Please take this medication as prescribed. If you develop active bleeding, significant bruising, blood in your urine, bloody or black stools, please seek evaluation. If you have any fall, head injury then you should be evaluated immediately in the emergency department. Contact your primary care provider to arrange for a follow-up visit. Return back to emergency department any new or worsening symptoms or concerns. Prescriptions: New rivaroxaban 15 mg (42)- 20 mg (9) tablets,dose pack See Rx Instructions .ROUTE .COMPLEX Qty: 51 0RF Rx Instructions: take one-15 mg tablet twice daily for 21 days, then one-20 mg tablet once daily; must take with meal/food No Action pravastatin 40 mg tablet 1 tab PO DAILY levothyroxine [Synthroid] 88 mcg tablet 1 tab PO DAILY@0600 trazodone 50 mg tablet 75 mg PO BEDTIME alprazolam 0.25 mg Tablet 0.25 mg PO BID PRN (Reason: Anxiety) rivastigmine 9.5 mg/24 hour Patch 24 Hour 1 patch TRANSDERMAL DAILY ketorolac 0.5 % Drops 1 drp OPHTHALMIC (EYE) QID PRN (Reason: Dry Eyes) amlodipine 5 mg tablet 2.5 mg PO DAILY Protocol: Hold for SBP< HOLD for SBP < : 90 risperidone 0.25 mg tablet 0.25 mg PO BID cephalexin 500 mg capsule 500 mg PO BID 7 Days Qty: 14 0RF sertraline 100 mg tablet 100 mg PO DAILY Systane (propylene glycol) 0.4-0.3 % Drops 1 drp OPHTHALMIC (EYE) BID PRN (Reason: Dry Eyes) Referrals: Marielle Ayers PA-C [Primary Care Provider] - Interventions: ED Discharge Assessment Last Done: 08/25/23 19:19 Discharge Date/Time: 08/25/23 19:18 Print Language: Bulgarian
[2023-08-25 16:31] VITALS: BP 147/86; PULSE 74; RESP 14; TEMP 36.4; O2SAT 97; BMI 18.0
[2023-08-25 17:04] LABS: MANUAL DIFF FLAG NO
[2023-08-25 17:07] LABS: Basophils Absolute Auto 0.1 X10*3/uL (0.0-0.2); Basophils Percent Auto 0.7 % (0-2); Eosinophils Absolute Auto 0.5 X10*3/uL (0.0-0.4); Eosinophils Percent Auto 5.4 % (0-4); Hematocrit 38.3 % (37.0-47.0); Hemoglobin 12.3 g/dl (12.0-16.0); Imm Gran Abs Auto 0.05 X10*3/uL (0.00-0.03); Imm Gran Pct Auto 0.6 % (0.0-0.4); Lymphocytes Absolute Auto 1.3 X10*3/uL (1.2-4.9); Lymphocytes Percent Auto 14.9 % (20-40); Mean Corpuscular HGB Conc 32.1 g/dl (31.0-35.0); Mean Corpuscular Hemoglobin 28.7 pg (27.0-33.0); Mean Corpuscular Volume 89.3 fL (80.0-98.0); Mean Platelet Volume 9.6 fL (9.4-12.3); Monocytes Absolute Auto 0.5 X10*3/uL (0.1-1.2); Monocytes Percent Auto 5.4 % (2-11); Neutrophils Absolute Auto 6.1 x10*3/uL (2.0-8.3); Platelet Count 400 X10*3/uL (160-400); Red Blood Count 4.29 X10*6/uL (4.20-5.50); Red Cell Distribution Width 14.6 % (11.0-16.0); White Blood Count 8.4 X10*3/uL (4.8-10.8)
[2023-08-25 17:22] LABS: Alanine Aminotransferase 8 U/L (0-31); Albumin Level 3.8 g/dL (3.5-5.0); Alkaline Phosphatase 128 U/L (39-117); Anion Gap 16 (12-20); Aspartate Amino Transferase 13 U/L (5-31); Bilirubin Total 0.4 mg/dL (0.0-1.0); Blood Urea Nitrogen 18 mg/dL (9-16); Calcium 8.8 mg/dL (8.4-10.2); Carbon Dioxide 24 mmol/L (22-29); Chloride 105 mmol/L (96-108); Creatinine Clr Calc Pharmacy 41.2; Estimated Glomerular Filt Rate > 60; Glucose Random 152 mg/dL (60-115); Potassium 3.8 mmol/L (3.3-5.1); Sodium 141 mmol/L (135-145); Total Protein 6.6 g/dL (6.5-8.0)
[2023-08-25 19:13] VITALS: BP 131/73; PULSE 59; RESP 18; O2SAT 98
[2023-08-25 19:19] VITALS: BP 131/73; PULSE 59; RESP 18; TEMP 36.6; O2SAT 98
== END 2023-08-25 19:18 | disposition home or self-care (01) ==
PROVIDERS: Physician Assistant Medical; Emergency Provider Emergency Medicine; PCP Physician Assistant Medical
DX: I82.409 Acute embolism and thrombosis of unspecified deep veins of unspecified lower extremity (principal); I10 Essential (primary) hypertension; E78.5 Hyperlipidemia, unspecified; F03.90 Unspecified dementia, unspecified severity, without behavioral disturbance, psychotic disturbance, mood disturbance, and anxiety; Z79.899 Other long term (current) drug therapy
CPT/HCPCS: 36415; 80053; 85025

== ENCOUNTER 2023-12-12 12:24 | Emergency (ER) | payer MEDICARE, SELFPAY ==
--- NOTE | ~2023-12-12 | CT_ITS ---
EXAMINATION: CT head/brain wo IV con, CT cervical spine wo IV con INDICATION INFORMATION: Reason for Exam fall, headstrike, on Xarelto, baseline dementia COMPARISON: CT brain and C-spine 08/14/2023 TECHNIQUE: Separate noncontrast CT examinations of the head and cervical spine were performed. Coronal and sagittal images were created for each examination at the technologist workstation. This CT examination was performed using dose optimization techniques as appropriate, variously including the following: *Automated exposure control *Adjustment of mA and/or kV according to patient size (this includes techniques or standardized protocols for targeted exams where dose is matched to indication/reason for exam; i.e. extremities or head) *Use of iterative reconstruction technique DLP: 875.7 mGy-cm FINDINGS: Head: 5 mm soft tissue dermal nodule in the midline frontal soft tissues and 6 mm dermal nodule in the right frontal soft tissues, recommend correlation with direct inspection. Bilateral lens replacements. The mastoid air cells and visualized portions of the paranasal sinuses are well aerated. There is no evidence of acute intracranial hemorrhage or territorial infarction. No abnormal mass effect or midline shift is seen. García to white matter differentiation is well preserved. No extra-axial fluid collections are identified. No hydrocephalus. Proportional prominence of the ventricles and sulcal spaces is consistent with moderate volume loss. Patchy periventricular and deep white matter hypoattenuation is consistent with mild small vessel ischemic changes. Cervical spine: Hemangioma in the T1 vertebral body. Age-indeterminate superior endplate wedge compression deformity of the T2 vertebral body with 20% height loss and no significant bony retropulsion, new from 08/15/2023. Similar Schmorl's node in the inferior endplate of C6. Vertebral body heights are otherwise maintained. Multilevel loss of disc space height. No pre- or paravertebral soft tissue abnormality is identified. Visualized portions of the lung apices are unremarkable. The thyroid gland is unremarkable. CT/CT cervical spine wo IV con IMPRESSION: 1. No acute intracranial abnormality. 2. Age-indeterminate superior endplate wedge compression deformity of the T2 vertebral body with 20% height loss and no significant bony retropulsion, new from 08/15/2023. 3. A 5 mm soft tissue dermal nodule in the midline frontal soft tissues and 6 mm dermal nodule in the right frontal soft tissues, unchanged from prior, recommend correlation with direct inspection.
[2023-12-12 12:33] VITALS: BP 128/88; PULSE 89; O2SAT 96
--- NOTE | 2023-12-12 12:33 | ED.FALL ---
HPI - Fall General Chief Complaint: Fall Stated Complaint: Fall Time Seen by Provider: 12/12/23 12:27 Source: patient and EMS Mode of arrival: EMS Limitations: altered mental status History of Present Illness HPI Narrative: Patient is an 83-year-old female with past medical history of dementia who presents emergency department via EMS for evaluation after a fall. Was reportedly walking with her daughter had an inconsistent gait/speed, and she subsequently fell there was head strike but no reported loss of consciousness. At times when speaking she appears to be mumbling, however upon a dressing her by name and stating hello she responds clearly by saying hello, otherwise it is difficult to get her to follow much commands for answer any questions. Related Data Home Medications ?Medication ?Instructions ?Recorded ?Confirmed levothyroxine 88 mcg tablet 1 tab PO DAILY@0600 04/22/21 08/16/23 (Synthroid) pravastatin 40 mg tablet 1 tab PO DAILY 04/22/21 08/16/23 trazodone 50 mg tablet 75 mg PO BEDTIME 12/03/21 08/16/23 peg 400-propylene glycol 0.4 %-0.3 1 drp ophthalmic (eye) BID PRN Dry 03/03/23 08/16/23 % eye drops (Systane (propylene Eyes glycol)) sertraline 100 mg tablet 100 mg PO DAILY 03/03/23 08/16/23 alprazolam 0.25 mg tablet 0.25 mg PO BID PRN Anxiety 08/15/23 08/16/23 amlodipine 5 mg tablet 2.5 mg PO DAILY 08/15/23 08/16/23 ketorolac 0.5 % eye drops 1 drp ophthalmic (eye) QID PRN Dry 08/15/23 08/16/23 Eyes risperidone 0.25 mg tablet 0.25 mg PO BID 08/15/23 08/16/23 rivastigmine 9.5 mg/24 hour 1 patch transdermal DAILY 08/15/23 08/16/23 transdermal patch Previous Rx's ?Medication ?Instructions ?Recorded cephalexin 500 mg capsule 500 mg PO BID 7 days #14 caps 08/15/23 rivaroxaban 15 mg (42)-20 mg (9) See Rx Instructions PO .COMPLEX 08/25/23 tablets in a starter pack #51 ea Allergies Allergy/AdvReac Type Severity Reaction Status Date / Time No Known Allergies Allergy Verified 12/12/23 12:38 Review of Systems Review of Systems: Yes all other systems are reviewed and are negative [facility] Past Medical History Attestation statement: The following information was validated with the patient. Source: old records reviewed Medical History Major neurocognitive disorder Ankle pain, right Dementia Anxiety DVT (deep venous thrombosis) HLD (hyperlipidemia) HTN (hypertension) Social History Social History Household Members: Other Household Members Other:: [place] Housing: [facility] Do you presently have visiting nurse or other home services: No Unable to assess alcohol history related to: Unable to respond Alcohol intake: former Patient Tobacco Use Status: Former Tobacco user Advance Directives: Yes Advance Directives on File: Yes Advance Directives Date on File: 04/23/21 Do you have a plan to hurt others: No Plan service: No Current occupational status: retired Physical Exam Vital Signs: Vital Signs: Last Vital Signs Temp 98.3 F 12/12/23 14:44 Pulse 64 12/12/23 14:44 Resp 17 12/12/23 14:44 BP 157/68 H 12/12/23 14:44 Pulse Ox 96 12/12/23 14:44 O2 Del Method Room Air 12/12/23 14:44 BMI result Body Mass Index 22.7 Appearance: Alert.?Oriented to person, difficulty following commands. No acute distress.?Normal affect. Head: Normocephalic Eyes: pupils are round reactive bilaterally, 1 mm on the left, 3 mm on the right. EOMI. Conjunctiva and sclera normal? No Huerta sign noted. No raccoon eyes noted ENT: No septal hematoma, nares patent bilaterally. External auditory canal normal tympanic membrane pearly arzola and intact bilaterally. No lesions or lacerations of oropharynx. Uvula midline. Moist mucous membranes. Neck: Normal inspection.? Neck supple.??No palpable tenderness, step-off, deformities. Refused cervical spine collar CVS: Heart sounds normal. Normal heart rate and rhythm.? Pulses normal.?? Respiratory: No respiratory distress.? Lung sounds clear to auscultation bilaterally?? Abdomen: Soft and non-tender. Normoactive bowel sounds. ?? Skin: Skin warm and dry.? Normal skin color.? ? Extremities: No lower extremity edema.? Neuro: Moves all extremities spontaneously. No focal neuro deficits. Course Reevaluation(s) Reevaluation #1: Patient's daughter is at bedside, she reports that patient has stopped taking Xarelto in September or October of 2023 as she experienced conjunctival bleeding again. She is not certain which doctor decided to discontinue it. She has an appointment to follow-up with vascular through [facility] next week. Daughter reports she has otherwise been acting her normal self. For primary care doctor has started her on a daily antibiotic to prevent urinary tract infections. Daughter also states that she had a urine test obtained the other day for routine evaluation which was reportedly clear, she declines wanting patient to have a repeat urine test today. Daughter confirms at this time that she believes she ?may have over did it today?, she was walking with the patient for a longer time than usual, reports that she noticed patient was becoming tired, she thinks that she may have tripped on something she ultimately fell forward and then landed onto her side lying on her back. CT is without acute intracranial pathology, no evidence of ICH, on your pupils may be baseline anisocoria. CT revealing superior endplate wedge compression deformity of T2 vertebral body with 20% height loss no retropulsion appears new when compared to prior CT from July of 2023. Given her history of dementia, it is highly unlikely that she would leave a TLSO brace in place, additionally I do not think it is absolutely necessary for treatment at this time. On examination she does not appear to have tenderness or pain upon palpation over T2. Reviewed this case with my attending Dr. Brooks who agrees. Discussed these findings with daughter who is at bedside, we discussed the use of acetaminophen for pain management, rest, topical ice to the area. To the best of my knowledge this fracture is likely new, patient's daughter is unaware of any other recent fall or injury since her prior CT scan. We discussed worrisome signs and symptoms that would warrant re-evaluation in the emergency department. She ambulated through the department with steady gait, daughter feels comfortable with plan for to be discharged back to her living facility. Outpatient follow-up with primary care provider.. Medical Decision Making Medical Decision Making MDM Narrative: Patient is an 83-year-old female with past medical history of dementia, hyperlipidemia, hypertension, anxiety, DVT who presents emergency department for evaluation after a fall. Upon review of her medical records she was most recently evaluated in the emergency department in August of 2023, where she was found to have an occlusive thrombus of the right posterior tibial vein extending proximally to the mid aspect of the calf and partial thrombus of the superficial greater saphenous vein, she was started on Xarelto as she had prior issues with subconjunctival hemorrhage in insurance coverage from [employer]. She was to follow-up with her primary care provider. On examination I am able to passively range her bilateral upper and lower extremities seemingly without any evidence of pain. No reports of pain she however is only oriented to person at times, does not answer questions appropriately. She is unable to follow commands for a full neurological examination. On evaluation pupils are round reactive bilaterally, 1 mm on the left, 3 mm on the right. Differential Diagnosis Differential Diagnoses: The differential diagnosis associated with the presentation includes (ICH, SDH, fracture, ACS, mechanical fall) Admission/Observation Consideration of admission/observation: Escalation of care including admission/observation considered Lab Data MDM Lab Attestation statement: I reviewed the patient's lab results. 12/12/23 13:03 12/12/23 13:03 Labs: Lab Results 12/12/23 12/12/23 Range/Units 13:03 13:04 WBC 9.1 (4.8-10.8) X10*3/uL RBC 4.03 L (4.20-5.50) X10*6/uL Hgb 12.0 (12.0-16.0) g/dl Hct 34.8 L (37.0-47.0) % MCV 86.4 (80.0-98.0) fL MCH 29.8 (27.0-33.0) pg MCHC 34.5 (31.0-35.0) g/dl RDW 13.7 (11.0-16.0) % Plt Count 364 (160-400) X10*3/uL MPV 9.4 (9.4-12.3) fL Immature Gran % (Auto) 0.8 H (0.0-0.4) % Neut % (Auto) 76.0 H (45-73) % Lymph % (Auto) 11.6 L (20-40) % [place] % (Auto) 6.6 (2-11) % Eos % (Auto) 4.6 H (0-4) % Baso % (Auto) 0.4 (0-2) % Lymph # (Auto) 1.1 L (1.2-4.9) X10*3/uL [place] # (Auto) 0.6 (0.1-1.2) X10*3/uL Eos # (Auto) 0.4 (0.0-0.4) X10*3/uL Baso # (Auto) 0.0 (0.0-0.2) X10*3/uL Abs Immat Gran (auto) 0.07 H (0.00-0.03) X10*3/uL Absolute Neuts (auto) 7.0 (2.0-8.3) x10*3/uL Absolute Nucleated RBC 0.000 (0.0-0.012) X10*3/uL Nucleated RBC % (auto) 0.0 (0.0-0.2) /100WBC PT 12.5 (11.1-13.3) SEC INR 1.0 (0.9-1.1) Sodium 140 (135-145) mmol/L Potassium 4.0 (3.3-5.1) mmol/L Chloride 107 (96-108) mmol/L Carbon Dioxide 23 (22-29) mmol/L Anion Gap 14 (12-20) BUN 20 H (9-16) mg/dL Creatinine 0.77 (0.5-1.4) mg/dL Estim Creat Clear Calc 43.8 Estimated GFR > 60 Random Glucose 92 (60-115) mg/dL Calcium 9.2 (8.4-10.2) mg/dL Magnesium 1.9 (1.6-2.6) mg/dL Total Bilirubin 0.4 (0.0-1.0) mg/dL AST 13 (5-31) U/L ALT 8 (0-31) U/L Alkaline Phosphatase 59 (39-117) U/L Troponin I High Sens < 2.7 (<3.5-17.0) ng/L Total Protein 6.1 L (6.5-8.0) g/dL Albumin 3.6 (3.5-5.0) g/dL Influenza Type A (PCR) NEGATIVE (Negative) Influenza Type B (PCR) NEGATIVE (Negative) RSV RNA Qual (PCR) NEGATIVE (Negative) SARS-CoV-2 RNA (RT-PCR) NEGATIVE (Negative) Independent Interpretation I performed an independent interpretation of an: EKG Interpretation: Rate: 89 Rhythm:? Sinus rhythm with sinus arrhythmia Normal P waves.? Normal VENESSA.?? Normal QRS complex.?? ST T wave :??No ST elevation, no ST depression, nonspecific T-wave abnormality qTC: 457 prior studies:? July of 2023 The study has been interpreted contemporaneously by me. Radiology Impression Discussion of test interpretation with radiology: I have reviewed the radiologist's reading. Radiologist Impression: CT/CT head/brain wo IV con IMPRESSION: 1. No acute intracranial abnormality. 2. Age-indeterminate superior endplate wedge compression deformity of the T2 vertebral body with 20% height loss and no significant bony retropulsion, new from 08/15/2023. 3. A 5 mm soft tissue dermal nodule in the midline frontal soft tissues and 6 mm dermal nodule in the right frontal soft tissues, unchanged from prior, recommend correlation with direct inspection. Independent Historian Clinical information obtained from an independent historian. History obtained from or confirmed by: EMS External Record Review External record reviewed: Outpatient record Discharge Plan Discharge Clinical Impression: Closed wedge compression fracture of T2 vertebra, Fall Patient Disposition: Home, Self-Care Instructions: Vertebral Compression Fracture (ED), Fall Prevention for Older Adults (ED) Prescriptions: No Action pravastatin 40 mg tablet 1 tab PO DAILY levothyroxine [Synthroid] 88 mcg tablet 1 tab PO DAILY@0600 trazodone 50 mg tablet 75 mg PO BEDTIME alprazolam 0.25 mg Tablet 0.25 mg PO BID PRN (Reason: Anxiety) rivastigmine 9.5 mg/24 hour Patch 24 Hour 1 patch TRANSDERMAL DAILY ketorolac 0.5 % Drops 1 drp OPHTHALMIC (EYE) QID PRN (Reason: Dry Eyes) amlodipine 5 mg tablet 2.5 mg PO DAILY Protocol: Hold for SBP< HOLD for SBP < : 90 risperidone 0.25 mg tablet 0.25 mg PO BID cephalexin 500 mg capsule 500 mg PO BID 7 Days Qty: 14 0RF sertraline 100 mg tablet 100 mg PO DAILY Systane (propylene glycol) 0.4-0.3 % Drops 1 drp OPHTHALMIC (EYE) BID PRN (Reason: Dry Eyes) rivaroxaban 15 mg (42)- 20 mg (9) tablets,dose pack See Rx Instructions .ROUTE .COMPLEX Qty: 51 0RF Rx Instructions: take one-15 mg tablet twice daily for 21 days, then one-20 mg tablet once daily; must take with meal/food Referrals: Andria Nunez MD [Primary Care Provider] - Print Language: [place]
[2023-12-12 12:35] VITALS: BP 111/74; PULSE 90; RESP 16; TEMP 36.7; O2SAT 95; BMI 22.7
--- NOTE | 2023-12-12 12:38 | ECG_ITS ---
Test Reason : FALL Blood Pressure : / mmHG Vent. Rate : 089 BPM Atrial Rate : 089 BPM P-R Int : 198 ms QRS Dur : 096 ms QT Int : 376 ms P-R-T Axes : 023 -19 090 degrees QTc Int : 457 ms Sinus rhythm with marked sinus arrhythmia Low voltage QRS Cannot rule out Anterior infarct , age undetermined Abnormal ECG When compared with ECG of 13-AUG-2023 01:10, Vent. rate has increased BY 32 BPM Nonspecific T wave abnormality now evident in Lateral leads Referred By: Haley Fowler Electronically Signed By:USAMA PERRY
[2023-12-12 13:02] VITALS: RESP 17
[2023-12-12 13:09] LABS: Basophils Percent Auto 0.4 % (0-2); Eosinophils Absolute Auto 0.4 X10*3/uL (0.0-0.4); Eosinophils Percent Auto 4.6 % (0-4); Hematocrit 34.8 % (37.0-47.0); Imm Gran Abs Auto 0.07 X10*3/uL (0.00-0.03); Imm Gran Pct Auto 0.8 % (0.0-0.4); Lymphocytes Absolute Auto 1.1 X10*3/uL (1.2-4.9); Lymphocytes Percent Auto 11.6 % (20-40); MANUAL DIFF FLAG NO; Mean Corpuscular HGB Conc 34.5 g/dl (31.0-35.0); Mean Corpuscular Hemoglobin 29.8 pg (27.0-33.0); Mean Corpuscular Volume 86.4 fL (80.0-98.0); Mean Platelet Volume 9.4 fL (9.4-12.3); Monocytes Absolute Auto 0.6 X10*3/uL (0.1-1.2); Monocytes Percent Auto 6.6 % (2-11); Platelet Count 364 X10*3/uL (160-400); Red Blood Count 4.03 X10*6/uL (4.20-5.50); Red Cell Distribution Width 13.7 % (11.0-16.0); White Blood Count 9.1 X10*3/uL (4.8-10.8)
[2023-12-12 13:16] LABS: Prothrombin Time 12.5 SEC (11.1-13.3)
[2023-12-12 13:37] LABS: Alanine Aminotransferase 8 U/L (0-31); Albumin Level 3.6 g/dL (3.5-5.0); Alkaline Phosphatase 59 U/L (39-117); Anion Gap 14 (12-20); Aspartate Amino Transferase 13 U/L (5-31); Bilirubin Total 0.4 mg/dL (0.0-1.0); Blood Urea Nitrogen 20 mg/dL (9-16); Calcium 9.2 mg/dL (8.4-10.2); Carbon Dioxide 23 mmol/L (22-29); Chloride 107 mmol/L (96-108); Creatinine Clr Calc Pharmacy 43.8; Estimated Glomerular Filt Rate > 60; Glucose Random 92 mg/dL (60-115); Magnesium 1.9 mg/dL (1.6-2.6); Sodium 140 mmol/L (135-145); Total Protein 6.1 g/dL (6.5-8.0)
[2023-12-12 13:46] LABS: Troponin-I High Sensitivity < 2.7 ng/L (<3.5-17.0)
[2023-12-12 13:48] LABS: Influenza A PCR NEGATIVE (Negative); Influenza B PCR NEGATIVE (Negative); Resp Syncy Virus RNA Qual PCR NEGATIVE (Negative); SARS COV2 PCR INHOUSE NEGATIVE (Negative)
[2023-12-12 14:44] VITALS: BP 157/68; PULSE 64; RESP 17; TEMP 36.8; O2SAT 96
--- NOTE | 2023-12-12 18:12 | PC.NURSE ---
Daughter/HCP decline UA testing today as patient obtained one earlier this week at her facility. Daughter remains at bedside with patient waiting of EMS arrival to transport back to the [facility].
[2023-12-12 18:18] VITALS: BP 157/68; PULSE 64; RESP 17; TEMP 36.8; O2SAT 96
== END 2023-12-12 18:20 | disposition home or self-care (01) ==
PROVIDERS: Nurse Practitioner Family; Emergency Provider Emergency Medicine; PCP Internal Medicine
DX: S22.020A Wedge compression fracture of second thoracic vertebra, initial encounter for closed fracture (principal); W01.0XXA Fall on same level from slipping, tripping and stumbling without subsequent striking against object, initial encounter; I10 Essential (primary) hypertension; E78.5 Hyperlipidemia, unspecified; F41.9 Anxiety disorder, unspecified; Z86.718 Personal history of other venous thrombosis and embolism; Z87.891 Personal history of nicotine dependence; Y93.01 Activity, walking, marching and hiking; Y92.9 Unspecified place or not applicable; Y99.9 Unspecified external cause status; Z03.818 Encounter for observation for suspected exposure to other biological agents ruled out; Z79.899 Other long term (current) drug therapy; Z79.01 Long term (current) use of anticoagulants; Z79.02 Long term (current) use of antithrombotics/antiplatelets
CPT/HCPCS: 0241U; 70450; 72125; 80053; 83735; 84484; 85025; 85610; 93005; 99284

== ENCOUNTER → 2023-12-12 12:38 | Outpatient (BNV) | payer MEDICARE, SELFPAY | PROVIDERS: Emergency Provider Emergency Medicine; PCP Internal Medicine; Visit Provider Internal Medicine | DX: R94.31 Abnormal electrocardiogram [ECG] [EKG] (principal) | CPT/HCPCS: 93010 ==

== ENCOUNTER 2024-01-13 18:47 | Emergency (ER) | payer MEDICARE, SELFPAY ==
--- NOTE | ~2024-01-13 | XR_ITS ---
EXAMINATION: CHEST AND PELVIC CLINICAL INFORMATION: Fall with pain COMPARISON: Chest 08/01/2023, pelvis 07/31/2023 TECHNIQUE: Single AP view of chest, single view pelvis FINDINGS: Chest: Heart size upper limits of normal. No evidence of CHF. No infiltrates, effusions or lung masses. Degenerative changes are present spine. No rib fractures are seen. Pelvis: Some mild degenerative changes are present in the hips, SI joints and pubic symphysis. No fractures are seen. Large amount of stool is present in the colon. XR/XR chest 1V IMPRESSION: 1. No acute intrathoracic disease. 2. No pelvic fracture seen. Electronically signed by: Shon Holland MD 01/13/2024 10:14 PM EDT
--- NOTE | ~2024-01-13 | CT_ITS ---
EXAMINATION: CT HEAD WITHOUT CONTRAST CT CERVICAL SPINE WITHOUT CONTRAST CLINICAL INFORMATION: Fall. History. COMPARISON: None. TECHNIQUE: Imaging was performed from the skull base to vertex without intravenous administration of contrast. In addition, helical noncontrast CT imaging was acquired through the cervical spine and source images were reviewed along with axial reconstructions and sagittal and coronal MPRs. [This CT examination was performed using dose optimization techniques as appropriate, variously including the following: *Automated exposure control *Adjustment of mA and/or kV according to patient size (this includes techniques or standardized protocols for targeted exams where dose is matched to indication/reason for exam; i.e. extremities or head) *Use of iterative reconstruction technique] DLP: 950 mGy-cm FINDINGS: HEAD: No intracranial mass, hemorrhage, or midline shift is visualized. The ventricles and sulci are proportional. No extra-axial collections are identified. The paranasal sinuses and mastoid air cells are well aerated. CERVICAL SPINE: There is no evidence of acute cervical spine fracture. Vertebral bodies remain normal in height. Cervical vertebrae have normal alignment. There is multilevel degenerative spondylosis of the cervical spine with disc height narrowing and endplate spurs and facet joint arthrosis No pre- or paravertebral soft tissue abnormality is identified. Limited assessment of the lung apices is unremarkable. CT/CT head/brain wo IV con IMPRESSION: 1. No acute intracranial pathology. 2. No CT evidence of acute cervical spine fracture or traumatic subluxation Electronically signed by: Diego Pettit MD 01/13/2024 10:20 PM EDT
--- NOTE | ~2024-01-13 | CT_ITS ---
EXAMINATION: CT HEAD WITHOUT CONTRAST CT CERVICAL SPINE WITHOUT CONTRAST CLINICAL INFORMATION: Fall. History. COMPARISON: None. TECHNIQUE: Imaging was performed from the skull base to vertex without intravenous administration of contrast. In addition, helical noncontrast CT imaging was acquired through the cervical spine and source images were reviewed along with axial reconstructions and sagittal and coronal MPRs. [This CT examination was performed using dose optimization techniques as appropriate, variously including the following: *Automated exposure control *Adjustment of mA and/or kV according to patient size (this includes techniques or standardized protocols for targeted exams where dose is matched to indication/reason for exam; i.e. extremities or head) *Use of iterative reconstruction technique] DLP: 950 mGy-cm FINDINGS: HEAD: No intracranial mass, hemorrhage, or midline shift is visualized. The ventricles and sulci are proportional. No extra-axial collections are identified. The paranasal sinuses and mastoid air cells are well aerated. CERVICAL SPINE: There is no evidence of acute cervical spine fracture. Vertebral bodies remain normal in height. Cervical vertebrae have normal alignment. There is multilevel degenerative spondylosis of the cervical spine with disc height narrowing and endplate spurs and facet joint arthrosis No pre- or paravertebral soft tissue abnormality is identified. Limited assessment of the lung apices is unremarkable. CT/CT cervical spine wo IV con IMPRESSION: 1. No acute intracranial pathology. 2. No CT evidence of acute cervical spine fracture or traumatic subluxation Electronically signed by: Diego Pettit MD 01/13/2024 10:20 PM EDT
--- NOTE | ~2024-01-13 | XR_ITS ---
EXAMINATION: CHEST AND PELVIC CLINICAL INFORMATION: Fall with pain COMPARISON: Chest 08/01/2023, pelvis 07/31/2023 TECHNIQUE: Single AP view of chest, single view pelvis FINDINGS: Chest: Heart size upper limits of normal. No evidence of CHF. No infiltrates, effusions or lung masses. Degenerative changes are present spine. No rib fractures are seen. Pelvis: Some mild degenerative changes are present in the hips, SI joints and pubic symphysis. No fractures are seen. Large amount of stool is present in the colon. XR/XR pelvis 1-2V IMPRESSION: 1. No acute intrathoracic disease. 2. No pelvic fracture seen. Electronically signed by: Shon Holland MD 01/13/2024 10:14 PM EDT
[2024-01-13 19:08] VITALS: BP 132/82; PULSE 67; RESP 17; TEMP 36.7; O2SAT 96
[2024-01-13 19:10] VITALS: BP 116/78; PULSE 67; O2SAT 96
[2024-01-13 19:37] VITALS: BP 129/67; PULSE 60; RESP 16; TEMP 36.7; O2SAT 98; BMI 21.3
--- NOTE | 2024-01-13 20:38 | ECG_ITS ---
Test Reason : FALL Blood Pressure : / mmHG Vent. Rate : 058 BPM Atrial Rate : 058 BPM P-R Int : 204 ms QRS Dur : 090 ms QT Int : 434 ms P-R-T Axes : 050 -11 066 degrees QTc Int : 426 ms Sinus bradycardia Otherwise normal ECG When compared with ECG of 12-DEC-2023 12:45, Vent. rate has decreased BY 31 BPM Referred By: Art Young Electronically Signed By:HEATHER LOPEZ
--- NOTE | 2024-01-13 20:40 | ED.GENADULT ---
HPI - General Adult General Chief complaint: Fall Stated complaint: WITNESSED FALL + HEADSTRIKE Time Seen by Provider: 01/13/24 19:35 Source: family Mode of arrival: EMS History of Present Illness ED Provider: Hector URIBE narrative: 83-year-old history of dementia and hypertension presenting for fall. Patient was going to sit in a chair and missed it landing on her and hitting the back of her head on the ground. There was no LOC and patient is not on any blood thinners. Patient remained on the ground with family at her side until EMS arrived. Patient is not a reliable historian and I received a history from her daughter who was present during the fall. Her daughter states that patient is at baseline mental status Related Data Home Medications ?Medication ?Instructions ?Recorded ?Confirmed levothyroxine 88 mcg tablet 1 tab PO DAILY@0600 04/22/21 08/16/23 (Synthroid) pravastatin 40 mg tablet 1 tab PO DAILY 04/22/21 08/16/23 trazodone 50 mg tablet 75 mg PO BEDTIME 12/03/21 08/16/23 peg 400-propylene glycol 0.4 %-0.3 1 drp ophthalmic (eye) BID PRN Dry 03/03/23 08/16/23 % eye drops (Systane (propylene Eyes glycol)) sertraline 100 mg tablet 100 mg PO DAILY 03/03/23 08/16/23 alprazolam 0.25 mg tablet 0.25 mg PO BID PRN Anxiety 08/15/23 08/16/23 amlodipine 5 mg tablet 2.5 mg PO DAILY 08/15/23 08/16/23 ketorolac 0.5 % eye drops 1 drp ophthalmic (eye) QID PRN Dry 08/15/23 08/16/23 Eyes risperidone 0.25 mg tablet 0.25 mg PO BID 08/15/23 08/16/23 rivastigmine 9.5 mg/24 hour 1 patch transdermal DAILY 08/15/23 08/16/23 transdermal patch Previous Rx's ?Medication ?Instructions ?Recorded cephalexin 500 mg capsule 500 mg PO BID 7 days #14 caps 08/15/23 rivaroxaban 15 mg (42)-20 mg (9) See Rx Instructions PO .COMPLEX 08/25/23 tablets in a starter pack #51 ea Allergies Allergy/AdvReac Type Severity Reaction Status Date / Time No Known Allergies Allergy Verified 01/13/24 19:42 Review of Systems Review of Systems: Patient has dementia and is unable to provide this information [facility] Past Medical History Attestation statement: The following information was validated with the patient. [facility] Narrative: Dementia, hypertension Source: obtained from family Medical History Major neurocognitive disorder Ankle pain, right Dementia Anxiety DVT (deep venous thrombosis) HLD (hyperlipidemia) HTN (hypertension) Social History Social History Household Members: Other Household Members Other:: [place] Housing: Condominium Do you presently have visiting nurse or other home services: No Unable to assess alcohol history related to: Unable to respond Alcohol intake: former Patient Tobacco Use Status: Former Tobacco user Advance Directives: Yes Advance Directives on File: Yes Advance Directives Date on File: 04/23/21 Do you have a plan to hurt others: No Plan service: No Current occupational status: retired Physical Exam ED Vital Signs: Vital Signs - 24 hr 01/13/24 19:08 01/13/24 19:37 Temperature 98.0 F 98.0 F Pulse Rate 67 60 Respiratory Rate 17 16 Blood Pressure 132/82 129/67 Pulse Oximetry 96 98 Oxygen Delivery Method Room Air Room Air BMI result Body Mass Index 21.3 Small contusion to back of patient's head with no active bleeding; no bruising behind ears or to her eyes No facial trauma Midline T-spine tenderness Chest wall stable and nontender; lungs clear to auscultation; normal S1-S2 regular rate and rhythm Abdomen is soft nontender nondistended Patient moving upper and lower extremities appropriate Medical Decision Making Medical Decision Making [facility] Narrative: 83-year-old presenting for fall At this time I do not have any concern for significant head bleed or neck trauma however I will obtain head and neck imaging to rule out these diagnoses I do not suspect that this was cardiac event as patient's daughter witnessed the fall and states that patient has simply missed the chair when going to sit down the patient has no cardiorespiratory symptom I am not concerned for any underlying infection I do not suspect patient has a pelvic fracture however I will obtain an x-ray and will gait test prior to discharge I signed the patient out to night provider Differential Diagnosis Differential Diagnoses: The differential diagnosis associated with the presentation includes Head contusion Rule out head bleed, significant external Lab Data 01/13/24 21:00 01/13/24 21:00 Labs: Lab Results 01/13/24 Range/Units 21:00 WBC 8.0 (4.8-10.8) X10*3/uL RBC 3.79 L (4.20-5.50) X10*6/uL Hgb 11.0 L (12.0-16.0) g/dl Hct 33.2 L (37.0-47.0) % MCV 87.6 (80.0-98.0) fL MCH 29.0 (27.0-33.0) pg MCHC 33.1 (31.0-35.0) g/dl RDW 13.5 (11.0-16.0) % Plt Count 320 (160-400) X10*3/uL MPV 10.0 (9.4-12.3) fL Immature Gran % (Auto) 0.5 H (0.0-0.4) % Neut % (Auto) 67.7 (45-73) % Lymph % (Auto) 16.6 L (20-40) % [place] % (Auto) 8.5 (2-11) % Eos % (Auto) 5.9 H (0-4) % Baso % (Auto) 0.8 (0-2) % Lymph # (Auto) 1.3 (1.2-4.9) X10*3/uL [place] # (Auto) 0.7 (0.1-1.2) X10*3/uL Eos # (Auto) 0.5 H (0.0-0.4) X10*3/uL Baso # (Auto) 0.1 (0.0-0.2) X10*3/uL Abs Immat Gran (auto) 0.04 H (0.00-0.03) X10*3/uL Absolute Neuts (auto) 5.4 (2.0-8.3) x10*3/uL Absolute Nucleated RBC 0.000 (0.0-0.012) X10*3/uL Nucleated RBC % (auto) 0.0 (0.0-0.2) /100WBC Discharge Plan Discharge Clinical Impression: Head pain Prescriptions: No Action pravastatin 40 mg tablet 1 tab PO DAILY levothyroxine [Synthroid] 88 mcg tablet 1 tab PO DAILY@0600 trazodone 50 mg tablet 75 mg PO BEDTIME alprazolam 0.25 mg Tablet 0.25 mg PO BID PRN (Reason: Anxiety) rivastigmine 9.5 mg/24 hour Patch 24 Hour 1 patch TRANSDERMAL DAILY ketorolac 0.5 % Drops 1 drp OPHTHALMIC (EYE) QID PRN (Reason: Dry Eyes) amlodipine 5 mg tablet 2.5 mg PO DAILY Protocol: Hold for SBP< HOLD for SBP < : 90 risperidone 0.25 mg tablet 0.25 mg PO BID cephalexin 500 mg capsule 500 mg PO BID 7 Days Qty: 14 0RF sertraline 100 mg tablet 100 mg PO DAILY Systane (propylene glycol) 0.4-0.3 % Drops 1 drp OPHTHALMIC (EYE) BID PRN (Reason: Dry Eyes) rivaroxaban 15 mg (42)- 20 mg (9) tablets,dose pack See Rx Instructions .ROUTE .COMPLEX Qty: 51 0RF Rx Instructions: take one-15 mg tablet twice daily for 21 days, then one-20 mg tablet once daily; must take with meal/food Print Language: Burkinan
[2024-01-13 21:04] LABS: MANUAL DIFF FLAG NO
[2024-01-13 21:05] LABS: Basophils Absolute Auto 0.1 X10*3/uL (0.0-0.2); Basophils Percent Auto 0.8 % (0-2); Eosinophils Absolute Auto 0.5 X10*3/uL (0.0-0.4); Eosinophils Percent Auto 5.9 % (0-4); Hematocrit 33.2 % (37.0-47.0); Imm Gran Abs Auto 0.04 X10*3/uL (0.00-0.03); Imm Gran Pct Auto 0.5 % (0.0-0.4); Lymphocytes Absolute Auto 1.3 X10*3/uL (1.2-4.9); Lymphocytes Percent Auto 16.6 % (20-40); Mean Corpuscular HGB Conc 33.1 g/dl (31.0-35.0); Mean Corpuscular Volume 87.6 fL (80.0-98.0); Monocytes Absolute Auto 0.7 X10*3/uL (0.1-1.2); Monocytes Percent Auto 8.5 % (2-11); Neutrophils Absolute Auto 5.4 x10*3/uL (2.0-8.3); Neutrophils Percent Auto 67.7 % (45-73); Platelet Count 320 X10*3/uL (160-400); Red Blood Count 3.79 X10*6/uL (4.20-5.50); Red Cell Distribution Width 13.5 % (11.0-16.0)
[2024-01-13 21:20] LABS: Alanine Aminotransferase 7 U/L (0-31); Albumin Level 3.4 g/dL (3.5-5.0); Alkaline Phosphatase 59 U/L (39-117); Anion Gap 11 (12-20); Aspartate Amino Transferase 13 U/L (5-31); Bilirubin Total 0.4 mg/dL (0.0-1.0); Blood Urea Nitrogen 22 mg/dL (9-16); Carbon Dioxide 26 mmol/L (22-29); Chloride 107 mmol/L (96-108); Estimated Glomerular Filt Rate > 60; Glucose Random 106 mg/dL (60-115); Potassium 3.7 mmol/L (3.3-5.1); Sodium 140 mmol/L (135-145); Total Protein 5.9 g/dL (6.5-8.0)
[2024-01-13 22:58] VITALS: BP 147/75; PULSE 101; RESP 17; TEMP 36.9; O2SAT 99
[2024-01-14 00:05] VITALS: BP 154/77; PULSE 56; RESP 14; TEMP 36.7; O2SAT 96
== END 2024-01-14 00:42 | disposition home or self-care (01) ==
PROVIDERS: Emergency Provider Student in an Organized Health Care Education/Training Program; PCP Internal Medicine
DX: R51.9 Headache, unspecified (principal); Z91.81 History of falling; I10 Essential (primary) hypertension; E78.5 Hyperlipidemia, unspecified; F03.90 Unspecified dementia, unspecified severity, without behavioral disturbance, psychotic disturbance, mood disturbance, and anxiety; Z86.718 Personal history of other venous thrombosis and embolism; Z87.891 Personal history of nicotine dependence
CPT/HCPCS: 36415; 70450; 71045; 72125; 72170; 80053; 85025; 93005; 99284

== ENCOUNTER 2024-02-10 14:03 | Emergency (ER) | payer MEDICARE, SELFPAY ==
--- NOTE | ~2024-02-10 | CT_ITS ---
EXAMINATION: CT CERVICAL SPINE WITHOUT CONTRAST CLINICAL INFORMATION: Pain and injury COMPARISON: Prior study dated 01/13/2024 TECHNIQUE: Thin section axial imaging with sagittal and coronal reformats. This CT examination was performed using dose optimization techniques as appropriate, variously including the following: *Automated exposure control *Adjustment of mA and/or kV according to patient size (this includes techniques or standardized protocols for targeted exams where dose is matched to indication/reason for exam; i.e. extremities or head) *Use of iterative reconstruction technique DLP: 204 mGy-cm FINDINGS: There is disc space narrowing and posterior spurring observed C5-6 and C6-7 but no fracture or destructive process. No encroachment on the spinal canal. Prevertebral soft tissues normal. CT/CT cervical spine wo IV con IMPRESSION: Unremarkable examination. Fleischner guidelines were followed. Electronically signed by: Davy Mo MD 02/10/2024 04:22 PM EDT
--- NOTE | ~2024-02-10 | CT_ITS ---
EXAMINATION: CT HEAD WITHOUT CONTRAST CLINICAL INFORMATION: Pain. COMPARISON: 01/13/2024 TECHNIQUE: Contiguous axial imaging was performed from the skull base to vertex without intravenous administration of contrast. This CT examination was performed using dose optimization techniques as appropriate, variously including the following: *Automated exposure control *Adjustment of mA and/or kV according to patient size (this includes techniques or standardized protocols for targeted exams where dose is matched to indication/reason for exam; i.e. extremities or head) *Use of iterative reconstruction technique DLP: 658 mGy-cm FINDINGS: There is prominence to the sulci and ventricles with moderate deep white matter gliosis. No evidence of intra or extra-axial fluid collection or hemorrhage, mass, or mass effect. The calvarium is intact. No fracture. CT/CT head/brain wo IV con IMPRESSION: No acute intracranial pathology. Electronically signed by: Davy Mo MD 02/10/2024 04:10 PM EDT
--- NOTE | ~2024-02-10 | XR_ITS ---
EXAMINATION: XR HIP, LEFT CLINICAL INFORMATION: Pain injury COMPARISON: X-ray of the pelvis December 2023 TECHNIQUE: Two views of the left hip. FINDINGS: No fracture. Alignment is anatomic. Hip joint space is maintained. Soft tissues are unremarkable. XR/XR hip LT w PEL1V IMPRESSION: Normal left hip. Electronically signed by: Leander Noble MD 02/10/2024 03:14 PM EDT RP
[2024-02-10 14:16] VITALS: BP 118/74; PULSE 65; O2SAT 98
--- NOTE | 2024-02-10 14:16 | ED_ITS ---
HPI - General Adult General Chief complaint: Fall Stated complaint: FALL ON BUTTOCK,L HIP PAIN,+CCOLLAR PER EMS Time Seen by Provider: 02/10/24 14:14 Source: patient, family (patient's daughter provided additional history and confirmed the history provided by EMS) and EMS Mode of arrival: EMS Limitations: physical limitation (patient has a history of dementia) History of Present Illness ED Provider: Jenny Smart PA-C HPI narrative: Patient is a 83 year old assigned female at with a history of dementia and HTN presenting to the emergency department today after a fall. [facility] staff states that the patient was walking when they heard a loud sound and found the patient sitting on the floor. Patient states that her left hip hurts but denies any other complaints. Relieving factors: none Exacerbating factors: none Associated symptoms: denies other symptoms Treatments prior to arrival: none Related Data Home Medications ?Medication ?Instructions ?Recorded ?Confirmed levothyroxine 88 mcg tablet 1 tab PO DAILY@0600 04/22/21 08/16/23 (Synthroid) pravastatin 40 mg tablet 1 tab PO DAILY 04/22/21 08/16/23 trazodone 50 mg tablet 75 mg PO BEDTIME 12/03/21 08/16/23 peg 400-propylene glycol 0.4 %-0.3 1 drp ophthalmic (eye) BID PRN Dry 03/03/23 08/16/23 % eye drops (Systane (propylene Eyes glycol)) sertraline 100 mg tablet 100 mg PO DAILY 03/03/23 08/16/23 alprazolam 0.25 mg tablet 0.25 mg PO BID PRN Anxiety 08/15/23 08/16/23 amlodipine 5 mg tablet 2.5 mg PO DAILY 08/15/23 08/16/23 ketorolac 0.5 % eye drops 1 drp ophthalmic (eye) QID PRN Dry 08/15/23 08/16/23 Eyes risperidone 0.25 mg tablet 0.25 mg PO BID 08/15/23 08/16/23 rivastigmine 9.5 mg/24 hour 1 patch transdermal DAILY 08/15/23 08/16/23 transdermal patch Previous Rx's ?Medication ?Instructions ?Recorded cephalexin 500 mg capsule 500 mg PO BID 7 days #14 caps 08/15/23 rivaroxaban 15 mg (42)-20 mg (9) See Rx Instructions PO .COMPLEX 08/25/23 tablets in a starter pack #51 ea Allergies Allergy/AdvReac Type Severity Reaction Status Date / Time No Known Allergies Allergy Verified 02/10/24 14:43 Review of Systems 2 Constitutional: Constitutional: Reports no additional constitutional complaints, Denies chills, Denies fever(s) and Denies night sweats Eyes: Eyes: Reports no additional eye complaints, Denies blurry vision, Denies change in vision, Denies diplopia, Denies eye discharge, Denies loss of vision and Denies eye pain ENT: Denies dizziness Cardiovascular: Cardiovascular: Reports no additional cardiovascular complaints, Denies chest pain, Denies lightheadedness, Denies Loss of Consciousness and Denies dyspnea Respiratory: Respiratory: Reports no additional respiratory complaints and Denies dyspnea Gastrointestinal: Gastrointestinal: Reports no additional gastrointestinal complaints, Denies abdominal pain, Denies melena, Denies hematochezia, Denies change in bowel habits and Denies change in stool character Genitourinary: Genitourinary: Denies hematuria, Denies urinary frequency, Denies dysuria, Denies urinary incontinence, Denies urinary hesitancy and Denies urinary urgency Musculoskeletal: Musculoskeletal: Reports no additional musculoskeletal complaints, Denies numbness and Denies tingling Comments: left hip pain Neurologic: Denies dizziness, Denies loss of vision, Denies numbness and Denies tingling Psychiatric: Psychiatric: Reports no additional psychiatric complaints Endocrine: Endocrine: Reports no additional endocrine complaints Hematologic/Lymphatic: Hematologic/Lymphatic: Reports no additional hematologic/lymphatic complaints Allergic/Immunologic: Allergic/Immunologic: Reports no additional allergic/immunologic complaints [facility] Past Medical History Attestation statement: The following information was validated with the patient. (all information validated with the patient's daughter) Source: old records reviewed, obtained from family (patient's daughter provided additional history and confirmed the history provided by EMS) and nursing notes reviewed Medical History Major neurocognitive disorder Ankle pain, right Dementia Anxiety DVT (deep venous thrombosis) HLD (hyperlipidemia) HTN (hypertension) Social History Social History Household Members: Other Household Members Other:: [place] in [place] Housing: Condominium Do you presently have visiting nurse or other home services: No Unable to assess alcohol history related to: Unable to respond Alcohol intake: former Patient Tobacco Use Status: Former Tobacco user Advance Directives: Yes Advance Directives on File: Yes Advance Directives Date on File: 04/23/21 Do you have a plan to hurt others: No Plan service: No Current occupational status: retired Physical Exam ED Vital Signs: Vital Signs - 24 hr 02/10/24 14:40 Temperature 98.2 F Pulse Rate 64 Respiratory Rate 16 Blood Pressure 143/75 H Pulse Oximetry 97 Oxygen Delivery Method Room Air BMI result Body Mass Index 21.1 Const General: cooperative, no acute distress, alert and awake Nutritional Appearance: well nourished Orientation/consciousness: oriented to person Limitations: no limitations HENMT Head: Yes normal to inspection and Yes atraumatic Ears: hearing grossly normal bilaterally and external ears normal General nose exam: Normal external nose present, no nasal discharge noted and no epistaxis Face and sinus: Yes normal facial exam, No abrasion and No laceration Mouth: Normal oral and palatal mucosa present, no drooling and no muffled voice Eyes General: appearance normal, both eyes and all related structures Periorbital: periorbital findings normal Eyelids: Yes eyelids normal Conjunctivae: conjunctivae normal Pupils: Equal, round and reactive pupils present EOM: EOMs intact bilaterally Neck Neck: Yes normal visual inspection, Yes full ROM and Yes no lymphadenopathy Chest Chest palpation & inspection: normal inspection of the chest Resp Effort & Inspection: normal respiratory effort and able to speak in complete sentences GI Inspection: Yes normal to inspection Neuro General: oriented to person and moves all extremities Cranial nerves: Yes Equal, round and reactive pupils present Cognition (Neuro): normal cognition Extrem General: Yes normal to inspection, Yes full ROM and Yes capillary refill normal Psych Appearance: grossly normal Mental Status: mental status grossly normal Affect: normal affect Attitude: cooperative Thought process: Normal thought process present Thought content: Normal thought content present Insight: Good insight present (Psych) Medical Decision Making Medical Decision Making MDM Narrative: Patient is an 83 year old assigned female at with a history of dementia and HTN presenting to the emergency department today with left hip pain after a fall. Patient's physical exam was consistent with the patient's baseline. Patient's blood work was unremarkable. Patient's left hip x-ray, head CT, and c- spine CT showed no acute process. I explained my physical exam findings as well as all test results to the patient and the patient's daughter. I answered all questions asked by the patient and the patient's daughter. I stressed the importance of the patient taking her medication as directed (either prescribed or as the over the counter packaging recommends). I stressed the importance of the patient following up with her primary care provider. I stressed the importance of the patient returning to the emergency department immediately if her symptoms were to worsen or if she were to develop any dizziness, shortness of breath, difficulty breathing, chest pain, blurry vision, loss of vision, nausea, vomiting, abdominal pain, fever, chills, back pain, or any other complaints. Patient and the patient's daughter verbalized agreement and understanding with this treatment plan and discharge. Differential Diagnosis Differential Diagnoses: The differential diagnosis associated with the presentation includes Fall Admission/Observation Consideration of admission/observation: Escalation of care including admission/observation considered Patient would have been admitted to the hospital had her work up had any findings where hospital admission was appropriate and her clinical presentation warranted hospital admission. Lab Data [facility] Lab Attestation statement: I reviewed the patient's lab results. My interpretation of these results are in the [facility] Rationale portion of this note. 02/10/24 14:56 02/10/24 14:56 Labs: Lab Results 02/10/24 Range/Units 14:56 WBC 7.5 (4.8-10.8) X10*3/uL RBC 4.26 (4.20-5.50) X10*6/uL Hgb 12.3 (12.0-16.0) g/dl Hct 37.2 (37.0-47.0) % MCV 87.3 (80.0-98.0) fL MCH 28.9 (27.0-33.0) pg MCHC 33.1 (31.0-35.0) g/dl RDW 14.1 (11.0-16.0) % Plt Count 331 (160-400) X10*3/uL MPV 9.5 (9.4-12.3) fL Immature Gran % (Auto) 0.3 (0.0-0.4) % Neut % (Auto) 68.6 (45-73) % Lymph % (Auto) 16.4 L (20-40) % Hettinger % (Auto) 7.9 (2-11) % Eos % (Auto) 6.3 H (0-4) % Baso % (Auto) 0.5 (0-2) % Lymph # (Auto) 1.2 (1.2-4.9) X10*3/uL Hettinger # (Auto) 0.6 (0.1-1.2) X10*3/uL Eos # (Auto) 0.5 H (0.0-0.4) X10*3/uL Baso # (Auto) 0.0 (0.0-0.2) X10*3/uL Abs Immat Gran (auto) 0.02 (0.00-0.03) X10*3/uL Absolute Neuts (auto) 5.1 (2.0-8.3) x10*3/uL Absolute Nucleated RBC 0.000 (0.0-0.012) X10*3/uL Nucleated RBC % (auto) 0.0 (0.0-0.2) /100WBC Sodium 143 (135-145) mmol/L Potassium 3.7 (3.3-5.1) mmol/L Chloride 105 (96-108) mmol/L Carbon Dioxide 30 H (22-29) mmol/L Anion Gap 12 (12-20) BUN 19 H (9-16) mg/dL Creatinine 0.85 (0.5-1.4) mg/dL Estim Creat Clear Calc 41.5 Estimated GFR > 60 Random Glucose 117 H (60-115) mg/dL Calcium 9.3 (8.4-10.2) mg/dL Magnesium 2.1 (1.6-2.6) mg/dL Total Bilirubin 0.4 (0.0-1.0) mg/dL AST 13 (5-31) U/L ALT 6 (0-31) U/L Alkaline Phosphatase 54 (39-117) U/L Total Protein 6.3 L (6.5-8.0) g/dL Albumin 3.7 (3.5-5.0) g/dL Independent Interpretation I performed an independent interpretation of an: Plain X-Ray and CT Scan Interpretation: My interpretation is in agreement with the radiologist's impression of these imaging studies. L EXAMINATION: CT CERVICAL SPINE WITHOUT CONTRAST CLINICAL INFORMATION: Pain and injury COMPARISON: Prior study dated 01/13/2024 TECHNIQUE: Thin section axial imaging with sagittal and coronal reformats. This CT examination was performed using dose optimization techniques as appropriate, variously including the following: *Automated exposure control *Adjustment of mA and/or kV according to patient size (this includes techniques or standardized protocols for targeted exams where dose is matched to indication/reason for exam; i.e. extremities or head) *Use of iterative reconstruction technique DLP: 204 mGy-cm FINDINGS: There is disc space narrowing and posterior spurring observed C5-6 and C6-7 but no fracture or destructive process. No encroachment on the spinal canal. Prevertebral soft tissues normal. CT/CT cervical spine wo IV con IMPRESSION: Unremarkable examination. Fleischner guidelines were followed. Electronically signed by: Davy Mo MD 02/10/2024 04:22 PM EDT Dictated By: Davy Mo MD Signed By: Electronically signed by Davy Mo MD 02/10/24 1622 EXAMINATION: XR HIP, LEFT CLINICAL INFORMATION: Pain injury COMPARISON: X-ray of the pelvis December 2023 TECHNIQUE: Two views of the left hip. FINDINGS: No fracture. Alignment is anatomic. Hip joint space is maintained. Soft tissues are unremarkable. XR/XR hip LT w PEL1V IMPRESSION: Normal left hip. Electronically signed by: Leander Noble MD 02/10/2024 03:14 PM EDT Dictated By: Leander Noble MD Signed By: Electronically signed by Leander Noble MD 02/10/24 1514 EXAMINATION: CT HEAD WITHOUT CONTRAST CLINICAL INFORMATION: Pain. COMPARISON: 01/13/2024 TECHNIQUE: Contiguous axial imaging was performed from the skull base to vertex without intravenous administration of contrast. This CT examination was performed using dose optimization techniques as appropriate, variously including the following: *Automated exposure control *Adjustment of mA and/or kV according to patient size (this includes techniques or standardized protocols for targeted exams where dose is matched to indication/reason for exam; i.e. extremities or head) *Use of iterative reconstruction technique DLP: 658 mGy-cm FINDINGS: There is prominence to the sulci and ventricles with moderate deep white matter gliosis. No evidence of intra or extra-axial fluid collection or hemorrhage, mass, or mass effect. The calvarium is intact. No fracture. CT/CT head/brain wo IV con IMPRESSION: No acute intracranial pathology. Electronically signed by: Davy Mo MD 02/10/2024 04:10 PM EDT RP Dictated By: Davy Mo MD Signed By: Electronically signed by Davy Mo MD 02/10/24 1610 Radiology Impression Discussion of test interpretation with radiology: I have reviewed the radiologist's reading. Independent Historian Clinical information obtained from an independent historian. History obtained from or confirmed by: EMS (EMS provided additional history) and Other (patient's daughter provided additional history) Discharge Plan Discharge Clinical Impression: Fall Patient Disposition: Home, Self-Care Instructions: Fall Prevention for Older Adults (ED) Additional Instructions: Follow up with your primary care provider. Return to the emergency department immediately if your symptoms worsen or if you develop any dizziness, shortness of breath, difficulty breathing, chest pain, blurry vision, loss of vision, nausea, vomiting, abdominal pain, fever, chills, back pain, or any other complaints. Prescriptions: No Action pravastatin 40 mg tablet 1 tab PO DAILY levothyroxine [Synthroid] 88 mcg tablet 1 tab PO DAILY@0600 trazodone 50 mg tablet 75 mg PO BEDTIME alprazolam 0.25 mg Tablet 0.25 mg PO BID PRN (Reason: Anxiety) rivastigmine 9.5 mg/24 hour Patch 24 Hour 1 patch TRANSDERMAL DAILY ketorolac 0.5 % Drops 1 drp OPHTHALMIC (EYE) QID PRN (Reason: Dry Eyes) amlodipine 5 mg tablet 2.5 mg PO DAILY Protocol: Hold for SBP< HOLD for SBP < : 90 risperidone 0.25 mg tablet 0.25 mg PO BID cephalexin 500 mg capsule 500 mg PO BID 7 Days Qty: 14 0RF sertraline 100 mg tablet 100 mg PO DAILY Systane (propylene glycol) 0.4-0.3 % Drops 1 drp OPHTHALMIC (EYE) BID PRN (Reason: Dry Eyes) rivaroxaban 15 mg (42)- 20 mg (9) tablets,dose pack See Rx Instructions .ROUTE .COMPLEX Qty: 51 0RF Rx Instructions: take one-15 mg tablet twice daily for 21 days, then one-20 mg tablet once daily; must take with meal/food Referrals: [facility] Family Medicine [Provider Group] (Call to establish and follow up with a primary care provider. If you already have a primary care provider, please follow up with them.) [facility] Primary CareJacey [Provider Group] (Call to establish and follow up with a primary care provider. If you already have a primary care provider, please follow up with them.) [facility] Primary Care,David [Provider Group] (Call to establish and follow up with a primary care provider. If you already have a primary care provider, please follow up with them.) Print Language: Syriac
[2024-02-10 14:40] VITALS: BP 143/75; PULSE 64; RESP 16; TEMP 36.8; O2SAT 97; BMI 21.1
[2024-02-10 15:00] LABS: MANUAL DIFF FLAG NO
[2024-02-10 15:02] LABS: Basophils Percent Auto 0.5 % (0-2); Eosinophils Absolute Auto 0.5 X10*3/uL (0.0-0.4); Eosinophils Percent Auto 6.3 % (0-4); Hematocrit 37.2 % (37.0-47.0); Hemoglobin 12.3 g/dl (12.0-16.0); Imm Gran Abs Auto 0.02 X10*3/uL (0.00-0.03); Imm Gran Pct Auto 0.3 % (0.0-0.4); Lymphocytes Absolute Auto 1.2 X10*3/uL (1.2-4.9); Lymphocytes Percent Auto 16.4 % (20-40); Mean Corpuscular HGB Conc 33.1 g/dl (31.0-35.0); Mean Corpuscular Hemoglobin 28.9 pg (27.0-33.0); Mean Corpuscular Volume 87.3 fL (80.0-98.0); Mean Platelet Volume 9.5 fL (9.4-12.3); Monocytes Absolute Auto 0.6 X10*3/uL (0.1-1.2); Monocytes Percent Auto 7.9 % (2-11); Neutrophils Absolute Auto 5.1 x10*3/uL (2.0-8.3); Neutrophils Percent Auto 68.6 % (45-73); Platelet Count 331 X10*3/uL (160-400); Red Blood Count 4.26 X10*6/uL (4.20-5.50); Red Cell Distribution Width 14.1 % (11.0-16.0); White Blood Count 7.5 X10*3/uL (4.8-10.8)
[2024-02-10 15:42] LABS: Alanine Aminotransferase 6 U/L (0-31); Albumin Level 3.7 g/dL (3.5-5.0); Alkaline Phosphatase 54 U/L (39-117); Anion Gap 12 (12-20); Aspartate Amino Transferase 13 U/L (5-31); Bilirubin Total 0.4 mg/dL (0.0-1.0); Blood Urea Nitrogen 19 mg/dL (9-16); Calcium 9.3 mg/dL (8.4-10.2); Carbon Dioxide 30 mmol/L (22-29); Chloride 105 mmol/L (96-108); Creatinine Clr Calc Pharmacy 41.5; Estimated Glomerular Filt Rate > 60; Glucose Random 117 mg/dL (60-115); Magnesium 2.1 mg/dL (1.6-2.6); Potassium 3.7 mmol/L (3.3-5.1); Sodium 143 mmol/L (135-145); Total Protein 6.3 g/dL (6.5-8.0)
[2024-02-10 18:57] VITALS: BP 152/94; PULSE 71; RESP 16; TEMP 36.4; O2SAT 97
--- NOTE | 2024-02-10 20:20 | PC.NURSE ---
son requesting to drive the patient back to her residence himself as it has been a long time waiting for the ambulance and we were just made aware of the ETA being pushed back. Per charge aide recommendation RN called the [facility] and spoke with one of the CNAs who reports there are no nurses overnight and when presented with the question as to whether or not he could bring th patient back himself she said she would need to call her [employer] director to get approval. plan is for her to reach out to [employer] director and the director to call the son for approval.
--- NOTE | 2024-02-10 21:12 | PC.NURSE ---
RN attempted to help the son get the pt in the car but was unsuccessful due to height of truck
[2024-02-10 23:29] VITALS: BP 152/94; PULSE 71; RESP 16; TEMP 36.4; O2SAT 97
== END 2024-02-10 22:05 | disposition home or self-care (01) ==
PROVIDERS: Physician Assistant Medical; Emergency Provider Student in an Organized Health Care Education/Training Program
DX: M25.552 Pain in left hip (principal); Z91.81 History of falling; I10 Essential (primary) hypertension; E78.5 Hyperlipidemia, unspecified; F03.90 Unspecified dementia, unspecified severity, without behavioral disturbance, psychotic disturbance, mood disturbance, and anxiety; Z86.718 Personal history of other venous thrombosis and embolism; Z87.891 Personal history of nicotine dependence; Z79.899 Other long term (current) drug therapy; Z79.01 Long term (current) use of anticoagulants; Z79.02 Long term (current) use of antithrombotics/antiplatelets
CPT/HCPCS: 36415; 70450; 72125; 73502; 80053; 83735; 85025; 99283; 99284

== ENCOUNTER 2024-02-12 17:04 | Emergency (ER) | payer MEDICARE, SELFPAY ==
--- NOTE | ~2024-02-12 | CT_ITS ---
EXAMINATION: CT brain and CT cervical spine without contrast. Right hip x-ray. CLINICAL INDICATION: Fall. COMPARISON: CT brain 02/10/2024. TECHNIQUE: 5 mm thin axial and reformatted to millimeters thin sagittal and coronal images of brain were obtained. Subsequently axial 3 mm and reformatted 2 mm thin sagittal and coronal images of cervical spine were obtained. DLP 901. This CT examination was performed using dose optimization technique as appropriate, variously including the following: Automated exposure control Adjustment of MA and/or KV according to patient size(this includes techniques or standardized protocols for targeted exams where dose is matched to indication/reason for exam; extremities or head. Use of iterative reconstruction techniques. Right hip and femur 3 views. FINDINGS: Right hip and AP pelvis: There is normal symmetry of bilateral hip joints and SI joints without any visible fracture or bony abnormality. There is focal calcification in the right pelvis. Moderate stool and gas seen in colon. AP and frog-leg views right hip reveals no fracture, dislocation or bony erosive changes. The soft tissues are normal. Brain: There is a small area of hypodensity in left centrum semiovale frontal lobe slightly more pronounced than the last exam suggestive of lacunar infarct when compared to 02/10/2024 and 01/05/2024. There is no acute intra-axial, extracerebral bleed, masses, collection midline shift. There is bibasilar ganglia calcifications. The lateral ventricles are somewhat symmetrical but enlarged. The cortical sulci are also enlarged. Bone windows reveal no calvarial abnormality. No scalp soft tissue abnormality. Cervical spine: There is maintained cervical lordosis. There is loss of C5-6 disc height with mild posterior spondylosis.. Excites are normal. The craniovertebral junction and the C1-C2 alignment is normal. No visible acute fracture, dislocation or subluxation seen. The prevertebral and paravertebral soft tissues are normal. Visualized bilateral TM joints, mandible laryngeal cartilages endotracheal airway are normal. The lung apices are clear. CT/CT cervical spine wo IV con IMPRESSION: 1. No acute intracranial process seen. 2. There is a small area of hypodensity in left centrum semiovale frontal lobe slightly more pronounced than the last exam suggestive of lacunar infarct. 3. There is no acute fracture, dislocation or subluxation in cervical spine. There is loss of C5-6 disc height with mild posterior spondylosis. 4. Unremarkable right hip and AP pelvis exam. Electronically signed by: Mayito Redmond MD 02/12/2024 08:36 PM EDT RP
[2024-02-12 17:30] VITALS: BP 110/70; BP 126/80; PULSE 72; PULSE 83; RESP 18; TEMP 36.7; O2SAT 97; O2SAT 98; BMI 23.3
--- NOTE | 2024-02-12 17:36 | PC.NURSE ---
pt awake, alert to self only, can answer minimal questions, vitals stable, has no complaints of pain but stated she was cold- pt given warm blankets for comfort, fall precautions in tact
--- NOTE | 2024-02-12 18:31 | ECG_ITS ---
Test Reason : PAIN Blood Pressure : / mmHG Vent. Rate : 073 BPM Atrial Rate : 073 BPM P-R Int : 184 ms QRS Dur : 098 ms QT Int : 398 ms P-R-T Axes : 057 -10 068 degrees QTc Int : 438 ms Normal sinus rhythm Minimal voltage criteria for LVH, may be normal variant ( [place] product ) Septal infarct , age undetermined Abnormal ECG When compared with ECG of 13-JAN-2024 20:46, No significant change was found Referred By: Víctor Gillespie Electronically Signed By:HEATHER LOPEZ
[2024-02-12 19:47] LABS: MANUAL DIFF FLAG NO
[2024-02-12 19:50] LABS: Basophils Percent Auto 0.4 % (0-2); Eosinophils Absolute Auto 0.3 X10*3/uL (0.0-0.4); Eosinophils Percent Auto 3.8 % (0-4); Hemoglobin 12.3 g/dl (12.0-16.0); Imm Gran Abs Auto 0.04 X10*3/uL (0.00-0.03); Imm Gran Pct Auto 0.5 % (0.0-0.4); Lymphocytes Absolute Auto 1.2 X10*3/uL (1.2-4.9); Lymphocytes Percent Auto 14.4 % (20-40); Mean Corpuscular HGB Conc 34.2 g/dl (31.0-35.0); Mean Corpuscular Hemoglobin 29.1 pg (27.0-33.0); Mean Corpuscular Volume 85.3 fL (80.0-98.0); Mean Platelet Volume 9.8 fL (9.4-12.3); Monocytes Absolute Auto 0.9 X10*3/uL (0.1-1.2); Neutrophils Absolute Auto 5.8 x10*3/uL (2.0-8.3); Neutrophils Percent Auto 69.9 % (45-73); Platelet Count 328 X10*3/uL (160-400); Red Blood Count 4.22 X10*6/uL (4.20-5.50); Red Cell Distribution Width 13.8 % (11.0-16.0); White Blood Count 8.3 X10*3/uL (4.8-10.8)
[2024-02-12 20:00] VITALS: BP 133/87; PULSE 76; RESP 20; TEMP 36.5; O2SAT 96
[2024-02-12 20:09] LABS: Alanine Aminotransferase 7 U/L (0-31); Albumin Level 3.6 g/dL (3.5-5.0); Alkaline Phosphatase 65 U/L (39-117); Anion Gap 13 (12-20); Aspartate Amino Transferase 14 U/L (5-31); Bilirubin Total 0.7 mg/dL (0.0-1.0); Blood Urea Nitrogen 18 mg/dL (9-16); Calcium 9.3 mg/dL (8.4-10.2); Carbon Dioxide 27 mmol/L (22-29); Chloride 101 mmol/L (96-108); Creatinine Clr Calc Pharmacy 49.1; Estimated Glomerular Filt Rate > 60; Glucose Random 95 mg/dL (60-115); Lipase 25 U/L (8-78); Potassium 3.7 mmol/L (3.3-5.1); Sodium 137 mmol/L (135-145); Total Protein 6.3 g/dL (6.5-8.0)
--- NOTE | 2024-02-12 20:56 | ED.GENADULT ---
HPI - General Adult General Chief complaint: Fall Stated complaint: fall, no loc, complains of neck, back pain Time Seen by Provider: 02/12/24 17:27 Source: patient and family (daughter) Mode of arrival: EMS Limitations: altered mental status (Patient is a poor historian secondary to dementia) History of Present Illness ED Provider: Verna HPI narrative: 83-year-old female with past medical history significant for hypertension, chronic UTI, hypothyroidism, dementia, hyperlipidemia presents for evaluation after a fall This is the patient's 2nd fall in 2 days. She fell from a standing position at the [facility] dementia unit The patient offers no complaints. She did not hit her head or lose consciousness. Per the patient's daughter who is bedside the patient has seemed weaker over the last few weeks The last time this happened she was diagnosed with a UTI Related Data Home Medications ?Medication ?Instructions ?Recorded ?Confirmed levothyroxine 88 mcg tablet 1 tab PO DAILY@0600 04/22/21 08/16/23 (Synthroid) pravastatin 40 mg tablet 1 tab PO DAILY 04/22/21 08/16/23 trazodone 50 mg tablet 75 mg PO BEDTIME 12/03/21 08/16/23 peg 400-propylene glycol 0.4 %-0.3 1 drp ophthalmic (eye) BID PRN Dry 03/03/23 08/16/23 % eye drops (Systane (propylene Eyes glycol)) sertraline 100 mg tablet 100 mg PO DAILY 03/03/23 08/16/23 alprazolam 0.25 mg tablet 0.25 mg PO BID PRN Anxiety 08/15/23 08/16/23 amlodipine 5 mg tablet 2.5 mg PO DAILY 08/15/23 08/16/23 ketorolac 0.5 % eye drops 1 drp ophthalmic (eye) QID PRN Dry 08/15/23 08/16/23 Eyes risperidone 0.25 mg tablet 0.25 mg PO BID 08/15/23 08/16/23 rivastigmine 9.5 mg/24 hour 1 patch transdermal DAILY 08/15/23 08/16/23 transdermal patch Previous Rx's ?Medication ?Instructions ?Recorded cephalexin 500 mg capsule 500 mg PO BID 7 days #14 caps 08/15/23 rivaroxaban 15 mg (42)-20 mg (9) See Rx Instructions PO .COMPLEX 08/25/23 tablets in a starter pack #51 ea Allergies Allergy/AdvReac Type Severity Reaction Status Date / Time No Known Allergies Allergy Verified 02/12/24 17:33 Review of Systems Constitutional: Constitutional: Denies body ache(s), Denies chills, Denies fever(s), Reports frequent falls and Denies headache(s) Eyes: Eyes: Denies blurry vision ENT: Denies vertigo and Denies headache(s) Cardiovascular: Cardiovascular: Denies chest pain Gastrointestinal: Gastrointestinal: Denies nausea and Denies vomiting Neurologic: Denies vertigo, Reports frequent falls and Denies headache(s) FORMERLY [facility], [facility] Past Medical History Medical History Major neurocognitive disorder Ankle pain, right Dementia Anxiety DVT (deep venous thrombosis) HLD (hyperlipidemia) HTN (hypertension) Social History Social History Household Members: Other Household Members Other:: [facility] in [place] Housing: [facility] Do you presently have visiting nurse or other home services: No Unable to assess alcohol history related to: Unable to respond Alcohol intake: former Patient Tobacco Use Status: Former Tobacco user Advance Directives: Yes Advance Directives on File: Yes Advance Directives Date on File: 04/23/21 Do you have a plan to hurt others: No Plan service: No Current occupational status: retired Physical Exam ED Vital Signs: Vital Signs - 24 hr 02/12/24 17:30 02/12/24 20:00 Temperature 98.1 F 97.7 F Pulse Rate 83 76 Respiratory Rate 18 20 Blood Pressure 110/70 133/87 Pulse Oximetry 98 96 Oxygen Delivery Method Room Air Room Air BMI result Body Mass Index 23.3 Const General: healthy appearing, comfortable, no acute distress, alert and awake Nutritional Appearance: well nourished HENIA Head: Yes normocephalic and Yes atraumatic Eyes Eyelids: Yes eyelids normal Conjunctivae: conjunctivae normal Sclerae: sclerae normal Corneas: corneas normal Pupils: Equal, round and reactive pupils present EOM: EOMs intact bilaterally Neck Neck: Yes full ROM Resp Effort & Inspection: normal respiratory effort, able to speak in complete sentences, no audible wheezes and not labored Auscultation: clear to auscultation bilaterally Cardio Rate: regular rate Rhythm: regular rhythm GI Inspection: No distended Palpation (GI): Soft to palpation, not firm, nontender, no guarding and not rigid Skin General skin exam: elasticity normal Neuro Cranial nerves: Yes Equal, round and reactive pupils present and Yes Bilaterally intact EOM present Extrem Other: Moving all extremities well without any obvious deformities. Moving all extremities spontaneously. Patient had a slight grimace on palpation of the right hip Course Reevaluation(s) Reevaluation #1: no UTI seen will dc home Time: 23:30 Medical Decision Making Medical Decision Making [facility] Narrative: 83-year-old female presents for evaluation from a locked dementia unit. She has had increased weakness over last few weeks. Plan for CT brain, C-spine, x-ray of the right hip, urinalysis and basic labs. Differential Diagnosis Differential Diagnoses: The differential diagnosis associated with the presentation includes Failure to thrive Dementia Fall Cervical fracture Intracranial hemorrhage UTI Admission/Observation Consideration of admission/observation: Escalation of care including admission/observation considered (upon arrival patient considered for admission) Lab Data [facility] Lab Attestation statement: I reviewed the patient's lab results. No leukocytosis or significant anemia. Normal platelet count. No electrolyte abnormalities 02/12/24 19:40 02/12/24 19:40 Labs: Lab Results 02/12/24 02/12/24 Range/Units 19:40 21:24 WBC 8.3 (4.8-10.8) X10*3/uL RBC 4.22 (4.20-5.50) X10*6/uL Hgb 12.3 (12.0-16.0) g/dl Hct 36.0 L (37.0-47.0) % MCV 85.3 (80.0-98.0) fL MCH 29.1 (27.0-33.0) pg MCHC 34.2 (31.0-35.0) g/dl RDW 13.8 (11.0-16.0) % Plt Count 328 (160-400) X10*3/uL MPV 9.8 (9.4-12.3) fL Immature Gran % (Auto) 0.5 H (0.0-0.4) % Neut % (Auto) 69.9 (45-73) % Lymph % (Auto) 14.4 L (20-40) % Roosevelt % (Auto) 11.0 (2-11) % Eos % (Auto) 3.8 (0-4) % Baso % (Auto) 0.4 (0-2) % Lymph # (Auto) 1.2 (1.2-4.9) X10*3/uL Roosevelt # (Auto) 0.9 (0.1-1.2) X10*3/uL Eos # (Auto) 0.3 (0.0-0.4) X10*3/uL Baso # (Auto) 0.0 (0.0-0.2) X10*3/uL Abs Immat Gran (auto) 0.04 H (0.00-0.03) X10*3/uL Absolute Neuts (auto) 5.8 (2.0-8.3) x10*3/uL Absolute Nucleated RBC 0.000 (0.0-0.012) X10*3/uL Nucleated RBC % (auto) 0.0 (0.0-0.2) /100WBC Sodium 137 (135-145) mmol/L Potassium 3.7 (3.3-5.1) mmol/L Chloride 101 (96-108) mmol/L Carbon Dioxide 27 (22-29) mmol/L Anion Gap 13 (12-20) BUN 18 H (9-16) mg/dL Creatinine 0.78 (0.5-1.4) mg/dL Estim Creat Clear Calc 49.1 Estimated GFR > 60 Random Glucose 95 (60-115) mg/dL Calcium 9.3 (8.4-10.2) mg/dL Total Bilirubin 0.7 (0.0-1.0) mg/dL AST 14 (5-31) U/L ALT 7 (0-31) U/L Alkaline Phosphatase 65 (39-117) U/L Total Protein 6.3 L (6.5-8.0) g/dL Albumin 3.6 (3.5-5.0) g/dL Lipase 25 (8-78) U/L Urine Color Yellow Urine Appearance Clear Urine pH 6.0 (5.0-9.0) Ur Specific Strang 1.020 (1.005-1.025) Urine Protein Negative (Neg-Trace) mg/dL Urine Glucose (UA) Negative (Negative) mg/dL Urine Ketones Negative (Negative) mg/dL Urine Blood Negative (Negative) Urine Nitrite Negative (Negative) Ur Leukocyte Esterase Small (1+) H (Negative) Urine RBC 0-2 (0-2) /HPF Urine WBC 6-10 H (0-5) /HPF Ur Squamous Epith Cells 0-2 (0-2) /HPF Urine Bacteria None Seen (None Seen) Hyaline Casts 0-2 (0-2) /LPF Independent Interpretation I performed an independent interpretation of an: EKG (Normal sinus rhythm with a rate of 73 beats minute. No significant change when compared to previous from January 13, 2024) Prescription Management I considered prescription management with: Antibiotic (no UTI seen) Chronic Conditions Patient?s care impacted by: Other (dementia) Discharge Plan Discharge Clinical Impression: Accident due to mechanical fall without injury Patient Disposition: er [facility] Instructions: Fall Prevention for Older Adults (ED) Additional Instructions: Your workup in the ER today was reassuring. This includes your CT scan of your brain and cervical spine, your x-ray of your right hip. Your labs, EKG and your urinalysis Prescriptions: No Action pravastatin 40 mg tablet 1 tab PO DAILY levothyroxine [Synthroid] 88 mcg tablet 1 tab PO DAILY@0600 trazodone 50 mg tablet 75 mg PO BEDTIME alprazolam 0.25 mg Tablet 0.25 mg PO BID PRN (Reason: Anxiety) rivastigmine 9.5 mg/24 hour Patch 24 Hour 1 patch TRANSDERMAL DAILY ketorolac 0.5 % Drops 1 drp OPHTHALMIC (EYE) QID PRN (Reason: Dry Eyes) amlodipine 5 mg tablet 2.5 mg PO DAILY Protocol: Hold for SBP< HOLD for SBP < : 90 risperidone 0.25 mg tablet 0.25 mg PO BID cephalexin 500 mg capsule 500 mg PO BID 7 Days Qty: 14 0RF sertraline 100 mg tablet 100 mg PO DAILY Systane (propylene glycol) 0.4-0.3 % Drops 1 drp OPHTHALMIC (EYE) BID PRN (Reason: Dry Eyes) rivaroxaban 15 mg (42)- 20 mg (9) tablets,dose pack See Rx Instructions .ROUTE .COMPLEX Qty: 51 0RF Rx Instructions: take one-15 mg tablet twice daily for 21 days, then one-20 mg tablet once daily; must take with meal/food Referrals: Andria Nunez MD [Primary Care Provider] - 5 days Print Language: Setswana
[2024-02-12 21:34] LABS: Appearance Urine Clear; Color Urine Yellow; Glucose Urine UA Negative (Negative); Leukocyte Esterase Urine Small (1+) (Negative); Nitrite Urine Negative (Negative); UMIC TRIGGER UACC YES; Urine Blood Negative (Negative); Urine Ketones Negative (Negative); Urine Protein Negative (Neg-Trace)
[2024-02-12 21:55] LABS: Bacteria Urine None Seen (None Seen); Hyaline Casts Urine 0-2 /LPF (0-2); RBC Urine 0-2 /HPF (0-2); Squamous Epithelial Cell Urine 0-2 /HPF (0-2); UACC Culture Trigger YES
--- NOTE | 2024-02-12 23:49 | PC.NURSE ---
Spoke to [facility] and gave handover to Anny. Was noted that nothing was found and patient does not have a new UTI.
[2024-02-13 01:16] VITALS: BP 133/87; PULSE 76; RESP 20; TEMP 36.5; O2SAT 96
== END 2024-02-13 01:17 | disposition skilled nursing facility (03) ==
PROVIDERS: Physician Assistant; Emergency Provider Internal Medicine; PCP Internal Medicine
DX: R29.6 Repeated falls (principal); R53.1 Weakness; Z91.81 History of falling; F03.90 Unspecified dementia, unspecified severity, without behavioral disturbance, psychotic disturbance, mood disturbance, and anxiety; I10 Essential (primary) hypertension; E78.5 Hyperlipidemia, unspecified; Z86.718 Personal history of other venous thrombosis and embolism; Z87.440 Personal history of urinary (tract) infections; Z79.01 Long term (current) use of anticoagulants
CPT/HCPCS: 36415; 51701; 70450; 72125; 73502; 80053; 81001; 83690; 85025; 87086; 93005; 99284; 99285

== ENCOUNTER 2024-02-14 14:40 | Emergency (ER) | payer MEDICARE, SELFPAY ==
[2024-02-14 14:56] VITALS: BP 120/84; BP 130/87; PULSE 74; PULSE 86; RESP 18; TEMP 36.8; O2SAT 98; BMI 19.1
[2024-02-14 15:45] LABS: MANUAL DIFF FLAG NO
[2024-02-14 15:48] LABS: Basophils Absolute Auto 0.1 X10*3/uL (0.0-0.2); Basophils Percent Auto 0.8 % (0-2); Eosinophils Absolute Auto 0.6 X10*3/uL (0.0-0.4); Hematocrit 37.4 % (37.0-47.0); Hemoglobin 12.4 g/dl (12.0-16.0); Imm Gran Abs Auto 0.05 X10*3/uL (0.00-0.03); Imm Gran Pct Auto 0.6 % (0.0-0.4); Lymphocytes Absolute Auto 1.2 X10*3/uL (1.2-4.9); Lymphocytes Percent Auto 14.9 % (20-40); Mean Corpuscular HGB Conc 33.2 g/dl (31.0-35.0); Mean Corpuscular Volume 87.6 fL (80.0-98.0); Mean Platelet Volume 9.8 fL (9.4-12.3); Monocytes Absolute Auto 0.7 X10*3/uL (0.1-1.2); Neutrophils Absolute Auto 5.3 x10*3/uL (2.0-8.3); Neutrophils Percent Auto 67.7 % (45-73); Platelet Count 350 X10*3/uL (160-400); Red Blood Count 4.27 X10*6/uL (4.20-5.50); White Blood Count 7.9 X10*3/uL (4.8-10.8)
[2024-02-14 16:11] LABS: Alanine Aminotransferase 9 U/L (0-31); Albumin Level 3.7 g/dL (3.5-5.0); Alkaline Phosphatase 58 U/L (39-117); Anion Gap 14 (12-20); Aspartate Amino Transferase 14 U/L (5-31); Bilirubin Total 0.6 mg/dL (0.0-1.0); Blood Urea Nitrogen 22 mg/dL (9-16); Calcium 9.1 mg/dL (8.4-10.2); Carbon Dioxide 26 mmol/L (22-29); Chloride 105 mmol/L (96-108); Creatinine Clr Calc Pharmacy 43.9; Estimated Glomerular Filt Rate > 60; Glucose Random 96 mg/dL (60-115); Potassium 3.9 mmol/L (3.3-5.1); Sodium 141 mmol/L (135-145); Total Protein 6.5 g/dL (6.5-8.0)
[2024-02-14 16:36] LABS: Influenza A PCR NEGATIVE (Negative); Influenza B PCR NEGATIVE (Negative); Resp Syncy Virus RNA Qual PCR NEGATIVE (Negative); SARS COV2 PCR INHOUSE NEGATIVE (Negative)
--- NOTE | 2024-02-14 18:21 | ED.FALL ---
HPI - Fall General Chief Complaint: Fall Stated Complaint: lethargy, multiple falls Time Seen by Provider: 02/14/24 17:14 Source: family Limitations: other (Advanced dementia) History of Present Illness ED Provider: Milena Griffith PA-C HPI Narrative: 83-year-old female presents from dementia unit with lethargy. Per EMS, the patient has been increasingly lethargic with poor oral intake over the past few days, and she has had multiple falls at the facility. She was recently assessed 2 days ago, had imaging of her cervical spine hip pelvis and head, all imaging was negative. Unclear if she sustained yet another fall today. No known fevers, nausea, vomiting, diarrhea. Related Data Home Medications ?Medication ?Instructions ?Recorded ?Confirmed levothyroxine 88 mcg tablet 1 tab PO DAILY@0600 04/22/21 08/16/23 (Synthroid) pravastatin 40 mg tablet 1 tab PO DAILY 04/22/21 08/16/23 trazodone 50 mg tablet 75 mg PO BEDTIME 12/03/21 08/16/23 peg 400-propylene glycol 0.4 %-0.3 1 drp ophthalmic (eye) BID PRN Dry 03/03/23 08/16/23 % eye drops (Systane (propylene Eyes glycol)) sertraline 100 mg tablet 100 mg PO DAILY 03/03/23 08/16/23 alprazolam 0.25 mg tablet 0.25 mg PO BID PRN Anxiety 08/15/23 08/16/23 amlodipine 5 mg tablet 2.5 mg PO DAILY 08/15/23 08/16/23 ketorolac 0.5 % eye drops 1 drp ophthalmic (eye) QID PRN Dry 08/15/23 08/16/23 Eyes risperidone 0.25 mg tablet 0.25 mg PO BID 08/15/23 08/16/23 rivastigmine 9.5 mg/24 hour 1 patch transdermal DAILY 08/15/23 08/16/23 transdermal patch Previous Rx's ?Medication ?Instructions ?Recorded cephalexin 500 mg capsule 500 mg PO BID 7 days #14 caps 08/15/23 rivaroxaban 15 mg (42)-20 mg (9) See Rx Instructions PO .COMPLEX 08/25/23 tablets in a starter pack #51 ea Allergies Allergy/AdvReac Type Severity Reaction Status Date / Time No Known Allergies Allergy Verified 02/14/24 14:58 Review of Systems Review of Systems: Unable to obtain as the patient has advanced dementia Yes all other systems are reviewed and are negative [facility] Past Medical History Attestation statement: The following information was validated with the patient. Medical History Major neurocognitive disorder Ankle pain, right Dementia Anxiety DVT (deep venous thrombosis) HLD (hyperlipidemia) HTN (hypertension) Social History Social History Household Members: Other Household Members Other:: [facility] in [place] Housing: [facility] Do you presently have visiting nurse or other home services: No Unable to assess alcohol history related to: Unable to respond Alcohol intake: former Patient Tobacco Use Status: Former Tobacco user Advance Directives: Yes Advance Directives on File: Yes Advance Directives Date on File: 04/23/21 Do you have a plan to hurt others: No Plan service: No Current occupational status: retired Physical Exam Vital Signs: Vital Signs: Last Vital Signs Temp 98.3 F 02/14/24 18:58 Pulse 74 02/14/24 18:58 Resp 18 02/14/24 18:58 BP 130/87 02/14/24 18:58 Pulse Ox 98 02/14/24 18:58 O2 Del Method Room Air 02/14/24 18:58 BMI result Body Mass Index 19.1 Const: Other: Awake, no sign of head trauma on exam Orientation/consciousness: oriented to person Resp: Effort & Inspection: normal respiratory effort Cardio: Other: Normal peripheral perfusion Skin: Other: Warm dry no rash Neuro: General: oriented to person Psych: Other: Pleasant cooperative Medical Decision Making Medical Decision Making MDM Narrative: 83-year-old female presents from dementia unit with lethargy. Per EMS, the patient has been increasingly lethargic with poor oral intake over the past few days, and she has had multiple falls at the facility. She was recently assessed 2 days ago, had imaging of her cervical spine hip pelvis and head, all imaging was negative. Unclear if she sustained yet another fall today. No known fevers, nausea, vomiting, diarrhea. Problem: Advanced dementia History: Per EMS I have considered the following differential diagnoses: Failure to thrive, dehydration, anemia, viral syndrome, UTI, intracranial hemorrhage, cervical spine injury, pelvic fracture or dislocation Plan: At times, the patient seems to be painful within her hip/pelvic region, we will repeat imaging. Unclear if she sustained yet another fall, we will obtain imaging of her head and neck. We will be screening basic labs and a UA. The family is now saying that she was vaccinated recently against COVID and influenza, this could be residual side effects. I have independently reviewed the following tests: Labs: No leukocytosis, not anemic, no electrolyte abnormality, urine not infected, viral panel neg Pelvic x-ray:4. Unremarkable right hip and AP pelvis exam. CT brain and cervical spine,CT brain and CT cervical spine without contrast. Right hip x-ray. CLINICAL INDICATION: Fall. COMPARISON: CT brain 02/10/2024. TECHNIQUE: 5 mm thin axial and reformatted to millimeters thin sagittal and coronal images of brain were obtained. Subsequently axial 3 mm and reformatted 2 mm thin sagittal and coronal images of cervical spine were obtained. DLP 901. This CT examination was performed using dose optimization technique as appropriate, variously including the following: Automated exposure control Adjustment of MA and/or KV according to patient size(this includes techniques or standardized protocols for targeted exams where dose is matched to indication/reason for exam; extremities or head. Use of iterative reconstruction techniques. Right hip and femur 3 views. FINDINGS: Right hip and AP pelvis: There is normal symmetry of bilateral hip joints and SI joints without any visible fracture or bony abnormality. There is focal calcification in the right pelvis. Moderate stool and gas seen in colon. AP and frog-leg views right hip reveals no fracture, dislocation or bony erosive changes. The soft tissues are normal. Brain: There is a small area of hypodensity in left centrum semiovale frontal lobe slightly more pronounced than the last exam suggestive of lacunar infarct when compared to 02/10/2024 and 01/05/2024. There is no acute intra-axial, extracerebral bleed, masses, collection midline shift. There is bibasilar ganglia calcifications. The lateral ventricles are somewhat symmetrical but enlarged. The cortical sulci are also enlarged. Bone windows reveal no calvarial abnormality. No scalp soft tissue abnormality. Cervical spine: There is maintained cervical lordosis. There is loss of C5-6 disc height with mild posterior spondylosis.. Excites are normal. The craniovertebral junction and the C1-C2 alignment is normal. No visible acute fracture, dislocation or subluxation seen. The prevertebral and paravertebral soft tissues are normal. Visualized bilateral TM joints, mandible laryngeal cartilages endotracheal airway are normal. The lung apices are clear. XR/XR hip RT w PEL1V IMPRESSION: 1. No acute intracranial process seen. 2. There is a small area of hypodensity in left centrum semiovale frontal lobe slightly more pronounced than the last exam suggestive of lacunar infarct. 3. There is no acute fracture, dislocation or subluxation in cervical spine. There is loss of C5-6 disc height with mild posterior spondylosis. 4. Unremarkable right hip and AP pelvis exam. Electronically signed by: Mayito Redmond MD 02/12/2024 08:36 PM EDT RP Lab Data 02/14/24 15:35 02/14/24 15:35 Labs: Lab Results 02/14/24 Range/Units 15:35 WBC 7.9 (4.8-10.8) X10*3/uL RBC 4.27 (4.20-5.50) X10*6/uL Hgb 12.4 (12.0-16.0) g/dl Hct 37.4 (37.0-47.0) % MCV 87.6 (80.0-98.0) fL MCH 29.0 (27.0-33.0) pg MCHC 33.2 (31.0-35.0) g/dl RDW 14.0 (11.0-16.0) % Plt Count 350 (160-400) X10*3/uL MPV 9.8 (9.4-12.3) fL Immature Gran % (Auto) 0.6 H (0.0-0.4) % Neut % (Auto) 67.7 (45-73) % Lymph % (Auto) 14.9 L (20-40) % Mcculloch % (Auto) 9.0 (2-11) % Eos % (Auto) 7.0 H (0-4) % Baso % (Auto) 0.8 (0-2) % Lymph # (Auto) 1.2 (1.2-4.9) X10*3/uL Mcculloch # (Auto) 0.7 (0.1-1.2) X10*3/uL Eos # (Auto) 0.6 H (0.0-0.4) X10*3/uL Baso # (Auto) 0.1 (0.0-0.2) X10*3/uL Abs Immat Gran (auto) 0.05 H (0.00-0.03) X10*3/uL Absolute Neuts (auto) 5.3 (2.0-8.3) x10*3/uL Absolute Nucleated RBC 0.000 (0.0-0.012) X10*3/uL Nucleated RBC % (auto) 0.0 (0.0-0.2) /100WBC Sodium 141 (135-145) mmol/L Potassium 3.9 (3.3-5.1) mmol/L Chloride 105 (96-108) mmol/L Carbon Dioxide 26 (22-29) mmol/L Anion Gap 14 (12-20) BUN 22 H (9-16) mg/dL Creatinine 0.75 (0.5-1.4) mg/dL Estim Creat Clear Calc 43.9 Estimated GFR > 60 Random Glucose 96 (60-115) mg/dL Calcium 9.1 (8.4-10.2) mg/dL Total Bilirubin 0.6 (0.0-1.0) mg/dL AST 14 (5-31) U/L ALT 9 (0-31) U/L Alkaline Phosphatase 58 (39-117) U/L Total Protein 6.5 (6.5-8.0) g/dL Albumin 3.7 (3.5-5.0) g/dL Influenza Type A (PCR) NEGATIVE (Negative) Influenza Type B (PCR) NEGATIVE (Negative) RSV RNA Qual (PCR) NEGATIVE (Negative) SARS-CoV-2 RNA (RT-PCR) NEGATIVE (Negative) Discharge Plan Discharge Clinical Impression: Weakness Patient Disposition: Home, Self-Care Instructions: Weakness (ED) Additional Instructions: All of the screening labs that we obtained were normal. The patient was also screened for COVID, influenza and RSV, the viral panel was negative. The patient could be having residual vaccine reaction from the vaccine she received on Thursday. She should Follow up with her primary care provider as needed. Prescriptions: No Action pravastatin 40 mg tablet 1 tab PO DAILY levothyroxine [Synthroid] 88 mcg tablet 1 tab PO DAILY@0600 trazodone 50 mg tablet 75 mg PO BEDTIME alprazolam 0.25 mg Tablet 0.25 mg PO BID PRN (Reason: Anxiety) rivastigmine 9.5 mg/24 hour Patch 24 Hour 1 patch TRANSDERMAL DAILY ketorolac 0.5 % Drops 1 drp OPHTHALMIC (EYE) QID PRN (Reason: Dry Eyes) amlodipine 5 mg tablet 2.5 mg PO DAILY Protocol: Hold for SBP< HOLD for SBP < : 90 risperidone 0.25 mg tablet 0.25 mg PO BID cephalexin 500 mg capsule 500 mg PO BID 7 Days Qty: 14 0RF sertraline 100 mg tablet 100 mg PO DAILY Systane (propylene glycol) 0.4-0.3 % Drops 1 drp OPHTHALMIC (EYE) BID PRN (Reason: Dry Eyes) rivaroxaban 15 mg (42)- 20 mg (9) tablets,dose pack See Rx Instructions .ROUTE .COMPLEX Qty: 51 0RF Rx Instructions: take one-15 mg tablet twice daily for 21 days, then one-20 mg tablet once daily; must take with meal/food Interventions: ED Discharge Assessment Last Done: 02/14/24 18:58 Discharge Date/Time: 02/14/24 18:58 Print Language: Estonian
[2024-02-14 18:58] VITALS: BP 130/87; PULSE 74; RESP 18; TEMP 36.8; O2SAT 98
== END 2024-02-14 18:58 | disposition home or self-care (01) ==
PROVIDERS: Emergency Provider Emergency Medicine Emergency Medical Services; PCP Internal Medicine
DX: R53.1 Weakness (principal); Z91.81 History of falling; Z79.899 Other long term (current) drug therapy; Z03.818 Encounter for observation for suspected exposure to other biological agents ruled out
CPT/HCPCS: 0241U; 36415; 80053; 85025; 99284

== ENCOUNTER 2024-02-27 16:43 | Emergency (ER) | payer MEDICARE, SELFPAY ==
[2024-02-27 16:52] VITALS: BP 132/82; BP 147/97; PULSE 81; PULSE 84; RESP 16; TEMP 36.3; O2SAT 96; O2SAT 99; BMI 26.6
--- NOTE | 2024-02-27 16:54 | MHC.EDTECH ---
pt biba from [facility], vs taken and given to primary RN. pt not changed over into hospital gown due to the presence of a cervical collar. RN aware.
--- NOTE | 2024-02-27 17:18 | ED_ITS ---
HPI - General Adult General Chief complaint: Fall Stated complaint: FALL, PT HAS DEMENTIA UNABLE TO COMMUNICATE Time Seen by Provider: 02/27/24 16:58 History of Present Illness ED Provider: Sydnie URIBE narrative: The patient is an 83-year-old female with a history of dementia who lives at [facility]. Apparently she had a fall. According to the information I have she apparently thought that she was sitting on a chair but there was in fact no chair. She squatted and then fell onto her bottom. There was no definite head injury. There was no loss of consciousness. The patient is not on anticoagulants. There was no obvious signs of injury. An ambulance was called and the patient was brought to the hospital for evaluation. The patient has significant dementia and is unable to communicate in any meaningful way. The patient has had frequent falls several times this year because of falls. Apparently the family has hired additional staff at the facility to help reduce the risk of falls. Related Data Home Medications ?Medication ?Instructions ?Recorded ?Confirmed levothyroxine 88 mcg tablet 1 tab PO DAILY@0600 04/22/21 08/16/23 (Synthroid) pravastatin 40 mg tablet 1 tab PO DAILY 04/22/21 08/16/23 trazodone 50 mg tablet 75 mg PO BEDTIME 12/03/21 08/16/23 peg 400-propylene glycol 0.4 %-0.3 1 drp ophthalmic (eye) BID PRN Dry 03/03/23 08/16/23 % eye drops (Systane (propylene Eyes glycol)) sertraline 100 mg tablet 100 mg PO DAILY 03/03/23 08/16/23 alprazolam 0.25 mg tablet 0.25 mg PO BID PRN Anxiety 08/15/23 08/16/23 amlodipine 5 mg tablet 2.5 mg PO DAILY 08/15/23 08/16/23 ketorolac 0.5 % eye drops 1 drp ophthalmic (eye) QID PRN Dry 08/15/23 08/16/23 Eyes risperidone 0.25 mg tablet 0.25 mg PO BID 08/15/23 08/16/23 rivastigmine 9.5 mg/24 hour 1 patch transdermal DAILY 08/15/23 08/16/23 transdermal patch Previous Rx's ?Medication ?Instructions ?Recorded cephalexin 500 mg capsule 500 mg PO BID 7 days #14 caps 08/15/23 rivaroxaban 15 mg (42)-20 mg (9) See Rx Instructions PO .COMPLEX 08/25/23 tablets in a starter pack #51 ea Allergies Allergy/AdvReac Type Severity Reaction Status Date / Time No Known Allergies Allergy Verified 02/27/24 16:56 Review of Systems Review of Systems: Yes Unobtainable due to mental status PMFSH Past Medical History Medical History Major neurocognitive disorder Ankle pain, right Dementia Anxiety DVT (deep venous thrombosis) HLD (hyperlipidemia) HTN (hypertension) Social History Social History Household Members: Other Household Members Other:: [facility] [facility] [place] Housing: [facility] Do you presently have visiting nurse or other home services: No Unable to assess alcohol history related to: Unable to respond Alcohol intake: former Patient Tobacco Use Status: Former Tobacco user Advance Directives: Yes Advance Directives on File: Yes Advance Directives Date on File: 04/23/21 Do you have a plan to hurt others: No Plan service: No Current occupational status: retired Physical Exam ED Vital Signs: Vital Signs - 24 hr 02/27/24 16:52 Temperature 97.4 F Pulse Rate 81 Respiratory Rate 16 Blood Pressure 147/97 H Pulse Oximetry 99 Oxygen Delivery Method Room Air BMI result Body Mass Index 26.6 Const Other: The patient is a frail 83-year-old. She was in a cervical collar. She seemed tearful. She was obviously severely demented. She did not seem to understand questions and her speech was not significantly comprehensible. She did not seem injured or in pain or discomfort. HENMT Other: No sign of trauma to the scalp or the face. No raccoon eyes. No dukes sign. Eyes Other: The patient was somewhat tearful. Pupils are round equal, conjunctivae clear, extraocular movements intact. Neck Other: No apparent posterior midline C-spine tenderness. When she moved her neck she did not seem to have evident discomfort. Her dementia makes her evaluation more complicated but I did not have any significant suspicion for a cervical spine fracture based on her cervical spine exam. Chest Other: No chest wall tenderness. Resp Effort & Inspection: normal respiratory effort Auscultation: clear to auscultation bilaterally Cardio Rate: regular rate Rhythm: regular rhythm Heart sounds: S1 normal heart sound present and S2 normal heart sound present GI Other: Abdomen is soft and nontender Back/Spine/Pelvis Other: No apparent midline vertebral tenderness in the thoracic or lumbar spine. Skin Other: No bruising. Skin is intact. Neuro Other: The patient is awake but seems severely demented. She does not answer questions in any meaningful way. She seems to have echolalia. Her face is symmetrical. Eye movements are intact. She seems to have symmetrical tone in her extremities. She was able to walk with the assistance. Extrem Other: No sign of injury to the extremities. No joint swelling or deformities. Extremities. She was able to walk with the assistance and did not seem to have significant discomfort when she walked. Medical Decision Making Medical Decision Making [facility] Narrative: The patient is an 83-year-old woman with severe dementia who lives at an assisted living facility. She seems to have frequent falls. A review of her records at this emergency room shows that she has had 9 head CTs and 9 cervical spine CTs in the last 9 months. Apparently her family has hired an additional aide to help with position changes and reduce falls. I do not find any obvious evidence of significant injury. She has coagulation. I do not see an indication for imaging or other testing today. I spoke to the patient has family members and the facility. One of the family members came to be at the bedside. The family is comfortable with the patient returning to her facility. Discharge Plan Discharge Clinical Impression: Fall, Dementia, Frequent falls Patient Disposition: er [facility] Additional Instructions: I do not find any obvious signs of injury today. We have done no testing because there is no obvious sign of injury to test for. Please continue current efforts to reduce the risk of falls. Please have her follow up with the regular provider. Prescriptions: No Action pravastatin 40 mg tablet 1 tab PO DAILY levothyroxine [Synthroid] 88 mcg tablet 1 tab PO DAILY@0600 trazodone 50 mg tablet 75 mg PO BEDTIME alprazolam 0.25 mg Tablet 0.25 mg PO BID PRN (Reason: Anxiety) rivastigmine 9.5 mg/24 hour Patch 24 Hour 1 patch TRANSDERMAL DAILY ketorolac 0.5 % Drops 1 drp OPHTHALMIC (EYE) QID PRN (Reason: Dry Eyes) amlodipine 5 mg tablet 2.5 mg PO DAILY Protocol: Hold for SBP< HOLD for SBP < : 90 risperidone 0.25 mg tablet 0.25 mg PO BID cephalexin 500 mg capsule 500 mg PO BID 7 Days Qty: 14 0RF sertraline 100 mg tablet 100 mg PO DAILY Systane (propylene glycol) 0.4-0.3 % Drops 1 drp OPHTHALMIC (EYE) BID PRN (Reason: Dry Eyes) rivaroxaban 15 mg (42)- 20 mg (9) tablets,dose pack See Rx Instructions .ROUTE .COMPLEX Qty: 51 0RF Rx Instructions: take one-15 mg tablet twice daily for 21 days, then one-20 mg tablet once daily; must take with meal/food Referrals: Olesya Carroll PA [Physician Success Coach] - (frequent falls) Print Language: Upper Sorbian
[2024-02-27 17:55] VITALS: BP 169/91; PULSE 78; RESP 17; TEMP 36.4; O2SAT 97
== END 2024-02-27 18:19 | disposition skilled nursing facility (03) ==
PROVIDERS: Emergency Provider Emergency Medicine
DX: F03.90 Unspecified dementia, unspecified severity, without behavioral disturbance, psychotic disturbance, mood disturbance, and anxiety (principal); R29.6 Repeated falls; Z91.81 History of falling
CPT/HCPCS: 99283; 99284

== ENCOUNTER 2024-03-05 18:06 | Emergency (ER) | payer MEDICARE, SELFPAY ==
--- NOTE | ~2024-03-05 | XR_ITS ---
EXAMINATION: XR CHEST CLINICAL INFORMATION: Fall, rule out fracture COMPARISON: None available. TECHNIQUE: Frontal view of the chest was obtained. FINDINGS: No significant abnormality is noted involving the heart, lungs, mediastinum, bony thorax or soft tissues. XR/XR chest 1V IMPRESSION: Unremarkable examination. Electronically signed by: Yamel Castañeda MD 03/05/2024 08:46 PM EDT RP
--- NOTE | ~2024-03-05 | CT_ITS ---
EXAMINATION: CT HEAD WITHOUT CONTRAST CT CERVICAL SPINE WITHOUT CONTRAST CLINICAL INFORMATION: Fall, altered mental status, on blood thinners COMPARISON: CT head and c spine on 02/12/2024 TECHNIQUE: Contiguous axial imaging was performed from the skull base to vertex without intravenous administration of contrast. In addition, helical noncontrast CT imaging was acquired through the cervical spine and source images were reviewed along with axial reconstructions and sagittal and coronal MPRs. DLP: 875 mGy-cm FINDINGS: HEAD: No intracranial mass, hemorrhage, or midline shift is visualized. The ventricles and sulci are age-appropriate. No extra-axial collections are identified. The paranasal sinuses are well aerated. CERVICAL SPINE: There is no evidence of acute cervical spine fracture. Vertebral bodies remain normal in height, and alignment is anatomic. No pre- or paravertebral soft tissue abnormality is identified. The intervertebral disc space at C5-C6. Limited assessment of the lung apices is unremarkable. CT/CT head/brain wo IV con IMPRESSION: 1. No acute intracranial pathology. 2. No CT evidence of acute cervical spine fracture or traumatic subluxation Electronically signed by: Yamel Castañeda MD 03/05/2024 07:59 PM EDT
--- NOTE | ~2024-03-05 | XR_ITS ---
EXAMINATION: XR BILATERAL HIPS WITH AP PELVIS CLINICAL INFORMATION: Fall, rule out fracture COMPARISON: Hip x-ray on 02/12/2024 TECHNIQUE: AP view of the pelvis and single views of each hip were obtained. FINDINGS: No fracture. Mild hip joint space narrowing and subchondral sclerosis. Alignment is anatomic. Sacroiliac joints and pubic symphysis are normal. No abnormal soft tissue calcifications. XR/XR hip BI w [id number] IMPRESSION: Mild degenerative disease of the hips. Electronically signed by: Yamel Castañeda MD 03/05/2024 08:47 PM EDT
--- NOTE | ~2024-03-05 | CT_ITS ---
EXAMINATION: CT HEAD WITHOUT CONTRAST CT CERVICAL SPINE WITHOUT CONTRAST CLINICAL INFORMATION: Fall, altered mental status, on blood thinners COMPARISON: CT head and c spine on 02/12/2024 TECHNIQUE: Contiguous axial imaging was performed from the skull base to vertex without intravenous administration of contrast. In addition, helical noncontrast CT imaging was acquired through the cervical spine and source images were reviewed along with axial reconstructions and sagittal and coronal MPRs. DLP: 875 mGy-cm FINDINGS: HEAD: No intracranial mass, hemorrhage, or midline shift is visualized. The ventricles and sulci are age-appropriate. No extra-axial collections are identified. The paranasal sinuses are well aerated. CERVICAL SPINE: There is no evidence of acute cervical spine fracture. Vertebral bodies remain normal in height, and alignment is anatomic. No pre- or paravertebral soft tissue abnormality is identified. The intervertebral disc space at C5-C6. Limited assessment of the lung apices is unremarkable. CT/CT cervical spine wo IV con IMPRESSION: 1. No acute intracranial pathology. 2. No CT evidence of acute cervical spine fracture or traumatic subluxation Electronically signed by: Yamel Castañeda MD 03/05/2024 07:59 PM EDT
[2024-03-05 18:13] VITALS: BP 122/70; BP 130/88; PULSE 89; PULSE 90; RESP 14; TEMP 36.6; O2SAT 95; O2SAT 96; BMI 21.5
[2024-03-05 18:20] VITALS: BP 122/70; PULSE 89; RESP 14; TEMP 36.6; O2SAT 96
--- NOTE | 2024-03-05 18:21 | PC.NURSE ---
Spoke with [facility] staff member Eveline on the refections unit. Babs sts the last time she saw the patient well was Thursday, when she as last on shift. She sts that she was told that the patient had a fall yesterday evening, but could not speak to LKW or time of fall. Babs sts that pt dtr will be coming to dept. Per Babs, family pays a private aide for her care at the [facility], she was unable to provide caregivern infor. MD Maloney updated.
--- NOTE | 2024-03-05 18:22 | ECG_ITS ---
Test Reason : AMS Blood Pressure : / mmHG Vent. Rate : 079 BPM Atrial Rate : 079 BPM P-R Int : 170 ms QRS Dur : 094 ms QT Int : 392 ms P-R-T Axes : 056 -05 053 degrees QTc Int : 449 ms Normal sinus rhythm Normal ECG When compared with ECG of 12-FEB-2024 18:33, Criteria for Septal infarct are no longer Present Referred By: Damaris Maloney Electronically Signed By:USAMA PERRY
--- NOTE | 2024-03-05 18:36 | ED_ITS ---
HPI - Fall General Chief Complaint: Fall Stated Complaint: FALL T-1, TODAY LEANING TO RIGHT, NOT HERSELF Time Seen by Provider: 03/05/24 18:08 Source: EMS Mode of arrival: EMS Limitations: other History of Present Illness ED Provider: Dr. Damaris Maloney HPI Narrative: Patient comes to the emergency room via ambulance from the [facility] dementia unit. According to EMS, the patient is coming into emergency room for altered mental status. The staff reports that yesterday the patient had a fall, unwitnessed, unknown time, they believe it was in the evening but they are not sure, they did not know if patient is on blood thinners. EMS reports that the staff said that they did not know well the patient, the staff from the morning shift reported to the evening shift that the patient has not been herself all day, seems to be leaning towards the right, less interactive than usual. EMS was sent to the emergency room with the patient without any documentation out patient's medications or medical conditions. Patient has dementia, she is awake but altered, not answering any questions. Unclear what her baseline is. Patient's nurse called the residential facility/dementia unit, they said that they do not know what the patient's baseline is. The staff reported to our nurse here that the patient has privately paid home office representative and she would know more about the patient's baseline and medications. However, the staff from the facility do not know how to get in touch with her either. Seems that the patient's daughter is on the way to the hospital, then we can get more information Related Data Home Medications ?Medication ?Instructions ?Recorded ?Confirmed levothyroxine 88 mcg tablet 1 tab PO DAILY@0600 04/22/21 08/16/23 (Synthroid) pravastatin 40 mg tablet 1 tab PO DAILY 04/22/21 08/16/23 trazodone 50 mg tablet 75 mg PO BEDTIME 12/03/21 08/16/23 peg 400-propylene glycol 0.4 %-0.3 1 drp ophthalmic (eye) BID PRN Dry 03/03/23 08/16/23 % eye drops (Systane (propylene Eyes glycol)) sertraline 100 mg tablet 100 mg PO DAILY 03/03/23 08/16/23 alprazolam 0.25 mg tablet 0.25 mg PO BID PRN Anxiety 08/15/23 08/16/23 amlodipine 5 mg tablet 2.5 mg PO DAILY 08/15/23 08/16/23 ketorolac 0.5 % eye drops 1 drp ophthalmic (eye) QID PRN Dry 08/15/23 08/16/23 Eyes risperidone 0.25 mg tablet 0.25 mg PO BID 08/15/23 08/16/23 rivastigmine 9.5 mg/24 hour 1 patch transdermal DAILY 08/15/23 08/16/23 transdermal patch Previous Rx's ?Medication ?Instructions ?Recorded cephalexin 500 mg capsule 500 mg PO BID 7 days #14 caps 08/15/23 rivaroxaban 15 mg (42)-20 mg (9) See Rx Instructions PO .COMPLEX 08/25/23 tablets in a starter pack #51 ea Allergies Allergy/AdvReac Type Severity Reaction Status Date / Time No Known Allergies Allergy Verified 03/05/24 18:18 Review of Systems 2 Review of Systems: Yes Unobtainable due to mental status and Other PMFSH Past Medical History Medical History Major neurocognitive disorder Ankle pain, right Dementia Anxiety DVT (deep venous thrombosis) HLD (hyperlipidemia) HTN (hypertension) Social History Social History Household Members: Other Household Members Other:: [place] in [place] Housing: [facility] Do you presently have visiting nurse or other home services: No Unable to assess alcohol history related to: Unable to respond and Unknown Alcohol intake: former Patient Tobacco Use Status: Former Tobacco user Smoked in Last 30 Days: No Use of substances other than those prescribed or required for medical reasons: Unable to respond Advance Directives: Yes Advance Directives on File: Yes Advance Directives Date on File: 04/23/21 Do you have a plan to hurt others: No Plan service: No Current occupational status: retired Physical Exam 2 Vital Signs: Vital Signs: Last Vital Signs Temp 97.8 F 03/05/24 18:20 Pulse 89 03/05/24 18:20 Resp 14 03/05/24 18:20 BP 122/70 03/05/24 18:20 Pulse Ox 96 03/05/24 18:20 O2 Del Method Room Air 03/05/24 18:20 BMI result Body Mass Index 21.5 Const: Other: Appearance: Alert. No acute distress, leaning towards the right Eyes: Pupils equal, round and reactive to light. ENT: Pharynx normal. Neck: Normal inspection. Neck supple. No lymph nodes noted. No crepitus CVS: Normal heart rate and rhythm. Pulses normal. Normal S1 and S2 Respiratory: No respiratory distress. Breath sounds normal. No Wheezing. No rales Abdomen: Soft and nontender. No rigidity. No distention. Skin: Skin warm and dry. Normal skin color. Normal skin turgor. Extremities: Patient hurting herself, leaning towards the right Neuro: Unable to participating cranial nerve assessment Psych: calm Course Course Course Narrative: Patient's daughter is at bedside. Seems that the aid who takes care of the patient is not available, patient's daughter called the private agency who takes care of the patient. They know about the same, patient fell yesterday, unclear at what time or where or how. Per patient's daughter, at baseline patient is alert, does talk, not making much sense due to dementia, at times she does make sense. However, overall patient does not lean towards her right at baseline. The patient's daughter states that patient is definitely not at her baseline. Medical Decision Making Medical Decision Making [facility] Narrative: My interpretation of labs: Patient's white blood cell count 11.0, likely reactive leukocytosis. Chemistry within normal limits, troponin negative, BNP negative, urinalysis shows trace leukocyte esterase which is chronic for the patient, trace blood to to catheterization. Urinalysis is negative. Urine toxicology negative -hip x-rays negative for fracture, chest x-ray negative for infiltrates or rib fractures head CT and cervical spine CT negative for any acute intracranial pathology or acute cervical spine fracture or traumatic subluxation -according to the patient's daughter who is at bedside, the patient has private care for 12 hours a day. However, they are not sure who takes care of the patient the other 12 hours. Seems that the other 12 hours the staff at [facility] was taking care of the patient. However, based on the phone call that our nurse had with the staff at [facility], did not know anything about the patient.. Patient's family requesting a case management consult, patient may need additional care or at least they would like to find out who takes care of the patient when their private nurse/TELEVISION MECHANIC isn't there. We tried getting information from the nursing facility but they do not know anything other than another agency takes care of the patient. Case management consult pending -physician observation started at 00:30 Sign-out given to my colleague Dr. Melo Differential Diagnosis Differential Diagnoses: The differential diagnosis associated with the presentation includes (Intracranial bleed, contusion, concussion, UTI, dementia) Admission/Observation Consideration of admission/observation: Escalation of care including admission/observation considered (Patient is under physician observation waiting for the care team) Lab Data MDM Lab Attestation statement: I reviewed the patient's lab results. 03/05/24 18:42 03/05/24 18:42 Labs: Lab Results 03/05/24 03/05/24 03/05/24 Range/Units 18:42 18:44 21:04 WBC 11.0 H (4.8-10.8) X10*3/uL RBC 4.13 L (4.20-5.50) X10*6/uL Hgb 12.1 (12.0-16.0) g/dl Hct 36.5 L (37.0-47.0) % MCV 88.4 (80.0-98.0) fL MCH 29.3 (27.0-33.0) pg MCHC 33.2 (31.0-35.0) g/dl RDW 14.1 (11.0-16.0) % Plt Count 366 (160-400) X10*3/uL MPV 9.9 (9.4-12.3) fL Immature Gran % (Auto) 0.7 H (0.0-0.4) % Neut % (Auto) 77.7 H (45-73) % Lymph % (Auto) 11.1 L (20-40) % Mcdonough % (Auto) 6.6 (2-11) % Eos % (Auto) 3.6 (0-4) % Baso % (Auto) 0.3 (0-2) % Lymph # (Auto) 1.2 (1.2-4.9) X10*3/uL Mcdonough # (Auto) 0.7 (0.1-1.2) X10*3/uL Eos # (Auto) 0.4 (0.0-0.4) X10*3/uL Baso # (Auto) 0.0 (0.0-0.2) X10*3/uL Abs Immat Gran (auto) 0.08 H (0.00-0.03) X10*3/uL Absolute Neuts (auto) 8.6 H (2.0-8.3) x10*3/uL Absolute Nucleated RBC 0.000 (0.0-0.012) X10*3/uL Nucleated RBC % (auto) 0.0 (0.0-0.2) /100WBC PT 12.1 (10.9-12.4) SEC INR 1.0 (0.9-1.1) Sodium 140 (135-145) mmol/L Potassium 4.1 (3.3-5.1) mmol/L Chloride 106 (96-108) mmol/L Carbon Dioxide 25 (22-29) mmol/L Anion Gap 13 (12-20) BUN 21 H (9-16) mg/dL Creatinine 0.72 (0.5-1.4) mg/dL Estim Creat Clear Calc 53.2 Estimated GFR > 60 Random Glucose 129 H (60-115) mg/dL Calcium 8.6 (8.4-10.2) mg/dL Magnesium 2.1 (1.6-2.6) mg/dL Total Bilirubin 0.4 (0.0-1.0) mg/dL Direct Bilirubin 0.1 (0.0-0.5) mg/dL AST 15 (5-31) U/L ALT 10 (0-31) U/L Alkaline Phosphatase 72 (39-117) U/L Troponin I High Sens < 2.7 (<3.5-17.0) ng/L B-Natriuretic Peptide 74 (<100) pg/mL Total Protein 6.4 L (6.5-8.0) g/dL Albumin 3.7 (3.5-5.0) g/dL Lipase 32 (8-78) U/L TSH 0.61 (0.32-4.0) uIU/mL Urine Color Yellow Urine Appearance Clear Urine pH 6.5 (5.0-9.0) Ur Specific [place] 1.020 (1.005-1.025) Urine Protein Negative (Neg-Trace) mg/dL Urine Glucose (UA) Negative (Negative) mg/dL Urine Ketones Negative (Negative) mg/dL Urine Blood Trace H (Negative) Urine Nitrite Negative (Negative) Ur Leukocyte Esterase Trace H (Negative) Urine RBC 3-5 H (0-2) /HPF Urine WBC 6-10 (0-5) /HPF Ur Squamous Epith Cells 0-2 (0-2) /HPF Urine Bacteria None Seen (None Seen) Hyaline Casts 0-2 (0-2) /LPF Urine Opiates Screen Not Detected (Not Detect) Ur Buprenorphine Scrn Not Detected (Not Detect) ng/mL Ur Oxycodone Screen Not Detected (Not Detect) ng/mL Urine Methadone Screen Not Detected (Not Detect) ng/mL Urine Fentanyl Screen Not Detected (Not Detect) Ur Barbiturates Screen Not Detected (Not Detect) Ur Phencyclidine Scrn Not Detected (Not Detect) Ur Amphetamines Screen Not Detected (Not Detect) U Benzodiazepines Scrn Not Detected (Not Detect) Urine Cocaine Screen Not Detected (Not Detect) U Marijuana (THC) Screen Not Detected (Not Detect) COVID-19 (LONG) Negative (Negative) COVID-19 Clin Com See Note Independent Interpretation I performed an independent interpretation of an: Plain X-Ray and CT Scan Radiology Impression Discussion of test interpretation with radiology: I have reviewed the radiologist's reading. Radiologist Impression: 1. No acute intracranial pathology. 2. No CT evidence of acute cervical spine fracture or traumatic subluxation No significant abnormality is noted involving the heart, lungs, mediastinum, bony thorax or soft tissues. No fracture. Mild hip joint space narrowing and subchondral sclerosis. Alignment is anatomic. Sacroiliac joints and pubic symphysis are normal. No abnormal soft tissue calcifications. Independent Historian Clinical information obtained from an independent historian. History obtained from or confirmed by: Other (Patient's daughter) Critical Care Time Critical Care Time Critical Care Time: Yes Total Critical Care Time: 60 Attestation: I have personally provided critical care time. Time includes review of lab data, radiology results, discussion with consultants, and monitoring for potential decompensation. Intervention performed as documented. Discharge Plan Discharge Clinical Impression: Fall, Physical deconditioning Patient Disposition: Still a Patient Prescriptions: No Action pravastatin 40 mg tablet 1 tab PO DAILY levothyroxine [Synthroid] 88 mcg tablet 1 tab PO DAILY@0600 trazodone 50 mg tablet 75 mg PO BEDTIME alprazolam 0.25 mg Tablet 0.25 mg PO BID PRN (Reason: Anxiety) rivastigmine 9.5 mg/24 hour Patch 24 Hour 1 patch TRANSDERMAL DAILY ketorolac 0.5 % Drops 1 drp OPHTHALMIC (EYE) QID PRN (Reason: Dry Eyes) amlodipine 5 mg tablet 2.5 mg PO DAILY Protocol: Hold for SBP< HOLD for SBP < : 90 risperidone 0.25 mg tablet 0.25 mg PO BID cephalexin 500 mg capsule 500 mg PO BID 7 Days Qty: 14 0RF sertraline 100 mg tablet 100 mg PO DAILY Systane (propylene glycol) 0.4-0.3 % Drops 1 drp OPHTHALMIC (EYE) BID PRN (Reason: Dry Eyes) rivaroxaban 15 mg (42)- 20 mg (9) tablets,dose pack See Rx Instructions .ROUTE .COMPLEX Qty: 51 0RF Rx Instructions: take one-15 mg tablet twice daily for 21 days, then one-20 mg tablet once daily; must take with meal/food Print Language: Syriac
[2024-03-05 18:47] LABS: MANUAL DIFF FLAG NO
[2024-03-05 18:50] LABS: Basophils Percent Auto 0.3 % (0-2); Eosinophils Absolute Auto 0.4 X10*3/uL (0.0-0.4); Eosinophils Percent Auto 3.6 % (0-4); Hematocrit 36.5 % (37.0-47.0); Hemoglobin 12.1 g/dl (12.0-16.0); Imm Gran Abs Auto 0.08 X10*3/uL (0.00-0.03); Imm Gran Pct Auto 0.7 % (0.0-0.4); Lymphocytes Absolute Auto 1.2 X10*3/uL (1.2-4.9); Lymphocytes Percent Auto 11.1 % (20-40); Mean Corpuscular HGB Conc 33.2 g/dl (31.0-35.0); Mean Corpuscular Hemoglobin 29.3 pg (27.0-33.0); Mean Corpuscular Volume 88.4 fL (80.0-98.0); Mean Platelet Volume 9.9 fL (9.4-12.3); Monocytes Absolute Auto 0.7 X10*3/uL (0.1-1.2); Monocytes Percent Auto 6.6 % (2-11); Neutrophils Absolute Auto 8.6 x10*3/uL (2.0-8.3); Neutrophils Percent Auto 77.7 % (45-73); Platelet Count 366 X10*3/uL (160-400); Red Blood Count 4.13 X10*6/uL (4.20-5.50); Red Cell Distribution Width 14.1 % (11.0-16.0)
[2024-03-05 18:57] LABS: Prothrombin Time 12.1 SEC (10.9-12.4)
[2024-03-05 19:06] LABS: Alanine Aminotransferase 10 U/L (0-31); Albumin Level 3.7 g/dL (3.5-5.0); Alkaline Phosphatase 72 U/L (39-117); Anion Gap 13 (12-20); Aspartate Amino Transferase 15 U/L (5-31); Bilirubin Direct 0.1 mg/dL (0.0-0.5); Bilirubin Total 0.4 mg/dL (0.0-1.0); Blood Urea Nitrogen 21 mg/dL (9-16); Calcium 8.6 mg/dL (8.4-10.2); Carbon Dioxide 25 mmol/L (22-29); Chloride 106 mmol/L (96-108); Creatinine Clr Calc Pharmacy 53.2; Estimated Glomerular Filt Rate > 60; Glucose Random 129 mg/dL (60-115); Lipase 32 U/L (8-78); Magnesium 2.1 mg/dL (1.6-2.6); Potassium 4.1 mmol/L (3.3-5.1); Sodium 140 mmol/L (135-145); Total Protein 6.4 g/dL (6.5-8.0)
[2024-03-05 19:07] LABS: COVID-19 Test Negative (Negative); IDNOW Serial# 08D9AD1C
[2024-03-05 19:11] LABS: B Type Natriuretic Peptide 74 pg/mL (<100)
--- NOTE | 2024-03-05 19:15 | PC.NURSE ---
Assumed care of pt. Pt lying on stretcher, no acute distress at this time. Family at bedside.
[2024-03-05 19:28] LABS: TSH reflex Free T4 0.61 uIU/mL (0.32-4.0)
[2024-03-05 19:29] LABS: Troponin-I High Sensitivity < 2.7 ng/L (<3.5-17.0)
[2024-03-05 21:10] LABS: Appearance Urine Clear; Color Urine Yellow; Glucose Urine UA Negative (Negative); Leukocyte Esterase Urine Trace (Negative); Nitrite Urine Negative (Negative); PH 6.5 (5.0-9.0); UMIC TRIGGER UACC YES; Urine Blood Trace (Negative); Urine Ketones Negative (Negative); Urine Protein Negative (Neg-Trace)
[2024-03-05 21:17] LABS: Bacteria Urine None Seen (None Seen); Hyaline Casts Urine 0-2 /LPF (0-2); Squamous Epithelial Cell Urine 0-2 /HPF (0-2); UACC Culture Trigger YES
[2024-03-05 21:20] LABS: Amphetamine Screen Urine Not Detected (Not Detect); Barbiturates, Urine Not Detected (Not Detect); Benzodiazepines Screen Urine Not Detected (Not Detect); Buprenorphine Scr Not Detected (Not Detect); Cannabinoid Screen Urine Not Detected (Not Detect); Cocaine Screen Urine Not Detected (Not Detect); Fentanyl, urine Not Detected (Not Detect); Methadone Screen, Urine Not Detected (Not Detect); Opiate Screen Urine Not Detected (Not Detect); Oxycodone Screen Urine Not Detected (Not Detect); Phencyclidine Screen Urine Not Detected (Not Detect)
[2024-03-06 01:52] VITALS: BP 139/71; PULSE 64; RESP 16
[2024-03-06 04:00] VITALS: BP 155/79; PULSE 64; RESP 15
[2024-03-06 06:00] VITALS: BP 142/78; PULSE 65; RESP 16; TEMP 36.6; O2SAT 95
--- NOTE | 2024-03-06 07:31 | PC.NURSE ---
Pt incontinent of urine, washed up, new bed linens placed. Call hill within reach, all needs met at this time.
[2024-03-06 11:51] VITALS: BP 153/84; PULSE 92; RESP 16; TEMP 36.8; O2SAT 95
--- NOTE | 2024-03-06 12:11 | PC.NURSE ---
Pt comes to overflow unit today awaiting PT/CM plan of care. Family at beside most of morning and assists with feeding. CM at bedside to discuss plan with Pts family. Per CORINNE Snider, Pt will be returning to [facility] later today. Family feels this is the best place for her and wishes for her to return. Med rec completed with family who confirms current medications and doses. Pt resting comfortably in hospital bed with family at bedside. Awaiting ambulance ETA for transport back to [facility].
[2024-03-06 13:18] VITALS: BP 153/84; PULSE 92; RESP 16; TEMP 36.8; O2SAT 95
--- NOTE | 2024-03-06 15:34 | MHC.CM.PN ---
EMR REVIEWED, CM RECEIVED CM CONSULT BY ED PROVIDER, CM MET W/SON/HCP LARS AND DTR AT BEDSIDE, LARS VERIFIES PT LIVES AT [facility] AND FAMILY HAD PT BROUGHT TO ED AFTER THEY FOUND OUT SHE HAD FALLED AND [facility] COULD NOT GIVE THEM ANY REAL INFO ON WHAT HAPPENED, LARS REPORTS THEY WILL FOLLOW UP W/ADMIN BUT SINCE THEY FOUND PT HAS NO INJURIES OR NEED FOR ADMISSION HE WOULD LIKE PT TO RETURN TO THE [facility] TODAY, LARS REPORTS PT IS NOT STEADY ON HER FEET HOWEVER D/T HER WORSENING DEMENTIA SHE HAS NOT BEEN ABLE TO PARTICIPATE W/PT, PT DOES HAVE 1:1 HOME HEALTH AID'S FROM [facility] FROM 9AM-9PM AND REPORTS ONCE IN BED PT DOES NOT TRY TO GET OUT, AT THIS POINT LARS REPORTS PT IS NEEDING 2 PEOPLE [facility] TRANSFERS AND THEY WILL LIKELY BE ADDING MORE 1:1 COVERAGE AT NIGHT. PT DISCHARGED BACK TO THE [facility] FOR BLS TRANSPORT AT 1PM
== END 2024-03-06 13:20 | disposition other institution (70) ==
PROVIDERS: Emergency Provider Emergency Medicine; PCP Internal Medicine
DX: R53.81 Other malaise (principal); R41.82 Altered mental status, unspecified; Z91.81 History of falling; Z87.891 Personal history of nicotine dependence; Z11.52 Encounter for screening for COVID-19; I10 Essential (primary) hypertension; E78.5 Hyperlipidemia, unspecified; Z86.718 Personal history of other venous thrombosis and embolism; Z79.02 Long term (current) use of antithrombotics/antiplatelets; Z79.899 Other long term (current) drug therapy; Z79.01 Long term (current) use of anticoagulants
CPT/HCPCS: 36415; 51701; 70450; 71045; 72125; 73521; 80048; 80076; 80307; 81001; 83690; 83735; 83880; 84443; 84484; 85025; 85610; 87086; 87635; 93005; 99285

== ENCOUNTER → 2024-03-05 18:22 | Outpatient (BNV) | payer MEDICARE, SELFPAY | PROVIDERS: Emergency Provider Emergency Medicine; PCP Internal Medicine; Visit Provider Internal Medicine | DX: I10 Essential (primary) hypertension (principal); R41.82 Altered mental status, unspecified | CPT/HCPCS: 93010 ==

== ENCOUNTER 2024-04-11 17:50 | Emergency (ER) | payer MEDICARE, SELFPAY ==
--- NOTE | 2024-04-11 | ECG_ITS ---
Test Reason : AFIB Blood Pressure : / mmHG Vent. Rate : 087 BPM Atrial Rate : 087 BPM P-R Int : 130 ms QRS Dur : 098 ms QT Int : 372 ms P-R-T Axes : -04 -26 090 degrees QTc Int : 447 ms Normal sinus rhythm Minimal voltage criteria for LVH, may be normal variant ( [place] product ) Possible Anterior infarct , age undetermined Abnormal ECG When compared with ECG of 05-MAR-2024 19:03, No significant change was found Referred By: Generic ED Physician Electronically Signed By:USAMA PERRY
--- NOTE | ~2024-04-11 | XR_ITS ---
EXAMINATION: XR CHEST CLINICAL INFORMATION: food aspiration COMPARISON: Chest radiograph 03/05/2024 TECHNIQUE: 2 views of the chest were obtained. FINDINGS: No significant abnormality is noted involving the heart, lungs, mediastinum, bony thorax or soft tissues. Degenerative changes are present in the spine. The aorta is unfolded. The left diaphragm is minimally elevated with gaseous distention of the stomach. XR/XR chest 2V IMPRESSION: Unremarkable examination. Electronically signed by: Shon Holland MD 04/11/2024 09:05 PM ELIAN PATINO
[2024-04-11 17:59] VITALS: BP 173/105; PULSE 109; PULSE 95; RESP 18; TEMP 36.6; O2SAT 95; BMI 22.3
[2024-04-11 18:04] VITALS: BP 175/110
--- NOTE | 2024-04-11 18:05 | PC.NURSE ---
Arrived via ems from the [facility] after choking on chicken during dinner. CPR performed by facility staff, upon ems arrival patient turned on her side and chikcen was removed. 2nd piece of chicken removed in ambulance with suction. Upon arrival patient lethargic not responding to verbal stimuli. Patient arrived with signed DNR/DNI
--- NOTE | 2024-04-11 19:51 | MHC.EDTECH ---
Patient inc therefore patient changed and repositioned
--- NOTE | 2024-04-11 21:03 | MHC.EDTECH ---
Patient inc therefore changed
--- NOTE | 2024-04-11 22:01 | ED_ITS ---
HPI - General Adult General Chief complaint: General Medical Stated complaint: from snf, choked on piece of chicken Time Seen by Provider: 04/11/24 19:08 Source: family and EMS History of Present Illness ED Provider: Hector HPI narrative: 83-year-old female with past medical history of dementia coming from [facility] due to concerns for foreign body aspiration. Per EMS patient was eating chicken when she began choking. Staff performed CPR for short period and patient was suctioned ultimately resulting in removal of the food patient was eating. Patient is on hospice care and is DNR DNI. I spoke with staff who confirmed these events. Patient's family is at bedside and confirmed hospice status. Patient is unable provide history due to her underlying dementia Related Data Home Medications ?Medication ?Instructions ?Recorded ?Confirmed trazodone 50 mg tablet 75 mg PO BEDTIME 12/03/21 03/06/24 risperidone 0.25 mg tablet 0.25 mg PO BID 08/15/23 03/06/24 cephalexin 125 mg/5 mL oral 125 mg PO DAILY 03/06/24 03/06/24 suspension cyanocobalamin (vitamin B-12) 500 500 mcg PO 3XW 03/06/24 03/06/24 mcg tablet (Vitamin B-12) duloxetine 30 mg capsule,delayed 30 mg PO DAILY 03/06/24 03/06/24 release levothyroxine 100 mcg tablet 100 mcg PO DAILY 03/06/24 03/06/24 pravastatin 80 mg tablet 80 mg PO BEDTIME 03/06/24 03/06/24 Allergies Allergy/AdvReac Type Severity Reaction Status Date / Time No Known Allergies Allergy Verified 04/11/24 18:02 Review of Systems Review of Systems: Yes Unobtainable due to mental condition [facility] Past Medical History Attestation statement: The following information was validated with the patient. [facility] Narrative: Dementia Source: old records reviewed Medical History Major neurocognitive disorder Ankle pain, right Dementia Anxiety DVT (deep venous thrombosis) HLD (hyperlipidemia) HTN (hypertension) Social History Social History Household Members: Other Household Members Other:: [facility] [place] Housing: Condominium Do you presently have visiting nurse or other home services: No Unable to assess alcohol history related to: Unable to respond and Unknown Alcohol intake: former Patient Tobacco Use Status: Former Tobacco user Smoked in Last 30 Days: No Use of substances other than those prescribed or required for medical reasons: No Advance Directives: Yes Advance Directives on File: Yes Advance Directives Date on File: 04/23/21 service: No Current occupational status: retired Physical Exam ED Vital Signs: Vital Signs - 24 hr 04/11/24 17:59 04/11/24 18:04 Temperature 97.8 F Pulse Rate 109 H Respiratory Rate 18 Blood Pressure 175/110 H Pulse Oximetry 95 Oxygen Delivery Method Room Air BMI result Body Mass Index 22.3 cachectic appearing female in no acute distress. Lungs clear to auscultation bilaterally. Normal S1-S2 regular rate and rhythm. Abdomen is soft and nondistended. Oropharynx clear. Medical Decision Making Medical Decision Making MDM Narrative: This is an 83-year-old female presenting for food aspiration. Patient is on hospice and is DNR DNI. She is not in any acute respiratory distress. Chest x- ray was obtained and I do not appreciate any signs of pneumonitis/pneumonia or rib fractures and the Radiology impression is negative for acute findings. patient's family at bedside who would like for her to be so after facility. I gave them instructions to reconsider her current diet as she is at risk for aspiration. Differential Diagnosis Differential Diagnoses: The differential diagnosis associated with the presentation includes food aspiration, pneumonia, rib fractures, pneumonitis Discharge Plan Discharge Clinical Impression: Choking Qualifiers: Encounter type: initial encounter Qualified Code(s): T17.308A - Unspecified foreign body in larynx causing other injury, initial encounter Patient Disposition: Xfer LT Transfer Details: [facility] Additional Instructions: please return to the emergency department if patient develops any new or worsening symptoms Prescriptions: No Action trazodone 50 mg tablet 75 mg PO BEDTIME risperidone 0.25 mg tablet 0.25 mg PO BID cephalexin 125 mg/5 mL suspension for reconstitution 125 mg PO DAILY levothyroxine 100 mcg tablet 100 mcg PO DAILY pravastatin 80 mg tablet 80 mg PO BEDTIME cyanocobalamin (vitamin B-12) [Vitamin B-12] 500 mcg tablet 500 mcg PO 3XW duloxetine 30 mg capsule,delayed release(DR/EC) 30 mg PO DAILY Print Language: Mosotho
[2024-04-11 22:11] VITALS: BP 118/73; PULSE 72; RESP 16; TEMP 36.3; O2SAT 95
[2024-04-12 01:01] VITALS: BP 158/109; PULSE 100; RESP 16; TEMP 36.7; O2SAT 96
--- NOTE | 2024-04-12 01:05 | MHC.EDTECH ---
This pct assumed care of Patient at 0100 ,vitals taken ,Patient is being transported back to [facility] in [place] .
[2024-04-12 01:07] VITALS: BP 158/109; PULSE 100; RESP 16; TEMP 36.7; O2SAT 96
== END 2024-04-12 01:07 ==
PROVIDERS: Emergency Provider Student in an Organized Health Care Education/Training Program
DX: T17.228A Food in pharynx causing other injury, initial encounter (principal); W44.F3XA Food entering into or through a natural orifice, initial encounter; Y93.9 Activity, unspecified; Y92.9 Unspecified place or not applicable; Y99.9 Unspecified external cause status; R09.A2 Foreign body sensation, throat
CPT/HCPCS: 71046; 93005; 99284

== ENCOUNTER → 2024-04-11 18:29 | Outpatient (BNV) | payer MEDICARE, SELFPAY | PROVIDERS: Emergency Provider Student in an Organized Health Care Education/Training Program; Visit Provider Internal Medicine | DX: I48.91 Unspecified atrial fibrillation (principal); R94.31 Abnormal electrocardiogram [ECG] [EKG] | CPT/HCPCS: 93010 ==